=== PATIENT | female | born 1950 | race African-American/Black ===

== ENCOUNTER → 2016-06-01 | Outpatient (CLI) | payer MEDICARE, OTHER ==
--- NOTE | 2016-06-01 17:02 | US ---
EXAMINATION TYPE: US transvaginal DATE OF EXAM: 06/01/2016 4:43 PM COMPARISON: NONE CLINICAL HISTORY: Pelvic Pain R10.2. pt states intermittent midline and left lower pelvic pain TECHNIQUE: Transvaginal (TV) Date of LMP: postmenopausal pt EXAM MEASUREMENTS: Uterus: 6.9 x 3.2 x 4.0 cm Endometrial Stripe: 0.6 cm Right Ovary: not seen Left Ovary: not seen Findings: 1. Uterus: retroflexed attenuating, heterogeneous, scattered fibroids 2. Endometrium: small amount of fluid and possibly debris within the endom canal 3. Right Ovary: not seen 4. Left Ovary: not seen 5. Bilateral Adnexa: wnl 6. Posterior cul-de-sac: no free fluid seen IMPRESSION: 1. Leiomyomatous change of the uterus. 2. A small amount of fluid and debris within the endometrium.
== END | disposition home or self-care (01) ==
LOC: RADUSWWP 16:11
PROVIDERS: ATTEND Family Medicine
DX: D25.9 Leiomyoma of uterus, unspecified (principal)
CPT/HCPCS: 76830

== ENCOUNTER → 2016-08-09 | Outpatient (CLI) | payer MEDICARE, OTHER ==
[2016-08-09 16:23] LABS: Aty Lym Flag Slight; Basophils % (A) 0 %; CH 29.8; CHCM 31.9; Eosinophils # (A) 0.1 k/uL (0-0.7); Eosinophils % (A) 1 %; HDW 2.12; HGB 13.4 gm/dL (11.4-16.0); Luc # (Auto) 0.43; Luc % (Auto) 6; Lymphocytes # (A) 2.6 k/uL (1.0-4.8); Lymphocytes % (A) 35 %; MCH 29.8 pg (25.0-35.0); MCHC 31.8 g/dL (31.0-37.0); MCV 93.6 fL (80.0-100.0); Mean Platelet Volume 9.1; Monocytes # (A) 0.4 k/uL (0-1.0); Monocytes % (A) 5 %; Neutrophils % (A) 54 %; RBC 4.48 m/uL (3.80-5.40); RDW 12.9 % (11.5-15.5); WBC 7.5 k/uL (3.8-10.6)
[2016-08-09 16:28] LABS: Anion Gap 10 mmol/L; Blood Urea Nitrogen 20 mg/dL (7-17); Calcium 10.6 mg/dL (8.4-10.2); Carbon Dioxide 33 mmol/L (22-30); Chloride 98 mmol/L (98-107); Glucose 122 mg/dL (74-99); Iron 43 ug/dL (37-170); Magnesium 1.6 mg/dL (1.6-2.3); Non-African American GFR(MDRD) >60 (>60 ml/min/1.73 sqM); Phosphorous 2.9 mg/dL (2.5-4.5); Potassium 3.9 mmol/L (3.5-5.1); Sodium 141 mmol/L (137-145); Uric Acid 5.7 mg/dL (3.7-7.4)
[2016-08-09 16:30] LABS: Amorphous Sediment,Urine Rare /hpf; Appearance,Urine Clear (Clear); Bilirubin,Urine Negative (Negative); Glucose,Urine (UA) Negative (Negative); Ketones,Urine Negative (Negative); Leukocyte Esterase,Urine Small (Negative); Mucus,Urine Rare /hpf; Nitrite,Urine Negative (Negative); PH, Urine 5.5 (5.0-8.0); Particle Count 2085; Protein,Urine Negative (Negative); RBC,Urine <1 /hpf (0-5); Specific Gravity,Urine 1.007 (1.001-1.035); Squamous Epithelial Cell,Urine 3 /hpf (0-4); UA Billing (MACRO vs. MICRO) MICRO; Urobilinogen,Urine <2.0 mg/dL (<2.0); WBC,Urine 8 /hpf (0-5)
[2016-08-09 16:37] LABS: % Iron Saturation 13.4 % (20-50); Total Iron Binding Capacity 322 ug/dL (265-497)
[2016-08-09 17:03] LABS: Manual Review Performed
[2016-08-09 17:04] LABS: Target Cells Present
== END | disposition home or self-care (01) ==
LOC: LABWHC1 15:47
PROVIDERS: ATTEND Internal Medicine Nephrology
DX: D64.9 Anemia, unspecified (principal); I10 Essential (primary) hypertension; M10.9 Gout, unspecified; N39.0 Urinary tract infection, site not specified; E55.9 Vitamin D deficiency, unspecified; E83.39 Other disorders of phosphorus metabolism
CPT/HCPCS: 36415; 80048; 81001; 82306; 82728; 83540; 83550; 83735; 83970; 84100; 84550; 85025

== ENCOUNTER → 2016-08-24 | Outpatient (CLI) | payer MEDICARE, OTHER ==
[2016-08-24 14:21] LABS: Anion Gap 8 mmol/L; Blood Urea Nitrogen 24 mg/dL (7-17); Calcium 10.3 mg/dL (8.4-10.2); Carbon Dioxide 29 mmol/L (22-30); Chloride 106 mmol/L (98-107); Glucose 131 mg/dL (74-99); Non-African American GFR(MDRD) >60 (>60 ml/min/1.73 sqM); Potassium 4.1 mmol/L (3.5-5.1); Sodium 143 mmol/L (137-145)
== END | disposition home or self-care (01) ==
LOC: LABWHC1 13:53
PROVIDERS: ATTEND Nurse Practitioner Family
DX: I10 Essential (primary) hypertension (principal)
CPT/HCPCS: 36415; 80048

== ENCOUNTER → 2016-09-07 | Outpatient (CLI) | payer MEDICARE, OTHER ==
[2016-09-07 13:54] LABS: Anion Gap 9 mmol/L; Blood Urea Nitrogen 19 mg/dL (7-17); Calcium 10.4 mg/dL (8.4-10.2); Carbon Dioxide 30 mmol/L (22-30); Chloride 104 mmol/L (98-107); Glucose 121 mg/dL (74-99); Non-African American GFR(MDRD) >60 (>60 ml/min/1.73 sqM); Potassium 4.1 mmol/L (3.5-5.1); Sodium 143 mmol/L (137-145)
== END | disposition home or self-care (01) ==
LOC: LABWHC1 13:16
PROVIDERS: ATTEND Nurse Practitioner Family
DX: I10 Essential (primary) hypertension (principal)
CPT/HCPCS: 36415; 80048

== ENCOUNTER → 2016-10-19 | Outpatient (CLI) | payer MEDICARE, OTHER ==
[2016-10-19 10:21] LABS: Anion Gap 8 mmol/L; Blood Urea Nitrogen 17 mg/dL (7-17); Calcium 10.1 mg/dL (8.4-10.2); Carbon Dioxide 28 mmol/L (22-30); Chloride 106 mmol/L (98-107); Glucose 80 mg/dL (74-99); Non-African American GFR(MDRD) >60 (>60 ml/min/1.73 sqM); Sodium 142 mmol/L (137-145)
[2016-10-19 10:34] LABS: Potassium 4.7 mmol/L (3.5-5.1)
== END | disposition home or self-care (01) ==
LOC: LABWHC1 09:07
PROVIDERS: ATTEND Nurse Practitioner Family
DX: I10 Essential (primary) hypertension (principal)
CPT/HCPCS: 36415; 80048

== ENCOUNTER 2016-11-24 17:16 | Observation (INO) | payer MEDICARE, OTHER ==
[2016-11-24] MEDS ORDERED: IPRATROPIUM-ALBUTEROL 3 ML NEB INHALATION STA (18:17)
--- NOTE | 2016-11-24 18:19 | ED ---
General Adult HPI - General Chief complaint: Chest Pain Stated complaint: CHEST PAIN Time Seen by Provider: 11/24/16 17:52 Source: patient, RN notes reviewed, old records reviewed Mode of arrival: wheelchair Limitations: no limitations - History of Present Illness Initial comments: This is a 66-year-old female to the ER for evaluation. Patient's as needed for evaluation of chest pain. Patient by mouth chest pain after taking up from a nap while watching TV. This happened about 4 hours prior to arrival. Patient took Nitrostat time of the pain did resolve. The pain was leading up prior to nitro. Patient states his symptoms are more more increasingly frequent as of lately. Patient denies shortness of breath but denies doing any activity. No recent cough congestion or fever. But states she is always mildly short of breath secondary to her COPD - Related Data Home Medications Medication Instructions Recorded Confirmed Levothyroxine Sodium [Synthroid] 50 mcg PO DAILY 03/11/14 11/24/16 Albuterol Sulfate [Ventolin HFA] 2 puff INHALATION RT-QID PRN 03/12/14 11/24/16 Alendronate Sodium 1 tab PO FR 06/25/15 11/24/16 Nitroglycerin Sl Tabs [Nitrostat] 0.4 mg SL Q5M PRN 06/25/15 11/24/16 Fluticasone/Vilanterol [Breo 1 puff INHALATION RT-DAILY 11/24/16 11/24/16 Ellipta 200-25 Mcg INH] HYDROcodone/APAP 7.5-325MG [[place] 1 tab PO Q6H PRN 11/24/16 11/24/16 7.5-325] Lisinopril [Zestril] 10 mg PO DAILY 11/24/16 11/24/16 Nicotine 7Mg/24Hr Patch [Habitrol 1 patch TRANSDERM DAILY 11/24/16 11/24/16 7Mg/24Hr Patch] PARoxetine HCL [Paxil] 30 mg PO DAILY 11/24/16 11/24/16 amLODIPine [Norvasc] 10 mg PO DAILY 11/24/16 11/24/16 traMADol HCL [Ultram] 50 mg PO BID PRN 11/24/16 11/24/16 Allergies Allergy/AdvReac Type Severity Reaction Status Date / Time No Known Allergies Allergy Verified 11/24/16 18:12 Review of Systems ROS Statement: Those systems with pertinent positive or pertinent negative responses have been documented in the HPI. ROS Other: All systems not noted in ROS Statement are negative. Past Medical History Past Medical History: COPD, Hyperlipidemia, Hypertension, Respiratory Disorder, Thyroid Disorder Additional Past Medical History / Comment(s): sickle cell traits History of Any Multi-Drug Resistant Organisms: None Reported Past Surgical History: Tubal Ligation Additional Past Surgical History / Comment(s): bilateral cataracts Past Anesthesia/Blood Transfusion Reactions: No Reported Reaction Past Psychological History: No Psychological Hx Reported Smoking Status: Former smoker Past Alcohol Use History: Occasional Past Drug Use History: None Reported General Exam Limitations: no limitations General appearance: alert, in no apparent distress Head exam: Present: atraumatic, normocephalic, normal inspection Eye exam: Present: normal appearance, PERRL, EOMI. Absent: scleral icterus, conjunctival injection, periorbital swelling ENT exam: Present: normal exam, mucous membranes moist Neck exam: Present: normal inspection. Absent: tenderness, meningismus, lymphadenopathy Respiratory exam: Present: normal lung sounds bilaterally. Absent: respiratory distress, wheezes, rales, rhonchi, stridor Cardiovascular Exam: Present: regular rate, normal rhythm, normal heart sounds. Absent: systolic murmur, diastolic murmur, rubs, gallop, clicks GI/Abdominal exam: Present: soft, normal bowel sounds. Absent: distended, tenderness, guarding, rebound, rigid Extremities exam: Present: normal inspection, full ROM, normal capillary refill. Absent: tenderness, pedal edema, joint swelling, calf tenderness Back exam: Present: normal inspection Neurological exam: Present: alert, oriented X3, CN II-XII intact Psychiatric exam: Present: normal affect, normal mood Skin exam: Present: warm, dry, intact, normal color. Absent: rash Course Vital Signs 11/24/16 11/24/16 11/24/16 17:43 18:35 18:49 Temperature 98.5 F Pulse Rate 73 73 90 Respiratory 18 Rate Blood Pressure 118/71 O2 Sat by Pulse 91 L Oximetry - Reevaluation(s) Reevaluation #1: 11/24/16 19:16 Patient's pain is still coming and going EKG Findings - EKG Comments: EKG Findings:: EKG shows normal sinus rate of 91, KS 126, QRS 120, QTC 479 Medical Decision Making - Medical Decision Making 66 female to ER for evaluation. Patient is presenting today for evaluation regarding chest pain, history of chest pain chest pain is improved with nitro. Patient has history of heart disease high blood pressure smoking and drug abuse. A-shaped will be admitted for cardiac observation - Radiology Data Radiology results: report reviewed (Chest x-ray is negative for acute disease), image reviewed Critical Care Time Critical Care Time: Yes Total Critical Care Time: 31 Disposition Clinical Impression: Chest pain, Acute exacerbation of chronic obstructive airways disease Disposition: ADMITTED IP TO THIS HOSP Condition: Undetermined Instructions: Chest Pain (ED) Referrals: Abdiel Ochoa DO [Primary Care Provider] - 1-2 days
[2016-11-24] MEDS ORDERED: HEPARIN SODIUM,PORCINE 5,000 UNIT/ML 1 ML VIAL IV ONE (19:14)
[2016-11-24] MEDS ORDERED: NITROGLYCERIN SL TABS 0.4 MG TAB SUBLINGUAL PRN (19:14)
[2016-11-24] MEDS ORDERED: HEPARIN SODIUM,PORCINE 5,000 UNIT/ML 1 ML VIAL IV PRN (19:14)
[2016-11-24] MEDS ORDERED: ASPIRIN 81 MG PO STA (19:14)
[2016-11-24] MEDS ORDERED: HEPARIN SODIUM,PORCINE/D5W PMX 25,000 UNIT in DEXTROSE/WATER 1 500ML.BAG IV SCH (19:15)
[2016-11-24 20:22] LABS: Aty Lym Flag Slight; Basophils # (A) 0.1 k/uL (0-0.2); Basophils % (A) 1 %; CH 30.1; CHCM 32.7; Eosinophils # (A) 0.1 k/uL (0-0.7); Eosinophils % (A) 1 %; HCT 45.1 % (34.0-46.0); HDW 2.13; HGB 14.4 gm/dL (11.4-16.0); Luc # (Auto) 0.47; Luc % (Auto) 5; Lymphocytes # (A) 3.1 k/uL (1.0-4.8); Lymphocytes % (A) 31 %; MCH 29.4 pg (25.0-35.0); MCHC 31.8 g/dL (31.0-37.0); MCV 92.3 fL (80.0-100.0); Monocytes # (A) 0.4 k/uL (0-1.0); Monocytes % (A) 5 %; Neutrophils # (A) 5.8 k/uL (1.3-7.7); Neutrophils % (A) 58 %; RBC 4.89 m/uL (3.80-5.40); RDW 14.2 % (11.5-15.5); WBC 9.9 k/uL (3.8-10.6); WBC (Perox) 9.42
[2016-11-24 20:39] LABS: ALT 82 U/L (9-52); AST 59 U/L (14-36); Alkaline Phosphatase 66 U/L (38-126); Anion Gap 10 mmol/L; Blood Urea Nitrogen 24 mg/dL (7-17); Calcium 10.8 mg/dL (8.4-10.2); Carbon Dioxide 28 mmol/L (22-30); Chloride 104 mmol/L (98-107); Glucose 102 mg/dL (74-99); Magnesium 1.8 mg/dL (1.6-2.3); Non-African American GFR(MDRD) >60 (>60 ml/min/1.73 sqM); Potassium 4.2 mmol/L (3.5-5.1); Sodium 142 mmol/L (137-145); Total Bilirubin 0.8 mg/dL (0.2-1.3); Total Protein 7.9 g/dL (6.3-8.2)
[2016-11-24 20:45] LABS: Creatine Kinase 27 U/L (30-135)
[2016-11-24 20:58] LABS: Creatine Kinase MB <0.2 ng/mL (0.0-2.4); Troponin I <0.012 ng/mL (0.000-0.034)
--- NOTE | 2016-11-24 20:59 | XR ---
EXAMINATION TYPE: XR chest 2V DATE OF EXAM: 11/24/2016 COMPARISON: 06/25/2015 HISTORY: Shortness of breath TECHNIQUE: Frontal and lateral views of the chest are obtained. FINDINGS: Scattered senescent parenchymal changes noted. Hyperinflation compatible with COPD. No evidence for infiltrate. No evidence for atelectasis. 1.1 cm pulmonary nodule right mid lung zone. CT correlation is advised which can be performed on a no nemergent basis. Heart size is stable. Mediastinal structures are stable and grossly unremarkable. Rowe thoracic aorta. No evidence for hilar prominence. Degenerative changes dorsal spine. IMPRESSION: 1. No evidence for acute pulmonary disease. 2. 1.1 cm pulmonary nodule right mid lung zone. CT correlation is advised which can be performed on a nonemergent basis.
[2016-11-24 21:18] LABS: Prothrombin Time 10.5 sec (9.0-12.0)
[2016-11-24 21:23] LABS: Partial Thromboplastin Time 20.3 sec (22.0-30.0)
[2016-11-24 23:18] VITALS: BMI 27.8
[2016-11-24] MEDS: MORPHINE SULFATE 4 MG/ML SYRINGE IV PRN (23:34)
[2016-11-25 03:35] LABS: Creatine Kinase 26 U/L (30-135)
[2016-11-25 03:49] LABS: Creatine Kinase MB 0.2 ng/mL (0.0-2.4); Troponin I <0.012 ng/mL (0.000-0.034)
[2016-11-25 04:08] LABS: Cholesterol 116 mg/dL (<200); HDL Cholesterol 47 mg/dL (40-60)
[2016-11-25] MEDS: MORPHINE SULFATE 4 MG/ML SYRINGE IV PRN (05:47)
[2016-11-25 06:10] LABS: Mean Platelet Volume 9.2
[2016-11-25 07:27] VITALS: RESP 16
[2016-11-25] MEDS: IPRATROPIUM-ALBUTEROL 3 ML NEB INHALATION PRN ×2 (08:18→11:40)
[2016-11-25] MEDS ORDERED: traMADol 50 MG TAB PO PRN (08:26)
[2016-11-25] MEDS ORDERED: HYDROcodone/APAP 7.5-325MG 1 EACH TAB PO PRN (08:26)
[2016-11-25] MEDS ORDERED: NITROGLYCERIN SL TABS 0.4 MG TAB SUBLINGUAL PRN (08:26)
[2016-11-25] MEDS ORDERED: ALENDRONATE SODIUM PO SCH (08:30)
[2016-11-25] MEDS ORDERED: LEVOTHYROXINE 50 MCG TAB PO SCH (08:30)
[2016-11-25] MEDS ORDERED: LISINOPRIL 10 MG TAB PO SCH (09:00)
[2016-11-25] MEDS ORDERED: amLODIPine 10 MG TAB PO SCH (09:00)
[2016-11-25] MEDS ORDERED: PARoxetine 10 MG TAB PO SCH (09:00)
[2016-11-25] MEDS ORDERED: NICOTINE 7MG/24HR PATCH TRANSDERM SCH (09:00)
[2016-11-25] MEDS ORDERED: ASPIRIN 325 MG TAB PO SCH (09:00)
[2016-11-25 10:08] LABS: Creatine Kinase 32 U/L (30-135)
[2016-11-25 10:20] LABS: Creatine Kinase MB 0.5 ng/mL (0.0-2.4); Troponin I <0.012 ng/mL (0.000-0.034)
--- NOTE | 2016-11-25 10:50 | P.CRDCN ---
History of Present Illness Consult date: 11/25/16 Chief complaint: Chest pain History of present illness: This is a 66-year-old female with history of COPD, hypertension, hyperlipidemia and hypothyroidism who follows with Dr. Horan regularly. Patient had a dobutamine echocardiogram in June of this year which was negative for ischemia. Patient came to the hospital this time with complaints of recurrent chest pains which are happening at rest while watching TV. It's in upper and mid chest area and apparently was relieved some with sublingual nitroglycerin. Patient does have significant tenderness in that area. Her cardiac enzymes are negative. Her EKGs are normal. Given the fact that she had a negative dobutamine echo recently and has atypical features for the pain, no further testing is suggested at this time. Patient could be discharged home. She'll have follow-up with the Dr. Kyle in a week time as an outpatient Past Medical History Past Medical History: COPD, Hyperlipidemia, Hypertension, Respiratory Disorder, Thyroid Disorder Additional Past Medical History / Comment(s): sickle cell traits History of Any Multi-Drug Resistant Organisms: None Reported Past Surgical History: Tubal Ligation Additional Past Surgical History / Comment(s): bilateral cataracts Past Anesthesia/Blood Transfusion Reactions: No Reported Reaction Past Psychological History: No Psychological Hx Reported Smoking Status: Former smoker Past Alcohol Use History: Occasional Past Drug Use History: None Reported Medications and Allergies Home Medications Medication Instructions Recorded Confirmed Type Levothyroxine Sodium [Synthroid] 50 mcg PO DAILY 03/11/14 11/24/16 History Albuterol Sulfate [Ventolin HFA] 2 puff INHALATION RT-QID PRN 03/12/14 11/24/16 History Alendronate Sodium 1 tab PO FR 06/25/15 11/24/16 History Nitroglycerin Sl Tabs [Nitrostat] 0.4 mg SL Q5M PRN 06/25/15 11/24/16 History Fluticasone/Vilanterol [Breo 1 puff INHALATION RT-DAILY 11/24/16 11/24/16 History Ellipta 200-25 Mcg INH] HYDROcodone/APAP 7.5-325MG [[place] 1 tab PO Q6H PRN 11/24/16 11/24/16 History 7.5-325] Lisinopril [Zestril] 10 mg PO DAILY 11/24/16 11/24/16 History Nicotine 7Mg/24Hr Patch [Habitrol 1 patch TRANSDERM DAILY 11/24/16 11/24/16 History 7Mg/24Hr Patch] PARoxetine HCL [Paxil] 30 mg PO DAILY 11/24/16 11/24/16 History amLODIPine [Norvasc] 10 mg PO DAILY 11/24/16 11/24/16 History traMADol HCL [Ultram] 50 mg PO BID PRN 11/24/16 11/24/16 History Allergies Allergy/AdvReac Type Severity Reaction Status Date / Time No Known Allergies Allergy Verified 11/24/16 18:12 Physical Exam Vitals: Vital Signs Temp Pulse Pulse Resp BP BP Pulse Ox 11/25/16 08:29 76 11/25/16 08:19 77 11/25/16 07:26 99 F 74 16 110/72 95 11/25/16 04:26 98.1 F 73 18 111/73 95 11/25/16 04:00 72 18 11/25/16 00:04 98.1 F 89 18 119/77 95 11/25/16 00:00 73 18 11/24/16 21:38 96 20 129/84 97 11/24/16 20:23 103 H 20 125/65 93 L 11/24/16 18:49 90 11/24/16 18:35 73 11/24/16 17:43 98.5 F 73 18 118/71 91 L Intake and Output 11/24/16 11/25/16 11/25/16 22:59 06:59 14:59 Intake Total 126.168 Balance 126.168 Intake: Intake, IV Titration 126.168 Amount Heparin Sodium,Porcine/ 126.168 D5w Pmx 25,000 unit In Dextrose/Water 1 500ml. bag @ 12 UNITS/KG/HR 15. 02 mls/hr IV .Q24H [facility] Rx #:[id number] Other: Voiding Method Toilet Weight 62.596 kg 62.596 kg GENERAL EXAM: Patient is alert and oriented and doesn't appear to be in any acute distress HEENT: Normocephalic. Normal reaction of pupils, equal size, normal range of extraocular motion. No erythema or exudates in the throat. NECK: No masses, no nuchal rigidity. CHEST: No chest wall deformity. There is tenderness in the upper chest area LUNGS: Equal air entry with no crackles or wheeze. HEART: S1 and S2 normal with no audible mumurs or gallops. Regular rhythm, femorals equal on both sides.. ABDOMEN: No hepatosplenomegaly, normal bowel sounds, no guarding or rigidity. SKIN: No rashes CENTRAL NERVOUS SYSTEM: No focal deficits. EXTREMITIES: No cyanosis, clubbing or edema. Results 11/25/16 05:25 11/24/16 20:05 Cardiac Enzymes 11/24/16 11/24/16 11/25/16 Range/Units 20:05 20:05 02:35 AST 59 H (14-36) U/L CK-MB (CK-2) <0.2 0.2 (0.0-2.4) ng/mL Troponin I <0.012 <0.012 (0.000-0.034) ng/mL 11/25/16 Range/Units 08:41 AST (14-36) U/L CK-MB (CK-2) 0.5 (0.0-2.4) ng/mL Troponin I <0.012 (0.000-0.034) ng/mL Coagulation 11/24/16 11/25/16 Range/Units 20:05 05:25 PT 10.5 (9.0-12.0) sec APTT 20.3 L 37.6 H (22.0-30.0) sec Lipids 11/25/16 Range/Units 02:35 Triglycerides 93 (<150) mg/dL Cholesterol 116 (<200) mg/dL HDL Cholesterol 47 (40-60) mg/dL CBC 11/24/16 11/25/16 Range/Units 20:05 05:25 WBC 9.9 (3.8-10.6) k/uL RBC 4.89 (3.80-5.40) m/uL Hgb 14.4 (11.4-16.0) gm/dL Hct 45.1 (34.0-46.0) % Plt Count 196 149 L (150-450) k/uL Comprehensive Metabolic Panel 11/24/16 Range/Units 20:05 Sodium 142 (137-145) mmol/L Potassium 4.2 (3.5-5.1) mmol/L Chloride 104 (98-107) mmol/L Carbon Dioxide 28 (22-30) mmol/L BUN 24 H (7-17) mg/dL Creatinine 0.90 (0.52-1.04) mg/dL Glucose 102 H (74-99) mg/dL Calcium 10.8 H (8.4-10.2) mg/dL AST 59 H (14-36) U/L ALT 82 H (9-52) U/L Alkaline Phosphatase 66 (38-126) U/L Total Protein 7.9 (6.3-8.2) g/dL Albumin 4.2 (3.5-5.0) g/dL Current Medications Generic Name Dose Route Start Last Admin Trade Name Freq PRN Reason Stop Dose Admin Hydrocodone Bitart/Acetaminophen 1 each 11/25/16 08:26 [place] 7.5-325 PO Q6H PRN Moderate Pain Albuterol/Ipratropium 3 ml 11/24/16 19:15 11/25/16 08:18 Duoneb 0.5 Mg-3 Mg/3 Ml Soln INHALATION 3 ml RT-QID PRN Administration Shortness Of Breath Or Wheezing Amlodipine Besylate 10 mg 11/25/16 09:00 Norvasc PO DAILY [facility] Aspirin 325 mg 11/25/16 09:00 11/25/16 10:16 Aspirin PO 325 mg DAILY [facility] Administration Heparin Sodium (Porcine) 0 unit 11/24/16 19:14 Heparin IV Q6HR PRN Low PTT Protocol Heparin Sodium/Dextrose 25,000 500 mls @ 15.02 mls/hr 11/24/16 19:15 06:43 unit/ IV Solution IV 14.87 units/kg/hr .Q24H [facility] 18.62 mls/hr Protocol Titration 12 UNITS/KG/HR Levothyroxine Sodium 50 mcg 11/25/16 08:30 11/25/16 10:15 Synthroid PO 50 mcg 0630 [facility] Administration Lisinopril 10 mg 11/25/16 09:00 Zestril PO DAILY [facility] Morphine Sulfate 4 mg 11/24/16 19:14 11/25/16 05:47 Morphine Sulfate (Inj) IV 4 mg Q5M PRN Administration Chest Pain Nicotine 1 patch 11/25/16 09:00 11/25/16 10:16 Habitrol 7mg/24hr Patch TRANSDERM 1 patch DAILY [facility] Administration Nitroglycerin 0.4 mg 11/25/16 08:26 Nitrostat SUBLINGUAL Q5M PRN Chest Pain Paroxetine HCl 30 mg 11/25/16 09:00 11/25/16 10:15 Paxil PO 30 mg DAILY [facility] Administration Tramadol HCl 50 mg 11/25/16 08:26 Ultram PO BID PRN Mild to Moderate Pain Intake and Output 11/24/16 11/25/16 11/25/16 22:59 06:59 14:59 Intake Total 126.168 Balance 126.168 Intake: Intake, IV Titration 126.168 Amount Heparin Sodium,Porcine/ 126.168 D5w Pmx 25,000 unit In Dextrose/Water 1 500ml. bag @ 12 UNITS/KG/HR 15. 02 mls/hr IV .Q24H [facility] Rx #:[id number] Other: Voiding Method Toilet Weight 62.596 kg 62.596 kg 11/25/16 05:25 11/24/16 20:05 EKG Interpretations (text) Sinus rhythm Assessment and Plan (1) Hypertension Status: Acute (2) Acute exacerbation of chronic obstructive airways disease Status: Acute (3) Chest pain Status: Acute (4) Carpal tunnel syndrome Status: Acute (5) Hypercholesterolemia Status: Acute Plan: This patient chest pains appear atypical. Cardiac enzymes and EKGs are negative. Recent dobutamine echo in June was negative. Patient could be discharged home. Follow-up with Dr. Kyle
[2016-11-25 11:53] VITALS: BP 153/65; TEMP 96
[2016-11-25 12:00] VITALS: PULSE 76
--- NOTE | 2016-11-25 14:46 | P.HPIM ---
History of Present Illness H&P Date: 11/25/16 Chief Complaint: Chest pain History of present complaint: This is a 66-year-old patient of Dr. Ochoa presented with chest pain. Patient chronic stable medical conditions include COPD, thoracic aortic aneurysm 3.5 cm, hypertension, hyperlipidemia, hypothyroid, sickle cell trait, anxiety. Patient is sitting watching TV when she developed left anterior chest wall pain sharp in nature lasting for 15-20 minutes. Token nitroglycerin with some help. There is no sweating, no perspiration, no radiation, no dizziness,. Patient did had a stress test in June of this year that was negative. GEN.: None EYES: None HEENT: None NECK: None RESPIRATORY: None CARDIOVASCULAR: As above GASTROINTESTINAL: None GENITOURINARY: None MUSCULOSKELETAL: As above LYMPHATICS: None HEMATOLOGICAL: None PSYCHIATRY: Anxiety] NEUROLOGICAL: None Past medical history: COPD, thoracic aortic aneurysm 3.5 cm, hypertension, hyperlipidemia, hypothyroid , sickle cell trait, anxiety. Past surgical history: Tube ligation, bilateral Social history: Smoker pack and a half for many years. Stopped 3 weeks ago. Denies alcohol intake Family history: Reviewed noncontributory presentation VITAL SIGNS: 99, sitting 4, 16, 110/72, 95% room air GENERAL: Average built, sitting up, comfortable. EYES: Pupils equal. Conjunctiva normal. HEENT: External appearance of nose and ears normal, oral cavity grossly normal. NECK: JVD not raised; masses not palpable. HEART: First and second heart sounds are normal; no edema. LUNGS: Respiratory rate normal; decreased breath sounds. ABDOMEN: Soft, nontender, liver spleen not palpable, no masses palpable. LYMPHATICS: No lymph nodes palpable in the axilla and neck. PSYCH: Alert and oriented x3; mood and affect normal. NEUROLOGICAL: Cranial nerves grossly intact; no facial asymmetry, power and sensation grossly intact. Investigations: Troponin 3 negative EKG-right bundle-branch block Chest x-ray-right midlung 1.1 cm pulmonary nodule Assessment: -Non-cardiac sounding presentation probably more musculoskeletal given the sharp nature. Cardio was consulted. Cardiac enzymes ordered. -COPD in ex-smoker Chronic nicotine dependence patient is smoker -Thoracic aortic aneurysm 3.5 cm -Hypertension -Hyperlipidemia -Hypothyroid -Sickle cell trait -Anxiety not otherwise specified Plan: Cardiology was consulted. Patient on IV heparin aspirin home medications resumed. Care was discussed with the patient. Past Medical History Past Medical History: COPD, Hyperlipidemia, Hypertension, Respiratory Disorder, Thyroid Disorder Additional Past Medical History / Comment(s): sickle cell traits History of Any Multi-Drug Resistant Organisms: None Reported Past Surgical History: Tubal Ligation Additional Past Surgical History / Comment(s): bilateral cataracts Past Anesthesia/Blood Transfusion Reactions: No Reported Reaction Past Psychological History: No Psychological Hx Reported Smoking Status: Former smoker Past Alcohol Use History: Occasional Past Drug Use History: None Reported Medications and Allergies Home Medications Medication Instructions Recorded Confirmed Type Levothyroxine Sodium [Synthroid] 50 mcg PO DAILY 03/11/14 11/24/16 History Albuterol Sulfate [Ventolin HFA] 2 puff INHALATION RT-QID PRN 03/12/14 11/24/16 History Alendronate Sodium 1 tab PO FR 06/25/15 11/24/16 History Nitroglycerin Sl Tabs [Nitrostat] 0.4 mg SL Q5M PRN 06/25/15 11/24/16 History Fluticasone/Vilanterol [Breo 1 puff INHALATION RT-DAILY 11/24/16 11/24/16 History Ellipta 200-25 Mcg INH] HYDROcodone/APAP 7.5-325MG [[place] 1 tab PO Q6H PRN 11/24/16 11/24/16 History 7.5-325] Lisinopril [Zestril] 10 mg PO DAILY 11/24/16 11/24/16 History Nicotine 7Mg/24Hr Patch [Habitrol 1 patch TRANSDERM DAILY 11/24/16 11/24/16 History 7Mg/24Hr Patch] PARoxetine HCL [Paxil] 30 mg PO DAILY 11/24/16 11/24/16 History amLODIPine [Norvasc] 10 mg PO DAILY 11/24/16 11/24/16 History traMADol HCL [Ultram] 50 mg PO BID PRN 11/24/16 11/24/16 History Allergies Allergy/AdvReac Type Severity Reaction Status Date / Time No Known Allergies Allergy Verified 11/24/16 18:12 Results CBC & Chem 7: 11/25/16 05:25 11/24/16 20:05
--- NOTE | 2016-11-25 14:53 | P.DS ---
Providers Date of admission: 11/24/16 19:16 Expected date of discharge: 11/25/16 Attending physician: Jweel Jacob Consults: 11/24/16 19:14 Consult Physician Urgent Consulting Provider: Robbi Black Consult Reason/Comments: cp Do you want consulting provider notified?: Yes Primary care physician: Abdiel [place] Hospital Course: Final diagnoses: -Left anterior chest wall pain Non-cardiac sounding presentation probably more musculoskeletal given the sharp nature. -COPD in the smoker Chronic nicotine dependence patient is smoker -Thoracic aortic aneurysm 3.5 cm -Hypertension -Hyperlipidemia -Hypothyroid -Sickle cell trait -Anxiety not otherwise specified Hospital course: This patient presented with left anterior chest wall pain sharp in nature noncutting sounding. Troponins were negative. Patient's stress test in June of this year was negative. Seen by cardiology, cady to be discharged. On exam: Lungs-sided decreased breath sounds, cardio vascular first seconds are normal consultation: dr. caraballo from cardiology Plan - Discharge Summary New Discharge Prescriptions: New Aspirin 81 mg PO DAILY #1 chewable Continue Levothyroxine Sodium [Synthroid] 50 mcg PO DAILY Albuterol Sulfate [Ventolin HFA] 2 puff INHALATION RT-QID PRN PRN Reason: Wheezing Nitroglycerin Sl Tabs [Nitrostat] 0.4 mg SL Q5M PRN PRN Reason: Chest Pain Alendronate Sodium 1 tab PO FR amLODIPine [Norvasc] 10 mg PO DAILY HYDROcodone/APAP 7.5-325MG [[place] 7.5-325] 1 tab PO Q6H PRN PRN Reason: Pain Fluticasone/Vilanterol [Breo Ellipta 200-25 Mcg INH] 1 puff INHALATION RT- DAILY traMADol HCL [Ultram] 50 mg PO BID PRN PRN Reason: Pain Lisinopril [Zestril] 10 mg PO DAILY PARoxetine HCL [Paxil] 30 mg PO DAILY Nicotine 7Mg/24Hr Patch [Habitrol] 1 patch TRANSDERM DAILY Discharge Medication List Levothyroxine Sodium [Synthroid] 50 mcg PO DAILY 03/11/14 [History] Albuterol Sulfate [Ventolin HFA] 2 puff INHALATION RT-QID PRN 03/12/14 [History] Alendronate Sodium 1 tab PO FR 06/25/15 [History] Nitroglycerin Sl Tabs [Nitrostat] 0.4 mg SL Q5M PRN 06/25/15 [History] Fluticasone/Vilanterol [Breo Ellipta 200-25 Mcg INH] 1 puff INHALATION RT-DAILY 11/24/16 [History] HYDROcodone/APAP 7.5-325MG [[place] 7.5-325] 1 tab PO Q6H PRN 11/24/16 [History] Lisinopril [Zestril] 10 mg PO DAILY 11/24/16 [History] Nicotine 7Mg/24Hr Patch [Habitrol] 1 patch TRANSDERM DAILY 11/24/16 [History] PARoxetine HCL [Paxil] 30 mg PO DAILY 11/24/16 [History] amLODIPine [Norvasc] 10 mg PO DAILY 11/24/16 [History] traMADol HCL [Ultram] 50 mg PO BID PRN 11/24/16 [History] Aspirin 81 mg PO DAILY #1 chewable 11/25/16 [Rx] Follow up Appointment(s)/Referral(s): Abdiel Ochoa DO [Primary Care Provider] - 3 Days Bubba Caraballo MD [STAFF PHYSICIAN] - 1 Week Patient Instructions/Handouts: Chest Pain (ED)
== END 2016-11-25 15:50 | disposition home or self-care (01) ==
LOC: EC 17:16 → 3OBS 19:16
PROVIDERS: ADMIT Hospitalist; ATTEND Hospitalist
DX: R07.89 Other chest pain (principal); J44.1 Chronic obstructive pulmonary disease with (acute) exacerbation; F17.200 Nicotine dependence, unspecified, uncomplicated; I71.2 Thoracic aortic aneurysm, without rupture; I10 Essential (primary) hypertension; E03.9 Hypothyroidism, unspecified; F41.9 Anxiety disorder, unspecified; D57.3 Sickle-cell trait; E78.00 Pure hypercholesterolemia, unspecified; G56.00 Carpal tunnel syndrome, unspecified upper limb; Z79.891 Long term (current) use of opiate analgesic; Z79.51 Long term (current) use of inhaled steroids; Z79.899 Other long term (current) drug therapy
CPT/HCPCS: 99291; 96376 ×3; 96365 ×2; 96366 ×2; 96375; 94640 ×3; 93005; 83880; 80061; 80053; 82550 ×2; 82553 ×2; 83735; 84484 ×2; 85025; 85049; 85610; 85730 ×2; 71020; G0378 ×2; S4990; J2270 ×2; J1644 ×2

== ENCOUNTER → 2017-03-20 | Outpatient (CLI) | payer MEDICARE, OTHER ==
[2017-03-20 16:43] LABS: Blood Urea Nitrogen 23 mg/dL (7-17); Non-African American GFR(MDRD) >60 (>60 ml/min/1.73 sqM)
--- NOTE | 2017-03-21 09:26 | CT ---
EXAMINATION TYPE: CT pelvis wo con DATE OF EXAM: 03/20/2017 COMPARISON: NONE HISTORY: Lower pelvic pain. CT DLP: 213.3 mGycm Automated exposure control for dose reduction was used. TECHNIQUE: Axial images 5 mm thick sections. Reconstructed images: Sagittal plane. Study is without c ontrast. FINDINGS: The appendix is normal. Diverticular changes are within the distal descending colon and proximal sigm oid colon. Uterus contains a dense calcification likely a calcified fibroid. Adnexal regions are brigitte r. Urinary bladder is unremarkable. Inguinal regions appear normal. The osseous structures appear int act. Femoral heads articulate with the acetabulum. No acute fractures are evident. Sacroiliac joints and vacuum phenomenon. Some mild facet hypertrophy is present. No fluid is evident. IMPRESSION: UNREMARKABLE NONCONTRAST CT PELVIS
--- NOTE | 2017-03-21 10:04 | CT ---
CT CHEST FOR PULMONARY EMBOLISM. EXAMINATION TYPE: CT angio chest DATE OF EXAM: 03/20/2017 INDICATION: Thoracic aneurysm. CT DLP: 429.5 mGycm, Automated exposure control for dose reduction was used. CONTRAST: Patient injected with 100 mL of Omnipaque 350. COMPARISON: 06/25/2015, 03/11/2014 TECHNIQUE: CT of the chest is performed on a spiral scan at 2 mm thick sections. Study is performed with intravenous contrast timed for evaluation for pulmonary embolism. This will limit additional po rtions of the evaluation. 3-D MIP images reconstructed by the technologist are reviewed on the compu ter in the coronal and sagittal planes. Three-D reconstructed images performed on a separate computer by the technologist are reviewed. FINDINGS: No persistent filling defects are evident to suggest an acute pulmonary embolism. There is a 1.6 cm nodule within the right middle lobe. This has increased in size over the interval. Workup for neoplasm is recommended. PET/CT could be performed. No mediastinal or hilar adenopathy enlarged by CT criteria is evident. There is a 0.9 cm left axilla ry lymph node present. Additional smaller left axillary lymph nodes are present. The ascending aorta diameter at the level of the main pulmonary artery is 3.7 cm. The main pulmonary artery diameter at the bifurcation is 2.5 cm. There is a normal three-vessel arch. Lung windows are clear. Limited CT sections are obtained through the upper abdomen. There is some mild fullness of the left a drenal gland. IMPRESSIONS: 1. No acute pulmonary embolism. 2. Enlarging 1.6 cm nodule right middle lobe. Workup for neoplasm is recommended.
== END | disposition home or self-care (01) ==
LOC: RADCTMAIN 15:53
PROVIDERS: ATTEND Family Medicine
DX: R91.1 Solitary pulmonary nodule (principal); R10.2 Pelvic and perineal pain
CPT/HCPCS: 82565; 84520; 72192; 71275; 36415; Q9967

== ENCOUNTER → 2017-04-15 | Outpatient (CLI) | payer MEDICARE, OTHER ==
--- NOTE | 2017-04-18 10:01 | PE ---
Nuclear medicine PET/CT HISTORY: Solitary pulmonary nodule, R 91.1, initial Patient received 12.9 mCi F-18 FDG intravenously in delayed scanning was performed from skull base to the mid thighs. Localization and attenuation correction CT scan was performed. Correlation to prior chest CT 03/10/2017, 06/25/2015 Neck and chest: Enlarging right middle lobe pulmonary nodule is present and measures approximately 15 mm in greatest dimension. SUV only 1.7. There is no pleural or pericardial effusion. Ascending aorta is borderline dilated. Descending aorta measures approximately 3.8 cm proximally. No axillary, media stinal, or hilar adenopathy. The palatine tonsil on the left shows increased hypermetabolic uptake, SUV is 4. Abdomen pelvis: No evident adrenal or lung mass. No evident ascites. Uptake along the right colon ma y be physiologic. Diverticular changes associated with the descending colon. Uptake along the left la teral vaginal wall shows an SUV of approximately 5, there may be local inflammatory change, correlate with pelvic exam. Osseous structures are not significantly changed. Degenerative disc changes are present. IMPRESSION: Enlarging right middle lobe lung mass. Colonic activity may be physiologic, consider jules l screening if this has not been performed. Indeterminate asymmetric palatine tonsil hypermetabolic u ptake, difficult to exclude underlying soft tissue mass. Findings in the vaginal canal as described.
== END | disposition home or self-care (01) ==
LOC: RADPETMAIN 08:06
PROVIDERS: ATTEND Internal Medicine Critical Care Medicine
DX: R91.1 Solitary pulmonary nodule (principal)
CPT/HCPCS: 78815; A9552

== ENCOUNTER → 2017-07-03 | Outpatient (CLI) | payer MEDICARE, OTHER ==
[2017-07-03 15:27] LABS: Blood Urea Nitrogen 29 mg/dL (7-17)
--- NOTE | 2017-07-03 16:37 | CT ---
EXAMINATION TYPE: CT chest w con DATE OF EXAM: 07/03/2017 COMPARISON: PET/CT dated 04/15/2017 HISTORY: Solitary Pulmonary Nodule CT DLP: 559 mGycm. Automated Exposure Control for Dose Reduction was Utilized. TECHNIQUE: CT scan of the thorax is performed following with IV Contrast, patient injected with 100m l mL of Isovue M300. FINDINGS: LUNGS: There is a lobulated right middle lobe 1.6 x 1.5 cm pulmonary nodule, with enlargement in comp arison to the exam of 03/21/2014 where this measured approximately 4 mm and enlargement from the exam of 06/25/2015 where again this measured approximately 5 mm. Interval growth is concerning for slow-gr owing neoplasm despite the low FDG avidity on the prior PET/CT of 04/15/2017 (SUV of 1.7). New groundg lass nodule within the right lower lobe on series 4 image 32 measures 5 mm. No new focal consolidatio n is seen. There is no pleural effusion or pneumothorax seen. The tracheobronchial tree is patent. MEDIASTINUM: There are no greater than 1 cm hilar or mediastinal lymph nodes. There is a prominent s ubcarinal lymph node measuring 1 cm in short axis. No pericardial effusion is seen. OTHER: Small diaphragmatic rent is seen on the right on series 3 image 48. There is a hypoattenuated right hepatic lobe lesion measuring 2.3 cm that is more conspicuous than on the prior exam. Second po ssible 4 mm hepatic lesion is seen on series 3 image 51. Additionally there is a focal area of arteri al enhancement in a subcapsular location measuring 8 mm on series 3 image 44 within the liver. Again there is fullness of the left adrenal gland although this maintains a adreniform shape and therefore adrenal gland hyperplasia is suspected. IMPRESSION: 1. Enlargement of the right middle lobe pulmonary nodule that despite its low SUV (FDG avidity) on th e recent PET/CT is concerning for slow-growing neoplasm given the interval growth. Considerations are for primary pulmonary neoplasm, however given the hepatic lesion and colonic uptake on the prior PET /CT colon carcinoma as an additional consideration. Colonoscopy is recommended if not recently perfor med. Consideration could also be given to percutaneous biopsy of the liver or lung mass. 2. New 5 mm groundglass right lower lobe pulmonary nodule. 3. Prominent but nonenlarged solitary subcarinal lymph node.
== END | disposition home or self-care (01) ==
LOC: RADCTMAIN 14:25
PROVIDERS: ATTEND Internal Medicine Critical Care Medicine
DX: R91.8 Other nonspecific abnormal finding of lung field (principal)
CPT/HCPCS: 82565; 84520; 71260; 36415; Q9967

== ENCOUNTER 2017-08-02 09:21 | Day surgery (SDC) | payer MEDICARE, OTHER ==
[2017-07-27 15:47] VITALS: BMI 28.3
[~2017-08-02 09:21] MED LIST: ALBUTEROL NEB (CONC) 2.5 MG/0.5 ML INHALATION ONE; ATROPINE SULFATE 0.4 MG/ML 1 ML VIAL IM ONE; DEXAMETHASONE SOD PHOSPHATE 10 MG/ML 1 ML VIAL IV ONE; LACTATED RINGERS 1,000 ML IV ONE; LACTATED RINGERS 1,000 ML IV SCH; LIDOCAINE 1% 20 ML VIAL (10MG/ML) FOR IV START INTRADERMA PRN; LIDOCAINE 2% (PF) 20 MG/ML 2 ML AMP INHALATION ONE; MORPHINE SULFATE 2 MG/ML SYRINGE IV PRN; ONDANSETRON ODT 4 MG TAB PO ONE; Pre Op ABX Message 1 EACH MISC MISCELLANE ONE
[2017-08-02 10:11] VITALS: TEMP 97.5
--- NOTE | 2017-08-02 12:12 | CT ---
EXAMINATION TYPE: CT Chest jairo Leyva Protocol DATE OF EXAM: 08/02/2017 COMPARISON: 07/03/2017 HISTORY: Pre surgical scan CT DLP: [address] of the chest was performed with lung and mediastinal window settings submitted. The la ck of contrast limits evaluation of the vascular, mediastinal and parenchymal structures including th e upper abdomen. LUNGS: Lobulated pulmonary nodule right upper lobe measuring 1.7 cm. Nodule is unchanged. No addition al nodules seen. MEDIASTINUM/DANK: Thoracic aorta is of normal caliber with limited evaluation given lack of contrast . The heart is mildly enlarged. No evidence for mediastinal mass. No lymph nodes greater than 1cm . UPPER ABDOMEN: Small hiatal hernia noted. OTHER: No significant other abnormality. IMPRESSION: 1. Stable lobulated pulmonary nodule right upper lobe.
[2017-08-02 12:35] LABS: Glucose,Whole Blood 142 mg/dL (75-99)
[2017-08-02] MEDS ORDERED: fentaNYL (PF) 50 MCG/ML 2 ML AMP ONE (13:13)
[2017-08-02] MEDS ORDERED: KETAMINE 10 MG/ML 20 ML VIAL ONE (13:13)
[2017-08-02] MEDS ORDERED: GLYCOPYRROLATE 0.2 MG/ML 2 ML VIAL ONE (13:13)
[2017-08-02] MEDS ORDERED: ROCURONIUM BROMIDE 10 MG/ML 10 ML VIAL IV ONE (13:13)
[2017-08-02] MEDS ORDERED: LIDOCAINE 1% INJ 10MG/ML (20 ML MDV) ONE (13:13)
[2017-08-02] MEDS ORDERED: SUCCINYLCHOLINE CHLORIDE 100 MG/5 ML SYR IV ONE (13:13)
[2017-08-02] MEDS ORDERED: MIDAZOLAM 2 MG/2 ML VIAL ONE (13:13)
[2017-08-02] MEDS ORDERED: NEOSTIGMINE 1 MG/ML 10 ML VIAL ONE (13:13)
[2017-08-02] MEDS ORDERED: PROPOFOL 10 MG/ML 20 ML VIAL IV ONE (13:13)
--- NOTE | 2017-08-02 14:35 | PCN ---
PROCEDURE NOTE NAVIGATIONAL BRONCHOSCOPY: PREOPERATIVE DIAGNOSIS: Right middle lobe lesion, rule out cancer. POSTOPERATIVE DIAGNOSIS: Right middle lobe lesion, rule out cancer. OPERATORS: 1. Dr. Grossman. 2. Dr. Hernandez. The patient was done in the [facility] on the OR side, room #2. It was a navigational bronchoscopy. There was informed consent and universal timeout. Anesthesia provided unconscious sedation and general anesthesia. Despite our best attempts at mapping the lesion prior to the procedure, we had a very difficult time locating the lesion with navigational bronchoscopy. The bronchoscope was inserted through the bronchoscope adapter, connected to the endotracheal tube. We worked primarily in the right upper lobe and right middle lobe. Initially it appeared the lesion was in the right middle lobe. Although we seemed to get closer to the lesion working in the right upper lobe. We cannot get close enough to the lesion to do any biopsies. We kept on being directed in the in the direction that was not consistent where the lesion was. Rather than doing blind biopsies or making a mistake of going through the fissure, the case was aborted. No samples were taken. The patient will be recovered. I will talk to the family. I will have to attempt something different. The patient's lung function is marginal and the patient could be a candidate for a lobectomy. Will wait and see what the colonoscopy shows and will go from there. MMODL / IJN: [id number] /
[2017-08-02 15:00] VITALS: RESP 18
[2017-08-02 15:55] VITALS: BP 129/79; PULSE 65
== END 2017-08-02 16:39 | disposition home or self-care (01) ==
LOC: ORWHC2ENDO 09:21
PROVIDERS: ATTEND Internal Medicine Critical Care Medicine
DX: R91.8 Other nonspecific abnormal finding of lung field (principal); R91.1 Solitary pulmonary nodule; J44.9 Chronic obstructive pulmonary disease, unspecified; R25.1 Tremor, unspecified; M25.569 Pain in unspecified knee; I25.10 Atherosclerotic heart disease of native coronary artery without angina pectoris; D57.3 Sickle-cell trait; E55.9 Vitamin D deficiency, unspecified; B18.2 Chronic viral hepatitis C; E03.9 Hypothyroidism, unspecified; I10 Essential (primary) hypertension; M19.90 Unspecified osteoarthritis, unspecified site; G47.00 Insomnia, unspecified; E11.9 Type 2 diabetes mellitus without complications; Z87.891 Personal history of nicotine dependence; Z79.890 Hormone replacement therapy; Z79.891 Long term (current) use of opiate analgesic; Z79.899 Other long term (current) drug therapy; Z98.51 Tubal ligation status
CPT/HCPCS: 71250; 31627; 31622; J2250; J2710; J2001; J3010; J0330; J2704

== ENCOUNTER 2017-08-09 07:41 | Day surgery (SDC) | payer MEDICARE, OTHER ==
[2017-08-08 08:52] VITALS: BMI 29.2
[~2017-08-09 07:41] MED LIST changes: -ALBUTEROL NEB (CONC) 2.5 MG/0.5 ML INHALATION ONE; -ATROPINE SULFATE 0.4 MG/ML 1 ML VIAL IM ONE; -DEXAMETHASONE SOD PHOSPHATE 10 MG/ML 1 ML VIAL IV ONE; -LACTATED RINGERS 1,000 ML IV ONE; -LIDOCAINE 1% 20 ML VIAL (10MG/ML) FOR IV START INTRADERMA PRN; -LIDOCAINE 2% (PF) 20 MG/ML 2 ML AMP INHALATION ONE; +MIDAZOLAM 2 MG/2 ML VIAL IV PRN; -MORPHINE SULFATE 2 MG/ML SYRINGE IV PRN; -ONDANSETRON ODT 4 MG TAB PO ONE; -Pre Op ABX Message 1 EACH MISC MISCELLANE ONE
[2017-08-09 08:03] VITALS: TEMP 97
[2017-08-09] MEDS ORDERED: PROPOFOL 10 MG/ML 20 ML VIAL IV ONE (08:41)
[2017-08-09] MEDS ORDERED: GLYCOPYRROLATE 0.2 MG/ML 2 ML VIAL ONE (08:41)
[2017-08-09] MEDS ORDERED: LIDOCAINE 1% INJ 10MG/ML (20 ML MDV) ONE (08:41)
[2017-08-09 09:00] LABS: Glucose,Whole Blood 133 mg/dL (75-99)
--- NOTE | 2017-08-09 09:05 | P.PCN ---
Date of Procedure: 08/09/17 Procedure(s) Performed: BRIEF HISTORY: Patient is a 67-year-old pleasant-[place] female, scheduled for an elective colonoscopy as a part of the lesion of abnormal CAT scan of the abdomen that showed increased uptake in the ascending colon. She denies any change in bowel habits or rectal bleeding. PROCEDURE PERFORMED: Colonoscopy with snare polypectomy PREOPERATIVE DIAGNOSIS: Abnormal PET scan showing increased uptake in the ascending colon. IV sedation per Anesthesia. PROCEDURE: After informed consent was obtained, the patient, was brought into the endoscopy unit. IV sedation was administered by Anesthesia under continuous monitoring. Digital rectal examination was normal. Initially the Olympus CF- 160 flexible video colonoscope was then inserted in the rectum, gradually advanced into the cecum without any difficulty. Careful examination was performed as the scope was gradually being withdrawn. Ileocecal valve and the appendiceal orifice were visualized and appeared normal. Prep was excellent. Mucosa of the cecum, ascending colon, transverse colon, descending colon, appeared normal in the distal sigmoid colon there were 2 small sessile 5 mm polyps removed by snare polypectomy. The rest of the sigmoid colon, and rectum appeared normal. Retroflexion was performed in the rectum and no lesions were seen. The patient tolerated the procedure well. IMPRESSION: 5 mm 2 distal sigmoid colon polyps status post polypectomy Rest of the colon appeared normal RECOMMENDATIONS: Findings of this examination were discussed with the patient as well as a family. She was advised to follow with the biopsy results. If the biopsy shows a adenoma she can have a repeat colonoscopy in 5 years.
[2017-08-09 09:09] VITALS: RESP 16
[2017-08-09 09:26] VITALS: BP 122/79; PULSE 78
[2017-08-09 09:31] LABS: Glucose,Whole Blood 133 mg/dL (75-99)
== END 2017-08-09 10:00 | disposition home or self-care (01) ==
LOC: ORWHC2ENDO 07:41
PROVIDERS: ATTEND Internal Medicine Gastroenterology
DX: K63.5 Polyp of colon (principal); I10 Essential (primary) hypertension; Z87.891 Personal history of nicotine dependence; E07.9 Disorder of thyroid, unspecified; E11.9 Type 2 diabetes mellitus without complications; Z79.84 Long term (current) use of oral hypoglycemic drugs; Z79.899 Other long term (current) drug therapy
CPT/HCPCS: 88305; 45385; J2001; J2704

== ENCOUNTER → 2017-10-09 | Outpatient (CLI) | payer MEDICARE, OTHER ==
[2017-10-09 10:23] LABS: Appearance,Urine Clear (Clear); Bilirubin,Urine Negative (Negative); Blood,Urine Negative (Negative); Color,Urine Yellow; Glucose,Urine (UA) Negative (Negative); Hyaline Casts,Urine 3 /lpf (0-2); Ketones,Urine Negative (Negative); Leukocyte Esterase,Urine Moderate (Negative); Mucus,Urine Rare /hpf; Nitrite,Urine Negative (Negative); PH, Urine 5.5 (5.0-8.0); Protein,Urine Negative (Negative); RBC,Urine 1 /hpf (0-5); Specific Gravity,Urine 1.015 (1.001-1.035); Squamous Epithelial Cell,Urine 3 /hpf (0-4); Urobilinogen,Urine <2.0 mg/dL (<2.0); WBC,Urine 3 /hpf (0-5)
[2017-10-09 10:26] LABS: Basophils % (A) 0 %; Eosinophils % (A) 0 %; HCT 39.8 % (34.0-46.0); HGB 13.1 gm/dL (11.4-16.0); Lymphocytes # (A) 2.1 k/uL (1.0-4.8); Lymphocytes % (A) 24 %; MCH 29.9 pg (25.0-35.0); MCV 90.6 fL (80.0-100.0); Mean Platelet Volume 8.9; Monocytes # (A) 0.3 k/uL (0-1.0); Monocytes % (A) 4 %; Neutrophils # (A) 6.1 k/uL (1.3-7.7); Neutrophils % (A) 69 %; Platelet Count 199 k/uL (150-450); RDW 13.2 % (11.5-15.5); WBC 8.8 k/uL (3.8-10.6)
[2017-10-09 10:33] LABS: Potassium 4.5 mmol/L (3.5-5.1)
== END | disposition home or self-care (01) ==
LOC: LABPAT 08:58
PROVIDERS: ATTEND Thoracic Surgery (Cardiothoracic Vascular Surgery)
DX: Z01.812 Encounter for preprocedural laboratory examination (principal); R91.1 Solitary pulmonary nodule; Z01.818 Encounter for other preprocedural examination
CPT/HCPCS: 36415; 80051; 81001; 82565; 84520; 85025; 93005

== ENCOUNTER 2017-10-19 06:03 | Inpatient (IN) | payer MEDICARE, OTHER ==
[2017-10-10 10:47] VITALS: BMI 29.2
[~2017-10-19 06:03] MED LIST changes: +DEXAMETHASONE SOD PHOSPHATE 10 MG/ML 1 ML VIAL IV ONE; +ONDANSETRON 4 MG/2 ML VIAL IVP ONE; +Pre Op ABX Message 1 EACH MISC MISCELLANE ONE
[2017-10-19 07:21] LABS: Glucose,Whole Blood 182 mg/dL (75-99)
[2017-10-19] MEDS ORDERED: MIDAZOLAM 2 MG/2 ML VIAL ONE (07:42)
[2017-10-19] MEDS ORDERED: PROPOFOL 10 MG/ML 20 ML VIAL IV ONE (07:42)
[2017-10-19] MEDS ORDERED: SUCCINYLCHOLINE CHLORIDE 100 MG/5 ML SYR IV ONE (07:42)
[2017-10-19] MEDS ORDERED: PHENYLEPHRINE-0.9% NACL SYG 1 MG/10 ML SYRINGE ONE (07:42)
[2017-10-19] MEDS ORDERED: HYDROmorphone (PF) 1 MG/ML ONE (07:42)
[2017-10-19] MEDS ORDERED: ROCURONIUM BROMIDE 10 MG/ML 10 ML VIAL IV ONE (07:42)
[2017-10-19] MEDS ORDERED: fentaNYL (PF) 50 MCG/ML 2 ML AMP ONE (07:42)
[2017-10-19] MEDS ORDERED: GLYCOPYRROLATE 0.2 MG/ML 2 ML VIAL ONE (07:42)
[2017-10-19] MEDS ORDERED: NEOSTIGMINE 1 MG/ML 10 ML VIAL ONE (07:42)
[2017-10-19] MEDS ORDERED: LACTATED RINGERS 1,000 ML IV ONE ×2 (08:10)
[2017-10-19] MEDS ORDERED: BUPIVACAINE (PF) 0.5% 30 ML VIAL SQ ONE ×2 (08:32)
--- NOTE | 2017-10-19 09:34 | P.OP ---
Date of Procedure: 10/19/17 Preoperative Diagnosis: Right lung mass Postoperative Diagnosis: Same Procedure(s) Performed: Placement of right subclavian line, right thoracoscopy, wedge resection right middle lobe. Anesthesia: GETA Surgeon: Maurilio Burnette Estimated Blood Loss (ml): 10 IV fluids (ml): 500 Urine output (ml): 0 Pathology: other (Wedge resection right middle lobe) Condition: stable Disposition: PACU Indications for Procedure: 67-year-old female presents with a new 1.7 cm mass in the right middle lobe on computed tomography scan. It was a lobulated mass. Resection was indicated for diagnosis. Operative Findings: Patient was brought to the operating room and placed supine on the operating table. Anesthesia had been unable to obtain IV access in the preop holding area. Anesthesia attempted a right IJ line without success. IV was started in the right foot and IV sedation was given. Right subclavian region was sterilely prepped and draped. The right subclavian vein was punctured with an 18-gauge needle. Guidewire was threaded without difficulty and a triple-lumen catheter was placed. It was secured with 3-0 nylon sutures. Sterile dressing was applied. Patient was anesthetized with general anesthesia and a double-lumen endotracheal tube was positioned. Tube was positioned with fiberoptic bronchoscopy and secured. Patient was turned in the left lateral decubitus position and the right chest sterilely prepped and draped. 3 one-inch incisions were made in the right chest in the sixth and seventh interspace. Video thoracoscope was introduced and single lung ventilation ensued. Chest was explored. There was a mass palpable in the parenchyma of the right upper lobe superiorly near the lesser fissure. Generous wedge resection was performed. Mass was placed in the Endo Catch bag and brought out onto the field. On examining the mass was white soft tissue present. A portion was sent for frozen section and was still pending at the time of this dictation. Specimen was placed on the back table to await the frozen section and determined whether or not to send cultures. Staple line was examined and noted be intact. A 28-Latvian chest tube was placed through the anteriormost incision and positioned posterior apically. Was secured with an 0 Ethibond suture. The lung was expanded under thoracoscopic visualization. Were no air leaks noted. Rib blocks were performed at the level of the incisions with half percent Marcaine. The incisions were closed with layers of Vicryl. Skin glue and Band- Aid dressings were applied. Patient was turned supine extubated and transferred to recovery room in stable condition.
--- NOTE | 2017-10-19 09:35 | P.OP ---
Date of Procedure: 10/19/17 Description of Procedure: Addendum: Frozen section revealed non-small cell carcinoma. Specimen was sent for permanent section thank you
[2017-10-19] MEDS ORDERED: PARoxetine 20 MG TAB PO PRN (09:49)
[2017-10-19] MEDS ORDERED: traZODone HCL 100 MG TAB PO PRN (09:49)
[2017-10-19] MEDS: HYDROmorphone 0.5 MG/0.5 ML SYRINGE IVP PRN ×4 (09:50→10:12)
[2017-10-19] MEDS ORDERED: ONDANSETRON 4 MG/2 ML VIAL IVP PRN (09:50)
[2017-10-19] MEDS ORDERED: BISACODYL 10 MG SUPP RECTAL PRN (09:50)
[2017-10-19] MEDS ORDERED: IPRATROPIUM-ALBUTEROL 3 ML NEB IH PRN (09:50)
[2017-10-19] MEDS ORDERED: HYDROmorphone 1 MG/ML 1 ML SYRINGE IVP PRN ×2 (09:54)
[2017-10-19] MEDS ORDERED: ERGOCALCIFEROL 50,000 UNIT CAP PO SCH (10:00)
[2017-10-19] MEDS ORDERED: DEXTROSE 5%-0.45% NACL 1,000 ML IV SCH (10:00)
[2017-10-19 10:02] LABS: Glucose,Whole Blood 171 mg/dL (75-99)
[2017-10-19] MEDS ORDERED: ONDANSETRON 4 MG/2 ML VIAL IVP ONE (10:11)
--- NOTE | 2017-10-19 10:33 | XR ---
EXAMINATION TYPE: XR chest 1V portable DATE OF EXAM: 10/19/2017 COMPARISON: 11/24/2016 HISTORY: Post VATS examination. Right-sided thoracostomy tube placement. TECHNIQUE: Single frontal view of the chest is obtained. FINDINGS: Right-sided thoracostomy tube is in place in the anterior. No postprocedural residual pneu mothorax. Scattered right-sided subsegmental atelectasis is identified. Cardia mediastinal silhouette is within normal limits. Osseous structures are grossly intact. Small amount of subcutaneous edema i s seen on the right. IMPRESSION: Postsurgical changes with no residual pneumothorax. Scattered subsegmental atelectasis.
[2017-10-19] MEDS: ACETAMINOPHEN IV (For NPO) 1,000 MG in EMPTY BAG 1 BAG IVPB SCH ×2 (11:00→16:35)
[2017-10-19 11:54] LABS: Glucose,Whole Blood 203 mg/dL (75-99)
[2017-10-19] MEDS: KETOROLAC 30 MG/ML 1 ML VIAL IVP SCH ×2 (12:09→16:35)
--- NOTE | 2017-10-19 13:03 | P.CNPUL ---
History of Present Illness Consult date: 10/19/17 Requesting physician: Maurilio Burnette Reason for consult: lung mass Chief complaint: Right upper lobe lung nodule History of present illness: This is a very pleasant 67-year-old female patient who follows with Dr. Ochoa as her primary care physician. She has a history of chronic tremors, coronary artery disease, insomnia, sickle cell trait, vitamin D deficiency, hepatitis C, hypothyroidism, hypertension. She also has a history of Gold stage II/III chronic obstructive pulmonary disease with FEV1 value of 49% of predicted. She was found to have a right middle lobe lung nodule measuring approximately 1.6 cm. This had been enlarging since 2013 in 2016 previous reports. She follows with Dr. Grossman in our office for the same. She had undergone navigational bronchoscopy however the lesion was too far out to reach and no biopsies were taken. A follow-up PET scan revealed the nodule was increasing in size. She was subsequently referred to Dr. Burnette who performed a right middle lobe wedge resection today. She is seen in consultation on the selective care unit. She is currently awake and alert in no acute distress. Right-sided chest tube is in place with minimal drainage. Postoperative chest x-ray revealed no residual pneumothorax. There is some subsegmental atelectasis noted. She is currently maintaining good O2 saturations in the mid 90s on 5 L/m per nasal cannula. She' s afebrile. Hemodynamically stable. Her pain is well controlled. He's been initiated on DuoNeb inhalations 4 times a day and as needed. She's been initiated on the incentive spirometer for cough and deep breathing exercises to be performed hourly while awake. Review of Systems Constitutional: Denies chills, Denies fever Eyes: denies blurred vision, denies decreased vision Ears: deny: decreased hearing Ears, nose, mouth and throat: Denies headache, Denies sore throat Cardiovascular: Denies chest pain, Denies shortness of breath Respiratory: Reports cough, Reports dyspnea, Reports pain on inspiration Gastrointestinal: Denies abdominal pain, Denies diarrhea, Denies nausea, Denies vomiting Genitourinary: Denies dysuria, Denies hematuria Musculoskeletal: Denies myalgias Integumentary: Denies pruritus, Denies rash Neurological: Denies numbness, Denies weakness Psychiatric: Denies anxiety, Denies depression Endocrine: Denies fatigue, Denies weight change Hematologic/Lymphatic: Reports as per HPI Allergic/Immunologic: Reports as per HPI Past Medical History Past Medical History: COPD, Diabetes Mellitus, Hyperlipidemia, Hypertension, Osteoarthritis (OA), Respiratory Disorder, Thyroid Disorder Additional Past Medical History / Comment(s): Lesion right lung.,sickle cell traits,unable to walk any distance,SOB, States arthritis pain "all over". History of Any Multi-Drug Resistant Organisms: None Reported Past Surgical History: Tubal Ligation Additional Past Surgical History / Comment(s): bilateral cataracts, Navigational Bronchoscopy (08/03/17) Past Anesthesia/Blood Transfusion Reactions: No Reported Reaction Additional Past Anesthesia/Blood Transfusion Reaction / Comment(s): no problems with prior blood transfusion Smoking Status: Former smoker - Past Family History Mother Family Medical History: Cancer Father Family Medical History: Cancer Medications and Allergies Home Medications Medication Instructions Recorded Confirmed Type Levothyroxine Sodium [Synthroid] 50 mcg PO QAM 03/11/14 10/19/17 History Albuterol Sulfate [Ventolin HFA] 2 puff INHALATION RT-QID PRN 03/12/14 10/19/17 History Alendronate Sodium 70 mg PO FR 06/25/15 10/19/17 History Nitroglycerin Sl Tabs [Nitrostat] 0.4 mg SL Q5M PRN 06/25/15 10/19/17 History HYDROcodone/APAP 7.5-325MG [[place] 1 tab PO Q6H PRN 11/24/16 10/19/17 History 7.5-325] Lisinopril [Zestril] 10 mg PO QAM 11/24/16 10/19/17 History amLODIPine [Norvasc] 10 mg PO QAM 11/24/16 10/19/17 History Aspirin 81 mg PO DAILY #1 chewable 11/25/16 10/19/17 Rx Albuterol Nebulized [Ventolin 2.5 mg INHALATION RT-QID PRN 07/27/17 10/19/17 History Nebulized] Umeclidinium [place] [Incruse 62.5 mcg INHALATION RT-DAILY 07/27/17 10/19/17 History Ellipta] busPIRone HCL [Buspar] 7.5 mg PO HS 07/27/17 10/19/17 History metFORMIN HCL [Glucophage] 500 mg PO BID 07/27/17 10/19/17 History traZODone HCL [Desyrel] 100 mg PO HS PRN 07/27/17 10/19/17 History Ergocalciferol [Vitamin D2] 50,000 unit PO TH 08/08/17 10/19/17 History methylPREDNISolone Dose Pack See Taper PO DAILY 10/10/17 10/19/17 History [Medrol Dose Pack] PARoxetine HCL [Paxil] 40 mg PO DAILY 10/19/17 10/19/17 History Allergies Allergy/AdvReac Type Severity Reaction Status Date / Time No Known Allergies Allergy Verified 10/19/17 11:24 Physical Exam Vitals: Vital Signs Temp Pulse Resp BP Pulse Ox 10/19/17 12:12 98 10/19/17 12:03 77 16 110/55 94 L 10/19/17 11:27 61 16 106/75 95 10/19/17 11:17 77 16 110/55 94 L 10/19/17 11:00 86 16 105/63 94 L 10/19/17 10:45 59 L 16 115/59 95 10/19/17 10:31 71 18 126/78 93 L 10/19/17 10:15 73 18 129/67 93 L 10/19/17 10:00 77 18 119/68 96 10/19/17 09:45 81 18 100/66 95 10/19/17 09:39 96.9 F L 80 18 120/95 94 L 10/19/17 06:44 98.6 F 95 16 129/86 97 Intake and Output 10/18/17 10/19/17 10/19/17 22:59 06:59 14:59 Intake Total 850 Output Total 10 Balance 840 Intake: IV 850 Output: Estimated Blood Loss 10 - Constitutional General appearance: cooperative, no acute distress, obese - EENT Eyes: EOMI, PERRLA ENT: hearing grossly normal Ears: bilateral: normal - Neck Neck: normal ROM Carotids: bilateral: upstroke normal Thyroid: bilateral: normal size - Respiratory Respiratory: right: diminished, bilateral: CTA - Cardiovascular Rhythm: regular Heart sounds: normal: S1, S2 - Gastrointestinal General gastrointestinal: normal bowel sounds - Integumentary Integumentary: normal turgor - Neurologic Neurologic: CNII-XII intact - Musculoskeletal Musculoskeletal: gait normal - Psychiatric Psychiatric: A&O x's 3, appropriate affect, intact judgment & insight Results - Laboratory Findings Abnormal lab findings: Abnormal Labs 10/19/17 10/19/17 10/19/17 07:03 10:00 11:52 POC Glucose (mg/dL) 182 H 171 H 203 H - Diagnostic Findings Chest x-ray: image reviewed Assessment and Plan Assessment: Impression: #1 Enlarging right middle lobe lung mass, status post thorascopic wedge resection, postoperative day #0. Frozen section revealed non-small cell carcinoma. #2 40 year history of chronic tobacco dependence. #3 Chronic obstructive pulmonary disease, currently inactive and stable. #4 Chronic tremors. #5 Coronary artery disease. #6 Insomnia. #7 Sickle cell trait. #8 Vitamin D deficiency. #9 Chronic hepatitis C. #10 Hypothyroidism. #11 Hypertension. #12 Diabetes mellitus, type II. Plan: The patient was seen and evaluated by Dr. Wade. Chest x-ray reviewed. Right- sided chest tube remains in place. We'll continue with bronchodilators. Continue incentive spirometer. Continue cefazolin. She is on heparin for DVT prophylaxis. She is again encouraged regarding the importance of cough and deep breathing exercises. We will increase her activity as tolerated. We will continue to follow and make further recommendations based on her clinical status. I, the cosigning physician, performed a history & physical examination of the patient. Lungs sounds are diminished in the right lung few scattered rhonchi. Maintaining good O2 saturations in the 90s on 5 L/m per nasal cannula. I discussed the assessment and plan of care with my nurse practitioner, Ramona Hernandez. I attest to the above note as dictated by her. Time with Patient: Greater than 30
[2017-10-19] MEDS: IPRATROPIUM-ALBUTEROL 3 ML NEB IH SCH ×3 (16:28→19:50)
[2017-10-19] MEDS: ceFAZolin IN SWFI 2 GM/20 ML SYRINGE IVP SCH (16:34)
[2017-10-19] MEDS: HEPARIN SODIUM,PORCINE 5,000 UNIT/ML 1 ML VIAL SQ SCH (16:37)
[2017-10-19] MEDS: metFORMIN 500 MG TAB PO SCH (16:57)
[2017-10-19 17:03] LABS: Glucose,Whole Blood 141 mg/dL (75-99)
[2017-10-19] MEDS: HYDROcodone/APAP 7.5-325MG 1 EACH TAB PO PRN (20:31)
[2017-10-19] MEDS: busPIRone HCl 5 MG TAB PO SCH (20:32)
[2017-10-19 21:31] LABS: Glucose,Whole Blood 132 mg/dL (75-99)
[2017-10-20] MEDS ORDERED: KETOROLAC 30 MG/ML 1 ML VIAL ONE
[2017-10-20] MEDS ORDERED: HEPARIN SODIUM,PORCINE 5,000 UNIT/ML 1 ML VIAL ONE
[2017-10-20] MEDS: ACETAMINOPHEN IV (For NPO) 1,000 MG in EMPTY BAG 1 BAG IVPB SCH ×2 (05:48→06:41)
[2017-10-20] MEDS: KETOROLAC 30 MG/ML 1 ML VIAL IVP SCH ×5 (05:49→23:29)
[2017-10-20] MEDS: ceFAZolin IN SWFI 2 GM/20 ML SYRINGE IVP SCH (05:49)
[2017-10-20] MEDS: HEPARIN SODIUM,PORCINE 5,000 UNIT/ML 1 ML VIAL SQ SCH ×4 (05:49→23:27)
[2017-10-20 06:04] LABS: Glucose,Whole Blood 200 mg/dL (75-99)
[2017-10-20 06:26] LABS: Basophils % (A) 0 %; Eosinophils # (A) 0.2 k/uL (0-0.7); Eosinophils % (A) 2 %; HCT 34.4 % (34.0-46.0); HGB 11.2 gm/dL (11.4-16.0); Lymphocytes # (A) 2.5 k/uL (1.0-4.8); Lymphocytes % (A) 28 %; MCHC 32.6 g/dL (31.0-37.0); MCV 92.2 fL (80.0-100.0); Mean Platelet Volume 8.7; Monocytes # (A) 0.5 k/uL (0-1.0); Monocytes % (A) 6 %; Neutrophils # (A) 5.2 k/uL (1.3-7.7); Neutrophils % (A) 60 %; Platelet Count 142 k/uL (150-450); RBC 3.73 m/uL (3.80-5.40); WBC 8.8 k/uL (3.8-10.6)
[2017-10-20 06:39] LABS: Calcium 9.2 mg/dL (8.4-10.2); Potassium 4.2 mmol/L (3.5-5.1)
[2017-10-20] MEDS: LEVOTHYROXINE 50 MCG TAB PO SCH (06:47)
[2017-10-20] MEDS: metFORMIN 500 MG TAB PO SCH ×2 (06:47→17:02)
[2017-10-20] MEDS ORDERED: IPRATROPIUM 0.5 MG/2.5 ML NEBU INHALATION SCH (08:00)
--- NOTE | 2017-10-20 08:12 | XR ---
EXAMINATION TYPE: XR chest 1V DATE OF EXAM: 10/20/2017 COMPARISON: 10/19/2017 HISTORY: Post VATS examination. Follow-up exam. TECHNIQUE: Single frontal view of the chest is obtained. FINDINGS: There is redemonstration of a right apical thoracostomy tube and right-sided central venou s catheter. No residual pneumothorax is identified. Scattered strand-like atelectasis is seen bilater ally again similar to the prior. Trace right pleural effusion blunts the costophrenic angle. Subcutan eous emphysema is noted along the right lateral chest wall. Cardiomediastinal silhouette is stable. IMPRESSION: Similar placement of a right thoracostomy tube with no residual pneumothorax, unchanged right trace pleural effusion, unchanged bilateral scattered linear atelectasis and similar right subc utaneous emphysema.
[2017-10-20] MEDS: IPRATROPIUM-ALBUTEROL 3 ML NEB IH SCH ×4 (08:47→19:20)
[2017-10-20] MEDS: amLODIPine 10 MG TAB PO SCH (09:02)
[2017-10-20] MEDS: ASPIRIN 81 MG PO SCH (09:03)
[2017-10-20] MEDS: LISINOPRIL 10 MG TAB PO SCH (09:03)
[2017-10-20] MEDS: HYDROcodone/APAP 7.5-325MG 1 EACH TAB PO PRN (09:10)
[2017-10-20 11:35] LABS: Glucose,Whole Blood 145 mg/dL (75-99)
--- NOTE | 2017-10-20 13:02 | XR ---
EXAMINATION TYPE: XR chest 2V DATE OF EXAM: 10/20/2017 COMPARISON: 10/20/2017 at 6:24 AM HISTORY: Right-sided thoracostomy tube removal. Status post VATS. TECHNIQUE: Frontal and lateral views of the chest are obtained. FINDINGS: There is been interval removal of the right-sided thoracostomy tube. Right apical pleural thickening, likely reactive is seen without residual pneumothorax identified. Right lateral chest wal l postsurgical change is noted with subcutaneous emphysema. Surgical sutures are noted along the righ t infrahilar region. Blunting of the right costophrenic angle remains. Minimal right basilar subsegme ntal atelectasis and trace left pleural effusion are unchanged. Cardia mediastinal silhouette is agai n enlarged. Right-sided central venous catheter is similar to the prior. IMPRESSION: Interval removal of the right-sided thoracostomy tube with right apical pleural thickeni ng that is likely reactive but no residual pneumothorax. Other findings are similar to the prior donnell ier the same day.
--- NOTE | 2017-10-20 13:19 | P.PN ---
Subjective Progress Note Date: 10/20/17 Principal diagnosis: Right middle lobe lung mass suspect non-small cell carcinoma. This is a very pleasant 67-year-old female patient who follows with Dr. Ochoa as her primary care physician. She has a history of chronic tremors, coronary artery disease, insomnia, sickle cell trait, vitamin D deficiency, hepatitis C, hypothyroidism, hypertension. She also has a history of Gold stage II/III chronic obstructive pulmonary disease with FEV1 value of 49% of predicted. She was found to have a right middle lobe lung nodule measuring approximately 1.6 cm. This had been enlarging since 2013 in 2016 previous reports. She follows with Dr. Grossman in our office for the same. She had undergone navigational bronchoscopy however the lesion was too far out to reach and no biopsies were taken. A follow-up PET scan revealed the nodule was increasing in size. She was subsequently referred to Dr. Burnette who performed a right middle lobe wedge resection today. She is seen in consultation on the selective care unit. She is currently awake and alert in no acute distress. Right-sided chest tube is in place with minimal drainage. Postoperative chest x-ray revealed no residual pneumothorax. There is some subsegmental atelectasis noted. She is currently maintaining good O2 saturations in the mid 90s on 5 L/m per nasal cannula. She' s afebrile. Hemodynamically stable. Her pain is well controlled. He's been initiated on DuoNeb inhalations 4 times a day and as needed. She's been initiated on the incentive spirometer for cough and deep breathing exercises to be performed hourly while awake. The patient is seen again today 10/20/2017 on the selective care unit. She is awake and alert in no acute distress. She is sitting up in bed. Her chest tube was removed earlier this morning. Follow-up chest x-ray is pending. She denies any worsening shortness of breath, cough or congestion. Her pain is fairly well controlled. Maintaining O2 saturations in the 90s on room air. She 's been afebrile. Hemodynamically stable. Continuing to work well with the incentive spirometer. White count 8.8. Hemoglobin 11.2. Creatinine 0.80. Objective - Vital Signs Vital signs: Vital Signs Temp 97.2 F L 10/20/17 08:43 Pulse 68 10/20/17 11:51 Resp 18 10/20/17 08:43 BP 120/62 10/20/17 08:43 Pulse Ox 90 L 10/20/17 08:43 Intake & Output 10/19/17 10/20/17 10/20/17 18:59 06:59 18:59 Intake Total 850 200 Output Total 130 496 500 Balance 720 -496 -300 Weight 69.4 kg Intake: IV 850 Oral 0 200 Output: Chest Tube Drainage 48 Right 48 Drainage 20 48 Right Chest 20 48 Urine 100 500 Stool 400 Estimated Blood Loss 10 Other: Voiding Method Bedside Commode Toilet # Voids 1 2 1 # Bowel Movements 0 - Exam - Constitutional General appearance: cooperative, no acute distress, obese - EENT Eyes: EOMI, PERRLA ENT: hearing grossly normal Ears: bilateral: normal - Neck Neck: normal ROM Carotids: bilateral: upstroke normal Thyroid: bilateral: normal size - Respiratory Respiratory: right: diminished. Right-sided chest tube removed. - Cardiovascular Rhythm: regular Heart sounds: normal: S1, S2 - Gastrointestinal General gastrointestinal: normal bowel sounds - Integumentary Integumentary: normal turgor - Neurologic Neurologic: CNII-XII intact - Musculoskeletal Musculoskeletal: gait normal - Psychiatric Psychiatric: A&O x's 3, appropriate affect, intact judgment & insight - Labs CBC & Chem 7: 10/20/17 06:09 10/20/17 06:09 Labs: Abnormal Lab Results - Last 24 Hours (Table) 10/19/17 10/19/17 10/20/17 Range/Units 16:51 21:28 06:03 RBC (3.80-5.40) m/uL Hgb (11.4-16.0) gm/dL Plt Count (150-450) k/uL BUN (7-17) mg/dL Glucose (74-99) mg/dL POC Glucose (mg/dL) 141 H 132 H 200 H (75-99) mg/dL 10/20/17 10/20/17 10/20/17 Range/Units 06:09 06:09 11:29 RBC 3.73 L (3.80-5.40) m/uL Hgb 11.2 L (11.4-16.0) gm/dL Plt Count 142 L (150-450) k/uL BUN 19 H (7-17) mg/dL Glucose 184 H (74-99) mg/dL POC Glucose (mg/dL) 145 H (75-99) mg/dL Assessment and Plan Assessment: Impression: #1 Enlarging right middle lobe lung mass, status post thorascopic wedge resection, postoperative day #1. Frozen section revealed non-small cell carcinoma. #2 40 year history of chronic tobacco dependence. #3 Chronic obstructive pulmonary disease, currently inactive and stable. #4 Chronic tremors. #5 Coronary artery disease. #6 Insomnia. #7 Sickle cell trait. #8 Vitamin D deficiency. #9 Chronic hepatitis C. #10 Hypothyroidism. #11 Hypertension. #12 Diabetes mellitus, type II. Plan: The patient was seen and evaluated by Dr. Wade. Chest x-ray reviewed. Right- sided chest tube he moved. Follow-up chest x-ray pending. We'll continue with bronchodilators. Continue incentive spirometer. She is on heparin for DVT prophylaxis. She is again encouraged regarding the importance of cough and deep breathing exercises. We will increase her activity as tolerated. She may be discharged later today once cleared by cardiothoracic services. She will follow up with Dr. Grossman in our office. I, the cosigning physician, performed a history & physical examination of the patient. Lungs sounds are diminished in the right lung few scattered rhonchi. Maintaining good O2 saturations in the 90s on room air. I discussed the assessment and plan of care with my nurse practitioner, Ramona Hernandez. I attest to the above note as dictated by her.
--- NOTE | 2017-10-20 15:27 | P.PN ---
Subjective Progress Note Date: 10/20/17 Principal diagnosis: Right lung mass to her right middle lobe measuring 1.7 cm, history of chronic tremors, history of sickle cell trait, vitamin D deficiency, insomnia, history of coronary artery disease, chronic hepatitis C, hypothyroidism, hypertension and chronic obstructive pulmonary disease with a preoperative FEV1 value of 49% of predicted. POD #1 placement of right subclavian line, right thoracoscopic, wedge resection right middle lobe. The patient is sitting up to the bedside edge. She is in no acute distress. She denies any complaints of pain or shortness of breath at this time. She has a right pleural chest tube in place to water seal, no air leak is present. She is demonstrating 750 mL on her incentive spirometry. Objective - Vital Signs Vital signs: Vital Signs Temp 97.2 F L 10/20/17 08:43 Pulse 68 10/20/17 11:51 Resp 18 10/20/17 08:43 BP 120/62 10/20/17 08:43 Pulse Ox 90 L 10/20/17 08:43 Intake & Output 10/19/17 10/20/17 10/20/17 18:59 06:59 18:59 Intake Total 850 200 Output Total 130 496 500 Balance 720 -496 -300 Weight 69.4 kg Intake: IV 850 Oral 0 200 Output: Chest Tube Drainage 48 Right 48 Drainage 20 48 Right Chest 20 48 Urine 100 500 Stool 400 Estimated Blood Loss 10 Other: Voiding Method Bedside Commode Toilet # Voids 1 2 1 # Bowel Movements 0 - Constitutional General appearance: Present: cooperative, no acute distress, obese - Respiratory Details: Lung sounds are essentially clear throughout, timber deadener right lower lobe. Respirations are symmetrical and nonlabored. Oxygen saturation are 93% on room air. She is achieving 750 mL on her incentive spirometry. Right pleural chest tube in place to waterseal. No air leak is present. Draining thin serosanguineous drainage. 50 mL output in the last 8 hours. - Cardiovascular Details: Regular rhythm and rate. S1 and S2 present, negative for S3, gallop or murmur. Remote telemetry showing normal sinus rhythm heart rate 67. No edema present. Knee-high ANTONIA hose and sequential compression devices in place to her bilateral lower extremities. - Gastrointestinal Gastrointestinal Comment(s): Abdomen is soft, nontender and nondistended. Active bowel sounds all 4 abdominal quadrants. Tolerating oral intake. No guarding or rigidity. No organomegaly. - Genitourinary Genitourinary Comment(s): Voiding clear yellow urine. - Integumentary Integumentary Comment(s): Skin is warm and dry. No clubbing or cyanosis present. Right thoracoscopy incision sites clean dry and approximated. No drainage or redness present. - Neurologic Neurologic: Present: CNII-XII intact - Musculoskeletal Musculoskeletal: Present: gait normal, strength equal bilaterally - Psychiatric Psychiatric: Present: A&O x's 3, appropriate affect, intact judgment & insight - Allied health notes Allied health notes reviewed: nursing - Labs CBC & Chem 7: 10/20/17 06:09 10/20/17 06:09 Labs: Abnormal Lab Results - Last 24 Hours (Table) 10/19/17 10/19/17 10/20/17 Range/Units 16:51 21:28 06:03 RBC (3.80-5.40) m/uL Hgb (11.4-16.0) gm/dL Plt Count (150-450) k/uL BUN (7-17) mg/dL Glucose (74-99) mg/dL POC Glucose (mg/dL) 141 H 132 H 200 H (75-99) mg/dL 10/20/17 10/20/17 10/20/17 Range/Units 06:09 06:09 11:29 RBC 3.73 L (3.80-5.40) m/uL Hgb 11.2 L (11.4-16.0) gm/dL Plt Count 142 L (150-450) k/uL BUN 19 H (7-17) mg/dL Glucose 184 H (74-99) mg/dL POC Glucose (mg/dL) 145 H (75-99) mg/dL - Imaging and Cardiology Chest x-ray: report reviewed, image reviewed Assessment and Plan (1) Sickle cell trait Current Visit: Yes Status: Acute Code(s): D57.3 - SICKLE-CELL TRAIT SNOMED Code(s): 26026962 (2) Acute exacerbation of chronic obstructive airways disease Current Visit: No Status: Acute Code(s): J44.1 - CHRONIC OBSTRUCTIVE PULMONARY DISEASE W (ACUTE) EXACERBATION SNOMED Code(s): 016803448 (3) Hypercholesterolemia Current Visit: No Status: Acute Code(s): E78.00 - PURE HYPERCHOLESTEROLEMIA , UNSPECIFIED SNOMED Code(s): 93141120 (4) Hypertension Current Visit: No Status: Acute Code(s): I10 - ESSENTIAL (PRIMARY) HYPERTENSION SNOMED Code(s): 82523543 (5) Mass of right lung Current Visit: No Status: Acute Code(s): R91.8 - OTHER NONSPECIFIC ABNORMAL FINDING OF LUNG FIELD SNOMED Code(s): 130461690 Plan: 1. We will remove her right pleural chest tube. 2. Pulmonary management per Dr. Wade's recommendations. 3. Pain management per when necessary orders. We will discontinue the Dilaudid. 4. Encourage use of her incentive spirometry every hour while awake. 5. GI and DVT prophylaxis. 6. Pathology results pending. 7. More recommendations to follow based on the patient's clinical course. Anticipate discharge home in the next 24 hours. Time with Patient: Greater than 30
[2017-10-20 16:47] LABS: Glucose,Whole Blood 100 mg/dL (75-99)
[2017-10-20 21:09] LABS: Glucose,Whole Blood 123 mg/dL (75-99)
[2017-10-20] MEDS: busPIRone HCl 5 MG TAB PO SCH (22:01)
[2017-10-21 02:37] LABS: Glucose,Whole Blood 117 mg/dL (75-99)
[2017-10-21 04:27] VITALS: TEMP 97.9
[2017-10-21 06:38] LABS: Glucose,Whole Blood 143 mg/dL (75-99)
[2017-10-21] MEDS: KETOROLAC 30 MG/ML 1 ML VIAL IVP SCH (06:43)
[2017-10-21] MEDS: LEVOTHYROXINE 50 MCG TAB PO SCH (06:45)
[2017-10-21] MEDS: metFORMIN 500 MG TAB PO SCH (06:45)
[2017-10-21] MEDS: IPRATROPIUM-ALBUTEROL 3 ML NEB IH SCH (08:24)
--- NOTE | 2017-10-21 08:34 | XR ---
EXAMINATION TYPE: XR chest 2V DATE OF EXAM: 10/21/2017 HISTORY: post op right vats. REFERENCE: Previous study dated 10/20/2017. FINDINGS: There is a right subclavian catheter in place. Its tip is at the cavoatrial junction. There is a left-sided pleural reaction, unchanged from previous. There is also right apical pleural t hickening. Lungs otherwise clear. The heart is mildly enlarged. There is some unfolding of the thorac ic aorta.. IMPRESSION: 1. MILD CARDIOMEGALY. 2. BILATERAL PLEURAL REACTIONS. 3. MILD CARDIOMEGALY.
[2017-10-21] MEDS: ASPIRIN 81 MG PO SCH (09:25)
[2017-10-21] MEDS: HEPARIN SODIUM,PORCINE 5,000 UNIT/ML 1 ML VIAL SQ SCH (09:25)
[2017-10-21] MEDS: amLODIPine 10 MG TAB PO SCH (09:25)
[2017-10-21] MEDS: LISINOPRIL 10 MG TAB PO SCH (09:25)
[2017-10-21 09:26] VITALS: PULSE 92
--- NOTE | 2017-10-21 10:10 | P.DS ---
Providers Date of admission: 10/19/17 06:03 Expected date of discharge: 10/21/17 Attending physician: Maurilio Burnette Consults: 10/19/17 09:50 Consult Physician Routine Consulting Provider: Mary Wade Reason/Comments: pulm management Do you want consulting provider notified?: Already Contacted Primary care physician: Abdiel Ochoa - Discharge Diagnosis(es) (1) Sickle cell trait Current Visit: Yes Status: Acute (2) Acute exacerbation of chronic obstructive airways disease Current Visit: No Status: Acute (3) Hypercholesterolemia Current Visit: No Status: Acute (4) Hypertension Current Visit: No Status: Acute (5) Mass of right lung Current Visit: No Status: Acute Hospital Course: FINAL DIAGNOSIS: 1. Right lung mass to her right middle lobe measuring 1.7 cm 2. History of chronic tremors 3. History of sickle cell trait 4. Vitamin D deficiency 5. Insomnia 6. History of coronary artery disease 7. Chronic hepatitis C 8. Hypothyroidism 9. Chronic obstructive disease with preoperative FEV1 value of 49% of predicted 10. Hypertension 11. Diabetes mellitus type 2 on metformin 12. Obesity 13. Chronic nicotine dependence 14. History of anxiety PRINCIPAL PROCEDURE: 1. Placement of right subclavian line 2. Right thoracoscopic, wedge resection right middle lobe HISTORY OF PRESENT ILLNESS: This is a 67-year-old -[place] woman who is followed by Dr. Alysia Ochoa on an outpatient basis. She has a past smoking history of a right lung mass measuring 1.7 cm, and minimal uptake to the 1.7 cm mass on the PET scan, history of chronic tremors, history of sickle cell trait, vitamin D deficiency, history of insomnia, history of coronary artery disease, history of chronic hepatitis C, hypothyroidism, chronic obstructive pulmonary disease with preoperative FEV1 value of 49% of predicted, hypertension, and diabetes mellitus type 2. Recently, the patient has been complaining of progressive shortness of breath. She does have a history of 5 mm right middle lobe nodule on a computed tomography scan of her chest completed in 2015. Subsequently due to her progressive complaints of shortness of breath she underwent a repeat computed tomography scan of her chest in July 2017 which demonstrated an enlarging right middle lobe nodule measuring 1.7 cm. A PET scan was completed on 04/15/2017 which showed minimal uptake with an SUV of only 1.7. In August 2017 the patient underwent a navigational bronchoscopy performed by Dr. Grossman which was unsuccessful as it was not possible to reach the tumor with the navigational bronchoscopy. Subsequently the patient was referred to Dr. Maurilio Burnette from cardiothoracic surgery for evaluation and surgical recommendations for her 1.7 cm right middle lobe nodule. HOSPITAL COURSE: Patient was admitted to the hospital and after obtaining consent was taken to the operating room where Dr. Maurilio Burnette performed a placement of right subclavian line and right thoracoscopic wedge resection right middle lobe. Her initial frozen section revealed non-small cell carcinoma. The patient was then transferred to the recovery unit where she was monitored hemodynamically and subsequently transferred to [address] [place] [address] for further monitoring and rehabilitation. She was weaned off her oxygen, her right pleural chest tube was discontinued and she was ready to be discharged home on postop day #2. She has received verbal and written instructions regarding her discharge medications, discharge instructions and follow-up appointments. Her pathology results remain pending and will be discussed with her on her follow-up visit. COMPLICATIONS: There were no postoperative complications. CONSULTATIONS: 1. Dr. Wade for pulmonary management. DISCHARGE INSTRUCTIONS: 1. No driving for 2 weeks, or until physician gives their ok. 2. The patient should sleep in their own bed, no medical bed needed. 3. Continue use of her incentive spirometry every hour while awake. 4. Importance of smoking cessation were discussed with the patient. 5. Continue pain control per as needed orders. 6. A prescription has been given to the patient for follow-up two-view chest x- ray prior to seeing Dr. Burnette on 10/26/2017. 7. Shower daily using liquid antibacterial soap and a separate white washcloth for each individual incision. She has been instructed that she may return move her dressing to her chest tube site on 10/22/2017. 8. Please notify surgeon/nurse practitioner for temperature greater than 101F or purulent drainage from incisions Plan - Discharge Summary Discharge Rx Participant: Yes New Discharge Prescriptions: Continue Levothyroxine Sodium [Synthroid] 50 mcg PO QAM Albuterol Sulfate [Ventolin HFA] 2 puff INHALATION RT-QID PRN PRN Reason: Wheezing Nitroglycerin Sl Tabs [Nitrostat] 0.4 mg SL Q5M PRN PRN Reason: Chest Pain Alendronate Sodium 70 mg PO FR amLODIPine [Norvasc] 10 mg PO QAM HYDROcodone/APAP 7.5-325MG [Superior 7.5-325] 1 tab PO Q6H PRN PRN Reason: Pain Lisinopril [Zestril] 10 mg PO QAM Aspirin 81 mg PO DAILY #1 chewable traZODone HCL [Desyrel] 100 mg PO HS PRN PRN Reason: sleep busPIRone HCL [Buspar] 7.5 mg PO HS Umeclidinium York [Incruse Ellipta] 62.5 mcg INHALATION RT-DAILY Albuterol Nebulized [Ventolin Nebulized] 2.5 mg INHALATION RT-QID PRN PRN Reason: sob metFORMIN HCL [Glucophage] 500 mg PO BID Ergocalciferol [Vitamin D2 (DRISDOL)] 50,000 unit PO TH PARoxetine HCL [Paxil] 40 mg PO DAILY Discontinued methylPREDNISolone Dose Pack [Medrol Dose Pack] See Taper PO DAILY Discharge Medication List Levothyroxine Sodium [Synthroid] 50 mcg PO QAM 03/11/14 [History] Albuterol Sulfate [Ventolin HFA] 2 puff INHALATION RT-QID PRN 03/12/14 [History] Alendronate Sodium 70 mg PO FR 06/25/15 [History] Nitroglycerin Sl Tabs [Nitrostat] 0.4 mg SL Q5M PRN 06/25/15 [History] HYDROcodone/APAP 7.5-325MG [Superior 7.5-325] 1 tab PO Q6H PRN 11/24/16 [History] Lisinopril [Zestril] 10 mg PO QAM 11/24/16 [History] amLODIPine [Norvasc] 10 mg PO QAM 11/24/16 [History] Aspirin 81 mg PO DAILY #1 chewable 11/25/16 [Rx] Albuterol Nebulized [Ventolin Nebulized] 2.5 mg INHALATION RT-QID PRN 07/27/17 [ History] Umeclidinium York [Incruse Ellipta] 62.5 mcg INHALATION RT-DAILY 07/27/17 [ History] busPIRone HCL [Buspar] 7.5 mg PO HS 07/27/17 [History] metFORMIN HCL [Glucophage] 500 mg PO BID 07/27/17 [History] traZODone HCL [Desyrel] 100 mg PO HS PRN 07/27/17 [History] Ergocalciferol [Vitamin D2 (DRISDOL)] 50,000 unit PO TH 08/08/17 [History] PARoxetine HCL [Paxil] 40 mg PO DAILY 10/19/17 [History] Follow up Appointment(s)/Referral(s): Maurilio Burnette MD [STAFF PHYSICIAN] - 10/26/17 2:15 pm Barrie Grossman DO [Doctor of Osteopathic Medicine] - 10/31/17 1:00 pm Abdiel Ochoa DO [Primary Care Provider] - 10/27/17 1:00 pm Ambulatory/Diagnostic Orders: XR chest 2V [RAD.AMB] Time Frame: 10/26/17, Facility: [facility], Location: [facility] Discharge Disposition: HOME SELF-CARE
[2017-10-21 10:54] VITALS: BP 124/75
[2017-10-21 10:55] VITALS: RESP 18
== END 2017-10-21 11:17 | disposition home or self-care (01) | DRG 164 ==
LOC: 2ORMAIN 06:03 → 6SEL 09:42
PROVIDERS: ADMIT Thoracic Surgery (Cardiothoracic Vascular Surgery); ATTEND Thoracic Surgery (Cardiothoracic Vascular Surgery)
PROC: 0W9930Z Drainage of Right Pleural Cavity with Drainage Device, Percutaneous Approach (ICD-10-PCS; 2017-10-19)
PROC: 05H533Z Insertion of Infusion Device into Right Subclavian Vein, Percutaneous Approach (ICD-10-PCS; 2017-10-19)
PROC: 0BBD4ZZ Excision of Right Middle Lung Lobe, Percutaneous Endoscopic Approach (ICD-10-PCS; principal; 2017-10-19 07:30)
DX: C34.2 Malignant neoplasm of middle lobe, bronchus or lung (principal); J44.1 Chronic obstructive pulmonary disease with (acute) exacerbation; J98.11 Atelectasis; F17.210 Nicotine dependence, cigarettes, uncomplicated; B18.2 Chronic viral hepatitis C; D57.3 Sickle-cell trait; E03.9 Hypothyroidism, unspecified; E11.9 Type 2 diabetes mellitus without complications; E55.9 Vitamin D deficiency, unspecified; E66.9 Obesity, unspecified; Z68.31 Body mass index [BMI] 31.0-31.9, adult; E78.00 Pure hypercholesterolemia, unspecified; G47.00 Insomnia, unspecified; I10 Essential (primary) hypertension; I25.10 Atherosclerotic heart disease of native coronary artery without angina pectoris; Z79.82 Long term (current) use of aspirin; Z79.84 Long term (current) use of oral hypoglycemic drugs; Z79.899 Other long term (current) drug therapy; Z79.890 Hormone replacement therapy; Z98.42 Cataract extraction status, left eye; Z98.41 Cataract extraction status, right eye; M19.90 Unspecified osteoarthritis, unspecified site; R25.1 Tremor, unspecified
CPT/HCPCS: 71045; 71046; 80048; 85025; 86850; 86900; 86901; 88307; 88331; 88341; 88342; 94640; 94760

== ENCOUNTER → 2017-10-23 | Outpatient (CLI) | payer MEDICARE, OTHER ==
--- NOTE | 2017-10-23 12:15 | XR ---
EXAMINATION TYPE: XR chest 2V DATE OF EXAM: 10/23/2017 COMPARISON: 10/21/2017 INDICATION: Postop VATS TECHNIQUE: Frontal and lateral views of the chest are obtained. FINDINGS: The heart size is normal. The pulmonary vasculature is normal. The lungs are clear. No pneumothorax is evident. No significant effusion is evident. There is some b lunting of the right costophrenic angle. Small right posterior pleural effusion is not entirely exclu ded. IMPRESSION: 1. There may some minimal right posterior pleural effusion. 2. No pneumothorax.
== END | disposition home or self-care (01) ==
LOC: RADXRMAIN 11:44
PROVIDERS: ATTEND Nurse Practitioner Family
DX: Z09 Encounter for follow-up examination after completed treatment for conditions other than malignant neoplasm (principal); Z98.890 Other specified postprocedural states
CPT/HCPCS: 71046

== ENCOUNTER → 2018-03-23 | Outpatient (CLI) | payer MEDICARE, OTHER ==
[2018-03-23 16:58] LABS: Anion Gap 8.2 mmol/L (4.00-12.00); Calcium 10.9 mg/dL (8.7-10.3); Carbon Dioxide 31.8 mmol/L (21.6-31.8); LDL Cholesterol,Calculated 29.8 mg/dL (0.0-131.0); Potassium 3.8 mmol/L (3.5-5.5); VLDL Calculation 23.2 mg/dL (5.00-40.00)
== END ==
LOC: LABWHC1 10:43
PROVIDERS: ATTEND Nurse Practitioner Adult Health
DX: I10 Essential (primary) hypertension (principal); E78.5 Hyperlipidemia, unspecified
CPT/HCPCS: 36415; 80048; 80061

== ENCOUNTER → 2018-04-18 | Day surgery (SDC) | payer MEDICARE, OTHER ==
[2018-04-16 12:58] VITALS: BMI 27.0
[~2018-04-18] MED LIST changes: +ALBUTEROL INHALER 60 PUFF/8 GM INHALER INHALATION PRN; +ALBUTEROL NEBULIZED 2.5 MG/3 ML INHALATION PRN; +ALPRAZolam 0.25 MG TAB PO PRN; +ALPRAZolam 0.5 MG TAB PO PRN; +ASPIRIN 325 MG TAB PO STA; +ASPIRIN 81 MG PO SCH; +ATORVASTATIN 80 MG TAB PO STA; +BUSPIRONE HCL 7.5 MG PO SCH; -DEXAMETHASONE SOD PHOSPHATE 10 MG/ML 1 ML VIAL IV ONE; +ERGOCALCIFEROL 50,000 UNIT CAP PO SCH; +HEPARIN SODIUM 1,000 UN/ML (10ML VL) ONE; +HYDROcodone/APAP 7.5-325MG 1 EACH TAB PO PRN; +IOPAMIDOL-370 125ML BTL INJ ONE; +IPRATROPIUM 0.5 MG/2.5 ML NEBU INHALATION SCH; -LACTATED RINGERS 1,000 ML IV SCH; +LEVOTHYROXINE 50 MCG TAB PO SCH; +LIDOCAINE 2% INJ 20 MG/ML SQ ONE; +MIDAZOLAM 2 MG/2 ML VIAL IV ONE; -MIDAZOLAM 2 MG/2 ML VIAL IV PRN; +NITROGLYCERIN SL TABS 0.4 MG TAB SUBLINGUAL PRN; +NON-FORMULARY DRUG (Alendronate Sodium [Alendronate Sodium] 70 MG) PO SCH; -ONDANSETRON 4 MG/2 ML VIAL IVP ONE; +PARoxetine 20 MG TAB PO SCH; -Pre Op ABX Message 1 EACH MISC MISCELLANE ONE; +RX INFO: IV CONTRAST WAS GIVEN 1 EACH MISC MISCELLANE PRN; +SODIUM CHLORIDE 0.9% 1,000 ML IV SCH; +SODIUM CHLORIDE 0.9% 1,000 ML in EMPTY BAG 1 BAG IV ONE; +VERAPAMIL 2.5 MG/ML 2 ML AMP ONE; +VERAPAMIL SYRINGE (5 MG/10 ML) INTRAARTER ONE; +amLODIPine 10 MG TAB PO SCH; +fentaNYL (PF) 50 MCG/ML 2 ML AMP IV ONE; +fentaNYL (PF) 50 MCG/ML 2 ML AMP ONE
[2018-04-18 11:46] LABS: Glucose,Whole Blood 106 mg/dL (75-99)
[2018-04-18 11:46] LABS: Basophils % (A) 0 %; Eosinophils # (A) 0.1 k/uL (0-0.7); Eosinophils % (A) 2 %; HCT 38.5 % (34.0-46.0); HGB 12.6 gm/dL (11.4-16.0); Lymphocytes # (A) 2.8 k/uL (1.0-4.8); Lymphocytes % (A) 36 %; MCH 29.6 pg (25.0-35.0); MCHC 32.8 g/dL (31.0-37.0); MCV 90.3 fL (80.0-100.0); Mean Platelet Volume 8.5; Monocytes # (A) 0.4 k/uL (0-1.0); Monocytes % (A) 5 %; Neutrophils # (A) 4.3 k/uL (1.3-7.7); Neutrophils % (A) 54 %; Platelet Count 313 k/uL (150-450); RBC 4.26 m/uL (3.80-5.40); WBC 7.9 k/uL (3.8-10.6)
[2018-04-18 11:47] VITALS: RESP 18; TEMP 97.9
--- NOTE | 2018-04-18 14:13 | CC ---
CARDIAC CATHETERIZATION REPORT Mrs. Sellers is a 68-year-old female with known history of hypertension, hyperlipidemia, who has been complaining of progressive symptoms of dyspnea and exertional chest discomfort. She was evaluated by Dr. Klye and recommendation made regarding cardiac catheterization. The procedures, risks and complication were discussed with the patient, who is in full understanding and agreement. PROCEDURE: Patient was brought to the cathead worker in a fasting semi-sedated state after receiving fentanyl and Benadryl and achieving moderate conscious sedated state. Using Xylocaine anesthesia and Seldinger technique, a 6-Senegalese sheath was introduced in the right radial artery. Selective right and left coronary angiography were performed using 5- Senegalese 3.5 bend right and left Vanessa catheter. Multiple views of the coronary artery including hemiaxial views were obtained. Following that, a 5-Senegalese tight pigtail catheter was introduced in the left ventricle and a 30 degree HUI view of the left ventricle was obtained. Following that, catheter and sheaths were removed. Hemostasis was obtained with deployment of TR band. There was no immediate complication. Patient is returned to her room in stable condition. Of note, the patient received 3000 units of intravenous heparin as well as intra-arterial verapamil. FINDINGS: LEFT MAIN: This is a short size vessel, bifurcating into left circumflex, left anterior descending artery. Left main coronary artery has no evidence of high-grade stenosis. LEFT ANTERIOR DESCENDING ARTERY: This is a large-sized vessel, reaching toward the apex with a wraparound apex segment giving rise to a large diagonal branch. The left anterior descending artery as well as branches have no evidence of obstructive coronary artery disease. LEFT CIRCUMFLEX: This is a large, nondominant vessel giving rise to a large obtuse marginal branch that has no evidence of high-grade stenosis. RIGHT CORONARY ARTERY: This is a large dominant vessel, bifurcating distally into PDA and posterolateral segment branches. The right coronary artery as well as branches have no evidence of obstructive coronary artery disease. LEFT VENTRICULOGRAM: Left ventriculogram was performed in 30 degree HUI view and revealed normal size systolic function. Ejection fraction is 60%. There was no significant mitral regurgitation. HEMODYNAMICS: There was no gradient across the aortic valve. The left ventricle end-diastolic pressure was 12-16 mmHg. CONCLUSION: 1. Normal coronary arteries. 2. Normal left ventricular size and systolic function. RECOMMENDATION: In view of finding anatomy, recommend continue medical therapy with aggressive coronary risk modifications being initiated. Those findings and recommendation were discussed with the patient and her family points and they are in full understanding and agreement. Duration of procedure is 17 minutes. MMGRADYL / IJN: [id number] /
[2018-04-18 17:23] VITALS: BP 143/85; PULSE 84
== END | disposition home or self-care (01) ==
LOC: CATHCVL 11:08
PROVIDERS: ATTEND Internal Medicine Interventional Cardiology
DX: R07.89 Other chest pain (principal); R06.02 Shortness of breath; I10 Essential (primary) hypertension; E78.5 Hyperlipidemia, unspecified; E78.00 Pure hypercholesterolemia, unspecified; I45.2 Bifascicular block; Z79.84 Long term (current) use of oral hypoglycemic drugs; Z79.82 Long term (current) use of aspirin; Z79.890 Hormone replacement therapy; Z79.51 Long term (current) use of inhaled steroids; Z79.899 Other long term (current) drug therapy; Z86.74 Personal history of sudden cardiac arrest; Z90.2 Acquired absence of lung [part of]; Z72.0 Tobacco use
CPT/HCPCS: 93458; 85025; C1894; C1769; J2001; J2250; J3010; J1644; Q9967

== ENCOUNTER → 2018-05-07 | Outpatient (CLI) | payer MEDICARE, OTHER ==
--- NOTE | 2018-05-07 11:40 | XR ---
EXAMINATION TYPE: XR ribs RT DATE OF EXAM: 05/07/2018 CLINICAL HISTORY: Right lobectomy stated in October. Right rib pain at surgical site. TECHNIQUE: Single frontal view of the chest is obtained. COMPARISON: 10/23/2017 chest radiograph FINDINGS: Surgical sutures are seen near the right infrahilar region with partial pneumonectomy elizabeth e. Healed right lateral rib fracture is seen of ribs 7 and 8. No acute displaced fracture or suspicio us osseous lesion is seen. Right lung remains clear other than the postoperative change IMPRESSION: No acute right rib fracture or suspicious abnormality. Healed right rib fractures and po stsurgical change of the right lung.
== END | disposition home or self-care (01) ==
LOC: RADXRMAIN 10:23
PROVIDERS: ATTEND Internal Medicine Critical Care Medicine
DX: R07.81 Pleurodynia (principal); Z98.890 Other specified postprocedural states

== ENCOUNTER → 2018-10-10 | Outpatient (CLI) | payer MEDICARE, OTHER ==
--- NOTE | 2018-10-10 10:52 | XR ---
EXAMINATION TYPE: XR chest 2V DATE OF EXAM: 10/10/2018 COMPARISON: Chest x-ray May 07, 2018. HISTORY: History of COPD with wheezing and shortness of breath TECHNIQUE: Frontal and lateral views of the chest are obtained. FINDINGS: There is chronic parenchymal change without suspicious new focal air space opacity, pleura l effusion, or pneumothorax seen. The cardiac silhouette size remains enlarged with ectatic aorta. The osseous structures are intact. IMPRESSION: Chronic changes without acute pulmonary process.
== END | disposition home or self-care (01) ==
LOC: RADXRMAIN 10:16
PROVIDERS: ATTEND Family Medicine
DX: R06.02 Shortness of breath (principal)
CPT/HCPCS: 71046

== ENCOUNTER → 2019-01-09 | Outpatient (CLI) | payer MEDICARE, OTHER ==
[2019-01-09 17:12] LABS: T4, Free (Free Thyroxine) 1.3 ng/dL (0.80-1.80)
== END | disposition home or self-care (01) ==
LOC: LABWHC1 10:46
PROVIDERS: ATTEND Family Medicine
DX: F41.1 Generalized anxiety disorder (principal)
CPT/HCPCS: 36415; 84439; 84443

== ENCOUNTER → 2019-04-09 | Outpatient (CLI) | payer MEDICARE, OTHER ==
--- NOTE | 2019-04-09 17:08 | CT ---
EXAMINATION TYPE: CT chest w con DATE OF EXAM: 04/09/2019 COMPARISON: 07/03/2017 HISTORY: Lung cancer. CT DLP: 172.1 mGycm, Automated exposure control for dose reduction was used. CONTRAST: Performed injected with 80ml mL of Isovue 300. TECHNIQUE: Axial images were obtained at 5 mm thick sections. Reconstructed images are reviewed on [employer] computer in the coronal plane. FINDINGS: Portion of the thyroid visualized is normal. There is a pleural-based nodule measuring 1.6 x 0.8 cm along the right lateral chest wall. Series 3 i mage 30. This is a new finding. Previous right middle lobe mass has resolved. No enlarged mediastinal or hilar adenopathy is evident. The ascending aorta diameter at the level o f the main pulmonary artery is 3.8 cm. The main pulmonary artery diameter at the bifurcation is 3.[address] sections are obtained through the upper abdomen. Abdomen is essentially unremarkable. IMPRESSIONS: 1. Previous right middle lobe nodule has resolved. 2. New pleural-based nodule right chest wall
== END | disposition home or self-care (01) ==
LOC: RADCTMAIN 13:50
PROVIDERS: ATTEND Internal Medicine Critical Care Medicine
DX: C34.90 Malignant neoplasm of unspecified part of unspecified bronchus or lung (principal); R22.2 Localized swelling, mass and lump, trunk
CPT/HCPCS: 82565; 84520; 71260; 36415; Q9967

== ENCOUNTER → 2019-04-11 | Outpatient (CLI) | payer MEDICARE, OTHER ==
--- NOTE | 2019-04-11 15:13 | CT ---
EXAMINATION TYPE: CT soft tissue neck w con DATE OF EXAM: 04/11/2019 HISTORY: Left sided mouth swelling. History of lung cancer. COMPARISON: Chest CT [address] DLP: 291.9 mGycm. Automated Exposure Control for Dose Reduction was Utilized. TECHNIQUE: CT scan of the neck is performed with IV Contrast, patient injected with 80 mL of Isovue M300, axial images are obtained, coronal and sagittal reformatted images are reviewed. FINDINGS: Airway: Upper lungs redemonstrate underlying mild to moderate emphysematous change. Tortuous course t o internal carotid arteries noted. Some secretions. Filling the vallecula. Left pyriform sinus shows asymmetric fullness without obvious mass. Parotid/submandibular glands: No gross abnormality seen. Carotid/Vascular Structures: There is tortuous course to the proximal internal carotid arteries into the posterior nasopharyngeal and oropharyngeal airway . Osseous Structures: Reversal of normal cervical curvature with mild to moderate disc space narrowing C3-C4 through the C6-C7 levels. Slight scoliotic curvature on coronal images. Other: Prominent but subcentimeter lymph nodes throughout the neck bilaterally without definitive gre ater than 1 cm neck adenopathy. IMPRESSION: No suspicious mass or fluid collection to account for patient's symptoms of left mouth s welling. No definitive abnormal adenopathy. Some fullness left piriform sinus without definitive mass could be correlated with nonemergent ENT direct visualization if desired. Note is made of tortuous c entral course of both internal carotid arteries if sampling is performed.
== END | disposition home or self-care (01) ==
LOC: RADCTMAIN 12:23
PROVIDERS: ATTEND Family Medicine
DX: J39.0 Retropharyngeal and parapharyngeal abscess (principal); R93.0 Abnormal findings on diagnostic imaging of skull and head, not elsewhere classified
CPT/HCPCS: 36410; 76937; 82565; 84520; 70491; 36415; Q9967

== ENCOUNTER → 2019-04-19 | Outpatient (CLI) | payer MEDICARE, OTHER ==
--- NOTE | 2019-04-22 08:07 | PE ---
EXAMINATION TYPE: PET CT fusion skull to thigh DATE OF EXAM: 04/19/2019 COMPARISON: CT neck April 11, 2019. CT chest April 09, 2019. PET CT April 15, 2017. HISTORY: Abnormal CT, solitary pulmonary nodule. TECHNIQUE: Following the intravenous administration of 7.9 mCi of F-18 FDG, whole body images are pe rformed from the skull base to the midthigh. Images are reviewed on the computer in the coronal, axi al, and sagittal planes. Reconstructed rotating images are created on independent workstation and re viewed on the computer. A noncontrast CT is performed in conjunction with the PET scan. SCAN: Initial Scan FINDINGS: SKULL BASE AND NECK: No suspicious hypermetabolic uptake. CHEST, MEDIASTINUM, AND HILAR REGION: Redemonstration of new pleural or subpleural right mid lung nod ule measuring 1.2 x 0.7 cm axial image 90 with minimal hypermetabolic uptake, max SUV is under 2.0. A dditional 1.2 x 0.7 cm anterior right upper lung nodule axial image 65 with minimal hypermetabolic up take, max SUV is under 1.0. No additional areas of suspicious hypermetabolic uptake identified. Previ ously visualized right middle lobe nodule in 2018 CT not clearly identified on current study. No area s of abnormal hypermetabolic uptake with Max SUV greater than 2.5. ABDOMEN AND PELVIS: No areas of abnormal hypermetabolic uptake. OSSEOUS STRUCTURES: No areas of abnormal hypermetabolic uptake. OTHER CT: Cardiomegaly is redemonstrated. Stable Ascending aorta measures up to 3.8 cm diameter. Prom inent central pulmonary arteries consistent with underlying pulmonary artery hypertension. Simple appearing 3.0 cm anterior lower pole right renal thin-walled cyst. Anteverted uterus with calc ified fibroid. IMPRESSION: No suspicious hypermetabolic uptake to suggest pulmonary malignancy. Advise short-term fo llow-up CT in 6 months time to reassess as nodule is subcentimeter in size.
== END | disposition home or self-care (01) ==
LOC: RADPETMAIN 14:15
PROVIDERS: ATTEND Internal Medicine Critical Care Medicine
DX: C34.11 Malignant neoplasm of upper lobe, right bronchus or lung (principal)
CPT/HCPCS: 78815; A9552

== ENCOUNTER → 2019-10-01 | Outpatient (CLI) | payer MEDICARE, OTHER ==
[2019-10-01 18:59] LABS: African American GFR (CKD) 58.9 (60.0-200.0); Anion Gap 3.9 mmol/L (4.00-12.00); BUN/Creat Ratio 37.27 Ratio (12.00-20.00); Calcium 11.6 mg/dL (8.7-10.3); Carbon Dioxide 34.1 mmol/L (21.6-31.8); Chol/HDL Ratio 1.95; LDL Cholesterol,Calculated 39.6 mg/dL (0.0-131.0); Non-African American GFR(CKD) 50.8 (60.0-200.0); Potassium 4.2 mmol/L (3.5-5.5); VLDL Calculation 23.4 mg/dL (5.00-40.00)
== END | disposition home or self-care (01) ==
LOC: LABWHC1 10:09
PROVIDERS: ATTEND Physician Assistant
DX: I10 Essential (primary) hypertension (principal); I42.9 Cardiomyopathy, unspecified; E78.5 Hyperlipidemia, unspecified
CPT/HCPCS: 36415; 80048; 80061; 84439; 84443

== ENCOUNTER → 2019-10-25 | Outpatient (CLI) | payer MEDICARE, OTHER | END | disposition home or self-care (01) | LOC: LABWHC1 13:13 | PROVIDERS: ATTEND Family Medicine | DX: E03.8 Other specified hypothyroidism (principal) | CPT/HCPCS: 36415; 84439 ==

== ENCOUNTER → 2019-11-21 | Outpatient (CLI) | payer MEDICARE, OTHER ==
--- NOTE | 2019-11-23 11:41 | CT ---
EXAMINATION TYPE: CT chest w con DATE OF EXAM: 11/21/2019 COMPARISON: 04/09/2019, 07/03/2017 HISTORY: 69-year-old female C34.90, Follow up for non-small cell lung cancer. TECHNIQUE: Contiguous axial scanning of the chest after the administration of 80ml mL of Isovue 300. Coronal/sagittal reconstructions performed. CT DLP: 216.7mGycm. Automatic exposure control utilized for a dose reduction. FINDINGS: Heart is borderline enlarged without pericardial effusion. Aortic root is ectatic at 3.6 cm. Ascending aorta ectatic and 3.9 cm. Conventional arch was a branching anatomy. Scattered mild atherosclerotic arch calcifications. Ectatic upper descending thoracic aorta at 3.4 cm in tortuous descending thoracic aorta. A few lower paratracheal lymph nodes have increased in size but remain nonenlarged measuring up to 9 mm on the right versus 7 mm, previously an 8 mm on the left versus 4 mm, previously. No thoracic lymp hadenopathy by CT size criteria. Large caliber to the main right and left pulmonary arteries measuring up to 3.0 cm suggesting underly ing pulmonary arterial hypertension. Similar minimal right apical pleural parenchymal scarring. Mild centrilobular emphysema. Anterior right upper lobe subpleural nodule measures 1.6 x 1.0 cm versus 1.1 x 0.7 cm, previously. 8 mm peripheral right upper lobe pulmonary nodule, axial image 23 previously measured 5 mm. A tiny 5 mm subpleural right middle lobe pulmonary nodule, axial image 30 is new. 2.1 cm large subpleural nodule lateral right midlung now shows early erosive change of the overlying right lateral sixth rib. It has increased in size previously measuring 1.5 cm. Staple line redemonstrated along the right infrahilar region. There is increasing soft tissue density along the resection site measuring approximately 4.7 x 2.3 cm (sagittal image 38 and axial image 28) versus only minimal density measuring 1.0 cm, previously. Some tree-in-bud nodularity within the posterior right lower lobe, axial image 32 is increased. No pleural effusion. Small fat-containing Bochdalek hernias on both sides. A vague 2.1 cm hypodense lesion right liver lobe is unchanged. Unchanged mild diffuse thickening of the left adrenal gland without discrete nodularity. Bones: No osseous destructive process. IMPRESSION: 1. Findings compatible with disease recurrence. There is new right infrahilar soft tissue encasement measuring 4.7 x 2.3 cm at the site of previous resection. 2. Interval increase in size of the lateral right midlung subpleural nodule at 2.1 cm versus 1.5 cm, previously. There is new associated early erosive change of the medial cortex of the overlying right lateral sixth rib. 3. Three additional new or enlarging nodules also noted on the right measuring up to 1.6 cm now. 4. Some increasing tree-in-bud nodularity in the posterior right lower lobe. Correlate for an infecti ous/inflammatory etiology. 5. COPD with mild emphysema and pulmonary arterial hypertension.
== END | disposition home or self-care (01) ==
LOC: RADCTMAIN 14:42
PROVIDERS: ATTEND Internal Medicine Critical Care Medicine
DX: C34.90 Malignant neoplasm of unspecified part of unspecified bronchus or lung (principal); I27.21 Secondary pulmonary arterial hypertension; J43.9 Emphysema, unspecified; R91.8 Other nonspecific abnormal finding of lung field; M85.88 Other specified disorders of bone density and structure, other site; Z98.890 Other specified postprocedural states
CPT/HCPCS: 82565; 84520; 71260; 36415; Q9967

== ENCOUNTER → 2019-12-20 | Outpatient (CLI) | payer MEDICARE, OTHER ==
--- NOTE | 2019-12-24 10:19 | PE ---
Nuclear medicine PET/CT HISTORY: Lung carcinoma, subsequent Patient received 9.1 mCi F-18 FDG intravenously in delayed scanning was performed from skull base to the mid thighs. An attenuation correction CT, localization CT scan was also performed Correlation to prior nuclear medicine PET/CT 04/19/2019 Chest and neck: There is no supraclavicular or cervical adenopathy. At the level of the previously id entified pleural-based mass in the right lower lobe level has increased in size, there is hypermetabo lic uptake, persistent soft tissue, rib irregularity, SUV is 4. Right hilar adenopathy, associated hy permetabolic uptake has also progressed, SUV 2.4. Internal mammary node is thought to have increased in size and shows associated hypermetabolic uptake, SUV 1.8. Additional subpleural nodule present on axial image 85 subcentimeter in size. ABDOMEN: No evident adrenal mass. No liver mass identified. No ascites. Bowel uptake is likely physio logic. Osseous structures show the interval rib irregularity at the level of the patient's pleural-based mas s in the right chest. No other suspicious uptake. IMPRESSION: Interval progression in areas of abnormality in the right chest as described with associa maame metabolic uptake.
== END | disposition home or self-care (01) ==
LOC: RADPETMAIN 11:12
PROVIDERS: ATTEND Radiology Radiation Oncology
DX: C34.2 Malignant neoplasm of middle lobe, bronchus or lung (principal); R59.0 Localized enlarged lymph nodes; Z87.891 Personal history of nicotine dependence
CPT/HCPCS: 78815; A9552

== ENCOUNTER 2020-01-10 08:58 | Day surgery (SDC) | payer MEDICARE, OTHER ==
[2020-01-10 10:09] VITALS: TEMP 98.7
[2020-01-10 10:16] LABS: Mean Platelet Volume 8.9; Platelet Count 149 k/uL (150-450)
[2020-01-10 10:27] LABS: INR 1.1 (<1.2); Prothrombin Time 11.2 sec (9.0-12.0)
[2020-01-10 12:02] VITALS: RESP 16
[2020-01-10] MEDS ORDERED: HYDROmorphone 0.5 MG/0.5 ML SYRINGE IVP STA (12:04)
--- NOTE | 2020-01-10 12:51 | US ---
EXAMINATION TYPE: US guide vascular access DATE OF EXAM: 01/10/2020 HISTORY: Needs IV access for lung biopsy therapy, multiple failed intravenous access attempts. PROCEDURE: Maximal barrier technique utilized. The skin overlying the right basilic vein was localized with ult rasound and the vein was noted to be compressible and patent by ultrasound and ultrasound image was o btained and submitted on patient's chart. Under direct ultrasound guidance a 20-gauge Angiocath was advanced into the vein and fixed in place. Catheter was aspirated and flushed with sterile saline. Hemostasis achieved. Catheter fixed in place. No immediate complication. IMPRESSION: Ultrasound-guided venipuncture, this procedure performed by the undersigned.
--- NOTE | 2020-01-10 12:52 | CT ---
EXAMINATION TYPE: CT biopsy lung RT DATE OF EXAM: 01/10/2020 HISTORY: Lung carcinoma, lung masses COMPARISON: Prior PET/CT 12/20/2019 Maximal barrier technique was utilized, hand hygiene obtained with soap and water. The skin overlyin g a suitable path to the subpleural nodule in the right hemithorax was localized using CT and the ove rlying skin was prepped and draped. Lidocaine used for local anesthesia. A skin sanchez made with a sc alpel. Using CT guidance, access was gained to the lesion with a 19-gauge guide and subsequently 2 p asses with a 20-gauge core needle. Core specimen submitted to cytology. 2 pass(es) performed in all . Following the procedure no immediate complications. The patient is discharged in stable conditio n. Hemostasis achieved. IMPRESSION: SUCCESSFUL CT GUIDED CORE BIOPSY of right pleural-based mass. PATHOLOGY PENDING. THIS PROCEDURE WAS PERFORMED BY THE UNDERSIGNED.
--- NOTE | 2020-01-10 12:57 | XR ---
EXAMINATION TYPE: XR chest 1V portable DATE OF EXAM: 01/10/2020 CLINICAL HISTORY: Post right lung biopsy. TECHNIQUE: Portable frontal view of the chest COMPARISON: CT lung biopsy 01/10/2020. FINDINGS: Right mid lateral chest wall mass redemonstrated, with no evidence of pneumothorax status post biopsy. Cardiomegaly. Mediastinal silhouette normal. No pleural effusion. IMPRESSION: No evidence of pneumothorax status post right chest wall mass biopsy.
--- NOTE | 2020-01-10 14:34 | XR ---
EXAMINATION TYPE: XR chest 1V portable DATE OF EXAM: 01/10/2020 COMPARISON: Chest CT November 21, 2019. Most recent chest x-ray earlier today HISTORY: Post right lung biopsy. TECHNIQUE: Single frontal view of the chest is obtained. FINDINGS: Persistent peripheral right midlung nodule. Background chronic parenchymal change without n ew focal airspace opacity, pleural effusion, or pneumothorax. Persistent right hilar fullness or urmila opathy. The cardiac silhouette size is stable and mildly enlarged with ectatic thoracic aorta. The osseous structures remain demineralized. IMPRESSION: No pneumothorax after right lung biopsy. No significant change from recent chest x-ray.
[2020-01-10] MEDS ORDERED: HYDROcodone/APAP 7.5-325MG 1 EACH TAB PO PRN (14:37)
[2020-01-10 16:26] VITALS: BP 152/71; PULSE 72
== END 2020-01-10 15:02 | disposition home or self-care (01) ==
LOC: RADPROMAIN 08:58
PROVIDERS: ATTEND Radiology Radiation Oncology
DX: C38.4 Malignant neoplasm of pleura (principal); C34.2 Malignant neoplasm of middle lobe, bronchus or lung; Z87.891 Personal history of nicotine dependence
CPT/HCPCS: 88305; 82947; 85049; 85610; 88342; 88341; 96374; 36415; 71045; 76937; 77012; 32400; J1170

== ENCOUNTER → 2020-04-29 | Outpatient (CLI) | payer MEDICARE, OTHER | END | disposition home or self-care (01) | LOC: LABWHC1 16:47 | PROVIDERS: ATTEND Family Medicine | DX: Z20.822 Contact with and (suspected) exposure to COVID-19 (principal) | CPT/HCPCS: U0003; C9803; U0005 ==

== ENCOUNTER → 2020-08-04 | Outpatient (CLI) | payer MEDICARE, OTHER ==
[2020-08-05 00:08] LABS: Basophils # (A) 0.06 X 10*3/uL (0.00-0.10); Basophils % (A) 0.5 %; Eosinophils # (A) 0.04 X 10*3/uL (0.04-0.35); Eosinophils % (A) 0.3 %; HGB 11.7 g/dL (12.0-15.0); Lymphocytes # (A) 2.67 X 10*3/uL (0.90-5.00); Lymphocytes % (A) 22.9 %; MCH 28.8 pg (27.0-32.0); MCHC 32.5 g/dL (32.0-37.0); MCV 88.7 fL (80.0-97.0); Mean Platelet Volume 12.1 fL (9.5-12.2); Monocytes # (A) 0.95 X 10*3/uL (0.20-1.00); Monocytes % (A) 8.2 %; Neutrophils # (A) 7.87 X 10*3/uL (1.80-7.70); Neutrophils % (A) 67.7 %; Platelet Count 352 X 10*3/uL (140-440); RBC 4.06 X 10*6/uL (4.10-5.20); RDW 11.9 % (11.5-14.5); WBC 11.64 X 10*3/uL (4.50-10.00)
[2020-08-05 16:00] LABS: African American GFR (CKD) 74.6 (60.0-200.0); Albumin/Globulin Ratio 1.08 (1.60-3.17); Anion Gap 15.3 mmol/L (4.00-12.00); BUN/Creat Ratio 12.22 Ratio (12.00-20.00); Calcium 11.1 mg/dL (8.7-10.3); Carbon Dioxide 23.7 mmol/L (21.6-31.8); Chol/HDL Ratio 3.42; Globulin 3.7 g/dL (1.6-3.3); LDL Cholesterol,Calculated 57.8 mg/dL (0.0-131.0); Non-African American GFR(CKD) 64.3 (60.0-200.0); Potassium 3.3 mmol/L (3.5-5.5); Total Bilirubin 0.6 mg/dL (0.2-1.2); Total Protein 7.7 g/dL (6.2-8.2); VLDL Calculation 17.2 mg/dL (5.00-40.00)
== END | disposition home or self-care (01) ==
LOC: LABWHC1 15:24
PROVIDERS: ATTEND Family Medicine
DX: E11.9 Type 2 diabetes mellitus without complications (principal); I10 Essential (primary) hypertension
CPT/HCPCS: 36415; 80053; 80061; 85025

== ENCOUNTER 2020-09-15 20:55 | Inpatient (IN) | payer MEDICARE, OTHER ==
[2020-09-15] MEDS ORDERED: ALBUTEROL NEBULIZED 2.5 MG/3 ML INHALATION STA (21:24)
[2020-09-15] MEDS ORDERED: IPRATROPIUM 0.5 MG/2.5 ML NEBU INHALATION STA (21:24)
--- NOTE | 2020-09-15 21:25 | XR ---
EXAMINATION TYPE: XR chest 1V portable DATE OF EXAM: 09/15/2020 COMPARISON: Chest x-ray January 10, 2020 and older studies. HISTORY: Difficulty in breathing. TECHNIQUE: Single AP portable frontal upright view of the chest is obtained. FINDINGS: There is new moderate right-sided pleural effusion and associated compressive atelectasis. No new mediastinal shift. The cardiac silhouette size is upper limits of normal. Left lung remains clear. The osseous structures are intact. IMPRESSION: New moderate right-sided pleural effusion. Finding likely on basis of known right-sided pulmonary neoplasm.
--- NOTE | 2020-09-15 21:27 | ED ---
General Adult HPI <UriRamon B - Last Filed: 09/16/20 01:16> - General Source: patient, EMS Mode of arrival: EMS Limitations: no limitations <Christiano Hickeyssotilia Barba - Last Filed: 09/17/20 17:00> - General Chief complaint: Shortness of Breath Stated complaint: DELICIA Time Seen by Provider: 09/15/20 20:55 - History of Present Illness Initial comments: Dictation was produced using [employer] dictation software. please excuse any grammatical, word or spelling errors. Chief Complaint: 70-year-old female multiple comorbidities presents with dyspnea 3 days History of Present Illness: Chin is a 70-year-old female she has multiple comorbidities. Patient sees Dr. Abbott she has past medical history of COPD hypertension, thyroid disease and she also has history of pneumonectomy. She states that for the last 3 days she develop worsening shortness of breath. She is a former smoker. She states she does have a cough productive of green and white sputum. Denies any fevers. No runny nose or throat. Denies any constitutional symptoms. No lower extremity symptoms. Shortness of breath does not change with position. The ROS documented in this emergency department record has been reviewed and confirmed by me. Those systems with pertinent positive or negative responses have been documented in the HPI. All other systems are other negative and/or noncontributory. PHYSICAL EXAM: General Impression: Alert and oriented x3, mild dyspnea, breathing with pursed lips HEENT: Normocephalic atraumatic, extra-ocular movements intact, pupils equal and reactive to light bilaterally, mucous membranes moist. Cardiovascular: Heart regular rate and rhythm Chest: Able to complete full sentences, no retractions, no tachypnea, diminished lung sounds Abdomen: abdomen soft, non-tender, non-distended, no organomegaly Musculoskeletal: Pulses present and equal in all extremities, no peripheral edema Motor: no focal deficits noted Neurological: CN II-XII grossly intact, no focal motor or sensory deficits noted Skin: Intact with no visualized rashes Psych: Normal affect and mood ED course: 70-year-old female presents with chief complaint of dyspnea 3 days. Signs upon arrival shows respiratory of 22, blood pressure 178/102. Chart review was performed. Patient is on COPD medications. She does not take any anticoagulation medications. There is a lung biopsy from January of last year that shows adenocarcinoma. Patient reevaluated after breathing treatment with improved symptoms. Patient given IV Decadron. X-ray shows no pleural effusion in the right lower lung base. Patient's dyspnea is likely secondary to this. Patient has CO2 of 70 however with a bicarb of 35. This is likely respiratory acidosis with metabolic compensation. Patient will be sent out to Dr. Esquivel for follow-up of pending labs. (Ede Hickey) - Related Data Home Medications Medication Instructions Recorded Confirmed Levothyroxine Sodium [Synthroid] 50 mcg PO DAILY 03/11/14 09/15/20 Albuterol Sulfate [Ventolin HFA] 2 puff INHALATION RT-QID PRN 03/12/14 09/15/20 Nitroglycerin Sl Tabs [Nitrostat] 0.4 mg SL Q5M PRN 06/25/15 09/15/20 Allibiotic Cf 1 cap PO DAILY 09/15/20 09/15/20 Atorvastatin Calcium [Lipitor] 40 mg PO HS 09/15/20 09/15/20 Diltiazem HCl [Cartia Xt] 300 mg PO DAILY 09/15/20 09/15/20 Ergocalciferol (Vitamin D2) 1,250 mcg PO SA 09/15/20 09/15/20 [Drisdol (50,000 Iu)] HYDROcodone/APAP 10-325MG [[place] 1 tab PO TID PRN 09/15/20 09/15/20 10-325] Metoprolol Succinate (ER) [Toprol 50 mg PO DAILY 09/15/20 09/15/20 XL] Montelukast Sodium [Singulair] 10 mg PO HS 09/15/20 09/15/20 Pioglitazone [Actos] 15 mg PO DAILY 09/15/20 09/15/20 hydrOXYzine HCL [Atarax] 25 mg PO BID 09/15/20 09/15/20 metFORMIN HCL [Glucophage] 1,000 mg PO BID 09/15/20 09/15/20 prednisoLONE ACETATE 1% OPHTH 1 drop LEFT EYE QID 09/15/20 09/15/20 [Pred Forte 1%] Allergies Allergy/AdvReac Type Severity Reaction Status Date / Time No Known Allergies Allergy Verified 09/15/20 21:49 Review of Systems ROS Other: All systems not noted in ROS Statement are negative. <ParisalorrainerutRamon Harriet - Last Filed: 09/16/20 01:16> ROS Other: All systems not noted in ROS Statement are negative. <Ede Hickey - Last Filed: 09/17/20 17:00> ROS Statement: Those systems with pertinent positive or pertinent negative responses have been documented in the HPI. Past Medical History Past Medical History: Cancer, COPD, Diabetes Mellitus, Hyperlipidemia, Hypertension, Osteoarthritis (OA), Respiratory Disorder, Thyroid Disorder Additional Past Medical History / Comment(s): Lesion right lung.,sickle cell traits,unable to walk any distance,SOB, States arthritis pain "all over". History of Any Multi-Drug Resistant Organisms: None Reported Past Surgical History: Tubal Ligation Additional Past Surgical History / Comment(s): bilateral cataracts, Navigational Bronchoscopy (08/03/17), LUNG RESECTION Past Anesthesia/Blood Transfusion Reactions: No Reported Reaction Additional Past Anesthesia/Blood Transfusion Reaction / Comment(s): no problems with prior blood transfusion Past Psychological History: Anxiety Smoking Status: Former smoker Past Alcohol Use History: None Reported Past Drug Use History: None Reported - Past Family History Mother Family Medical History: Cancer Father Family Medical History: Cancer <Ede Hickey - Last Filed: 09/17/20 17:00> General Exam General appearance: alert, in no apparent distress, anxious Head exam: Present: atraumatic, normocephalic, normal inspection Eye exam: Present: normal appearance, PERRL, EOMI. Absent: scleral icterus, conjunctival injection, periorbital swelling ENT exam: Present: normal exam, mucous membranes dry Neck exam: Present: normal inspection. Absent: tenderness, meningismus, lymphadenopathy Respiratory exam: Present: wheezes, accessory muscle use, decreased breath sounds, prolonged expiratory. Absent: respiratory distress, rales, rhonchi, stridor Cardiovascular Exam: Present: regular rate, normal rhythm, normal heart sounds. Absent: systolic murmur, diastolic murmur, rubs, gallop, clicks GI/Abdominal exam: Present: soft, normal bowel sounds. Absent: distended, tenderness, guarding, rebound, rigid Extremities exam: Present: normal inspection, full ROM, normal capillary refill. Absent: tenderness, pedal edema, joint swelling, calf tenderness Back exam: Present: normal inspection Neurological exam: Present: alert, oriented X3, CN II-XII intact Psychiatric exam: Present: normal affect, normal mood Skin exam: Present: warm, dry, intact, normal color. Absent: rash <Ramon Grewal - Last Filed: 09/16/20 01:16> Limitations: no limitations <Ede Hickey - Last Filed: 09/17/20 17:00> Course <Ramon Grewal - Last Filed: 09/16/20 01:16> Vital Signs 09/15/20 09/15/20 09/15/20 20:57 21:07 21:21 Temperature 97.6 F Pulse Rate 93 96 Pulse Rate [ Pulse Oximetery ] Respiratory 22 22 22 Rate Blood Pressure 178/102 167/101 Blood Pressure [Left Arm] O2 Sat by Pulse 97 95 Oximetry 09/15/20 09/15/20 09/15/20 21:44 22:16 22:46 Temperature Pulse Rate 84 86 96 Pulse Rate [ Pulse Oximetery ] Respiratory 20 Rate Blood Pressure 154/88 Blood Pressure [Left Arm] O2 Sat by Pulse 91 L Oximetry 09/15/20 09/16/20 09/16/20 23:54 00:00 01:00 Temperature Pulse Rate 93 92 89 Pulse Rate [ Pulse Oximetery ] Respiratory 20 16 20 Rate Blood Pressure 151/73 144/77 136/89 Blood Pressure [Left Arm] O2 Sat by Pulse 93 L 94 L 93 L Oximetry 09/16/20 09/16/20 09/16/20 02:00 03:00 05:00 Temperature Pulse Rate 90 92 93 Pulse Rate [ Pulse Oximetery ] Respiratory 18 18 18 Rate Blood Pressure 147/85 136/73 133/76 Blood Pressure [Left Arm] O2 Sat by Pulse 93 L 94 L 94 L Oximetry 09/16/20 09/16/20 09/16/20 06:00 07:57 08:00 Temperature 97 F L Pulse Rate 88 74 Pulse Rate [ 75 Pulse Oximetery ] Respiratory 18 17 Rate Blood Pressure 132/91 Blood Pressure 131/67 [Left Arm] O2 Sat by Pulse 94 L 99 Oximetry 09/16/20 09/16/20 09/16/20 08:09 11:21 11:31 Temperature Pulse Rate 75 89 89 Pulse Rate [ Pulse Oximetery ] Respiratory Rate Blood Pressure Blood Pressure [Left Arm] O2 Sat by Pulse Oximetry 09/16/20 09/16/20 09/16/20 13:56 15:56 16:05 Temperature 97.9 F Pulse Rate 90 92 Pulse Rate [ 100 Pulse Oximetery ] Respiratory 18 Rate Blood Pressure Blood Pressure 128/77 [Left Arm] O2 Sat by Pulse 95 Oximetry 09/16/20 17:10 Temperature 98.0 F Pulse Rate Pulse Rate [ 80 Pulse Oximetery ] Respiratory 19 Rate Blood Pressure Blood Pressure 156/79 [Left Arm] O2 Sat by Pulse 95 Oximetry - Reevaluation(s) Reevaluation #1: 09/16/20 01:17 Medical records reviewed (Ramon Grewal) Reevaluation #2: 09/16/20 01:17 Patient family resting comfortably with pain control breathing treatments (Ramon Ellis) Reevaluation #3: 09/16/20 01:17 Patient family informed results questions have been answered (Ramon Grewal) - Consultations Consultation #1: Spoke with [facility] were agreeable to admit this patient (Ramon Grewal) Medical Decision Making - Lab Data Result diagrams: 09/15/20 22:32 09/15/20 22:32 - Radiology Data Radiology results: report reviewed (CT chest negative for PE), image reviewed <Ramon Grewal - Last Filed: 09/16/20 01:16> - Lab Data Result diagrams: 09/17/20 12:42 09/17/20 06:18 <Ede Hickey - Last Filed: 09/17/20 17:00> - Medical Decision Making 70 female to be admitted for COPD worsening of CVA worsening cancer. Patient having hypoxia, shortness of breath. CT negative for PE. Patient will be admitted for continued breathing treatments and supportive care, pain control (Ramon Grewal) - Lab Data Lab Results 09/15/20 09/15/20 09/15/20 Range/Units 21:21 22:32 22:32 WBC 11.5 H (3.8-10.6) k/uL RBC 4.14 (3.80-5.40) m/uL Hgb 11.8 (11.4-16.0) gm/dL Hct 36.4 (34.0-46.0) % MCV 87.9 (80.0-100.0) fL MCH 28.4 (25.0-35.0) pg MCHC 32.3 (31.0-37.0) g/dL RDW 13.3 (11.5-15.5) % Plt Count 371 (150-450) k/uL MPV 8.8 Neutrophils % 65 % Lymphocytes % 25 % Monocytes % 7 % Eosinophils % 0 % Basophils % 1 % Neutrophils # 7.4 (1.3-7.7) k/uL Lymphocytes # 2.9 (1.0-4.8) k/uL Monocytes # 0.8 (0-1.0) k/uL Eosinophils # 0.0 (0-0.7) k/uL Basophils # 0.1 (0-0.2) k/uL PT (9.0-12.0) sec INR (<1.2) APTT (22.0-30.0) sec D-Dimer (<0.60) mg/L FEU VBG pH (7.31-7.41) VBG pCO2 (37-51) mmHg VBG HCO3 (24-28) mmol/L Sodium 138 (137-145) mmol/L Potassium 5.4 H (3.5-5.1) mmol/L Chloride 98 (98-107) mmol/L Carbon Dioxide 35 H (22-30) mmol/L Anion Gap 5 mmol/L BUN 27 H (7-17) mg/dL Creatinine 0.64 (0.52-1.04) mg/dL Est GFR (CKD-EPI)AfAm >90 (>60 ml/min/1.73 sqM) Est GFR (CKD-EPI)NonAf >90 (>60 ml/min/1.73 sqM) Glucose 111 H (74-99) mg/dL Plasma Lactic Acid Rakesh (0.7-2.0) mmol/L Calcium 11.5 H (8.4-10.2) mg/dL Troponin I (0.000-0.034) ng/mL NT-Pro-B Natriuret Pep pg/mL Coronavirus (PCR) Not Detected (Not Detectd) 09/15/20 09/15/20 09/15/20 Range/Units 22:32 22:32 22:32 WBC (3.8-10.6) k/uL RBC (3.80-5.40) m/uL Hgb (11.4-16.0) gm/dL Hct (34.0-46.0) % MCV (80.0-100.0) fL MCH (25.0-35.0) pg MCHC (31.0-37.0) g/dL RDW (11.5-15.5) % Plt Count (150-450) k/uL MPV Neutrophils % % Lymphocytes % % Monocytes % % Eosinophils % % Basophils % % Neutrophils # (1.3-7.7) k/uL Lymphocytes # (1.0-4.8) k/uL Monocytes # (0-1.0) k/uL Eosinophils # (0-0.7) k/uL Basophils # (0-0.2) k/uL PT 11.3 (9.0-12.0) sec INR 1.1 (<1.2) APTT 19.2 L (22.0-30.0) sec D-Dimer 2.88 H (<0.60) mg/L FEU VBG pH (7.31-7.41) VBG pCO2 (37-51) mmHg VBG HCO3 (24-28) mmol/L Sodium (137-145) mmol/L Potassium (3.5-5.1) mmol/L Chloride (98-107) mmol/L Carbon Dioxide (22-30) mmol/L Anion Gap mmol/L BUN (7-17) mg/dL Creatinine (0.52-1.04) mg/dL Est GFR (CKD-EPI)AfAm (>60 ml/min/1.73 sqM) Est GFR (CKD-EPI)NonAf (>60 ml/min/1.73 sqM) Glucose (74-99) mg/dL Plasma Lactic Acid Rakesh 0.9 (0.7-2.0) mmol/L Calcium (8.4-10.2) mg/dL Troponin I <0.012 (0.000-0.034) ng/mL NT-Pro-B Natriuret Pep pg/mL Coronavirus (PCR) (Not Detectd) 09/15/20 09/15/20 Range/Units 22:32 22:32 WBC (3.8-10.6) k/uL RBC (3.80-5.40) m/uL Hgb (11.4-16.0) gm/dL Hct (34.0-46.0) % MCV (80.0-100.0) fL MCH (25.0-35.0) pg MCHC (31.0-37.0) g/dL RDW (11.5-15.5) % Plt Count (150-450) k/uL MPV Neutrophils % % Lymphocytes % % Monocytes % % Eosinophils % % Basophils % % Neutrophils # (1.3-7.7) k/uL Lymphocytes # (1.0-4.8) k/uL Monocytes # (0-1.0) k/uL Eosinophils # (0-0.7) k/uL Basophils # (0-0.2) k/uL PT (9.0-12.0) sec INR (<1.2) APTT (22.0-30.0) sec D-Dimer (<0.60) mg/L FEU VBG pH 7.32 (7.31-7.41) VBG pCO2 70 H* (37-51) mmHg VBG HCO3 35 H (24-28) mmol/L Sodium (137-145) mmol/L Potassium (3.5-5.1) mmol/L Chloride (98-107) mmol/L Carbon Dioxide (22-30) mmol/L Anion Gap mmol/L BUN (7-17) mg/dL Creatinine (0.52-1.04) mg/dL Est GFR (CKD-EPI)AfAm (>60 ml/min/1.73 sqM) Est GFR (CKD-EPI)NonAf (>60 ml/min/1.73 sqM) Glucose (74-99) mg/dL Plasma Lactic Acid Rakesh (0.7-2.0) mmol/L Calcium (8.4-10.2) mg/dL Troponin I (0.000-0.034) ng/mL NT-Pro-B Natriuret Pep 416 pg/mL Coronavirus (PCR) (Not Detectd) Disposition Is patient prescribed a controlled substance at d/c from ED?: No <Ramon Grewal - Last Filed: 09/16/20 01:16> <Ede Hickey - Last Filed: 09/17/20 17:00> Clinical Impression: Acute exacerbation of chronic obstructive airways disease, Sickle cell trait Disposition: ADMITTED IP TO THIS HOSP Condition: Fair
[2020-09-15] MEDS ORDERED: DEXAMETHASONE SOD PHOSPHATE 10 MG/ML 1 ML VIAL IV STA (21:58)
[2020-09-15 22:46] LABS: VBG PH 7.32 (7.31-7.41)
[2020-09-15 23:12] LABS: African American GFR (CKD) >90 (>60 ml/min/1.73 sqM); Anion Gap 5 mmol/L; Blood Urea Nitrogen 27 mg/dL (7-17); Calcium 11.5 mg/dL (8.4-10.2); Carbon Dioxide 35 mmol/L (22-30); Chloride 98 mmol/L (98-107); Glucose 111 mg/dL (74-99); Non-African American GFR(CKD) >90 (>60 ml/min/1.73 sqM); Sodium 138 mmol/L (137-145)
[2020-09-15 23:15] LABS: Potassium 5.4 mmol/L (3.5-5.1)
[2020-09-15 23:26] LABS: INR 1.1 (<1.2); Prothrombin Time 11.3 sec (9.0-12.0)
[2020-09-15 23:27] LABS: Basophils # (A) 0.1 k/uL (0-0.2); Basophils % (A) 1 %; Eosinophils % (A) 0 %; HCT 36.4 % (34.0-46.0); HGB 11.8 gm/dL (11.4-16.0); Lymphocytes # (A) 2.9 k/uL (1.0-4.8); Lymphocytes % (A) 25 %; MCH 28.4 pg (25.0-35.0); MCHC 32.3 g/dL (31.0-37.0); MCV 87.9 fL (80.0-100.0); Mean Platelet Volume 8.8; Monocytes # (A) 0.8 k/uL (0-1.0); Monocytes % (A) 7 %; Neutrophils # (A) 7.4 k/uL (1.3-7.7); Neutrophils % (A) 65 %; Platelet Count 371 k/uL (150-450); RBC 4.14 m/uL (3.80-5.40); RDW 13.3 % (11.5-15.5); WBC 11.5 k/uL (3.8-10.6)
[2020-09-15 23:31] LABS: Partial Thromboplastin Time 19.2 sec (22.0-30.0)
[2020-09-15 23:34] LABS: D-Dimer 2.88 mg/L FEU (<0.60)
--- NOTE | 2020-09-16 00:56 | CT ---
EXAMINATION TYPE: CT angio chest DATE OF EXAM: 09/16/2020 COMPARISON: 11/21/2019 HISTORY: elevated d-dimer CT DLP: 294.3 mGycm Automated exposure control for dose reduction was used. CONTRAST: Performed with IV Contrast, patient injected with 70ml used, 30 wasted mL of Isovue 370. There are 3-D post processed images. There is extensive consolidation in the right lower lobe. There is occlusion of the right lower lobe bronchus. I see no filling defects in the pulmonary arteries. Thoracic aorta is atheromatous. 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 There is no dissection. There is probably subcarinal adenopathy with lymph node measuring 3 x 2 cm. There is a 2 cm nodular density adjacent to the pleura in the anterior right upper lobe. There is 1.5 cm pleural-based nodular density lateral aspect right upper lobe. There is large mass with rib destr uction involving the lateral aspect of the right midlung. Mass measures 5 x 3 cm. Thoracic spine is intact. There is no compression fracture. IMPRESSION: No evidence of pulmonary embolism. Extensive consolidation in the right lower lobe with obstruction of the right lower lobe bronchus pro bably due to tumor mass at the right pulmonary hilum. The consolidation is essentially new compared t o old exam. There is a new nodular density anterior right upper lobe adjacent to the chest wall that could relate to tumor. There is a large area of destruction involving lateral right rib measuring 5 x 3 cm and consistent wi th metastatic disease. This has progressed significantly compared to old exam.
[2020-09-16] MEDS ORDERED: methylPREDNISolone SOD SUCCI 125 MG/2 ML VIAL IV STA (01:15)
[2020-09-16] MEDS ORDERED: methylPREDNISolone SOD SUCCI 125 MG/2 ML VIAL IV SCH (06:00)
[2020-09-16 07:55] LABS: Glucose,Whole Blood 235 mg/dL (75-99)
[2020-09-16] MEDS: ALBUTEROL NEBULIZED 2.5 MG/3 ML INHALATION SCH ×4 (07:57→21:56)
[2020-09-16] MEDS: INSULIN ASPART (NovoLOG) 100 UNIT/ML VIAL SQ SCH ×4 (08:28→21:23)
[2020-09-16] MEDS ORDERED: ALBUTEROL NEBULIZED 2.5 MG/3 ML INHALATION PRN (10:18)
[2020-09-16] MEDS ORDERED: NITROGLYCERIN SL TABS 0.4 MG TAB SUBLINGUAL PRN (10:18)
--- NOTE | 2020-09-16 10:46 | P.CNPUL ---
History of Present Illness Consult date: 09/16/20 Reason for consult: dyspnea, COPD, lung mass History of present illness: 70-year-old female patient, presented to the emergency department with worsening shortness of breath and feeling funny. Of significance is her progressive decline in her health in general, more short of breath, more weak, loss of appetite and increased fatigue. No reported fever or chills. No significant hemoptysis. She has a cough with some occasional sputum production. She is known history of non-small cell lung cancer. Details of her treatment is not available. Based on what I know, the patient has been diagnosed in 2016 after having an enlarging right upper lobe mass which was ultimately resected and the patient underwent a wedge resection of the right middle lobe consistent with adenocarcinoma. I am not sure she was offered treatment at that point in time other than surgery. Subsequently, follow-up CAT scans showed interval progression the patient developed a right-sided chest wall mass that was seen on CAT scans and CAT scans. Most recent PET scan done on 12/24/2019 showed interval progression and areas of abnormality in the right chest. The patient had a soft tissue revealed irregularity with a pleural-based mass in the right lower lobe chest area that was increasing in size with an SUV of 4. The patient at that point had also some right hilar hypermetabolic uptake with an SUV of 2.4. The patient was given a fine-needle aspirate by interventional radiology and diagnosis was consistent with adenocarcinoma. The patient was offered radiation therapy. This was done by Dr. Siddhartha Cochran. I do not believe the patient was given any chemotherapy or immunotherapy. Her most recent CAT scan of the chest was done yesterday as some of her admission and the CAT scan shows further interval progression. There is a enlarging mass along the right lateral chest wall measuring 5 x 3 cm in size. She also has 1.5 cm pleural based on t hat the in the right upper chest area. There was extensive consolidation of the right lower lobe and occlusion of the bronchus intermedius/right lower lobe causing complete atelectasis of the right lower lobe. There is also evidence of subcarinal lymphadenopathy consistent with progression of her disease with a lymph node in the subcarinal area measuring 3 x 2 cm in size. Review of Systems Constitutional: Reports fatigue, Reports lethargy, Reports weakness, Reports weight loss Eyes: denies as per HPI, denies blurred vision, denies bulging eye, denies decreased vision, denies diplopia, denies discharge, denies dry eye, denies irritation, denies itching, denies pain, denies photophobia, denies loss of peripheral vision, denies loss of vision, denies tunnel vision/blind spots Ears: deny: decreased hearing, ear discharge, earache, tinnitus Ears, nose, mouth and throat: Reports as per HPI Breasts: absent: as per HPI, change in shape, gynecomastia, masses, nipple discharge, pain, skin changes, swelling Cardiovascular: Reports as per HPI, Reports decreased exercise tolerance, Reports dyspnea on exertion Respiratory: Reports dyspnea Genitourinary: Reports as per HPI Menstruation: Reports as per HPI Musculoskeletal: Reports as per HPI Musculoskeletal: absent: ankle pain, ankle stiffness, ankle swelling Integumentary: Reports as per HPI Neurological: Reports as per HPI Psychiatric: Reports as per HPI Endocrine: Reports as per HPI Hematologic/Lymphatic: Reports as per HPI Allergic/Immunologic: Reports as per HPI Past Medical History Past Medical History: Cancer, COPD, Diabetes Mellitus, Hyperlipidemia, Hypertension, Osteoarthritis (OA), Respiratory Disorder, Thyroid Disorder Additional Past Medical History / Comment(s): Adenocarcinoma of the lung, non- small cell lung cancer, details as above, COPD, diabetes mellitus, hyperlipidemia, sickle cell disease, hypothyroidism, osteoarthritis History of Any Multi-Drug Resistant Organisms: None Reported Past Surgical History: Tubal Ligation Additional Past Surgical History / Comment(s): bilateral cataracts, Navigational Bronchoscopy (08/03/17), LUNG RESECTION Past Anesthesia/Blood Transfusion Reactions: No Reported Reaction Additional Past Anesthesia/Blood Transfusion Reaction / Comment(s): no problems with prior blood transfusion Past Psychological History: Anxiety Smoking Status: Former smoker Past Alcohol Use History: None Reported Past Drug Use History: None Reported - Past Family History Mother Family Medical History: Cancer Father Family Medical History: Cancer Medications and Allergies Home Medications Medication Instructions Recorded Confirmed Type Levothyroxine Sodium [Synthroid] 50 mcg PO DAILY 03/11/14 09/15/20 History Albuterol Sulfate [Ventolin HFA] 2 puff INHALATION RT-QID PRN 03/12/14 09/15/20 History Nitroglycerin Sl Tabs [Nitrostat] 0.4 mg SL Q5M PRN 06/25/15 09/15/20 History Allibiotic Cf 1 cap PO DAILY 09/15/20 09/15/20 History Atorvastatin Calcium [Lipitor] 40 mg PO HS 09/15/20 09/15/20 History Diltiazem HCl [Cartia Xt] 300 mg PO DAILY 09/15/20 09/15/20 History Ergocalciferol (Vitamin D2) 1,250 mcg PO SA 09/15/20 09/15/20 History [Drisdol (50,000 Iu)] HYDROcodone/APAP 10-325MG [[place] 1 tab PO TID PRN 09/15/20 09/15/20 History 10-325] Losartan Potassium 50 mg PO DAILY 09/15/20 09/15/20 History Metoprolol Succinate (ER) [Toprol 50 mg PO DAILY 09/15/20 09/15/20 History Xl] Montelukast Sodium [Singulair] 10 mg PO HS 09/15/20 09/15/20 History Pioglitazone [Actos] 15 mg PO DAILY 09/15/20 09/15/20 History hydrOXYzine HCL [Atarax] 25 mg PO BID 09/15/20 09/15/20 History metFORMIN HCL [Glucophage] 1,000 mg PO BID 09/15/20 09/15/20 History prednisoLONE ACETATE 1% OPHTH 1 drop LEFT EYE QID 09/15/20 09/15/20 History [Pred Forte 1%] Allergies Allergy/AdvReac Type Severity Reaction Status Date / Time No Known Allergies Allergy Verified 09/15/20 21:49 Physical Exam Vitals: Vital Signs Temp Pulse Pulse Resp BP BP Pulse Ox 09/16/20 08:09 75 09/16/20 08:00 97 F L 75 17 131/67 99 09/16/20 07:57 74 09/16/20 06:00 88 18 132/91 94 L 09/16/20 05:00 93 18 133/76 94 L 09/16/20 03:00 92 18 136/73 94 L 09/16/20 02:00 90 18 147/85 93 L 09/16/20 01:00 89 20 136/89 93 L 09/16/20 00:00 92 16 144/77 94 L 09/15/20 23:54 93 20 151/73 93 L 09/15/20 22:46 96 20 154/88 91 L 09/15/20 22:16 86 09/15/20 21:44 84 09/15/20 21:21 96 22 167/101 95 09/15/20 21:07 22 09/15/20 20:57 97.6 F 93 22 178/102 97 Intake and Output 09/15/20 09/16/20 09/16/20 22:59 06:59 14:59 Other: Weight 62.233 kg The patient appeared well nourished and normally developed. Vital signs as documented. Head exam is unremarkable. No scleral icterus or corneal arcus noted. Neck is without jugular venous distension, thyromegaly, or carotid bruits. Carotid upstrokes are brisk bilaterally. Lungs diminished breath sounds bilaterally more so on the right lung base where there is dullness to percussion and near complete absence of breath on the right lung base area. No lymphadenopathy and axillary on this particular area. Cardiac exam reveals the PMI to be normally sized and situated. Rhythm is regular. First and second heart sounds normal. No murmurs, rubs or gallops. Abdominal exam reveals normal bowel sounds, no masses, no organomegaly and no aortic enlargement. Extremities are nonedematous and both femoral and pedal pulses are normal.Examination of the skin revealed no evidence of significant rashes, suspicious appearing nevi or other concerning lesions.Neurologically, the patient is awake and alert and the patient does not have any focal neurological deficit. Cranial nerves are essentially intact. Results - Laboratory Findings CBC and BMP: 09/15/20 22:32 09/15/20 22:32 PT/INR, D-dimer PT 11.3 sec (9.0-12.0) 09/15/20 22:32 INR 1.1 (<1.2) 09/15/20 22:32 D-Dimer 2.88 mg/L FEU (<0.60) H 09/15/20 22:32 Abnormal lab findings: Abnormal Labs 09/15/20 09/15/20 09/15/20 22:32 22:32 22:32 WBC 11.5 H APTT 19.2 L D-Dimer 2.88 H VBG pCO2 VBG HCO3 Potassium 5.4 H Carbon Dioxide 35 H BUN 27 H Glucose 111 H POC Glucose (mg/dL) Calcium 11.5 H 09/15/20 09/16/20 22:32 07:50 WBC APTT D-Dimer VBG pCO2 70 H* VBG HCO3 35 H Potassium Carbon Dioxide BUN Glucose POC Glucose (mg/dL) 235 H Calcium - Diagnostic Findings Chest x-ray: image reviewed CT scan - chest: image reviewed Assessment and Plan Plan: 1 non-small cell lung cancer, adenocarcinoma of the right lung, post wedge resection of the right middle lobe mass back in 2015, followed by interval progression and development of a large right lateral chest wall mass in addition to subcarinal lymphadenopathy, complete occlusion of the distal bronchus intermedius/right lower lobe and atelectasis of the right lower lobe. Presentation is very typical of disease progression. The patient has received palliative radiation therapy to the right chest wall back in January 2020. She declined chemotherapy. She declined immunotherapy. He has metastatic disease/she does have skeletal metastases her disease stage IV. 2 Progressive dyspnea most likely secondary to progression of her non-small cell lung cancer 3 COPD 4 coronary artery disease 5 hypertension 6 hypothyroidism 7 sickle cell disease/trait 8 chronic hepatitis C 9 osteoarthritis. Plan Shannan CAT scan of the chest. Unfortunately there is obvious signs of disease progression. There is complete occlusion of the distal bronchus intermedius/right lower lobe causing right lower lobe atelectasis. As for the p leural effusion is present, this could be reactive secondary to right lung collapse versus malignant. There is also a right lateral chest wall mass which is enlarging. May need a bronchoscopy and this will be of benefit to evaluate the patency of the right lower lobe bronchus and bronchus intermedius. Obviously presence of any tumor causing complete obstruction may carry a very poor prognosis for this patient. I do not recommend a thoracentesis and this will be considered only if the right bronchus intermedius and the right lower lobe bronchus are patent and the patient may achieve some clinical benefit by draining the pleural fluid. Otherwise, thoracentesis will be of no value. No clinical signs of a postobstructive pneumonia. Care is a very poor prognosis. Consult oncology. May consider again immunotherapy for metastatic stage IV non- small cell lung cancer. Otherwise, prognosis extremely poor. I'm going to keep her nothing by mouth after midnight and evaluate her airway tomorrow morning which will obviously give us more insight and further prognosticate the patient based on the findings.
[2020-09-16] MEDS: HYDROcodone/APAP 10-325MG 1 EACH TAB PO PRN ×2 (11:25→17:59)
[2020-09-16] MEDS: LEVOTHYROXINE 50 MCG TAB PO SCH (11:25)
[2020-09-16] MEDS: METOPROLOL SUCCINATE (ER) 50 MG TAB.ER.24H PO SCH (11:25)
[2020-09-16 11:39] LABS: Glucose,Whole Blood 224 mg/dL (75-99)
[2020-09-16] MEDS: DILTIAZEM CD 300 MG CAP.ER.24H PO SCH (12:41)
[2020-09-16] MEDS: prednisoLONE ACETATE 1% OPHTH DROPS 5 ML BTL LEFT EYE SCH ×3 (12:41→20:27)
[2020-09-16] MEDS: PIOGLITAZONE 15 MG TAB PO SCH (12:41)
--- NOTE | 2020-09-16 15:20 | P.HPIM ---
History of Present Illness Patient was a 78-year-old female came in with compensative shortness of breath patient does have history of COPD does have history of lung cancer adenocarcinoma patient underwent wedge resection of the right middle lobe. Patient underwent radiation therapy as well as the time patient declined the chemotherapy and immunotherapy. Patient had radiation therapy in 2019. Patient during this hospital admission is found to have complete occlusion of the bronchus intermedius or right lower lobe with complete atelectasis of the right lower lobe. There is no evidence of pneumonia on the computed tomography scan. Patient had subcarinal lymphadenopathy. Patient was evaluated by pulmonary. Patient is on 3 L of oxygen patient does use oxygen at home she is unsure, Dilan and she uses she says around 2-3 L. Patient was also co mplaining of chronic cough since her wedge resection of the lung for adenocarcinoma. Patient quit smoking. Review of Systems REVIEW OF SYSTEMS: CONSTITUTIONAL: No fever, no malaise, no fatigue. HEENT: No recent visual problems or hearing problems. Denied any sore throat. CARDIOVASCULAR: No chest pain, orthopnea, PND, no palpitations, no syncope. PULMONARY:no hemoptysis. GASTROINTESTINAL: No diarrhea, no nausea, no vomiting, no abdominal pain. NEUROLOGICAL: No headaches, no weakness, no numbness. HEMATOLOGICAL: Denies any bleeding or petechiae. GENITOURINARY: Denies any burning micturition, frequency, or urgency. MUSCULOSKELETAL/RHEUMATOLOGICAL: Denies any joint pain, swelling, or any muscle pain. ENDOCRINE: Denies any polyuria or polydipsia. The rest of the 14-point review of systems is negative. Past Medical History Past Medical History: Cancer, COPD, Diabetes Mellitus, Hyperlipidemia, Hypertension, Liver Disease, Osteoarthritis (OA), Respiratory Disorder, Thyroid Disorder Additional Past Medical History / Comment(s): 2018 R lung nonsmall cell adenocarcinoma/mid lung wedge resection then mets to R chest wall/mass-recieved palliative radiation, home oxygen at 2-3L/NC, bronchitis, NIDDM type II, sickle cell trait, hepatitis C, SOB with exertion, arthritis in multiple joints, insomnia, diverticular disease/benign colon polyps, hypothyroid, recentl headaches. History of Any Multi-Drug Resistant Organisms: None Reported Past Surgical History: Heart Catheterization, Tubal Ligation Additional Past Surgical History / Comment(s): 2018 bronchoscopy/bx, 2018 R mid lung wedge resection, colonoscopy/benign polypectomy. Past Anesthesia/Blood Transfusion Reactions: No Reported Reaction Additional Past Anesthesia/Blood Transfusion Reaction / Comment(s): no problems with prior blood transfusion Smoking Status: Former smoker - Past Family History Mother Family Medical History: Cancer Additional Family Medical History / Comment(s): Unknown type of cancer. Father Family Medical History: Cancer Additional Family Medical History / Comment(s): Unknown type of cancer. Medications and Allergies Home Medications Medication Instructions Recorded Confirmed Type Levothyroxine Sodium [Synthroid] 50 mcg PO DAILY 03/11/14 09/15/20 History Albuterol Sulfate [Ventolin HFA] 2 puff INHALATION RT-QID PRN 03/12/14 09/15/20 History Nitroglycerin Sl Tabs [Nitrostat] 0.4 mg SL Q5M PRN 06/25/15 09/15/20 History Allibiotic Cf 1 cap PO DAILY 09/15/20 09/15/20 History Atorvastatin Calcium [Lipitor] 40 mg PO HS 09/15/20 09/15/20 History Diltiazem HCl [Cartia Xt] 300 mg PO DAILY 09/15/20 09/15/20 History Ergocalciferol (Vitamin D2) 1,250 mcg PO SA 09/15/20 09/15/20 History [Drisdol (50,000 Iu)] HYDROcodone/APAP 10-325MG [[place] 1 tab PO TID PRN 09/15/20 09/15/20 History 10-325] Losartan Potassium 50 mg PO DAILY 09/15/20 09/15/20 History Metoprolol Succinate (ER) [Toprol 50 mg PO DAILY 09/15/20 09/15/20 History Xl] Montelukast Sodium [Singulair] 10 mg PO HS 09/15/20 09/15/20 History Pioglitazone [Actos] 15 mg PO DAILY 09/15/20 09/15/20 History hydrOXYzine HCL [Atarax] 25 mg PO BID 09/15/20 09/15/20 History metFORMIN HCL [Glucophage] 1,000 mg PO BID 09/15/20 09/15/20 History prednisoLONE ACETATE 1% OPHTH 1 drop LEFT EYE QID 09/15/20 09/15/20 History [Pred Forte 1%] Allergies Allergy/AdvReac Type Severity Reaction Status Date / Time No Known Allergies Allergy Verified 09/15/20 21:49 Physical Exam Vitals: Vital Signs Temp Pulse Pulse Resp BP BP Pulse Ox 09/16/20 13:56 97.9 F 100 18 128/77 95 09/16/20 11:31 89 09/16/20 11:21 89 09/16/20 08:09 75 09/16/20 08:00 97 F L 75 17 131/67 99 09/16/20 07:57 74 09/16/20 06:00 88 18 132/91 94 L 09/16/20 05:00 93 18 133/76 94 L 09/16/20 03:00 92 18 136/73 94 L 09/16/20 02:00 90 18 147/85 93 L 09/16/20 01:00 89 20 136/89 93 L 09/16/20 00:00 92 16 144/77 94 L 09/15/20 23:54 93 20 151/73 93 L 09/15/20 22:46 96 20 154/88 91 L 09/15/20 22:16 86 09/15/20 21:44 84 09/15/20 21:21 96 22 167/101 95 09/15/20 21:07 22 09/15/20 20:57 97.6 F 93 22 178/102 97 Intake and Output 09/16/20 09/16/20 09/16/20 06:59 14:59 22:59 Other: Voiding Method Bedside Commode # Voids 3 Weight 62.233 kg PHYSICAL EXAMINATION: GENERAL: The patient is alert and oriented x3, not in any acute distress. Well developed, well nourished. Patient appears to be tired and weak HEENT: Pupils are round and equally reacting to light. EOMI. No scleral icterus. No conjunctival pallor. Normocephalic, atraumatic. No pharyngeal erythema. No thyromegaly. CARDIOVASCULAR: S1 and S2 present. No murmurs, rubs, or gallops. PULMONARY: Chest is clear to auscultation, no wheezing or crackles. ABDOMEN: Soft, nontender, nondistended, normoactive bowel sounds. No palpable organomegaly. MUSCULOSKELETAL: No joint swelling or deformity. EXTREMITIES: No cyanosis, clubbing, or pedal edema. NEUROLOGICAL: Gross neurological examination did not reveal any focal deficits. SKIN: No rashes. Results CBC & Chem 7: 09/15/20 22:32 09/15/20 22:32 Labs: Abnormal Lab Results - Last 24 Hours (Table) 09/15/20 09/15/20 09/15/20 Range/Units 22:32 22:32 22:32 WBC 11.5 H (3.8-10.6) k/uL APTT 19.2 L (22.0-30.0) sec D-Dimer 2.88 H (<0.60) mg/L FEU VBG pCO2 (37-51) mmHg VBG HCO3 (24-28) mmol/L Potassium 5.4 H (3.5-5.1) mmol/L Carbon Dioxide 35 H (22-30) mmol/L BUN 27 H (7-17) mg/dL Glucose 111 H (74-99) mg/dL POC Glucose (mg/dL) (75-99) mg/dL Calcium 11.5 H (8.4-10.2) mg/dL 09/15/20 09/16/20 09/16/20 Range/Units 22:32 07:50 11:36 WBC (3.8-10.6) k/uL APTT (22.0-30.0) sec D-Dimer (<0.60) mg/L FEU VBG pCO2 70 H* (37-51) mmHg VBG HCO3 35 H (24-28) mmol/L Potassium (3.5-5.1) mmol/L Carbon Dioxide (22-30) mmol/L BUN (7-17) mg/dL Glucose (74-99) mg/dL POC Glucose (mg/dL) 235 H 224 H (75-99) mg/dL Calcium (8.4-10.2) mg/dL Thrombosis Risk Factor Assmnt - Choose All That Apply Any of the Below Risk Factors Present?: Yes Each Factor Represents 1 point: Obesity (BMI >25) Other Risk Factors: Yes Each Risk Factor Represents 2 Points: Age 61-74 years, Malignancy Other congenital or acquired thrombophilia - If yes, enter type in comment: No Thrombosis Risk Factor Assessment Total Risk Factor Score: 5 Thrombosis Risk Factor Assessment Level: High Risk Assessment and Plan Plan: -Hypoxia, acute and chronic hypoxic respiratory failure secondary to atelectasis and complete occlusion of the right lower lobe from recurrence of adenocarcinoma of the right middle lobe. Patient does have history of COPD. Patient appears to have some pleural effusion as well -COPD doesn't appear to be in acute exacerbation patient doesn't appear to have any pneumonia patient has atelectasis from the lung mass -Generalized fatigue: From cancer -Coronary artery disease Hypertension -hypothyroidism -Adenocarcinoma of the right lung pulmonary oncology was consulted pulmonary evaluated the patient. -Type 2 diabetes mellitus -Hyperkalemia hold off on JHONATAN inhibitor repeat labs tomorrow -DVT prophylaxis Lovenox
[2020-09-16 17:17] LABS: Glucose,Whole Blood 115 mg/dL (75-99)
[2020-09-16] MEDS: FAMOTIDINE 20 MG TAB PO SCH (20:26)
[2020-09-16] MEDS: methylPREDNISolone SOD SUCCI 40 MG/ML 1 ML VIAL IV SCH (20:26)
[2020-09-16] MEDS: hydrOXYzine HCL 25 MG TAB PO SCH (20:27)
[2020-09-16 20:37] LABS: Glucose,Whole Blood 230 mg/dL (75-99)
[2020-09-16] MEDS ORDERED: MONTELUKAST 10 MG TAB PO SCH (21:00)
[2020-09-16] MEDS ORDERED: ATORVASTATIN 40 MG TAB PO SCH (21:00)
[2020-09-17] MEDS: LEVOTHYROXINE 50 MCG TAB PO SCH (05:58)
[2020-09-17] MEDS: HYDROcodone/APAP 10-325MG 1 EACH TAB PO PRN (05:59)
[2020-09-17] MEDS ORDERED: LEVOTHYROXINE 50 MCG TAB PO SCH (06:30)
[2020-09-17 07:08] LABS: Glucose,Whole Blood 191 mg/dL (75-99)
[2020-09-17] MEDS: hydrOXYzine HCL 25 MG TAB PO SCH (07:53)
[2020-09-17] MEDS: METOPROLOL SUCCINATE (ER) 50 MG TAB.ER.24H PO SCH (07:53)
[2020-09-17] MEDS: FAMOTIDINE 20 MG TAB PO SCH (07:53)
[2020-09-17] MEDS: PIOGLITAZONE 15 MG TAB PO SCH (07:53)
[2020-09-17] MEDS: methylPREDNISolone SOD SUCCI 40 MG/ML 1 ML VIAL IV SCH (07:54)
[2020-09-17] MEDS: prednisoLONE ACETATE 1% OPHTH DROPS 5 ML BTL LEFT EYE SCH ×2 (07:54→12:26)
[2020-09-17] MEDS: DILTIAZEM CD 300 MG CAP.ER.24H PO SCH (07:54)
[2020-09-17] MEDS: INSULIN ASPART (NovoLOG) 100 UNIT/ML VIAL SQ SCH ×2 (07:54→12:25)
[2020-09-17 07:59] VITALS: BP 126/63; RESP 18; TEMP 97.4
[2020-09-17 08:35] LABS: African American GFR (CKD) 81 (>60 ml/min/1.73 sqM); Anion Gap 12 mmol/L; Blood Urea Nitrogen 34 mg/dL (7-17); Calcium 12.1 mg/dL (8.4-10.2); Carbon Dioxide 27 mmol/L (22-30); Chloride 100 mmol/L (98-107); Glucose 175 mg/dL (74-99); Non-African American GFR(CKD) 70 (>60 ml/min/1.73 sqM); Potassium 5.2 mmol/L (3.5-5.1); Sodium 139 mmol/L (137-145)
[2020-09-17] MEDS ORDERED: ENOXAPARIN 40 MG/0.4 ML SYRINGE SQ SCH (09:00)
[2020-09-17] MEDS ORDERED: PIOGLITAZONE 15 MG TAB PO SCH (09:00)
[2020-09-17] MEDS ORDERED: METOPROLOL SUCCINATE (ER) 50 MG TAB.ER.24H PO SCH (09:00)
[2020-09-17] MEDS ORDERED: DILTIAZEM CD 300 MG CAP.ER.24H PO SCH (09:00)
[2020-09-17] MEDS: ALBUTEROL NEBULIZED 2.5 MG/3 ML INHALATION SCH ×2 (09:04→12:02)
[2020-09-17 09:07] VITALS: PULSE 72
--- NOTE | 2020-09-17 09:19 | P.CONS ---
History of Present Illness - Reason for Consult Consult date: 09/17/20 Progressive Lung Cancer Requesting physician: Raegan Clark - Chief Complaint Shortness of Breath - History of Present Illness This is a very nice lady who was initially diagnosed with RML lung cancer in 2018,she had a wedge resection at that time pathology revealed pT3 (2 separate nodules),largest 1.8 cm,invasive adenocarcinoma,no regional lymph node evaluation. She received no additional adjuvant therapy at this time and she was monitored by serial scan. her PET scan in 04/2019 was fine,however,repeat CT scan of chest in November/2019 revealed a new right infra hilar soft tissue measured 4.7 cm,interval increase in RML nodule (2.1 vs 1.5 cm on prior scan),3 addiitonal enlarging nodules in right lung measuring up to 1.6 cm. On 01/07/2020,CT guided biopsy of subpleural lesion was positive for adenocarcinoma,PDl-1 and NextGen could not be done do to QNS, She completed palliative XRT to right sided painful rib lesion. Chemotherapy was recommended at that time although she had refused. She feels very tired,has significant exertional dyspnea,with slight e xertion,cough,productive of yellowish sputum,no hemoptysis,no weight loss,no headaches,has chronic arthritic pain. She continues with these symptms, however worsened to date. She is aware that with progressive and recurrent cancer the goal of therapy would be palliative, option for curative is not anticipated. She does not want to have any IV treatment,chemotherapy or immunotherapy,however,she may consider oral therapy if she was found to have targetable mutation. Since molecular studies could not be done on recent biopsy,will obtain a liquid biopsy,also,will try to ask for molecular studies on her previous biopsy in 2018. If no targetable mutation found,Dr. Guerra did discussed comfort care/hospice but she declined it at that time. Her liquid biopsy did return PDL1 Positive, therefore a candidate for immune therapy, however no actionable mutations. EGFR, ROS, RET, NTRK, BRAF, MET, ERBB Neg. She now presents to emergency with worsening symptoms, her voice is scratchy, she complains of worsening cough, chest pain, decreased tolerance to activity. A CTA was completed and revealed: - Extensive consolidation in the RLL and obstruction of right bronchus. New Nodular density anterior right upper lobe adjacent to chest wall that could also relate to malignant tumor. RML large destructive mass, Right rib - Measuring 5x3cm approximately. At this time a bronchoscopy and further work up was recommended, however she has refused. She one one hand wants everything to be done to feel better, but refusing further diagnostics and has refused treatment options in February, also refusing hospice/palliative care. Greater than 35 minutes spent with patient this morning discussing the needed information to even provide her with a treatment plan option and goals of care, re-emphasizing treatment plan is for comfort measures of the cancer, not cure. Review of Systems All systems: negative Constitutional: Reports as per HPI Past Medical History Past Medical History: Cancer, COPD, Diabetes Mellitus, Hyperlipidemia, Hypertension, Liver Disease, Osteoarthritis (OA), Respiratory Disorder, Thyroid Disorder Additional Past Medical History / Comment(s): 2018 R lung nonsmall cell adenocarcinoma/mid lung wedge resection then mets to R chest wall/mass-recieved palliative radiation, home oxygen at 2-3L/NC, bronchitis, NIDDM type II, sickle cell trait, hepatitis C, SOB with exertion, arthritis in multiple joints, insomnia, diverticular disease/benign colon polyps, hypothyroid, recentl headaches. History of Any Multi-Drug Resistant Organisms: None Reported Past Surgical History: Heart Catheterization, Tubal Ligation Additional Past Surgical History / Comment(s): 2018 bronchoscopy/bx, 2018 R mid lung wedge resection, colonoscopy/benign polypectomy. Past Anesthesia/Blood Transfusion Reactions: No Reported Reaction Additional Past Anesthesia/Blood Transfusion Reaction / Comm: no problems with prior blood transfusion Smoking Status: Former smoker - Past Family History Mother Family Medical History: Cancer Additional Family Medical History / Comment(s): Unknown type of cancer. Father Family Medical History: Cancer Additional Family Medical History / Comment(s): Unknown type of cancer. Medications and Allergies Home Medications Medication Instructions Recorded Confirmed Type Levothyroxine Sodium [Synthroid] 50 mcg PO DAILY 03/11/14 09/15/20 History Albuterol Sulfate [Ventolin HFA] 2 puff INHALATION RT-QID PRN 03/12/14 09/15/20 History Nitroglycerin Sl Tabs [Nitrostat] 0.4 mg SL Q5M PRN 06/25/15 09/15/20 History Allibiotic Cf 1 cap PO DAILY 09/15/20 09/15/20 History Atorvastatin Calcium [Lipitor] 40 mg PO HS 09/15/20 09/15/20 History Diltiazem HCl [Cartia Xt] 300 mg PO DAILY 09/15/20 09/15/20 History Ergocalciferol (Vitamin D2) 1,250 mcg PO SA 09/15/20 09/15/20 History [Drisdol (50,000 Iu)] HYDROcodone/APAP 10-325MG [[place] 1 tab PO TID PRN 09/15/20 09/15/20 History 10-325] Metoprolol Succinate (ER) [Toprol 50 mg PO DAILY 09/15/20 09/15/20 History XL] Montelukast Sodium [Singulair] 10 mg PO HS 09/15/20 09/15/20 History Pioglitazone [Actos] 15 mg PO DAILY 09/15/20 09/15/20 History hydrOXYzine HCL [Atarax] 25 mg PO BID 09/15/20 09/15/20 History metFORMIN HCL [Glucophage] 1,000 mg PO BID 09/15/20 09/15/20 History prednisoLONE ACETATE 1% OPHTH 1 drop LEFT EYE QID 09/15/20 09/15/20 History [Pred Forte 1%] Allergies Allergy/AdvReac Type Severity Reaction Status Date / Time No Known Allergies Allergy Verified 09/15/20 21:49 Physical Exam Vitals: Vital Signs Temp Pulse Pulse Resp BP Pulse Ox 09/17/20 09:11 72 09/17/20 09:04 72 09/17/20 07:58 97.4 F L 63 18 126/63 90 L 09/17/20 01:56 97.8 F 63 122/69 94 L 09/16/20 22:21 66 09/16/20 21:57 66 09/16/20 20:10 70 19 09/16/20 18:34 97.6 F 70 137/73 93 L 09/16/20 17:10 98.0 F 80 19 156/79 95 09/16/20 16:05 92 09/16/20 15:56 90 09/16/20 13:56 97.9 F 100 18 128/77 95 09/16/20 11:31 89 09/16/20 11:21 89 Intake and Output 09/16/20 09/17/20 09/17/20 22:59 06:59 14:59 Intake Total 480 500 Balance 480 500 Intake: Oral 480 500 Other: Voiding Method Bedside Commode # Voids 0 2 Scratch laryngitis voice - Constitutional General appearance: cooperative - EENT Oral thrush noted Eyes: EOMI, PERRLA - Neck Neck: normal ROM - Respiratory Respiratory: right: rales, rhonchi, bilateral: diminished - Cardiovascular Rhythm: regular Heart sounds: normal: S1, S2 - Gastrointestinal General gastrointestinal: normal bowel sounds, soft - Integumentary Integumentary: pale - Neurologic Neurologic: CNII-XII intact - Musculoskeletal Musculoskeletal: generalized weakness, strength equal bilaterally - Psychiatric poor historian Psychiatric: A&O x's 3, appropriate affect, intact judgment & insight Results CBC & Chem 7: 09/15/20 22:32 09/17/20 06:18 Labs: Abnormal Lab Results - Last 24 Hours (Table) 09/16/20 09/16/20 09/16/20 Range/Units 11:36 17:15 20:35 Potassium (3.5-5.1) mmol/L BUN (7-17) mg/dL Glucose (74-99) mg/dL POC Glucose (mg/dL) 224 H 115 H 230 H (75-99) mg/dL Calcium (8.4-10.2) mg/dL 09/17/20 09/17/20 Range/Units 06:18 07:06 Potassium 5.2 H (3.5-5.1) mmol/L BUN 34 H (7-17) mg/dL Glucose 175 H (74-99) mg/dL POC Glucose (mg/dL) 191 H (75-99) mg/dL Calcium 12.1 H (8.4-10.2) mg/dL CT scan - chest: report reviewed Assessment and Plan (1) Adenocarcinoma of right lung Current Visit: Yes Status: Acute Code(s): C34.91 - MALIGNANT NEOPLASM OF UNSP PART OF RIGHT BRONCHUS OR LUNG SNOMED Code(s): 13308325429059719 (2) Mass of right lung Current Visit: No Status: Acute Code(s): R91.8 - OTHER NONSPECIFIC ABNORMAL FINDING OF LUNG FIELD SNOMED Code(s): 197859353 Plan: Discussed likely Recurrence progression of Right Lung Cancer: - Details and History in HPI RML lung mass with destruction of right ribs and right bronchus obstruction Hypercalcemia: - ZOmeta prior to discharge Discussed in detail with patient, son, primary team. They are still undecided if they would like to pursue treatment but are wanting to pursue MRI brain (to assist in decision of systemic treatment and Zometa to assist with hyp ercalcemia.
[2020-09-17 11:28] LABS: Glucose,Whole Blood 204 mg/dL (75-99)
[2020-09-17] MEDS: ZOLEDRONIC ACID 4 MG in SODIUM CHLORIDE 0.9% 100 ML IV ONE ×2 (12:31→13:56)
[2020-09-17 12:41] LABS: Hemoglobin A1C 5.9 % (4.0-6.0)
--- NOTE | 2020-09-17 12:50 | P.DS ---
Providers Date of admission: 09/16/20 01:15 Attending physician: Joan Esteves Consults: 09/15/20 22:39 Consult Physician Routine Consulting Provider: Barrie Grossman Consult Reason/Comments: dyspnea Do you want consulting provider notified?: Yes 09/16/20 11:06 Consult Physician Routine Consulting Provider: Magen Guerra Consult Reason/Comments: lung ca history, current mass? Do you want consulting provider notified?: Yes Primary care physician: Abdiel Layton Hospital Course: Patient was a 78-year-old female came in with compensative shortness of breath patient does have history of COPD does have history of lung cancer adenocarcinoma patient underwent wedge resection of the right middle lobe. Patient underwent radiation therapy as well as the time patient declined the chemotherapy and immunotherapy. Patient had radiation therapy in 2019. Patient during this hospital admission is found to have complete occlusion of the bronchus intermedius or right lower lobe with complete atelectasis of the right lower lobe. There is no evidence of pneumonia on the computed tomography scan. Patient had subcarinal lymphadenopathy. Patient was evaluated by pulmonary. Patient is on 3 L of oxygen patient does use oxygen at home she is unsure, Dil[place] and she uses she says around 2-3 L. Patient was also complaining of chronic cough since her wedge resection. 09/17/2020 Patient doesn't have any pneumonia. Patient has significant direct atelectasis because of the obstruction of the bronchus by the tumor. Patient also some pleural effusion although thoracic assess can lead to pneumothorax because of her collapsed lung. Patient does have significant metastatic disease and one of the lesions is actually invading the chest wall eroding the rib cage. Patient was evaluated by oncology and patient haven't made any decision regarding treatment versus comfort care me along with bilingual trainer had lengthy discussion with the patient and her son at bedside. I recommended that resuscitation is not appropriate in her situation. The patient will need oxygen at home. Patient doesn't have any wheezing either steroids may not be beneficial. Further treatment and management can be done as an outpatient with close follow with oncology discussed with oncology nurse practitioner as well. Patient will be started on oxygen. Patient is complaining of pain in the chest but does have no coarse at home which she will try. Patient doesn't have any issues with constipation. The target for her lung cancer treatment would be palliative the other option would be hospice or comfort care. Same thing was discussed at length with the patient. PHYSICAL EXAMINATION: GENERAL: The patient is alert and oriented x3, not in any acute distress. Well developed, well nourished. Patient appears to be tired and weak HEENT: Pupils are round and equally reacting to light. EOMI. No scleral icterus. No conjunctival pallor. Normocephalic, atraumatic. No pharyngeal erythema. No thyromegaly. CARDIOVASCULAR: S1 and S2 present. No murmurs, rubs, or gallops. PULMONARY: Chest is clear to auscultation, no wheezing or crackles. ABDOMEN: Soft, nontender, nondistended, normoactive bowel sounds. No palpable organomegaly. MUSCULOSKELETAL: No joint swelling or deformity. EXTREMITIES: No cyanosis, clubbing, or pedal edema. NEUROLOGICAL: Gross neurological examination did not reveal any focal deficits. SKIN: No rashes. Assessment and Plan Plan: -Hypoxia, acute and chronic hypoxic respiratory failure secondary to atelectasis and complete occlusion of the right lower lobe from adenocarcinoma of Lung. Patient does have history of COPD. Patient appears to have some pleural effusion as well. Further management as mentioned above -COPD doesn't appear to be in acute exacerbation patient doesn't appear to have any pneumonia patient has atelectasis from the lung mass -Generalized fatigue: From cancer -Coronary artery disease Hypertension -hypothyroidism -Adenocarcinoma of the right lung, patient will follow up with the oncology as an outpatient -Type 2 diabetes mellitus -Hyperkalemia hold off on angiotensin receptor dexter while patient blood pressure is within normal limits in spite of holding losartan Patient Condition at Discharge: Fair Plan - Discharge Summary Discharge Rx Participant: No New Discharge Prescriptions: Continue Levothyroxine Sodium [Synthroid] 50 mcg PO DAILY Albuterol Sulfate [Ventolin HFA] 2 puff INHALATION RT-QID PRN PRN Reason: Wheezing Nitroglycerin Sl Tabs [Nitrostat] 0.4 mg SL Q5M PRN PRN Reason: Chest Pain metFORMIN HCL [Glucophage] 1,000 mg PO BID hydrOXYzine HCL [Atarax] 25 mg PO BID Diltiazem HCl [Cartia Xt] 300 mg PO DAILY Allibiotic Cf 1 cap PO DAILY prednisoLONE ACETATE 1% OPHTH [Pred Forte 1%] 1 drop LEFT EYE QID Pioglitazone [Actos] 15 mg PO DAILY Ergocalciferol (Vitamin D2) [Drisdol (50,000 Iu)] 1,250 mcg PO SA Montelukast Sodium [Singulair] 10 mg PO HS Metoprolol Succinate (ER) [Toprol XL] 50 mg PO DAILY HYDROcodone/APAP 10-325MG [[place] 10-325] 1 tab PO TID PRN PRN Reason: Pain Atorvastatin Calcium [Lipitor] 40 mg PO HS Discontinued Losartan Potassium 50 mg PO DAILY Discharge Medication List Levothyroxine Sodium [Synthroid] 50 mcg PO DAILY 03/11/14 [History] Albuterol Sulfate [Ventolin HFA] 2 puff INHALATION RT-QID PRN 03/12/14 [History] Nitroglycerin Sl Tabs [Nitrostat] 0.4 mg SL Q5M PRN 06/25/15 [History] Allibiotic Cf 1 cap PO DAILY 09/15/20 [History] Atorvastatin Calcium [Lipitor] 40 mg PO HS 09/15/20 [History] Diltiazem HCl [Cartia Xt] 300 mg PO DAILY 09/15/20 [History] Ergocalciferol (Vitamin D2) [Drisdol (50,000 Iu)] 1,250 mcg PO SA 09/15/20 [History] HYDROcodone/APAP 10-325MG [[place] 10-325] 1 tab PO TID PRN 09/15/20 [History] Metoprolol Succinate (ER) [Toprol XL] 50 mg PO DAILY 09/15/20 [History] Montelukast Sodium [Singulair] 10 mg PO HS 09/15/20 [History] Pioglitazone [Actos] 15 mg PO DAILY 09/15/20 [History] hydrOXYzine HCL [Atarax] 25 mg PO BID 09/15/20 [History] metFORMIN HCL [Glucophage] 1,000 mg PO BID 09/15/20 [History] prednisoLONE ACETATE 1% OPHTH [Pred Forte 1%] 1 drop LEFT EYE QID 09/15/20 [History] Follow up Appointment(s)/Referral(s): Evelyn Tan ANPBC [Nurse Practitioner] - 3 Days (Office closed. Please call for appointment.) Abdiel Ochoa DO [Primary Care Provider] - 09/23/20 10:30 am Discharge Disposition: HOME SELF-CARE
[2020-09-17 13:07] LABS: HCT 36.5 % (34.0-46.0); HGB 11.3 gm/dL (11.4-16.0); Hypochromasia Slight; MCH 27.7 pg (25.0-35.0); MCHC 30.9 g/dL (31.0-37.0); MCV 89.8 fL (80.0-100.0); Mean Platelet Volume 7.7; Platelet Count 408 k/uL (150-450); RBC 4.07 m/uL (3.80-5.40); RDW 13.8 % (11.5-15.5); WBC 16.7 k/uL (3.8-10.6)
--- NOTE | 2020-09-17 13:52 | P.PN ---
Subjective Progress Note Date: 09/17/20 70-year-old here patient is being seen in follow-up today. The patient has stage IV metastatic non-small cell lung cancer/adenocarcinoma. The patient has developed occlusion of the bronchus intermedius/right lower lobe. The patient has atelectasis of the right lower lobe along with a reactive right-sided pleural effusion in addition to an expansile mass involving the right lateral chest area. Patient is having some chest discomfort along the right chest area. This is related to the underlying malignancy. No fever. No chills. She presented to the hospital because of weakness and shortness of breath. She is currently on 3 L about 2 by nasal cannula with a pulse ox of 96%. On room air oxygen, the pulse ox droppes from 85-87%. Her breathing is nonlabored. No hemoptysis. Initially, had This patient nothing by mouth 1. Plans to bronchoscope the patient. She declined the bronchoscope. Atelectatic discussion with her in the presence of her son. We decided to discharge her home today on oxygen at 2 L per minute. The patient without recent need more thinking to do as far as goals of treatment. She does not seem to be in treatment anymore. She needs to talk to her oncologist a later stage and decide if she wants any form of immunotherapy. As far as her pulmonary status, the patient does not have any signs of S3 decompensation this point in time. She has exertional dyspnea which is related to her underlying non-small cell lung cancer. Objective - Vital Signs Vital signs: Vital Signs Temp 97.4 F L 09/17/20 07:58 Pulse 72 09/17/20 09:11 Resp 18 09/17/20 07:58 BP 126/63 09/17/20 07:58 Pulse Ox 87 L 09/17/20 12:47 Intake & Output 09/16/20 09/17/20 09/17/20 18:59 06:59 18:59 Intake Total 240 740 Balance 240 740 Weight 62.233 kg Intake: Oral 240 740 Other: Voiding Method Bedside Commode Bedside Commode # Voids 0 2 - Exam The patient appeared well nourished and normally developed. Vital signs as documented. Head exam is unremarkable. No scleral icterus or corneal arcus noted. Neck is without jugular venous distension, thyromegaly, or carotid bruits. Carotid upstrokes are brisk bilaterally. Lungs diminished breath sounds bilaterally more so on the right lung base where there is dullness to percussion and near complete absence of breath on the right lung base area. No lymphadenopathy and axillary on this particular area. Cardiac exam reveals the PMI to be normally sized and situated. Rhythm is regular. First and second heart sounds normal. No murmurs, rubs or gallops. Abdominal exam reveals normal bowel sounds, no masses, no organomegaly and no aortic enlargement. Extremities are nonedematous and both femoral and pedal pulses are normal.Examination of the skin revealed no evidence of significant rashes, suspicious appearing nevi or other concerning lesions.Neurologically, the patient is awake and alert and the patient does not have any focal neurological deficit. Cranial nerves are essentially intact. - Labs CBC & Chem 7: 09/17/20 12:42 09/17/20 06:18 Labs: Abnormal Lab Results - Last 24 Hours (Table) 09/16/20 09/16/20 09/17/20 Range/Units 17:15 20:35 06:18 WBC (3.8-10.6) k/uL Hgb (11.4-16.0) gm/dL MCHC (31.0-37.0) g/dL Potassium 5.2 H (3.5-5.1) mmol/L BUN 34 H (7-17) mg/dL Glucose 175 H (74-99) mg/dL POC Glucose (mg/dL) 115 H 230 H (75-99) mg/dL Calcium 12.1 H (8.4-10.2) mg/dL 09/17/20 09/17/20 09/17/20 Range/Units 07:06 11:26 12:42 WBC 16.7 H (3.8-10.6) k/uL Hgb 11.3 L (11.4-16.0) gm/dL MCHC 30.9 L (31.0-37.0) g/dL Potassium (3.5-5.1) mmol/L BUN (7-17) mg/dL Glucose (74-99) mg/dL POC Glucose (mg/dL) 191 H 204 H (75-99) mg/dL Calcium (8.4-10.2) mg/dL Assessment and Plan Plan: 1 non-small cell lung cancer, adenocarcinoma of the right lung, post wedge resection of the right middle lobe mass back in 2016, followed by interval progression and development of a large right lateral chest wall mass in addition to subcarinal lymphadenopathy, complete occlusion of the distal bronchus intermedius/right lower lobe and atelectasis of the right lower lobe. Presentation is very typical of disease progression. The patient has received palliative radiation therapy to the right chest wall back in January 2020. She declined chemotherapy. She declined immunotherapy. He has metastatic disease/she does have skeletal metastases her disease stage IV. 2 Progressive dyspnea most likely secondary to progression of her non-small cell lung cancer 3 COPD 4 coronary artery disease 5 hypertension 6 hypothyroidism 7 sickle cell disease/trait 8 chronic hepatitis C 9 osteoarthritis. Plan Prognosis remains extremely poor. We have canceled bronchoscopy upon the patient's wishes. She can be discharged home on oxygen. She will make further decisions on treatment after talking to her oncologist. Personally, I don't think the patient is interested in further treatment even if it's palliative treatment. She was discharged home on oxygen. Home O2 will be arranged in the form of a concentrator. We'll be glad to see her in outpatient basis if there is any worsening in her shortness of breath. Not much can be offered in terms of her lung cancer. She has stage IV disease. Shortness of breath attributed to the complications related to her non-small cell including right lower lobe collapse/effusion.
[2020-09-17 14:40] VITALS: BMI 27.7
--- NOTE | 2020-09-17 15:27 | MR ---
EXAMINATION TYPE: MR brain wo/w con DATE OF EXAM: 09/17/2020 COMPARISON: None HISTORY: Assess for brain mets, Hx of lung cancer TECHNIQUE: Fast brain protocol was utilized. There is motion on the exam. Multiplanar, multisequence images of the brain and brainstem is performed without and with IV contras t, utilizing 6 mL intravenous Gadavist . FINDINGS: Diffusion weighted images demonstrate no evidence of a recent infarct or other diffusion ab normality. There is no extra-axial fluid collection. Confluent and scattered hyperintensity present in the periventricular, pericallosal, subcortical white matter The ventricular system and cisternal spaces are normal in size and appearance. The brain volume is age appropriate, there is cortical atr ophy. Midline structures demonstrate normal morphology. The craniocervical junction appears within normal limits. Post contrast images demonstrate no abnormal enhancement. The dural venous sinuses appear pa tent. The visualized sinuses are remarkable for possible mucus retention cyst right maxillary sinus, and the globes are intact. IMPRESSION: Age-related changes of atrophy and probable chronic small vessel ischemia. No evident met astasis. There is motion on the exam.
[2020-09-18] MEDS ORDERED: FAMOTIDINE 20 MG TAB PO SCH (09:00)
[2020-09-19] MEDS ORDERED: ERGOCALCIFEROL 1,250 MCG (50,000 IU) CAPSULE PO SCH (09:00)
== END 2020-09-17 15:45 | disposition home or self-care (01) | DRG 180 ==
LOC: EC 20:55 → 4SSUR 09-16 01:15
PROVIDERS: ADMIT Hospitalist; ATTEND Hospitalist
DX: C34.31 Malignant neoplasm of lower lobe, right bronchus or lung (principal); J96.21 Acute and chronic respiratory failure with hypoxia; J44.1 Chronic obstructive pulmonary disease with (acute) exacerbation; C34.2 Malignant neoplasm of middle lobe, bronchus or lung; J90 Pleural effusion, not elsewhere classified; J98.11 Atelectasis; Z20.822 Contact with and (suspected) exposure to COVID-19; R59.0 Localized enlarged lymph nodes; I25.10 Atherosclerotic heart disease of native coronary artery without angina pectoris; I10 Essential (primary) hypertension; F41.9 Anxiety disorder, unspecified; E03.9 Hypothyroidism, unspecified; E11.9 Type 2 diabetes mellitus without complications; E78.5 Hyperlipidemia, unspecified; E87.5 Hyperkalemia; E07.9 Disorder of thyroid, unspecified; D57.3 Sickle-cell trait; Z79.890 Hormone replacement therapy; Z79.899 Other long term (current) drug therapy; Z87.19 Personal history of other diseases of the digestive system; Z87.891 Personal history of nicotine dependence; Z92.3 Personal history of irradiation; Z90.2 Acquired absence of lung [part of]; Z79.84 Long term (current) use of oral hypoglycemic drugs; B19.20 Unspecified viral hepatitis C without hepatic coma; M15.9 Polyosteoarthritis, unspecified; J40 Bronchitis, not specified as acute or chronic
CPT/HCPCS: 36415; 70553; 71045; 71275; 80048; 82803; 83036; 83605; 83880; 84484; 85025; 85027; 85379; 85610; 85730; 87635; 94640; 96365; 96366; 99285

== ENCOUNTER → 2020-10-02 | Outpatient (CLI) | payer MEDICARE, OTHER ==
--- NOTE | 2020-10-06 16:52 | PE ---
Nuclear medicine PET/CT HISTORY: C 34.2, lung carcinoma, subsequent Patient received 10 mCi F-18 FDG intravenously in delayed scanning was performed from the skull base to the mid thighs. Localization and attenuation correction CT scan was performed. Correlation to prior nuclear medicine PET/CT 12/20/2019 chest and neck: There is no cervical or supraclavicular adenopathy. Right-sided pleural effusion has developed in the interval. There is abnormal uptake in the right perihilar location. The abnormal sof t tissue along the internal mammary chain on the right has increased in size and now measures approxi mately 2.3 cm in transverse dimension whereas on prior exam measured approximately 1.5 cm, there is a ssociated hypermetabolic uptake, SUV 3.3. Additional subpleural nodules in the right chest on axial i mage #86, 97 again noted, show a similar size. Air bronchograms, atelectatic lung at the right lung b ase is an interval finding, SUV in the right hilar region 4.2. ABDOMEN: There is no suspicious uptake. No retroperitoneal adenopathy. No evident adrenal mass. No fabrizio ng mass. Uptake along the bowel is likely physiologic. No pelvic adenopathy. Osseous structures are remarkable for the destructive lesion of the right sixth rib, the soft tissue component has increased, the lytic bone lesion shows local destruction, there is associated hypermeta bolic uptake, SUV 5.2. IMPRESSION: Progression of patient's tumor burden as described.
== END | disposition home or self-care (01) ==
LOC: RADPETMAIN 10:30
PROVIDERS: ATTEND Internal Medicine Hematology & Oncology
DX: C34.2 Malignant neoplasm of middle lobe, bronchus or lung (principal)
CPT/HCPCS: 78815; A9552

== ENCOUNTER 2020-11-04 10:06 | Inpatient (IN) | payer MEDICARE, OTHER ==
[2020-11-04] MEDS ORDERED: ACETAMINOPHEN TAB 325 MG TAB PO STA (10:30)
--- NOTE | 2020-11-04 10:33 | ED ---
General Adult HPI - General Chief complaint: Shortness of Breath Stated complaint: DELICIA Time Seen by Provider: 11/04/20 10:12 Source: patient, family, RN notes reviewed Mode of arrival: wheelchair Limitations: no limitations - History of Present Illness Initial comments: Patient is a pleasant 70-year-old female presenting to the emergency department shortness of breath. Onset of symptoms was yesterday. Patient does have stage IV lung cancer. Patient has status post radiation therapy and currently undergoing chemotherapy. Fever was unknown at home. Patient does have mild cough with clear sputum. Patient was incontinent of urine this morning. Son feels that patient may have some mild edema of her legs and face. No abdominal pain. - Related Data Home Medications Medication Instructions Recorded Confirmed Levothyroxine Sodium [Synthroid] 50 mcg PO DAILY 03/11/14 11/04/20 Albuterol Sulfate [Ventolin HFA] 2 puff INHALATION RT-QID PRN 03/12/14 11/04/20 Nitroglycerin Sl Tabs [Nitrostat] 0.4 mg SL Q5M PRN 06/25/15 11/04/20 Allibiotic Cf 1 cap PO DAILY 09/15/20 11/04/20 Atorvastatin Calcium [Lipitor] 40 mg PO HS 09/15/20 11/04/20 Diltiazem HCl [Cartia Xt] 300 mg PO DAILY 09/15/20 11/04/20 Ergocalciferol (Vitamin D2) 1,250 mcg PO SA 09/15/20 11/04/20 [Drisdol (50,000 Iu)] HYDROcodone/APAP 10-325MG [[place] 1 tab PO TID PRN 09/15/20 11/04/20 10-325] Metoprolol Succinate (ER) [Toprol 50 mg PO DAILY 09/15/20 11/04/20 XL] Montelukast Sodium [Singulair] 10 mg PO HS 09/15/20 11/04/20 Pioglitazone [Actos] 15 mg PO DAILY 09/15/20 11/04/20 hydrOXYzine HCL [Atarax] 25 mg PO BID 09/15/20 11/04/20 metFORMIN HCL [Glucophage] 1,000 mg PO BID 09/15/20 11/04/20 prednisoLONE ACETATE 1% OPHTH 1 drop LEFT EYE QID 09/15/20 11/04/20 [Pred Forte 1%] Folic Acid 1 mg PO DAILY 11/04/20 11/04/20 Lidocaine-Prilocaine Cream [Emla 1 applic TOPICAL DIRECTED PRN 11/04/2007/22 Cream 2.5%/2.5%] Losartan [Cozaar] 50 mg PO DAILY 11/04/20 11/04/20 Nystatin 100,000 Unit/ml Susp 4 ml PO QID 11/04/20 11/04/20 [Mycostatin Oral Susp] ondansetron HCL [Zofran] 8 mg PO Q6H PRN 11/04/20 11/04/20 Allergies Allergy/AdvReac Type Severity Reaction Status Date / Time No Known Allergies Allergy Verified 11/04/20 14:31 Review of Systems ROS Statement: Those systems with pertinent positive or pertinent negative responses have been documented in the HPI. ROS Other: All systems not noted in ROS Statement are negative. Constitutional: Reports: as per HPI, fever Eyes: Denies: eye pain ENT: Denies: ear pain Respiratory: Reports: as per HPI, cough, dyspnea Cardiovascular: Denies: chest pain Endocrine: Reports: fatigue Gastrointestinal: Denies: abdominal pain Genitourinary: Denies: dysuria Musculoskeletal: Denies: back pain Skin: Denies: rash Neurological: Denies: headache Past Medical History Past Medical History: Cancer, COPD, Diabetes Mellitus, Hyperlipidemia, Hypertension, Osteoarthritis (OA), Respiratory Disorder, Thyroid Disorder Additional Past Medical History / Comment(s): Lesion right lung.,sickle cell traits,unable to walk any distance,SOB, States arthritis pain "all over". History of Any Multi-Drug Resistant Organisms: None Reported Past Surgical History: Tubal Ligation Additional Past Surgical History / Comment(s): bilateral cataracts, Navigational Bronchoscopy (08/03/17), LUNG RESECTION Past Anesthesia/Blood Transfusion Reactions: No Reported Reaction Additional Past Anesthesia/Blood Transfusion Reaction / Comment(s): no problems with prior blood transfusion Past Psychological History: Anxiety Smoking Status: Former smoker Past Alcohol Use History: None Reported Past Drug Use History: None Reported - Past Family History Mother Family Medical History: Cancer Additional Family Medical History / Comment(s): Unknown type of cancer. Father Family Medical History: Cancer Additional Family Medical History / Comment(s): Unknown type of cancer. General Exam Limitations: no limitations General appearance: alert Head exam: Present: normocephalic Eye exam: Present: normal appearance Neck exam: Present: normal inspection. Absent: tenderness Respiratory exam: Present: decreased breath sounds Cardiovascular Exam: Present: tachycardia GI/Abdominal exam: Present: soft. Absent: tenderness Extremities exam: Present: pedal edema (trace bl). Absent: calf tenderness Neurological exam: Present: alert Psychiatric exam: Present: normal affect, normal mood Skin exam: Present: normal color Course Vital Signs 11/04/20 11/04/20 11/04/20 10:07 10:17 12:22 Temperature 98 F 102.4 F H 98.9 F Pulse Rate 125 H 82 Respiratory 18 18 Rate Blood Pressure 162/60 123/67 O2 Sat by Pulse 94 L 100 Oximetry - Reevaluation(s) Reevaluation #1: 11/04/20 12:51 Case was discussed with Dr. Olsen who does request computed tomography scan of the chest. If negative does request admission with Dulce Maria. 11/04/20 14:58 Patient and family were updated on results and plan. CAT scan is pending at this time secondary to patient's port questionable if it can be used for CAT scan. Patient refuses further IV attempts. Case was earlier discussed with Dr. Clark who did evaluate patient and will admit. EKG Findings - EKG Comments: EKG Findings:: Sinus tachycardia at 117. IA 124. QRS 124. QT 46. QTc 42. Left axis. Right bundle branch block. No acute ST change. Medical Decision Making - Lab Data Result diagrams: 11/04/20 10:44 11/04/20 10:44 Lab Results 11/04/20 11/04/20 11/04/20 Range/Units 10:44 10:44 10:44 WBC 9.1 (3.8-10.6) k/uL RBC 3.18 L (3.80-5.40) m/uL Hgb 9.0 L D (11.4-16.0) gm/dL Hct 27.1 L (34.0-46.0) % MCV 85.2 (80.0-100.0) fL MCH 28.3 (25.0-35.0) pg MCHC 33.2 (31.0-37.0) g/dL RDW 15.4 (11.5-15.5) % Plt Count 683 H (150-450) k/uL MPV 8.3 Neutrophils % (Manual) 71 % Band Neuts % (Manual) 1 % Lymphocytes % (Manual) 16 % Monocytes % (Manual) 11 % Eosinophils % (Manual) 1 % Metamyelocytes % 1 % Neutrophils # (Manual) 6.50 (1.3-7.7) k/uL Lymphocytes # (Manual) 1.46 (1.0-4.8) k/uL Monocytes # (Manual) 1.00 (0-1.0) k/uL Eosinophils # (Manual) 0.09 (0-0.7) k/uL Metamyelocytes # (Man) 0.09 H (0) k/uL Nucleated RBCs 0 (0-0) /100 WBC Manual Slide Review Performed Polychromasia Present Hypochromasia Slight PT 11.1 (9.0-12.0) sec INR 1.0 (<1.2) APTT 24.0 (22.0-30.0) sec Sodium 128 L (137-145) mmol/L Potassium 4.2 (3.5-5.1) mmol/L Chloride 89 L (98-107) mmol/L Carbon Dioxide 32 H (22-30) mmol/L Anion Gap 7 mmol/L BUN 18 H (7-17) mg/dL Creatinine 1.26 H (0.52-1.04) mg/dL Est GFR (CKD-EPI)AfAm 50 (>60 ml/min/1.73 sqM) Est GFR (CKD-EPI)NonAf 43 (>60 ml/min/1.73 sqM) Glucose 135 H (74-99) mg/dL Plasma Lactic Acid Rakesh (0.7-2.0) mmol/L Calcium 10.1 (8.4-10.2) mg/dL Total Bilirubin 0.2 (0.2-1.3) mg/dL AST 47 H (14-36) U/L ALT 19 (4-34) U/L Alkaline Phosphatase 48 (38-126) U/L Total Protein 7.2 (6.3-8.2) g/dL Albumin 3.4 L (3.5-5.0) g/dL Urine Color Urine Appearance (Clear) Urine pH (5.0-8.0) Ur Specific [place] (1.001-1.035) Urine Protein (Negative) Urine Glucose (UA) (Negative) Urine Ketones (Negative) Urine Blood (Negative) Urine Nitrite (Negative) Urine Bilirubin (Negative) Urine Urobilinogen (<2.0) mg/dL Ur Leukocyte Esterase (Negative) Urine WBC (0-5) /hpf Ur Squamous Epith Cells (0-4) /hpf Urine Mucus (None) /hpf Coronavirus (PCR) (Not Detectd) 11/04/20 11/04/20 11/04/20 Range/Units 10:44 11:19 11:57 WBC (3.8-10.6) k/uL RBC (3.80-5.40) m/uL Hgb (11.4-16.0) gm/dL Hct (34.0-46.0) % MCV (80.0-100.0) fL MCH (25.0-35.0) pg MCHC (31.0-37.0) g/dL RDW (11.5-15.5) % Plt Count (150-450) k/uL MPV Neutrophils % (Manual) % Band Neuts % (Manual) % Lymphocytes % (Manual) % Monocytes % (Manual) % Eosinophils % (Manual) % Metamyelocytes % % Neutrophils # (Manual) (1.3-7.7) k/uL Lymphocytes # (Manual) (1.0-4.8) k/uL Monocytes # (Manual) (0-1.0) k/uL Eosinophils # (Manual) (0-0.7) k/uL Metamyelocytes # (Man) (0) k/uL Nucleated RBCs (0-0) /100 WBC Manual Slide Review Polychromasia Hypochromasia PT (9.0-12.0) sec INR (<1.2) APTT (22.0-30.0) sec Sodium (137-145) mmol/L Potassium (3.5-5.1) mmol/L Chloride (98-107) mmol/L Carbon Dioxide (22-30) mmol/L Anion Gap mmol/L BUN (7-17) mg/dL Creatinine (0.52-1.04) mg/dL Est GFR (CKD-EPI)AfAm (>60 ml/min/1.73 sqM) Est GFR (CKD-EPI)NonAf (>60 ml/min/1.73 sqM) Glucose (74-99) mg/dL Plasma Lactic Acid Rakesh 0.8 (0.7-2.0) mmol/L Calcium (8.4-10.2) mg/dL Total Bilirubin (0.2-1.3) mg/dL AST (14-36) U/L ALT (4-34) U/L Alkaline Phosphatase (38-126) U/L Total Protein (6.3-8.2) g/dL Albumin (3.5-5.0) g/dL Urine Color Yellow Urine Appearance Cloudy H (Clear) Urine pH 5.5 (5.0-8.0) Ur Specific [place] 1.010 (1.001-1.035) Urine Protein 1+ H (Negative) Urine Glucose (UA) Negative (Negative) Urine Ketones Negative (Negative) Urine Blood Negative (Negative) Urine Nitrite Negative (Negative) Urine Bilirubin Negative (Negative) Urine Urobilinogen <2.0 (<2.0) mg/dL Ur Leukocyte Esterase Negative (Negative) Urine WBC 2 (0-5) /hpf Ur Squamous Epith Cells 2 (0-4) /hpf Urine Mucus Rare H (None) /hpf Coronavirus (PCR) Not Detected (Not Detectd) - Radiology Data Radiology results: image reviewed (Chest x-ray shows moderate right effusion with adjacent atelectasis or consolidation. Instruction chest wall. Similar to previous chest x-ray.) Disposition Clinical Impression: Dyspnea, Fever Disposition: ADMITTED IP TO THIS HOSP Is patient prescribed a controlled substance at d/c from ED?: No Referrals: Abdiel Ochoa DO [Primary Care Provider] - 1-2 days Decision Time: 15:00
[2020-11-04 11:22] LABS: Albumin 3.4 g/dL (3.5-5.0); Calcium 10.1 mg/dL (8.4-10.2); Potassium 4.2 mmol/L (3.5-5.1); Total Bilirubin 0.2 mg/dL (0.2-1.3); Total Protein 7.2 g/dL (6.3-8.2)
--- NOTE | 2020-11-04 11:26 | XR ---
EXAMINATION TYPE: XR chest 2V DATE OF EXAM: 11/04/2020 COMPARISON: 09/15/2020 and PET/CT 10/02/2020 HISTORY: 70-year-old female with fever TECHNIQUE: AP and lateral views FINDINGS: Left anterior chest wall injection port with subclavian access and catheter tip at the mid SVC level. Right heart margin partially obscured by adjacent pleural parenchymal opacity. Continued moderate ri ght effusion with right basilar opacity. Trace blunting of the posterior left costophrenic angle comp atible with a small Bochdalek hernia as seen on the patient's PET/CT. Destruction of the right latera l sixth rib and subacute to chronic fracture deformity right lateral seventh rib redemonstrated. IMPRESSION: 1. Continued moderate right effusion with adjacent atelectasis and/or consolidation. 2. Known destructive mass involving the chest wall here and lateral right sixth rib. 3. Overall similar radiographic appearance compared to 09/15/2020.
[2020-11-04 11:31] LABS: Prothrombin Time 11.1 sec (9.0-12.0)
[2020-11-04 11:40] LABS: HCT 27.1 % (34.0-46.0); Hypochromasia Slight; MCH 28.3 pg (25.0-35.0); MCHC 33.2 g/dL (31.0-37.0); MCV 85.2 fL (80.0-100.0); Mean Platelet Volume 8.3; Platelet Count 683 k/uL (150-450); RBC 3.18 m/uL (3.80-5.40); RDW 15.4 % (11.5-15.5); WBC 9.1 k/uL (3.8-10.6)
[2020-11-04 12:16] LABS: Band Neutrophils % 1 %; Eosinophils # (M) 0.09 k/uL (0-0.7); Lymphocytes # (M) 1.46 k/uL (1.0-4.8); Metamyelocytes # (M) 0.09 k/uL (0); Metamyelocytes % 1 %; Neutrophils % (M) 71 %; Nucleated Red Blood Cells 0 /100 WBC (0-0); Total Cells Counted 200
[2020-11-04 12:17] LABS: Polychromasia Present
[2020-11-04 12:29] LABS: Appearance,Urine Cloudy (Clear); Bilirubin,Urine Negative (Negative); Blood,Urine Negative (Negative); Color,Urine Yellow; Glucose,Urine (UA) Negative (Negative); Ketones,Urine Negative (Negative); Leukocyte Esterase,Urine Negative (Negative); Mucus,Urine Rare /hpf; Nitrite,Urine Negative (Negative); PH, Urine 5.5 (5.0-8.0); Protein,Urine 1+ (Negative); Squamous Epithelial Cell,Urine 2 /hpf (0-4); Urobilinogen,Urine <2.0 mg/dL (<2.0); WBC,Urine 2 /hpf (0-5)
[2020-11-04] MEDS ORDERED: MORPHINE SULFATE 4 MG/ML SYRINGE IVP STA (12:37)
[2020-11-04] MEDS ORDERED: LIDOCAINE-PRILOCAINE 2.5-2.5% CREAM 5 GM TUBE TOPICAL PRN (14:42)
[2020-11-04] MEDS ORDERED: ONDANSETRON 4 MG TAB PO PRN (14:42)
[2020-11-04] MEDS ORDERED: NITROGLYCERIN SL TABS 0.4 MG TAB SUBLINGUAL PRN (14:42)
[2020-11-04] MEDS ORDERED: CEFEPIME 2 GM in SODIUM CHLORIDE 0.9% 100 ML IVPB STA (14:50)
--- NOTE | 2020-11-04 14:52 | P.HPIM ---
History of Present Illness Patient is a pleasant 70-year-old female came in with complains of shortness of breath. Fever chills at home. Patient has been having generalized weakness. Patient was recently started on chemotherapy for lung cancer. Patient is presently not hyponatremic. Patient has related To 126 sodium of 128 urine analysis is not significant for UTI patient had a chest x-ray which is showing moderate to right pleural effusion with some atelectasis possible CT angios the chest is being obtained at this time. This effusion appears to be older. There is a destructive mass involving the chest wall and lateral sixth rib on the right side. Patient was a complaining of cough without any significant sputum production. Patient will be admitted with cefepime and consultation to infectious disease and oncology. REVIEW OF SYSTEMS: CONSTITUTIONAL: As mentioned in HPI HEENT: No recent visual problems or hearing problems. Denied any sore throat. CARDIOVASCULAR: No chest pain, orthopnea, PND, no palpitations, no syncope. PULMONARY: No shortness of breath, no cough, no hemoptysis. GASTROINTESTINAL: No diarrhea, no nausea, no vomiting, no abdominal pain. NEUROLOGICAL: No headaches, no weakness, no numbness. HEMATOLOGICAL: Denies any bleeding or petechiae. GENITOURINARY: Denies any burning micturition, frequency, or urgency. MUSCULOSKELETAL/RHEUMATOLOGICAL: Denies any joint pain, swelling, or any muscle pain. ENDOCRINE: Denies any polyuria or polydipsia. The rest of the 14-point review of systems is negative. PHYSICAL EXAMINATION: GENERAL: The patient is alert and oriented x3, not in any acute distress. Well developed, well nourished. Patient appears to be tired and fatigued HEENT: Pupils are round and equally reacting to light. EOMI. No scleral icterus. No conjunctival pallor. Normocephalic, atraumatic. No pharyngeal erythema. No thyromegaly. CARDIOVASCULAR: S1 and S2 present. No murmurs, rubs, or gallops. PULMONARY: Chest is clear to auscultation, no wheezing or crackles. ABDOMEN: Soft, nontender, nondistended, normoactive bowel sounds. No palpable organomegaly. MUSCULOSKELETAL: No joint swelling or deformity. EXTREMITIES: No cyanosis, clubbing, or pedal edema. NEUROLOGICAL: Gross neurological examination did not reveal any focal deficits. SKIN: No rashes. Assessment and plan -Fever source unclear possibly of pneumonia. That pneumonia cannot be ruled out patient was started on cefepime infectious disease will be consulted. -Hypovolemic hyponatremia patient was started on IV fluids - acute renal failure prerenal azotemia acute tubular necrosis secondary to possible infection patient was started on IV fluids as mentioned above -Right-sided lung lesion limb/lung cancer for which patient was recently started on chemotherapy. -Type 2 diabetes mellitus hold off on oral hyperglycemic agents patient was started on sliding scale insulin and stent-hyperlipidemia -Hypertension -COPD without any acute exacerbation. DVT prophylaxis: Subcutaneous heparin Past Medical History Past Medical History: Cancer, COPD, Diabetes Mellitus, Hyperlipidemia, Hypertension, Osteoarthritis (OA), Respiratory Disorder, Thyroid Disorder Additional Past Medical History / Comment(s): Lesion right lung.,sickle cell traits,unable to walk any distance,SOB, States arthritis pain "all over". History of Any Multi-Drug Resistant Organisms: None Reported Past Surgical History: Tubal Ligation Additional Past Surgical History / Comment(s): bilateral cataracts, Navigational Bronchoscopy (08/03/17), LUNG RESECTION Past Anesthesia/Blood Transfusion Reactions: No Reported Reaction Additional Past Anesthesia/Blood Transfusion Reaction / Comment(s): no problems with prior blood transfusion Past Psychological History: Anxiety Smoking Status: Former smoker Past Alcohol Use History: None Reported Past Drug Use History: None Reported - Past Family History Mother Family Medical History: Cancer Additional Family Medical History / Comment(s): Unknown type of cancer. Father Family Medical History: Cancer Additional Family Medical History / Comment(s): Unknown type of cancer. Medications and Allergies Home Medications Medication Instructions Recorded Confirmed Type Levothyroxine Sodium [Synthroid] 50 mcg PO DAILY 03/11/14 11/04/20 History Albuterol Sulfate [Ventolin HFA] 2 puff INHALATION RT-QID PRN 03/12/14 11/04/20 History Nitroglycerin Sl Tabs [Nitrostat] 0.4 mg SL Q5M PRN 06/25/15 11/04/20 History Allibiotic Cf 1 cap PO DAILY 09/15/20 11/04/20 History Atorvastatin Calcium [Lipitor] 40 mg PO HS 09/15/20 11/04/20 History Diltiazem HCl [Cartia Xt] 300 mg PO DAILY 09/15/20 11/04/20 History Ergocalciferol (Vitamin D2) 1,250 mcg PO SA 09/15/20 11/04/20 History [Drisdol (50,000 Iu)] HYDROcodone/APAP 10-325MG [[place] 1 tab PO TID PRN 09/15/20 11/04/20 History 10-325] Metoprolol Succinate (ER) [Toprol 50 mg PO DAILY 09/15/20 11/04/20 History XL] Montelukast Sodium [Singulair] 10 mg PO HS 09/15/20 11/04/20 History Pioglitazone [Actos] 15 mg PO DAILY 09/15/20 11/04/20 History hydrOXYzine HCL [Atarax] 25 mg PO BID 09/15/20 11/04/20 History metFORMIN HCL [Glucophage] 1,000 mg PO BID 09/15/20 11/04/20 History prednisoLONE ACETATE 1% OPHTH 1 drop LEFT EYE QID 09/15/20 11/04/20 History [Pred Forte 1%] Folic Acid 1 mg PO DAILY 11/04/20 11/04/20 History Lidocaine-Prilocaine Cream [Emla 1 applic TOPICAL DIRECTED PRN 11/04/20 11/04/20 History Cream 2.5%/2.5%] Losartan [Cozaar] 50 mg PO DAILY 11/04/20 11/04/20 History Nystatin 100,000 Unit/ml Susp 4 ml PO QID 11/04/20 11/04/20 History [Mycostatin Oral Susp] ondansetron HCL [Zofran] 8 mg PO Q6H PRN 11/04/20 11/04/20 History Allergies Allergy/AdvReac Type Severity Reaction Status Date / Time No Known Allergies Allergy Verified 11/04/20 14:31 Physical Exam Vitals: Vital Signs Temp Pulse Resp BP Pulse Ox 11/04/20 12:22 98.9 F 82 18 123/67 100 11/04/20 10:17 102.4 F H 11/04/20 10:07 98 F 125 H 18 162/60 94 L Intake and Output 11/03/20 11/04/20 11/04/20 22:59 06:59 14:59 Other: Weight 58.967 kg Results CBC & Chem 7: 11/04/20 10:44 11/04/20 10:44 Labs: Abnormal Lab Results - Last 24 Hours (Table) 11/04/20 11/04/20 11/04/20 Range/Units 10:44 10:44 11:57 RBC 3.18 L (3.80-5.40) m/uL Hgb 9.0 L D (11.4-16.0) gm/dL Hct 27.1 L (34.0-46.0) % Plt Count 683 H (150-450) k/uL Metamyelocytes # (Man) 0.09 H (0) k/uL Sodium 128 L (137-145) mmol/L Chloride 89 L (98-107) mmol/L Carbon Dioxide 32 H (22-30) mmol/L BUN 18 H (7-17) mg/dL Creatinine 1.26 H (0.52-1.04) mg/dL Glucose 135 H (74-99) mg/dL AST 47 H (14-36) U/L Albumin 3.4 L (3.5-5.0) g/dL Urine Appearance Cloudy H (Clear) Urine Protein 1+ H (Negative) Urine Mucus Rare H (None) /hpf
[2020-11-04] MEDS: HEPARIN SODIUM,PORCINE/PF 5,000 UNIT/0.5 ML SYRINGE SQ SCH (16:04)
[2020-11-04] MEDS: DILTIAZEM CD 300 MG CAP.ER.24H PO SCH (16:05)
[2020-11-04] MEDS: FAMOTIDINE 20 MG TAB PO SCH (16:05)
[2020-11-04] MEDS: METOPROLOL SUCCINATE (ER) 50 MG TAB.ER.24H PO SCH (16:05)
--- NOTE | 2020-11-04 16:48 | CT ---
EXAMINATION TYPE: CT angio chest DATE OF EXAM: 11/04/2020 COMPARISON: 09/16/2020, 10/02/2020 HISTORY: 70-year-old female shortness breath, Difficulty breathing. History of lung cancer. TECHNIQUE: Contiguous axial scanning of the chest performed with IV Contrast, patient injected with 5 3ml mL of Isovue 370. Coronal/sagittal MIP reconstructions performed. CT DLP: 250.9 mGycm Automated exposure control for dose reduction was used. FINDINGS: Heart is upper limits of normal in size without pericardial effusion. No flattening of the interventr icular septum or reflux of contrast into the hepatic veins. Ectasia aortic root at 3.7 cm and ascending aorta 3.9 cm. Ectasia of ascending thoracic aorta 3.5 cm. Satisfactory opacification of the pulmonary arterial system with mildly enlarged caliber measuring up to 2.8 cm suggesting underlying pulmonary arterial hypertension. No pulmonary embolism is identified . Metastatic anteromedial right mid lung deposit measures 2.1 cm, unchanged Subpleural pulmonary nodule anterolateral right upper lobe measures 1 cm versus 9 mm, previously. Chest wall soft tissue mass destroying the right lateral sixth rib measures 5.3 x 2.2 cm versus 4.8 x 3.4 cm, previously. There has been interval increase in the moderate right effusion. Redemonstrated cut off of the bronch us to the thalamus with extensive consolidation throughout the right lower lobe 5 mm posterior left basilar pulmonary nodule is unchanged. Otherwise, left lung and pleural spaces ar e clear. Background mild emphysema. Similar subacute to chronic fracture deformity right lateral seventh rib with callus. Visualized upper abdomen shows unchanged thickening of the left adrenal gland. No discrete FDG uptake was appreciated here on prior PET/CT. Bones: Destruction of the right lateral sixth rib, subacute to chronic fracture deformity right later al seventh rib. Suspect healed fracture deformity of the upper third sternal body. IMPRESSION: 1. KNOWN DESTRUCTIVE CHEST WALL MASS CENTERED AT THE LATERAL RIGHT SIXTH RIB. NOT SIGNIFICANTLY GENTILE ED IN SIZE. ADDITIONAL METASTATIC DISEASE CHARACTERIZED BY A 1 CM SUBPLEURAL RIGHT UPPER LOBE PULMONA RY NODULE AND 2.1 CM NODULE IN THE ANTERIOR RIGHT MIDLUNG ARE ALSO UNCHANGED. 2. PERSISTENT CUT OFF OF THE BRONCHUS BASALIS WITH CONTINUED EXTENSIVE CONSOLIDATION/PNEUMONIA THROUG HOUT THE RIGHT LOWER LOBE. 3. WORSENING NOW MODERATE RIGHT PLEURAL EFFUSION, LIKELY MALIGNANT EFFUSION. 4. COPD WITH MILD EMPHYSEMA AND PULMONARY ARTERIAL HYPERTENSION. NO PULMONARY EMBOLUS IS SEEN.
[2020-11-04 17:00] LABS: Glucose,Whole Blood 129 mg/dL (75-99)
[2020-11-04] MEDS: INSULIN ASPART (NovoLOG) 100 UNIT/ML VIAL SQ SCH ×2 (17:13→21:48)
[2020-11-04] MEDS: SODIUM CHLORIDE 0.9% 1,000 ML IV SCH (17:46)
[2020-11-04] MEDS: prednisoLONE ACETATE 1% OPHTH DROPS 5 ML BTL LEFT EYE SCH ×2 (17:46→21:49)
[2020-11-04] MEDS: NYSTATIN 100,000 UNIT/ML SUSP 500,000 UNIT/5 ML CUP PO SCH ×2 (18:06→23:05)
[2020-11-04 20:50] LABS: Glucose,Whole Blood 107 mg/dL (75-99)
[2020-11-04] MEDS: MONTELUKAST 10 MG TAB PO SCH (21:48)
[2020-11-04] MEDS: ATORVASTATIN 40 MG TAB PO SCH (21:48)
[2020-11-05] MEDS: PIPERACILLIN-TAZOBACTAM 3.375 GM in SODIUM CHLORIDE 0.9% 100 ML IVPB SCH ×3 (00:14→16:31)
[2020-11-05] MEDS: HEPARIN SODIUM,PORCINE/PF 5,000 UNIT/0.5 ML SYRINGE SQ SCH ×3 (00:16→16:31)
[2020-11-05] MEDS: HYDROcodone/APAP 10-325MG 1 EACH TAB PO PRN ×3 (05:24→21:31)
[2020-11-05] MEDS ORDERED: CEFEPIME 2 GM in SODIUM CHLORIDE 0.9% 100 ML IVPB SCH (06:00)
[2020-11-05 06:54] LABS: Glucose,Whole Blood 113 mg/dL (75-99)
[2020-11-05] MEDS: INSULIN ASPART (NovoLOG) 100 UNIT/ML VIAL SQ SCH ×4 (07:22→21:25)
--- NOTE | 2020-11-05 07:34 | CONS ---
CONSULTATION DATE OF SERVICE: 11/04/2020 REASON FOR CONSULTATION: Fever of unknown origin. HISTORY OF PRESENT ILLNESS: The patient is a 70-year-old female with a past medical history significant for stage IV lung cancer with metastases to the bones, status post radiation therapy, currently on chemotherapy. The patient presented to the hospital this morning for evaluation of increasing shortness of breath. The patient's breathing has been getting worse for the last few days. The patient has been complaining of cough which is moderate in intensity, occasionally productive of some yellow sputum. No hemoptysis. The patient has been complaining of right lower chest pain, which seemed to be chronic for her and site on her metastasis. The patient denies having any nausea, no vomiting, no abdominal pain, no diarrhea. On presentation to the hospital, the patient did have a fever of 102.4 degrees Fahrenheit. The patient did have mild hypoxemia and was tachycardic. The patient did have a normal white count. Creatinine was mildly 1.26. Urine was negative. [place] PCR was negative. The patient did have a chest x-ray with evidence of moderate right effusion and interstitial atelectasis and mass involving the left chest wall. The patient was started on cefepime and has been admitted to the hospital. Infectious Disease was consulted for further management of antibiotic therapy. The patient subsequently did have a CT angiogram of the chest, which was negative for PE, however, did show extensive consolidation and pneumonia throughout the right lower lobe. REVIEW OF SYSTEMS: Positive points have been mentioned in HPI. Rest of the systems are negative. PAST MEDICAL HISTORY: Metastatic lung cancer, diabetes mellitus, hypertension, hyperlipidemia, osteoarthritis, hypothyroidism. PAST SURGICAL HISTORY: Bilateral cataract surgery, navigational biopsy, lung resection, tubal ligation. SOCIAL HISTORY: Remote history of smoking. No drinking or drug use. FAMILY HISTORY: Mother with history of cancer. Father also with history of unknown type of cancer. ALLERGIES: No known drug allergies. MEDICATIONS: The patient is currently on cefepime, [place], Lipitor, Cardizem, Pepcid, NovoLog, heparin, Toprol-XL, Singulair, Nitrostat, Zofran, IV fluid. PHYSICAL EXAMINATION: VITAL SIGNS: Blood pressure is 134/92 with a pulse of 87, temperature 97.8, T-max is 102.4. She is 94% on 3 L nasal cannula. GENERAL DESCRIPTION: An elderly female up in the chair in no distress. No tachypnea or accessory muscles of respiration use. HEENT: Examination shows pallor, no scleral icterus. Oral mucous membrane is dry. NECK: Trachea central, no thyromegaly. LUNGS: Unlabored breathing. Coarse breath sounds on the right side. No wheeze. HEART: S1, S2. Regular rate and rhythm. ABDOMEN: Soft, no tenderness. No guarding or rigidity. EXTREMITIES: No edema of the feet. SKIN: No rash or mass palpable. NEUROLOGICAL: Patient is awake, alert, oriented x3. Mood and affect normal. LABS: Hemoglobin is 11, white count 9.1. BUN of 18, creatinine 1.26. AST 47. Urine is negative. [place] PCR was negative. DIAGNOSTIC IMPRESSION: Patient admitted to the hospital with sepsis in this patient who did have a fever and tachycardia with predominantly respiratory symptoms, concerning for the right lower lobe postoperative pneumonia in this patient who does have a history of stage IV lung cancer and will need to cover for the polymicrobial for disease infection. PLAN: 1. We will try to obtain a sputum for Gram stain and culture. 2. Check a CRP and procalcitonin level. 3. Discontinue cefepime. Start the patient on Zosyn 3.75 g q.8 hours. 4. We will follow on clinical condition and culture to further adjust medication if needed. Thank you for this consultation. Will follow this patient along with you. [id number] / IJN: [id number] /
[2020-11-05 08:04] LABS: HCT 29.7 % (34.0-46.0); HGB 9.8 gm/dL (11.4-16.0); Hypochromasia Slight; MCH 28.7 pg (25.0-35.0); MCHC 32.9 g/dL (31.0-37.0); Mean Platelet Volume 8.1; Platelet Count 616 k/uL (150-450); RBC 3.41 m/uL (3.80-5.40); RDW 15.6 % (11.5-15.5); WBC 11.2 k/uL (3.8-10.6)
[2020-11-05] MEDS: NYSTATIN 100,000 UNIT/ML SUSP 500,000 UNIT/5 ML CUP PO SCH ×4 (08:08→21:33)
[2020-11-05] MEDS: METOPROLOL SUCCINATE (ER) 50 MG TAB.ER.24H PO SCH (08:09)
[2020-11-05] MEDS: FAMOTIDINE 20 MG TAB PO SCH (08:09)
[2020-11-05] MEDS: LEVOTHYROXINE 50 MCG TAB PO SCH (08:09)
[2020-11-05] MEDS: FOLIC ACID 1 MG TAB PO SCH (08:09)
[2020-11-05] MEDS: prednisoLONE ACETATE 1% OPHTH DROPS 5 ML BTL LEFT EYE SCH ×4 (08:15→21:42)
[2020-11-05 08:47] LABS: African American GFR (CKD) 55 (>60 ml/min/1.73 sqM); Anion Gap 8 mmol/L; Blood Urea Nitrogen 16 mg/dL (7-17); Carbon Dioxide 31 mmol/L (22-30); Chloride 94 mmol/L (98-107); Glucose 120 mg/dL (74-99); Non-African American GFR(CKD) 48 (>60 ml/min/1.73 sqM); Potassium 4.3 mmol/L (3.5-5.1); Sodium 133 mmol/L (137-145)
[2020-11-05] MEDS: DILTIAZEM CD 300 MG CAP.ER.24H PO SCH (09:10)
[2020-11-05 11:48] LABS: Glucose,Whole Blood 202 mg/dL (75-99)
[2020-11-05 16:20] LABS: Glucose,Whole Blood 127 mg/dL (75-99)
--- NOTE | 2020-11-05 17:52 | PN ---
PROGRESS NOTE DATE OF SERVICE: 11/05/2020. REASON FOR FOLLOWUP: Fever, possible pneumonia. INTERVAL HISTORY: Patient overall fever pattern has improved the last 24 hours. The patient still complaining of shortness of breath. She did have a cough with occasional sputum production. Unfortunately sputum has not collected. No nausea, no vomiting. No abdominal pain. No diarrhea. PHYSICAL EXAMINATION: Blood pressure 111/72 with a pulse of 79, temperature 98.4. She is 93% on 3 L nasal cannula. General description is an elderly female lying in bed in no distress. Respiratory system: Unlabored breathing, coarse breath sounds bilaterally. Heart S1, S2. Regular rate and rhythm. Abdomen soft, no tenderness. LABORATORY DATA: Hemoglobin is 9.1, white count 11.2, north PCR is negative. Blood culture so far negative. DIAGNOSTIC IMPRESSION AND PLAN: Patient with fever, source is likely postobstructive pneumonia. Clinically doubt Covid 19 with negative Covid test. The patient's fever responded to Zosyn that will be continued for now and we will monitor clinical course closely. No need for droplet isolation. MMODL / IJN: [id number] /
[2020-11-05] MEDS: SODIUM CHLORIDE 0.9% 1,000 ML IV SCH ×3 (19:08→21:34)
[2020-11-05 20:54] LABS: Glucose,Whole Blood 128 mg/dL (75-99)
[2020-11-05] MEDS: MONTELUKAST 10 MG TAB PO SCH (21:34)
[2020-11-05] MEDS: ATORVASTATIN 40 MG TAB PO SCH (21:34)
--- NOTE | 2020-11-05 22:19 | P.CONS ---
History of Present Illness - Reason for Consult Consult date: 11/05/20 lung adenocarcinoma Requesting physician: Raegan Clark - Chief Complaint SOB - History of Present Illness Ms. Sellers is a very pleasant pt of Dr. Guerra diagnosed wit RML lung cancer in 2017 for which she had wedge resection, pT3, invasive adenocarcinoma, no LN sampled. She received no adjuvant therapy, monitored with serial scans. CT chest 11/2019 revealed a new right infra hilar soft tissue mass measuring 4.7 cm, interval increase in RML nodule (2.1 vs 1.5 cm on prior scan), 3 additional enlarging nodules in right lung measuring up to 1.6 cm. 01/07/2020, CT guided biopsy of subpleural lesion was positive for adenocarcinoma, PDl-1 and NextGen could not be done. She completed palliative XRT to right sided painful rib lesion. Liquid biopsy molecular studies revealed PDL-1 :5%, Guardant 360 revealed no actionable mutation. She initially declined systemic therapy. However,s he was admitted to the hospital in September 2020 with worsening dyspnea, repeat CT scan of chest revealed evidence of disease progression. Brain MRI on 09/17/2020 revealed no evidence of metastatic disease. 10/16/2020 she started alimta/carbo/keytruda, due for cycle 2 tomorrow. She continues to have right rib and chest pain, she is O2 dependent, cough Review of Systems 10 point ROS is neg except as stated in HPI Past Medical History Past Medical History: Cancer, COPD, Diabetes Mellitus, Hyperlipidemia, Hy pertension, Osteoarthritis (OA), Respiratory Disorder, Thyroid Disorder Additional Past Medical History / Comment(s): sickle cell traits, unable to walk any distance, SOB, Stage 4 lung cancer- completed radiation, last chemo treatment October 16 per patient report, wears 3L oxygen at home History of Any Multi-Drug Resistant Organisms: None Reported Past Surgical History: Tubal Ligation Additional Past Surgical History / Comment(s): bilateral cataracts, Navigational Bronchoscopy (08/03/17), LUNG RESECTION Past Anesthesia/Blood Transfusion Reactions: No Reported Reaction Additional Past Anesthesia/Blood Transfusion Reaction / Comm: no problems with prior blood transfusion Past Psychological History: Anxiety Additional Psychological History / Comment(s): Pt resides with her son who is very helpful. She has home oxygen, nebulizer and glucometer. Smoking Status: Former smoker Past Alcohol Use History: None Reported Additional Past Alcohol Use History / Comment(s): quit smoking Apr 2017,smoked since age 20,<1ppd Past Drug Use History: None Reported - Past Family History Mother Family Medical History: Cancer Additional Family Medical History / Comment(s): Unknown type of cancer. Father Family Medical History: Cancer Additional Family Medical History / Comment(s): Unknown type of cancer. Medications and Allergies Home Medications Medication Instructions Recorded Confirmed Type Levothyroxine Sodium [Synthroid] 50 mcg PO DAILY 03/11/14 11/04/20 History Albuterol Sulfate [Ventolin HFA] 2 puff INHALATION RT-QID PRN 03/12/14 11/04/20 History Nitroglycerin Sl Tabs [Nitrostat] 0.4 mg SL Q5M PRN 06/25/15 11/04/20 History Allibiotic Cf 1 cap PO DAILY 09/15/20 11/04/20 History Atorvastatin Calcium [Lipitor] 40 mg PO HS 09/15/20 11/04/20 History Diltiazem HCl [Cartia Xt] 300 mg PO DAILY 09/15/20 11/04/20 History Ergocalciferol (Vitamin D2) 1,250 mcg PO SA 09/15/20 11/04/20 History [Drisdol (50,000 Iu)] HYDROcodone/APAP 10-325MG [[place] 1 tab PO TID PRN 09/15/20 11/04/20 History 10-325] Metoprolol Succinate (ER) [Toprol 50 mg PO DAILY 09/15/20 11/04/20 History XL] Montelukast Sodium [Singulair] 10 mg PO HS 09/15/20 11/04/20 History Pioglitazone [Actos] 15 mg PO DAILY 09/15/20 11/04/20 History hydrOXYzine HCL [Atarax] 25 mg PO BID 09/15/20 11/04/20 History metFORMIN HCL [Glucophage] 1,000 mg PO BID 09/15/20 11/04/20 History prednisoLONE ACETATE 1% OPHTH 1 drop LEFT EYE QID 09/15/20 11/04/20 History [Pred Forte 1%] Folic Acid 1 mg PO DAILY 11/04/20 11/04/20 History Lidocaine-Prilocaine Cream [Emla 1 applic TOPICAL DIRECTED PRN 11/04/20 History Cream 2.5%/2.5%] Losartan [Cozaar] 50 mg PO DAILY 11/04/20 11/04/20 History Nystatin 100,000 Unit/ml Susp 4 ml PO QID 11/04/20 11/04/20 History [Mycostatin Oral Susp] ondansetron HCL [Zofran] 8 mg PO Q6H PRN 11/04/20 11/04/20 History Allergies Allergy/AdvReac Type Severity Reaction Status Date / Time No Known Allergies Allergy Verified 11/04/20 14:31 Physical Exam Vitals: Vital Signs Temp Pulse Pulse Resp BP BP Pulse Ox 11/05/20 14:00 98.4 F 79 18 111/72 93 L 11/05/20 08:30 97 11/05/20 08:08 97.4 F L 84 19 133/67 97 11/05/20 07:27 89 18 11/05/20 02:10 98.6 F 89 18 116/70 99 11/04/20 19:40 98.6 F 92 17 144/80 100 11/04/20 16:48 98.1 F 86 22 138/76 98 11/04/20 16:08 97.8 F 87 18 134/92 94 L Intake and Output 11/04/20 11/05/20 11/05/20 22:59 06:59 14:59 Intake Total 1840 Balance 1840 Intake: Intake, IV Titration 1300 Amount Piperacillin-Tazobactam 3 100 .375 gm In Sodium Chloride 0.9% 100 ml @ 25 mls/hr IVPB Q8HR [facility] Rx# :[id number] Sodium Chloride 0.9% 1, 1200 000 ml @ 100 mls/hr IV . Q10H [facility] Rx#:[id number] Oral 540 Other: # Voids 1 3 1 Weight 58.967 kg - Constitutional General appearance: average body habitus, cooperative, mild distress - EENT Eyes: anicteric sclerae, EOMI ENT: hearing grossly normal, normal oropharynx - Neck Neck: no lymphadenopathy - Respiratory Respiratory: bilateral: diminished - Cardiovascular Heart sounds: normal: S1, S2 Abnormal Heart Sounds: no systolic murmur, no diastolic murmur, no rub, no S3 Gallop, no S4 Gallop, no click, no other leg Peripheral Edema: bilateral: Trace - Gastrointestinal General gastrointestinal: normal bowel sounds, soft - Neurologic Neurologic: CNII-XII intact - Musculoskeletal Musculoskeletal: generalized weakness - Psychiatric Psychiatric: A&O x's 3, appropriate affect, intact judgment & insight Results CBC & Chem 7: 11/05/20 07:29 11/05/20 07:29 Labs: Abnormal Lab Results - Last 24 Hours (Table) 11/04/20 11/04/20 11/05/20 Range/Units 16:58 20:48 06:46 WBC (3.8-10.6) k/uL RBC (3.80-5.40) m/uL Hgb (11.4-16.0) gm/dL Hct (34.0-46.0) % RDW (11.5-15.5) % Plt Count (150-450) k/uL Sodium (137-145) mmol/L Chloride (98-107) mmol/L Carbon Dioxide (22-30) mmol/L Creatinine (0.52-1.04) mg/dL Glucose (74-99) mg/dL POC Glucose (mg/dL) 129 H 107 H 113 H (75-99) mg/dL C-Reactive Protein (<1.0) mg/dL 11/05/20 11/05/20 11/05/20 Range/Units 07:29 07:29 11:46 WBC 11.2 H (3.8-10.6) k/uL RBC 3.41 L (3.80-5.40) m/uL Hgb 9.8 L (11.4-16.0) gm/dL Hct 29.7 L (34.0-46.0) % RDW 15.6 H (11.5-15.5) % Plt Count 616 H (150-450) k/uL Sodium 133 L (137-145) mmol/L Chloride 94 L (98-107) mmol/L Carbon Dioxide 31 H (22-30) mmol/L Creatinine 1.15 H (0.52-1.04) mg/dL Glucose 120 H (74-99) mg/dL POC Glucose (mg/dL) 202 H (75-99) mg/dL C-Reactive Protein 2.0 H (<1.0) mg/dL Microbiology - Last 24 Hours (Table) 11/04/20 11:42 Blood Culture - Preliminary Blood No Growth after 24 hours 11/04/20 11:48 Blood Culture - Preliminary Blood No Growth after 24 hours Chest x-ray: report reviewed CT scan - chest: report reviewed Assessment and Plan (1) Fever Narrative/Plan: CT chest, most suggestive of infection, ID following, antibiotics ordered. Current Visit: Yes Status: Acute Priority: High Code(s): R50.9 - FEVER, UNSPECIFIED SNOMED Code(s): 994273251 (2) Adenocarcinoma of right lung Narrative/Plan: Pt is s/p 1st cycle of chemo/IO. SHe came in with fever and suspect respiratory infection. She was doing a little better today. Cont to follow her hospital progress. She was due for cycle #2 tomorrow, of course this will be held until pt is recovered from her current condition Current Visit: Yes Status: Chronic Priority: Medium Code(s): C34.91 - MALIGNANT NEOPLASM OF UNSP PART OF RIGHT BRONCHUS OR LUNG SNOMED Code(s): 13716763938717538
[2020-11-06] MEDS: PIPERACILLIN-TAZOBACTAM 3.375 GM in SODIUM CHLORIDE 0.9% 100 ML IVPB SCH ×4 (00:08→23:46)
[2020-11-06] MEDS: HEPARIN SODIUM,PORCINE/PF 5,000 UNIT/0.5 ML SYRINGE SQ SCH ×4 (00:22→23:46)
[2020-11-06] MEDS: LEVOTHYROXINE 50 MCG TAB PO SCH (06:28)
[2020-11-06] MEDS: SODIUM CHLORIDE 0.9% 1,000 ML IV SCH ×2 (06:33→21:28)
[2020-11-06 07:08] LABS: Glucose,Whole Blood 95 mg/dL (75-99)
[2020-11-06] MEDS ORDERED: FUROSEMIDE 10 MG/ML 4 ML VIAL IV STA (07:32)
[2020-11-06] MEDS ORDERED: IPRATROPIUM-ALBUTEROL 3 ML NEB INHALATION STA (07:33)
[2020-11-06] MEDS: INSULIN ASPART (NovoLOG) 100 UNIT/ML VIAL SQ SCH ×4 (07:42→21:35)
[2020-11-06 07:55] LABS: ABG HCO3 37 mmol/L (21-25); ABG Oxygen Saturation 99.8 % (94-97); ABG PH 7.21 (7.35-7.45); ABG PO2 316 mmHg (83-108); ABG TCO2 40 mmol/L (19-24); Allen Test Performed? Yes
[2020-11-06 08:04] LABS: ABG PCO2 92 mmHg (35-45)
--- NOTE | 2020-11-06 08:35 | US ---
EXAMINATION TYPE: US chest DATE OF EXAM: 11/06/2020 COMPARISON: CT 11/04/2020 CLINICAL HISTORY: 70-year-old female right pleural effusion. TECHNIQUE: Targeted ultrasound of the posterior lower right hemithorax Findings: EXAM MEASUREMENTS: Right Pleural Effusion pocket size: 7.5 cm Right skin surface to fluid distance: 2.2 cm Inside Sales Supervisor notes: Right side marked for possible thoracentesis outside the dept. Lung is visualized within the pocket 0.9 cm from the lining Pulmonologists are able to review the images in the patient?s EMR. IMPRESSIONS: While there is a moderate effusion, the base of the right chest contains prominent consolidated lung. There are small round echogenic foci within this portion of the lung that could represent metastases . Refer to the images prior to attempt at thoracentesis.
--- NOTE | 2020-11-06 08:38 | XR ---
EXAMINATION TYPE: XR chest 1V DATE OF EXAM: 11/06/2020 COMPARISON: 11/04/2020 HISTORY: 70 year-old female shortness of breath TECHNIQUE: Single frontal view of the chest is obtained. FINDINGS: Left anterior chest wall injection port with subclavian access and catheter tip at the mid SVC level. No destructive lesion of the right lateral sixth rib and redemonstrated subacute or chroni c right lateral seventh rib fracture deformity. Right heart margin obscured by adjacent pleural paren chymal opacity. Moderate right pleural effusion persists and appears slightly increased. Left lung an d pleural space are relatively clear. IMPRESSION: Moderate right effusion with adjacent atelectasis and/or consolidation appears slightly increased. Kn own destructive mass right lateral sixth rib.
[2020-11-06] MEDS: prednisoLONE ACETATE 1% OPHTH DROPS 5 ML BTL LEFT EYE SCH ×4 (10:03→21:35)
[2020-11-06] MEDS: methylPREDNISolone SOD SUCCI 40 MG/ML 1 ML VIAL IV SCH ×3 (10:15→23:45)
[2020-11-06] MEDS: NYSTATIN 100,000 UNIT/ML SUSP 500,000 UNIT/5 ML CUP PO SCH ×4 (10:16→23:25)
[2020-11-06] MEDS: FOLIC ACID 1 MG TAB PO SCH (10:16)
[2020-11-06] MEDS: METOPROLOL SUCCINATE (ER) 50 MG TAB.ER.24H PO SCH (10:16)
[2020-11-06] MEDS: HYDROcodone/APAP 10-325MG 1 EACH TAB PO PRN ×2 (10:16→21:34)
[2020-11-06] MEDS: DILTIAZEM CD 300 MG CAP.ER.24H PO SCH (10:16)
[2020-11-06] MEDS: FAMOTIDINE 20 MG TAB PO SCH (10:17)
--- NOTE | 2020-11-06 11:14 | P.CNPUL ---
History of Present Illness Consult date: 11/06/20 Requesting physician: Raegan Clark Reason for consult: dyspnea, abnormal CXR/CT Chief complaint: Shortness of breath, generalized weakness History of present illness: This is a very pleasant 70-year-old female patient with a history of sickle cell trait, chronic hepatitis C, hypertension, hypothyroidism, vitamin D deficiency, chronic obstructive pulmonary disease with an FEV1 value of 42% of predicted. She also has a history of non-small cell lung cancer with previous wedge resection in 2018 in the right lung. Recently she had been noted to have progression of her disease. CAT scan from September 2020 revealed extensive consolidation in the right lower lobe with obstruction of the right lower lobe bronchus probably due to tumor mass at the right pulmonary hilum. This is new consolidation. There is a new nodular density in the anterior right upper lobe adjacent to the chest wall that could relate tumor. There is a large area of distraction involving the lateral right rib measuring 5 x 3 cm and consistent with metastatic disease. Significant peripheral progression compared to previous exam of November 2019. Earlier this week she was having issues with increasing shortness of breath. She also was found to be quite weak and incontinent of urine. He was admitted on 11/04/2020. Early this morning she was having trouble with decreasing oxygenation and worsening shortness of breath. Arterial blood gases revealed a PaO2 of 316, pCO2 of 92 and a pH of 7.21 that was on 100% nonrebreather mask. Blood cultures reveal no growth to date. She was placed on BiPAP 14/5 and 30% FiO2 to maintain O2 saturations in the 90s. Chest x-ray reveals moderate effusion with adjacent atelectasis and/or consolidation increase from previous. Ultrasound of the chest reveals a 7.5 cm pocket however there was lung tissue visualized within the fluid. No plans for thoracentesis. The patient was seen in consultation. She is currently resting in bed. Awake, alert. Her son is at the bedside. His been initiated and DuoNeb inhalations, IV Solu-Medrol, Zosyn. Review of Systems REVIEW OF SYSTEMS: CONSTITUTIONAL: Generalized weakness. Positive weight loss. EYES: Denies change in vision. EARS, NOSE, MOUTH, THROAT: Denies headaches, denies sore throat. CARDIOVASCULAR: Denies chest pain, palpitations or syncopal episodes. RESPIRATORY: Positive for shortness of breath, cough, congestion no hemoptysis. GASTROINTESTINAL: Denies change in appetite, denies abdominal pain GENITOURINARY: Urinary incontinence, denies infections. MUSKULOSKELETAL: Denies pain, denies swelling. INTEGUMENTARY: Denies rash, denies eczema. NEUROLOGICAL: Denies recent memory loss, no recent seizure activity. PSYCHIATRIC: Denies anxiety, denies depression. HEMATOLOGIC/LYMPHATIC: Denies anemia, denies enlarged lymph nodes. Past Medical History Past Medical History: Cancer, COPD, Diabetes Mellitus, Hyperlipidemia, Hypertension, Osteoarthritis (OA), Respiratory Disorder, Thyroid Disorder Additional Past Medical History / Comment(s): sickle cell traits, unable to walk any distance, SOB, Stage 4 lung cancer- completed radiation, last chemo treatment October 16 per patient report, wears 3L oxygen at home History of Any Multi-Drug Resistant Organisms: None Reported Past Surgical History: Tubal Ligation Additional Past Surgical History / Comment(s): bilateral cataracts, Navigational Bronchoscopy (08/03/17), LUNG RESECTION Past Anesthesia/Blood Transfusion Reactions: No Reported Reaction Additional Past Anesthesia/Blood Transfusion Reaction / Comment(s): no problems with prior blood transfusion Past Psychological History: Anxiety Additional Psychological History / Comment(s): Pt resides with her son who is very helpful. She has home oxygen, nebulizer and glucometer. Smoking Status: Former smoker Past Alcohol Use History: None Reported Additional Past Alcohol Use History / Comment(s): quit smoking Apr 2017,smoked since age 20,<1ppd Past Drug Use History: None Reported - Past Family History Mother Family Medical History: Cancer Additional Family Medical History / Comment(s): Unknown type of cancer. Father Family Medical History: Cancer Additional Family Medical History / Comment(s): Unknown type of cancer. Medications and Allergies Home Medications Medication Instructions Recorded Confirmed Type Levothyroxine Sodium [Synthroid] 50 mcg PO DAILY 03/11/14 11/04/20 History Albuterol Sulfate [Ventolin HFA] 2 puff INHALATION RT-QID PRN 03/12/14 11/04/20 History Nitroglycerin Sl Tabs [Nitrostat] 0.4 mg SL Q5M PRN 06/25/15 11/04/20 History Allibiotic Cf 1 cap PO DAILY 09/15/20 11/04/20 History Atorvastatin Calcium [Lipitor] 40 mg PO HS 09/15/20 11/04/20 History Diltiazem HCl [Cartia Xt] 300 mg PO DAILY 09/15/20 11/04/20 History Ergocalciferol (Vitamin D2) 1,250 mcg PO SA 09/15/20 11/04/20 History [Drisdol (50,000 Iu)] HYDROcodone/APAP 10-325MG [[place] 1 tab PO TID PRN 09/15/20 11/04/20 History 10-325] Metoprolol Succinate (ER) [Toprol 50 mg PO DAILY 09/15/20 11/04/20 History XL] Montelukast Sodium [Singulair] 10 mg PO HS 09/15/20 11/04/20 History Pioglitazone [Actos] 15 mg PO DAILY 09/15/20 11/04/20 History hydrOXYzine HCL [Atarax] 25 mg PO BID 09/15/20 11/04/20 History metFORMIN HCL [Glucophage] 1,000 mg PO BID 09/15/20 11/04/20 History prednisoLONE ACETATE 1% OPHTH 1 drop LEFT EYE QID 09/15/20 11/04/20 History [Pred Forte 1%] Folic Acid 1 mg PO DAILY 11/04/20 11/04/20 History Lidocaine-Prilocaine Cream [Emla 1 applic TOPICAL DIRECTED PRN 11/04/20 11/04/20 History Cream 2.5%/2.5%] Losartan [Cozaar] 50 mg PO DAILY 11/04/20 11/04/20 History Nystatin 100,000 Unit/ml Susp 4 ml PO QID 11/04/20 11/04/20 History [Mycostatin Oral Susp] ondansetron HCL [Zofran] 8 mg PO Q6H PRN 11/04/20 11/04/20 History Allergies Allergy/AdvReac Type Severity Reaction Status Date / Time No Known Allergies Allergy Verified 11/04/20 14:31 Physical Exam Vitals: Vital Signs Temp Pulse Pulse Resp BP Pulse Ox 11/06/20 08:38 96 11/06/20 08:30 95 11/06/20 07:00 104 H 24 11/06/20 06:40 98.3 F 104 H 24 157/84 99 11/06/20 02:26 98.9 F 91 17 126/72 100 11/05/20 19:48 98.4 F 76 17 123/84 100 11/05/20 14:00 98.4 F 79 18 111/72 93 L Intake and Output 11/05/20 11/06/20 11/06/20 22:59 06:59 14:59 Intake Total 1580 Balance 1580 Intake: Intake, IV Titration 100 Amount Piperacillin-Tazobactam 3 100 .375 gm In Sodium Chloride 0.9% 100 ml @ 25 mls/hr IVPB Q8HR [facility] Rx# :[id number] Oral 1480 Other: Voiding Method Toilet Toilet # Voids 3 2 GENERAL EXAM: Alert, weak, 70-year-old female, BiPAP, fairly comfortable in no apparent distress. HEAD: Normocephalic. EYES: Normal reaction of pupils, equal size. NOSE: Clear with pink turbinates. THROAT: No erythema or exudates. NECK: No masses, no JVD. CHEST: No chest wall deformity. LUNGS: Equal air entry with crackles in the right lung base, diminished. CVS: S1 and S2 normal with no audible murmur, regular rhythm. ABDOMEN: No hepatosplenomegaly, normal bowel sounds, no guarding or rigidity. SPINE: No scoliosis or deformity SKIN: No rashes CENTRAL NERVOUS SYSTEM: No focal deficits, tone is normal in all 4 extremities. EXTREMITIES: There is no peripheral edema. No clubbing, no cyanosis. Peripheral pulses are intact. Results - Laboratory Findings CBC and BMP: 11/05/20 07:29 11/05/20 07:29 ABG ABG pH 7.21 (7.35-7.45) L 11/06/20 07:44 ABG pCO2 92 mmHg (35-45) H* 11/06/20 07:44 ABG pO2 316 mmHg (83-108) H 11/06/20 07:44 ABG O2 Saturation 99.8 % (94-97) H 11/06/20 07:44 PT/INR, D-dimer PT 11.1 sec (9.0-12.0) 11/04/20 10:44 INR 1.0 (<1.2) 11/04/20 10:44 Abnormal lab findings: Abnormal Labs 11/04/20 11/04/20 11/04/20 10:44 10:44 10:44 WBC RBC 3.18 L Hgb 9.0 L D Hct 27.1 L RDW Plt Count 683 H Metamyelocytes # (Man) 0.09 H ABG pH ABG pCO2 ABG pO2 ABG HCO3 ABG Total CO2 ABG O2 Saturation Sodium 128 L Chloride 89 L Carbon Dioxide 32 H BUN 18 H Creatinine 1.26 H Glucose 135 H POC Glucose (mg/dL) AST 47 H C-Reactive Protein Albumin 3.4 L Procalcitonin 0.28 H Urine Appearance Urine Protein Urine Mucus 11/04/20 11/04/20 11/04/20 11:57 16:58 20:48 WBC RBC Hgb Hct RDW Plt Count Metamyelocytes # (Man) ABG pH ABG pCO2 ABG pO2 ABG HCO3 ABG Total CO2 ABG O2 Saturation Sodium Chloride Carbon Dioxide BUN Creatinine Glucose POC Glucose (mg/dL) 129 H 107 H AST C-Reactive Protein Albumin Procalcitonin Urine Appearance Cloudy H Urine Protein 1+ H Urine Mucus Rare H 11/05/20 11/05/20 11/05/20 06:46 07:29 07:29 WBC 11.2 H RBC 3.41 L Hgb 9.8 L Hct 29.7 L RDW 15.6 H Plt Count 616 H Metamyelocytes # (Man) ABG pH ABG pCO2 ABG pO2 ABG HCO3 ABG Total CO2 ABG O2 Saturation Sodium 133 L Chloride 94 L Carbon Dioxide 31 H BUN Creatinine 1.15 H Glucose 120 H POC Glucose (mg/dL) 113 H AST C-Reactive Protein 2.0 H Albumin Procalcitonin Urine Appearance Urine Protein Urine Mucus 11/05/20 11/05/20 11/05/20 11:46 16:19 20:53 WBC RBC Hgb Hct RDW Plt Count Metamyelocytes # (Man) ABG pH ABG pCO2 ABG pO2 ABG HCO3 ABG Total CO2 ABG O2 Saturation Sodium Chloride Carbon Dioxide BUN Creatinine Glucose POC Glucose (mg/dL) 202 H 127 H 128 H AST C-Reactive Protein Albumin Procalcitonin Urine Appearance Urine Protein Urine Mucus 11/06/20 07:44 WBC RBC Hgb Hct RDW Plt Count Metamyelocytes # (Man) ABG pH 7.21 L ABG pCO2 92 H* ABG pO2 316 H ABG HCO3 37 H ABG Total CO2 40 H ABG O2 Saturation 99.8 H Sodium Chloride Carbon Dioxide BUN Creatinine Glucose POC Glucose (mg/dL) AST C-Reactive Protein Albumin Procalcitonin Urine Appearance Urine Protein Urine Mucus - Diagnostic Findings Chest x-ray: image reviewed Assessment and Plan Assessment: 1 Acute hypoxemic respiratory failure secondary to progressing right lung non- small cell lung cancer and acute exacerbation of chronic obstructive pulmonary disease 2 Acute hypercapnic respiratory failure secondary to above requiring BiPAP support 3 History of metastatic non-small cell lung cancer with previous wedge resection of the right lung in October 2017, did receive radiation however declined chemotherapy or immunotherapy 4 Chronic obstructive pulmonary disease with an FEV1 value 42% of predicted 5 Chronic tobacco dependence of greater than 40 years 6 Hypothyroidism 7 Hypertension 8 History of hepatitis C 9 History of sickle cell trait 10 Vitamin D deficiency Plan: The patient was seen and evaluated by Dr. Wade Chest x-ray, ultrasound and labs reviewed Initiate IV Solu-Medrol, bronchodilators, Zosyn The patient and her son request DO NOT RESUSCITATE/DO NOT INTUBATE CODE STATUS We'll continue BiPAP and alternate with nasal cannula as tolerated We will continue to follow and make further recommendations based on her clinical status I, the cosigning physician, performed a history & physical examination of the patient. Lungs sounds with crackles in the right base, diminished. Maintaining good O2 saturations in the 90s on 30% FiO2 via BiPAP. I discussed the assessment and plan of care with my nurse practitioner, Ramona Hernandez. I attest to the above consultation as dictated by her. Time with Patient: Greater than 30
[2020-11-06 11:38] LABS: Glucose,Whole Blood 92 mg/dL (75-99)
--- NOTE | 2020-11-06 13:15 | CDI ---
Documentation Clarification Form Date: 11/06/2020 12:31:09 PM From: Alysia Corral RN CCDS Admit Date: 11/04/2020 03:01:00 PM Patient Name: Lety Sellers Visit Number: [id number] Discharge Date: ATTENTION: The Clinical Documentation Specialists (CDI) and [facility] Coding Staff appreciate your assistance in clarifying documentation. Please respond to the clarification below the line at the bottom and electronically sign. The CDI & [facility] Coding staff will review the response and follow-up if needed. Please note: Queries are made part of the Legal Health Record. If you have any questions, please contact the author of this message via ITS. Dr. Raegan Clark The patient presented with the following clinical indicators. Additional clarification regarding the etiology/cause of the clinical indicators is requested. History/Risk Factors: 70-year-old female presents to the ED with shortness of breath, fever, chills and generalized weakness. Medical history: Lung cancer recently started chemotherapy, COPD, DM and Sickle cell traits. Clinical Indicators: WBC: 11/04 9.1 Blood cultures: 11/04 Vitals signs: 11/04 10:07 B/P 162/60; HR 125; Temp 98 F; RR 18; SpO2 94% nc 3L 11/04 10:17 102.4 F Oral Treatment: ID Consult: 11/04 Patient admitted to the hospital with sepsis in this patient who did have a fever and tachycardia with predominantly respiratory symptoms, concerning for the right lower lobe postoperative pneumonia in this patient who does have a history of stage iv lung cancer and will need to cover for the polymicrobial for disease infection. Antibiotics: 11/04 Cefepime HCL 2gm IVPB x 1; 11/05 Piperacillin Sod/Tazobactam Sod 3.375gm IVPB Q8HR [facility] to current. In your professional opinion, please clarify if these findings signify one of the following conditions: [ x ] Sepsis POA [ ] Sepsis, Not POA [ ] SIRS, without underlying infectious process [ ] Other, please specify [ ] Unable to determine SIRS Criteria: 2 or more of the following may indicate SIRS -Temperature < 96.8F (36C) or > 101.0F (38.3C) -Heart Rate > 90 bpm -Respiratory Rate > 20 breaths/min or PaCO2 < 32 mmHg -White Blood Cell Count > 12,000 or < 4,000 cells/mm3 or > 10% bands (Template Last Reviewed: May 2020) MTDD
--- NOTE | 2020-11-06 16:25 | P.PN ---
Subjective Progress Note Date: 11/06/20 Principal diagnosis: Acute respiratory failure, infectious/inflammatory process Oxygenation worsening, patient is now on bipap. Large right effusion seen on xray along with known destructive rib lesion Objective - Vital Signs Vital signs: Vital Signs Temp 98.3 F 11/06/20 06:40 Pulse 96 11/06/20 08:38 Resp 24 11/06/20 07:00 BP 157/84 11/06/20 06:40 Pulse Ox 99 11/06/20 06:40 Intake & Output 11/05/20 11/06/20 11/06/20 18:59 06:59 18:59 Intake Total 1580 Balance 1580 Intake: Intake, IV Titration 100 Amount Piperacillin-Tazobactam 3 100 .375 gm In Sodium Chloride 0.9% 100 ml @ 25 mls/hr IVPB Q8HR [facility] Rx# :[id number] Oral 1480 Other: Voiding Method Toilet Toilet # Voids 3 2 - Exam - Constitutional General appearance: average body habitus, cooperative, mild distress - EENT Eyes: anicteric sclerae, EOMI ENT: hearing grossly normal, normal oropharynx - Neck Neck: no lymphadenopathy - Respiratory Respiratory: bilateral: diminished - Cardiovascular Heart sounds: normal: S1, S2 Abnormal Heart Sounds: no systolic murmur, no diastolic murmur, no rub, no S3 Gallop, no S4 Gallop, no click, no other leg Peripheral Edema: bilateral: Trace - Gastrointestinal General gastrointestinal: normal bowel sounds, soft - Neurologic Neurologic: CNII-XII intact - Musculoskeletal Musculoskeletal: generalized weakness - Psychiatric Psychiatric: A&O x's 3, appropriate affect, intact judgment & insight - Labs CBC & Chem 7: 11/06/20 17:06 11/05/20 07:29 Labs: Abnormal Lab Results - Last 24 Hours (Table) 11/04/20 11/05/20 11/05/20 Range/Units 10:44 16:19 20:53 ABG pH (7.35-7.45) ABG pCO2 (35-45) mmHg ABG pO2 (83-108) mmHg ABG HCO3 (21-25) mmol/L ABG Total CO2 (19-24) mmol/L ABG O2 Saturation (94-97) % POC Glucose (mg/dL) 127 H 128 H (75-99) mg/dL Procalcitonin 0.28 H (0.02-0.09) ng/mL 11/06/20 Range/Units 07:44 ABG pH 7.21 L (7.35-7.45) ABG pCO2 92 H* (35-45) mmHg ABG pO2 316 H (83-108) mmHg ABG HCO3 37 H (21-25) mmol/L ABG Total CO2 40 H (19-24) mmol/L ABG O2 Saturation 99.8 H (94-97) % POC Glucose (mg/dL) (75-99) mg/dL Procalcitonin (0.02-0.09) ng/mL Microbiology - Last 24 Hours (Table) 11/04/20 11:42 Blood Culture - Preliminary Blood No Growth after 24 hours 11/04/20 11:48 Blood Culture - Preliminary Blood No Growth after 24 hours Assessment and Plan Plan: Chest x-ray: report reviewed CT scan - chest: report reviewed Assessment and Plan Acute on Chronic Respiratory Failure: = Worsening requiring Bipap - Pulmonary following Fever - Reviewed CT, likely inflammatory infectious etiology - ID following, antibiotics continued Current Visit: Yes Status: Acute Priority: High Code(s): R50.9 - FEVER, UNSPECIFIED SNOMED Code(s): 847364138 Adenocarcinoma of right lung - She is currently being treated for metastatic cancer, was due for cycle 2 on 11/06/20. - Continue to hold chemotherapy until recovery of acute hospitalization problem s Current Visit: Yes Status: Chronic Priority: Medium Code(s): C34.91 - MALIGNANT NEOPLASM OF UNSP PART OF RIGHT BRONCHUS OR LUNG SNOMED Code(s): 29854967891381421 Physician Attest: I have completed the full history and physical and agree with above dictation, dictated as a ascribe.
[2020-11-06 16:28] LABS: Glucose,Whole Blood 238 mg/dL (75-99)
[2020-11-06 17:25] LABS: Basophils # (A) 0.1 k/uL (0-0.2); Basophils % (A) 1 %; Eosinophils % (A) 0 %; HCT 30.2 % (34.0-46.0); HGB 9.2 gm/dL (11.4-16.0); Hypochromasia Marked; Lymphocytes # (A) 0.8 k/uL (1.0-4.8); Lymphocytes % (A) 8 %; MCHC 30.5 g/dL (31.0-37.0); MCV 91.8 fL (80.0-100.0); Mean Platelet Volume 7.6; Monocytes # (A) 0.3 k/uL (0-1.0); Monocytes % (A) 3 %; Neutrophils # (A) 8.6 k/uL (1.3-7.7); Neutrophils % (A) 87 %; Platelet Count 588 k/uL (150-450); WBC 9.9 k/uL (3.8-10.6)
[2020-11-06 20:39] LABS: Glucose,Whole Blood 251 mg/dL (75-99)
[2020-11-06] MEDS: ATORVASTATIN 40 MG TAB PO SCH (21:35)
[2020-11-06] MEDS: MONTELUKAST 10 MG TAB PO SCH (21:35)
--- NOTE | 2020-11-06 23:32 | PN ---
PROGRESS NOTE DATE OF SERVICE: 11/06/2020. REASON FOR FOLLOWUP: Possible pneumonia. The patient is afebrile. The patient is breathing slightly worse. Patient denies having any chest pain. No cough or any worsening cough. No nausea, vomiting. No abdominal pain. No diarrhea. Currently on a BiPAP. PHYSICAL EXAMINATION: Blood pressure 148/76, pulse 65, temperature 97.6. She is 94% on BiPAP. General description is an elderly female lying in bed in no distress. Respiratory system: Unlabored breathing, decreased breath sounds. No wheeze. HEART: S1, S2. Regular rate and rhythm. Soft no tenderness. LABS: Hemoglobin is 9.1, white count 9.9. Blood culture negative sputum has not been. No tenderness impression patient hospital with fever concerning for possible pneumonia. Patient is covered with Zosyn. Will try to obtain a sputum to narrow down antibiotics and monitor clinical course closely. MMODL / IJN: [id number] /
[2020-11-07] MEDS: SODIUM CHLORIDE 0.9% 1,000 ML IV SCH ×2 (04:51→12:25)
[2020-11-07] MEDS: HYDROcodone/APAP 10-325MG 1 EACH TAB PO PRN ×2 (05:15→19:48)
[2020-11-07] MEDS: LEVOTHYROXINE 50 MCG TAB PO SCH (05:16)
[2020-11-07 06:20] LABS: African American GFR (CKD) 47.8 (60.0-200.0); Albumin 3.7 g/dL (3.80-4.90); Albumin/Globulin Ratio 0.9 (1.60-3.17); Anion Gap 16.4 mmol/L (4.00-12.00); BUN/Creat Ratio 11.54 Ratio (12.00-20.00); Calcium 8.9 mg/dL (8.7-10.3); Carbon Dioxide 27.6 mmol/L (21.6-31.8); Globulin 4.1 g/dL (1.6-3.3); Non-African American GFR(CKD) 41.2 (60.0-200.0); Potassium 4.6 mmol/L (3.5-5.5); Total Bilirubin 0.2 mg/dL (0.2-1.2); Total Protein 7.8 g/dL (6.2-8.2)
[2020-11-07 07:01] LABS: Glucose,Whole Blood 170 mg/dL (75-99)
[2020-11-07] MEDS: PIPERACILLIN-TAZOBACTAM 3.375 GM in SODIUM CHLORIDE 0.9% 100 ML IVPB SCH ×2 (07:47→17:27)
[2020-11-07] MEDS: INSULIN ASPART (NovoLOG) 100 UNIT/ML VIAL SQ SCH ×4 (07:48→21:45)
[2020-11-07] MEDS: HEPARIN SODIUM,PORCINE/PF 5,000 UNIT/0.5 ML SYRINGE SQ SCH ×2 (07:48→17:27)
[2020-11-07] MEDS: FAMOTIDINE 20 MG TAB PO SCH (07:49)
[2020-11-07] MEDS: FOLIC ACID 1 MG TAB PO SCH (07:49)
[2020-11-07] MEDS: methylPREDNISolone SOD SUCCI 40 MG/ML 1 ML VIAL IV SCH ×2 (07:49→17:27)
[2020-11-07] MEDS: NYSTATIN 100,000 UNIT/ML SUSP 500,000 UNIT/5 ML CUP PO SCH ×4 (07:49→21:45)
[2020-11-07] MEDS: METOPROLOL SUCCINATE (ER) 50 MG TAB.ER.24H PO SCH (07:49)
[2020-11-07] MEDS: prednisoLONE ACETATE 1% OPHTH DROPS 5 ML BTL LEFT EYE SCH ×4 (07:50→21:46)
[2020-11-07] MEDS: DILTIAZEM CD 300 MG CAP.ER.24H PO SCH (07:50)
[2020-11-07 08:40] LABS: INR 1.1 (<1.2); Partial Thromboplastin Time 23.3 sec (22.0-30.0); Prothrombin Time 11.5 sec (9.0-12.0)
[2020-11-07 08:49] LABS: ALT 16 U/L (4-34); AST 35 U/L (14-36); African American GFR (CKD) 40 (>60 ml/min/1.73 sqM); Albumin 3.4 g/dL (3.5-5.0); Albumin/Globulin Ratio 0.9; Alkaline Phosphatase 39 U/L (38-126); Anion Gap 9 mmol/L; Blood Urea Nitrogen 22 mg/dL (7-17); Calcium 8.8 mg/dL (8.4-10.2); Carbon Dioxide 34 mmol/L (22-30); Chloride 92 mmol/L (98-107); Globulin 3.8 g/dL; Glucose 172 mg/dL (74-99); Non-African American GFR(CKD) 35 (>60 ml/min/1.73 sqM); Potassium 4.1 mmol/L (3.5-5.1); Sodium 135 mmol/L (137-145); Total Bilirubin 0.3 mg/dL (0.2-1.3); Total Protein 7.2 g/dL (6.3-8.2)
[2020-11-07] MEDS ORDERED: ERGOCALCIFEROL 1,250 MCG (50,000 IU) CAPSULE PO SCH (09:00)
[2020-11-07 11:30] LABS: Glucose,Whole Blood 197 mg/dL (75-99)
[2020-11-07 11:46] LABS: Basophils # (A) 0.03 X 10*3/uL (0.00-0.10); Basophils % (A) 0.3 %; Eosinophils # (A) 0 X 10*3/uL (0.04-0.35); Eosinophils % (A) 0 %; HCT 28.2 % (37.2-46.3); HGB 8.4 g/dL (12.0-15.0); Lymphocytes # (A) 1.43 X 10*3/uL (0.90-5.00); Lymphocytes % (A) 13.2 %; MCH 26.8 pg (27.0-32.0); MCHC 29.8 g/dL (32.0-37.0); MCV 90.1 fL (80.0-97.0); Mean Platelet Volume 10.1 fL (9.5-12.2); Monocytes # (A) 0.49 X 10*3/uL (0.20-1.00); Monocytes % (A) 4.5 %; Neutrophils # (A) 8.63 X 10*3/uL (1.80-7.70); Neutrophils % (A) 79.9 %; Platelet Count 598 X 10*3/uL (140-440); RBC 3.13 X 10*6/uL (4.10-5.20); RDW 14.9 % (11.5-14.5); WBC 10.81 X 10*3/uL (4.50-10.00)
--- NOTE | 2020-11-07 12:22 | P.PN ---
Subjective Progress Note Date: 11/06/20 Principal diagnosis: Acute hypoxemic respiratory failure secondary to Possible progressing right lung non-small cell lung cancer Acute exacerbation of chronic obstructive pulmonary disease 70-year-old female came in with complains of shortness of breath. Fever chills at home. Patient has been having generalized weakness. Patient was recently started on chemotherapy for lung cancer. Patient is presently not hyponatremic. Patient has related To 126 sodium of 128 urine analysis is not significant for UTI patient had a chest x-ray which is showing moderate to right pleural effusion with some atelectasis possible CT angios the chest is being obtained at this time. This effusion appears to be older. There is a destructive mass involving the chest wall and lateral sixth rib on the right side. Patient was a complaining of cough without any significant sputum production. Patient will be admitted with cefepime and consultation to infectious disease and oncology. Objective - Vital Signs Vital signs: Vital Signs Temp 98.3 F 11/06/20 06:40 Pulse 96 11/06/20 08:38 Resp 24 11/06/20 07:00 BP 157/84 11/06/20 06:40 Pulse Ox 99 11/06/20 06:40 Intake & Output 11/05/20 11/06/20 11/06/20 18:59 06:59 18:59 Intake Total 1580 Balance 1580 Intake: Intake, IV Titration 100 Amount Piperacillin-Tazobactam 3 100 .375 gm In Sodium Chloride 0.9% 100 ml @ 25 mls/hr IVPB Q8HR [facility] Rx# :[id number] Oral 1480 Other: Voiding Method Toilet Toilet # Voids 3 2 - Exam GENERAL: The patient is alert and oriented x3, not in any acute distress. Well developed, well nourished. Patient appears to be tired and fatigued HEENT: Pupils are round and equally reacting to light. EOMI. No scleral icterus. No conjunctival pallor. Normocephalic, atraumatic. No pharyngeal erythema. No thyromegaly. CARDIOVASCULAR: S1 and S2 present. No murmurs, rubs, or gallops. PULMONARY: Chest is clear to auscultation, no wheezing or crackles. ABDOMEN: Soft, nontender, nondistended, normoactive bowel sounds. No palpable organomegaly. MUSCULOSKELETAL: No joint swelling or deformity. EXTREMITIES: No cyanosis, clubbing, or pedal edema. NEUROLOGICAL: Gross neurological examination did not reveal any focal deficits. SKIN: No rashes. - Labs CBC & Chem 7: 11/07/20 08:03 11/07/20 08:03 Labs: Abnormal Lab Results - Last 24 Hours (Table) 11/04/20 11/05/20 11/05/20 Range/Units 10:44 16:19 20:53 ABG pH (7.35-7.45) ABG pCO2 (35-45) mmHg ABG pO2 (83-108) mmHg ABG HCO3 (21-25) mmol/L ABG Total CO2 (19-24) mmol/L ABG O2 Saturation (94-97) % POC Glucose (mg/dL) 127 H 128 H (75-99) mg/dL Procalcitonin 0.28 H (0.02-0.09) ng/mL 11/06/20 Range/Units 07:44 ABG pH 7.21 L (7.35-7.45) ABG pCO2 92 H* (35-45) mmHg ABG pO2 316 H (83-108) mmHg ABG HCO3 37 H (21-25) mmol/L ABG Total CO2 40 H (19-24) mmol/L ABG O2 Saturation 99.8 H (94-97) % POC Glucose (mg/dL) (75-99) mg/dL Procalcitonin (0.02-0.09) ng/mL Microbiology - Last 24 Hours (Table) 11/04/20 11:42 Blood Culture - Preliminary Blood No Growth after 24 hours 11/04/20 11:48 Blood Culture - Preliminary Blood No Growth after 24 hours Assessment and Plan Assessment: -Fever source unclear possibly of pneumonia. That pneumonia cannot be ruled out patient was started on cefepime infectious disease will be consulted. -Hypovolemic hyponatremia patient was started on IV fluids - acute renal failure prerenal azotemia acute tubular necrosis secondary to possible infection patient was started on IV fluids as mentioned above -Right-sided lung lesion limb/lung cancer for which patient was recently started on chemotherapy. -Type 2 diabetes mellitus hold off on oral hyperglycemic agents patient was started on sliding scale insulin and stent-hyperlipidemia -Hypertension -COPD without any acute exacerbation. DVT prophylaxis: Subcutaneous heparin
--- NOTE | 2020-11-07 13:30 | P.PN ---
Subjective Progress Note Date: 11/07/20 This is a very pleasant 70-year-old female patient with a history of sickle cell trait, chronic hepatitis C, hypertension, hypothyroidism, vitamin D deficiency, chronic obstructive pulmonary disease with an FEV1 value of 42% of predicted. She also has a history of non-small cell lung cancer with previous wedge resection in 2018 in the right lung. Recently she had been noted to have progression of her disease. CAT scan from September 2020 revealed extensive consolidation in the right lower lobe with obstruction of the right lower lobe bronchus probably due to tumor mass at the right pulmonary hilum. This is new consolidation. There is a new nodular density in the anterior right upper lobe adjacent to the chest wall that could relate tumor. There is a large area of distraction involving the lateral right rib measuring 5 x 3 cm and consistent with metastatic disease. Significant peripheral progression compared to previous exam of November 2019. Earlier this week she was having issues with incr easing shortness of breath. She also was found to be quite weak and incontinent of urine. He was admitted on 11/04/2020. Early this morning she was having trouble with decreasing oxygenation and worsening shortness of breath. Arterial blood gases revealed a PaO2 of 316, pCO2 of 92 and a pH of 7.21 that was on 100% nonrebreather mask. Blood cultures reveal no growth to date. She was placed on BiPAP 14/5 and 30% FiO2 to maintain O2 saturations in the 90s. Chest x-ray reveals moderate effusion with adjacent atelectasis and/or consolidation increase from previous. Ultrasound of the chest reveals a 7.5 cm pocket however there was lung tissue visualized within the fluid. No plans for thoracentesis. The patient was seen in consultation. She is currently resting in bed. Awake, alert. Her son is at the bedside. His been initiated and DuoNeb inhalations, IV Solu-Medrol, Zosyn. The patient is seen today 11/07/2020 in follow-up on the regular medical floor. She is currently sitting up in bed. Awake and alert in no acute distress. She is still on BiPAP 14/6 and 30% FiO2. Easier today compared to yesterday. We'll trial her on nasal cannula. Blood cultures reveal no growth to date. White count 10.8. Hemoglobin 8.4. Sodium 135. Potassium 4.1. Bicarb 34. Creatinine 1.50 Glucose 172. She remains on bronchodilators, IV Solu-Medrol, Zosyn. Objective - Vital Signs Vital signs: Vital Signs Temp 99.0 F 11/07/20 01:05 Pulse 63 11/07/20 07:35 Resp 20 11/07/20 10:14 BP 122/69 11/07/20 07:35 Pulse Ox 92 L 11/07/20 10:14 Intake & Output 11/06/20 11/07/20 11/07/20 18:59 06:59 18:59 Output Total 500 750 Balance -500 -750 Output: Urine 500 750 Other: Voiding Method Toilet Diaper Toilet # Bowel Movements 1 - Exam GENERAL EXAM: Alert, weak, 70-year-old female, BiPAP, fairly comfortable in no apparent distress. HEAD: Normocephalic. EYES: Normal reaction of pupils, equal size. NOSE: Clear with pink turbinates. THROAT: No erythema or exudates. NECK: No masses, no JVD. CHEST: No chest wall deformity. LUNGS: Equal air entry with crackles in the right lung base, diminished. CVS: S1 and S2 normal with no audible murmur, regular rhythm. ABDOMEN: No hepatosplenomegaly, normal bowel sounds, no guarding or rigidity. SPINE: No scoliosis or deformity SKIN: No rashes CENTRAL NERVOUS SYSTEM: No focal deficits, tone is normal in all 4 extremities. EXTREMITIES: There is no peripheral edema. No clubbing, no cyanosis. Peripheral pulses are intact. - Labs CBC & Chem 7: 11/07/20 08:03 11/07/20 08:03 Labs: Abnormal Lab Results - Last 24 Hours (Table) 11/06/20 11/06/20 11/06/20 Range/Units 16:18 17:06 17:06 WBC (4.50-10.00) X 10*3/uL RBC 3.30 L (3.80-5.40) m/uL Hgb 9.2 L (11.4-16.0) gm/dL Hct 30.2 L (34.0-46.0) % MCH (27.0-32.0) pg MCHC 30.5 L (31.0-37.0) g/dL RDW (11.5-14.5) % Plt Count 588 H (150-450) k/uL Immature Gran # (0.00-0.04) X 10*3/uL Neutrophils # 8.6 H (1.3-7.7) k/uL Lymphocytes # 0.8 L (1.0-4.8) k/uL Eosinophils # (0.04-0.35) X 10*3/uL Sodium 134 L (135-145) mmol/L Chloride 90 L (96-109) mmol/L Carbon Dioxide (22-30) mmol/L Anion Gap 16.40 H (4.00-12.00) mmol/L BUN (7-17) mg/dL Creatinine (0.52-1.04) mg/dL Est GFR (CKD-EPI)AfAm 47.8 L (60.0-200.0) Est GFR (CKD-EPI)NonAf 41.2 L (60.0-200.0) BUN/Creatinine Ratio 11.54 L (12.00-20.00) Ratio Glucose 183 H (70-110) mg/dL POC Glucose (mg/dL) 238 H (75-99) mg/dL AST 46 H (13-35) U/L Alkaline Phosphatase 36 L (41-126) U/L Lactate Dehydrogenase 388 H (120-246) U/L Albumin 3.70 L (3.80-4.90) g/dL Globulin 4.1 H (1.6-3.3) g/dL Albumin/Globulin Ratio 0.90 L (1.60-3.17) g/dL 11/06/20 11/07/20 11/07/20 Range/Units 20:37 06:54 08:03 WBC 10.81 H (4.50-10.00) X 10*3/uL RBC 3.13 L (3.80-5.40) m/uL Hgb 8.4 L (11.4-16.0) gm/dL Hct 28.2 L (34.0-46.0) % MCH 26.8 L (27.0-32.0) pg MCHC 29.8 L (31.0-37.0) g/dL RDW 14.9 H (11.5-14.5) % Plt Count 598 H (150-450) k/uL Immature Gran # 0.23 H (0.00-0.04) X 10*3/uL Neutrophils # 8.63 H (1.3-7.7) k/uL Lymphocytes # (1.0-4.8) k/uL Eosinophils # 0 L (0.04-0.35) X 10*3/uL Sodium (135-145) mmol/L Chloride (96-109) mmol/L Carbon Dioxide (22-30) mmol/L Anion Gap (4.00-12.00) mmol/L BUN (7-17) mg/dL Creatinine (0.52-1.04) mg/dL Est GFR (CKD-EPI)AfAm (60.0-200.0) Est GFR (CKD-EPI)NonAf (60.0-200.0) BUN/Creatinine Ratio (12.00-20.00) Ratio Glucose (70-110) mg/dL POC Glucose (mg/dL) 251 H 170 H (75-99) mg/dL AST (13-35) U/L Alkaline Phosphatase (41-126) U/L Lactate Dehydrogenase (120-246) U/L Albumin (3.80-4.90) g/dL Globulin (1.6-3.3) g/dL Albumin/Globulin Ratio (1.60-3.17) g/dL 11/07/20 11/07/20 Range/Units 08:03 11:29 WBC (4.50-10.00) X 10*3/uL RBC (3.80-5.40) m/uL Hgb (11.4-16.0) gm/dL Hct (34.0-46.0) % MCH (27.0-32.0) pg MCHC (31.0-37.0) g/dL RDW (11.5-14.5) % Plt Count (150-450) k/uL Immature Gran # (0.00-0.04) X 10*3/uL Neutrophils # (1.3-7.7) k/uL Lymphocytes # (1.0-4.8) k/uL Eosinophils # (0.04-0.35) X 10*3/uL Sodium 135 L (135-145) mmol/L Chloride 92 L (96-109) mmol/L Carbon Dioxide 34 H (22-30) mmol/L Anion Gap (4.00-12.00) mmol/L BUN 22 H (7-17) mg/dL Creatinine 1.50 H (0.52-1.04) mg/dL Est GFR (CKD-EPI)AfAm (60.0-200.0) Est GFR (CKD-EPI)NonAf (60.0-200.0) BUN/Creatinine Ratio (12.00-20.00) Ratio Glucose 172 H (70-110) mg/dL POC Glucose (mg/dL) 197 H (75-99) mg/dL AST (13-35) U/L Alkaline Phosphatase (41-126) U/L Lactate Dehydrogenase (120-246) U/L Albumin 3.4 L (3.80-4.90) g/dL Globulin (1.6-3.3) g/dL Albumin/Globulin Ratio (1.60-3.17) g/dL Microbiology - Last 24 Hours (Table) 11/04/20 11:42 Blood Culture - Preliminary Blood No Growth after 48 hours 11/04/20 11:48 Blood Culture - Preliminary Blood No Growth after 48 hours Assessment and Plan Assessment: 1 Acute hypoxemic respiratory failure secondary to progressing right lung non- small cell lung cancer and acute exacerbation of chronic obstructive pulmonary disease 2 Acute hypercapnic respiratory failure secondary to above requiring BiPAP support 3 History of metastatic non-small cell lung cancer with previous wedge resection of the right lung in October 2017, did receive radiation however declined chemotherapy or immunotherapy 4 Chronic obstructive pulmonary disease with an FEV1 value 42% of predicted 5 Chronic tobacco dependence of greater than 40 years 6 Hypothyroidism 7 Hypertension 8 History of hepatitis C 9 History of sickle cell trait 10 Vitamin D deficiency Plan: The patient was seen and evaluated by Dr. Wade Continue the current treatment plan DO NOT RESUSCITATE/DO NOT INTUBATE CODE STATUS We'll continue BiPAP and alternate with nasal cannula as tolerated We will continue to follow and make further recommendations based on her clinical status I, the cosigning physician, performed a history & physical examination of the patient. Lungs sounds with crackles in the right base, diminished. Maintaining good O2 saturations in the 90s on 30% FiO2 via BiPAP. I discussed the assessment and plan of care with my nurse practitioner, Ramona Hernandez. I attest to the above note as dictated by her.
[2020-11-07] MEDS ORDERED: LORazepam 2 MG/ML INJ IV STA (13:56)
--- NOTE | 2020-11-07 16:28 | PN ---
PROGRESS NOTE DATE OF SERVICE: 11/07/2020 REASON FOR FOLLOWUP: Postobstructive pneumonia. INTERVAL HISTORY: The patient is afebrile. The patient is breathing slightly comfortably. The patient has collected a sputum sample, however, has not been sent down to the lab. The patient denies having any chest pain. No worsening cough. No abdominal pain or diarrhea. PHYSICAL EXAMINATION: Blood pressure is 122/69, pulse of 63, temperature is 99. She is 92% on 8 L nasal cannula. General description is an elderly female up in the bed in no distress. Respiratory system: Unlabored breathing, decreased breath sounds at the base, no wheeze. Heart: S1, S2. Regular rate and rhythm. Abdomen soft, no tenderness. LABS: Hemoglobin is 8.4, white count 10.1, BUN of 22, creatinine 1.50. DIAGNOSTIC IMPRESSION AND PLAN: Patient with fever, source is likely postobstructive pneumonia. Patient is responding to Zosyn, to continue. Sputum should be sent to adjust antibiotic further. Questions and concerns were answered. MMODL / IJN: [id number] /
[2020-11-07] MEDS: IPRATROPIUM-ALBUTEROL 3 ML NEB INHALATION SCH ×2 (16:29→20:38)
[2020-11-07 17:04] LABS: Glucose,Whole Blood 158 mg/dL (75-99)
[2020-11-07 21:00] LABS: Glucose,Whole Blood 158 mg/dL (75-99)
[2020-11-07] MEDS: ATORVASTATIN 40 MG TAB PO SCH (21:45)
[2020-11-07] MEDS: MONTELUKAST 10 MG TAB PO SCH (21:45)
[2020-11-08] MEDS: methylPREDNISolone SOD SUCCI 40 MG/ML 1 ML VIAL IV SCH ×3 (00:16→15:31)
[2020-11-08] MEDS: PIPERACILLIN-TAZOBACTAM 3.375 GM in SODIUM CHLORIDE 0.9% 100 ML IVPB SCH ×3 (00:17→15:31)
[2020-11-08] MEDS: HEPARIN SODIUM,PORCINE/PF 5,000 UNIT/0.5 ML SYRINGE SQ SCH ×3 (00:17→15:31)
[2020-11-08] MEDS: SODIUM CHLORIDE 0.9% 1,000 ML IV SCH ×3 (00:24→19:45)
[2020-11-08] MEDS: LEVOTHYROXINE 50 MCG TAB PO SCH (04:59)
[2020-11-08] MEDS: IPRATROPIUM-ALBUTEROL 3 ML NEB INHALATION SCH ×4 (07:37→20:54)
[2020-11-08 07:40] LABS: Glucose,Whole Blood 152 mg/dL (75-99)
[2020-11-08] MEDS: INSULIN ASPART (NovoLOG) 100 UNIT/ML VIAL SQ SCH ×4 (08:49→21:31)
[2020-11-08] MEDS: NYSTATIN 100,000 UNIT/ML SUSP 500,000 UNIT/5 ML CUP PO SCH ×4 (08:50→21:30)
[2020-11-08] MEDS: DILTIAZEM CD 300 MG CAP.ER.24H PO SCH (08:51)
[2020-11-08] MEDS: METOPROLOL SUCCINATE (ER) 50 MG TAB.ER.24H PO SCH (08:51)
[2020-11-08] MEDS: prednisoLONE ACETATE 1% OPHTH DROPS 5 ML BTL LEFT EYE SCH ×4 (08:51→21:31)
[2020-11-08] MEDS: FAMOTIDINE 20 MG TAB PO SCH (08:51)
[2020-11-08] MEDS: FOLIC ACID 1 MG TAB PO SCH (08:51)
--- NOTE | 2020-11-08 11:37 | P.PN ---
Subjective Progress Note Date: 11/07/20 Principal diagnosis: Acute hypoxemic respiratory failure secondary to Possible progressing right lung non-small cell lung cancer Acute exacerbation of chronic obstructive pulmonary disease 70-year-old female came in with complains of shortness of breath. Fever chills at home. Patient has been having generalized weakness. Patient was recently started on chemotherapy for lung cancer. Patient is presently not hyponatremic. Patient has related To 126 sodium of 128 urine analysis is not significant for UTI patient had a chest x-ray which is showing moderate to right pleural effusion with some atelectasis possible CT angios the chest is being obtained at this time. This effusion appears to be older. There is a destructive mass involving the chest wall and lateral sixth rib on the right side. Patient was a complaining of cough without any significant sputum production. Patient will be admitted with cefepime and consultation to infectious disease and oncology. 11/07/2020 Patient is seen and evaluated in follow-up on the regular medical floor; son at bedside and reports increased anxiety due to steroid use. She is currently sitting up in bed. Awake and alert in no acute distress. She is still on BiPAP 14/6 and 30% FiO2. Easier today compared to yesterday. We'll trial her on nasal cannula. Blood cultures reveal no growth to date. White count 10.8. Hemoglobin 8.4. Sodium 135. Potassium 4.1. Bicarb 34. Creatinine 1.50 Glucose 172. She remains on bronchodilators, IV Solu-Medrol, Zosyn. Pulmonary service on board and recommending to continue with BiPAP alternating with nasal cannula as tolerated; continue with current treatment plan We will start patient on Ativan 0.5 mg 3 times a day by mouth/IV for anxiety Objective - Vital Signs Vital signs: Vital Signs Temp 99.0 F 11/07/20 01:05 Pulse 63 11/07/20 07:35 Resp 20 11/07/20 10:14 BP 122/69 11/07/20 07:35 Pulse Ox 92 L 11/07/20 10:14 Intake & Output 11/06/20 11/07/20 11/07/20 18:59 06:59 18:59 Output Total 500 750 Balance -500 -750 Output: Urine 500 750 Other: Voiding Method Toilet Diaper Toilet # Bowel Movements 1 - Exam GENERAL: The patient is alert and oriented x3, not in any acute distress. Well developed, well nourished. Patient appears to be tired and fatigued HEENT: Pupils are round and equally reacting to light. EOMI. No scleral icterus. No conjunctival pallor. Normocephalic, atraumatic. No pharyngeal erythema. No thyromegaly. CARDIOVASCULAR: S1 and S2 present. No murmurs, rubs, or gallops. PULMONARY: Chest is clear to auscultation, no wheezing or crackles. ABDOMEN: Soft, nontender, nondistended, normoactive bowel sounds. No palpable organomegaly. MUSCULOSKELETAL: No joint swelling or deformity. EXTREMITIES: No cyanosis, clubbing, or pedal edema. NEUROLOGICAL: Gross neurological examination did not reveal any focal deficits. SKIN: No rashes. - Labs CBC & Chem 7: 11/07/20 08:03 11/07/20 08:03 Labs: Abnormal Lab Results - Last 24 Hours (Table) 11/06/20 11/06/20 11/06/20 Range/Units 16:18 17:06 17:06 WBC (4.50-10.00) X 10*3/uL RBC 3.30 L (3.80-5.40) m/uL Hgb 9.2 L (11.4-16.0) gm/dL Hct 30.2 L (34.0-46.0) % MCH (27.0-32.0) pg MCHC 30.5 L (31.0-37.0) g/dL RDW (11.5-14.5) % Plt Count 588 H (150-450) k/uL Immature Gran # (0.00-0.04) X 10*3/uL Neutrophils # 8.6 H (1.3-7.7) k/uL Lymphocytes # 0.8 L (1.0-4.8) k/uL Eosinophils # (0.04-0.35) X 10*3/uL Sodium 134 L (135-145) mmol/L Chloride 90 L (96-109) mmol/L Carbon Dioxide (22-30) mmol/L Anion Gap 16.40 H (4.00-12.00) mmol/L BUN (7-17) mg/dL Creatinine (0.52-1.04) mg/dL Est GFR (CKD-EPI)AfAm 47.8 L (60.0-200.0) Est GFR (CKD-EPI)NonAf 41.2 L (60.0-200.0) BUN/Creatinine Ratio 11.54 L (12.00-20.00) Ratio Glucose 183 H (70-110) mg/dL POC Glucose (mg/dL) 238 H (75-99) mg/dL AST 46 H (13-35) U/L Alkaline Phosphatase 36 L (41-126) U/L Lactate Dehydrogenase 388 H (120-246) U/L Albumin 3.70 L (3.80-4.90) g/dL Globulin 4.1 H (1.6-3.3) g/dL Albumin/Globulin Ratio 0.90 L (1.60-3.17) g/dL 11/06/20 11/07/20 11/07/20 Range/Units 20:37 06:54 08:03 WBC 10.81 H (4.50-10.00) X 10*3/uL RBC 3.13 L (3.80-5.40) m/uL Hgb 8.4 L (11.4-16.0) gm/dL Hct 28.2 L (34.0-46.0) % MCH 26.8 L (27.0-32.0) pg MCHC 29.8 L (31.0-37.0) g/dL RDW 14.9 H (11.5-14.5) % Plt Count 598 H (150-450) k/uL Immature Gran # 0.23 H (0.00-0.04) X 10*3/uL Neutrophils # 8.63 H (1.3-7.7) k/uL Lymphocytes # (1.0-4.8) k/uL Eosinophils # 0 L (0.04-0.35) X 10*3/uL Sodium (135-145) mmol/L Chloride (96-109) mmol/L Carbon Dioxide (22-30) mmol/L Anion Gap (4.00-12.00) mmol/L BUN (7-17) mg/dL Creatinine (0.52-1.04) mg/dL Est GFR (CKD-EPI)AfAm (60.0-200.0) Est GFR (CKD-EPI)NonAf (60.0-200.0) BUN/Creatinine Ratio (12.00-20.00) Ratio Glucose (70-110) mg/dL POC Glucose (mg/dL) 251 H 170 H (75-99) mg/dL AST (13-35) U/L Alkaline Phosphatase (41-126) U/L Lactate Dehydrogenase (120-246) U/L Albumin (3.80-4.90) g/dL Globulin (1.6-3.3) g/dL Albumin/Globulin Ratio (1.60-3.17) g/dL 11/07/20 11/07/20 Range/Units 08:03 11:29 WBC (4.50-10.00) X 10*3/uL RBC (3.80-5.40) m/uL Hgb (11.4-16.0) gm/dL Hct (34.0-46.0) % MCH (27.0-32.0) pg MCHC (31.0-37.0) g/dL RDW (11.5-14.5) % Plt Count (150-450) k/uL Immature Gran # (0.00-0.04) X 10*3/uL Neutrophils # (1.3-7.7) k/uL Lymphocytes # (1.0-4.8) k/uL Eosinophils # (0.04-0.35) X 10*3/uL Sodium 135 L (135-145) mmol/L Chloride 92 L (96-109) mmol/L Carbon Dioxide 34 H (22-30) mmol/L Anion Gap (4.00-12.00) mmol/L BUN 22 H (7-17) mg/dL Creatinine 1.50 H (0.52-1.04) mg/dL Est GFR (CKD-EPI)AfAm (60.0-200.0) Est GFR (CKD-EPI)NonAf (60.0-200.0) BUN/Creatinine Ratio (12.00-20.00) Ratio Glucose 172 H (70-110) mg/dL POC Glucose (mg/dL) 197 H (75-99) mg/dL AST (13-35) U/L Alkaline Phosphatase (41-126) U/L Lactate Dehydrogenase (120-246) U/L Albumin 3.4 L (3.80-4.90) g/dL Globulin (1.6-3.3) g/dL Albumin/Globulin Ratio (1.60-3.17) g/dL Microbiology - Last 24 Hours (Table) 11/04/20 11:42 Blood Culture - Preliminary Blood No Growth after 48 hours 11/04/20 11:48 Blood Culture - Preliminary Blood No Growth after 48 hours Assessment and Plan Assessment: -Fever source unclear possibly of pneumonia. That pneumonia cannot be ruled out patient was started on cefepime infectious disease will be consulted. -Hypovolemic hyponatremia patient was started on IV fluids - acute renal failure prerenal azotemia acute tubular necrosis secondary to possible infection patient was started on IV fluids as mentioned above -Right-sided lung lesion limb/lung cancer for which patient was recently started on chemotherapy. -Type 2 diabetes mellitus hold off on oral hyperglycemic agents patient was started on sliding scale insulin and stent-hyperlipidemia -Hypertension -COPD without any acute exacerbation. DVT prophylaxis: Subcutaneous heparin
[2020-11-08 11:49] LABS: Glucose,Whole Blood 177 mg/dL (75-99)
--- NOTE | 2020-11-08 13:10 | P.PN ---
Subjective Progress Note Date: 11/08/20 Principal diagnosis: Acute hypoxic respiratory failure secondary to progressing right lung non-small cell lung cancer and acute COPD exacerbation This is a very pleasant 70-year-old female patient with a history of sickle cell trait, chronic hepatitis C, hypertension, hypothyroidism, vitamin D deficiency, chronic obstructive pulmonary disease with an FEV1 value of 42% of predicted. She also has a history of non-small cell lung cancer with previous wedge resection in 2018 in the right lung. Recently she had been noted to have progression of her disease. CAT scan from September 2020 revealed extensive consolidation in the right lower lobe with obstruction of the right lower lobe bronchus probably due to tumor mass at the right pulmonary hilum. This is new consolidation. There is a new nodular density in the anterior right upper lobe adjacent to the chest wall that could relate tumor. There is a large area of distraction involving the lateral right rib measuring 5 x 3 cm and consistent with metastatic disease. Significant peripheral progression compared to previou s exam of November 2019. Earlier this week she was having issues with increasing shortness of breath. She also was found to be quite weak and incontinent of urine. He was admitted on 11/04/2020. Early this morning she was having trouble with decreasing oxygenation and worsening shortness of breath. Arterial blood gases revealed a PaO2 of 316, pCO2 of 92 and a pH of 7.21 that was on 100% nonrebreather mask. Blood cultures reveal no growth to date. She was placed on BiPAP 14/5 and 30% FiO2 to maintain O2 saturations in the 90s. Chest x-ray reveals moderate effusion with adjacent atelectasis and/or consolidation increase from previous. Ultrasound of the chest reveals a 7.5 cm pocket however there was lung tissue visualized within the fluid. No plans for thoracentesis. The patient was seen in consultation. She is currently resting in bed. Awake, alert. Her son is at the bedside. His been initiated and DuoNeb inhalations, IV Solu-Medrol, Zosyn. The patient is seen today 11/07/2020 in follow-up on the regular medical floor. She is currently sitting up in bed. Awake and alert in no acute distress. She is still on BiPAP 14/6 and 30% FiO2. Easier today compared to yesterday. We'll trial her on nasal cannula. Blood cultures reveal no growth to date. White count 10.8. Hemoglobin 8.4. Sodium 135. Potassium 4.1. Bicarb 34. Creatinine 1.50 Glucose 172. She remains on bronchodilators, IV Solu-Medrol, Zosyn. On 11/08/2020 patient seen in follow-up on medical surgical floor. She is awake and alert, in no acute distress, she was taken off BiPAP support this morning, she was placed on high flow nasal cannula, currently at 7 L and her pulse ox is 99%, she states she is breathing better, still short of breath with any exertion, no complaints of chest discomfort, sounds are diminished, with no significant wheezing or congestion, no complaints of hemoptysis. Patient is afebrile, blood pressure stable. Her blood and sputum cultures have been negative thus far. She remains on nebulized bronchodilators, she is on IV steroids, and Zosyn. No new chest x-ray today, no new labs today. Patient is sitting up on the edge of the bed, she is getting ready to get washed up. Appears to be in no acute distress. Objective - Vital Signs Vital signs: Vital Signs Temp 98.4 F 11/08/20 08:00 Pulse 82 11/08/20 08:00 Resp 16 11/08/20 08:00 BP 138/78 11/08/20 08:00 Pulse Ox 99 11/08/20 08:00 Intake & Output 11/07/20 11/08/20 11/08/20 18:59 06:59 18:59 Other: Voiding Method Toilet Toilet Toilet # Voids 4 1 # Bowel Movements 2 1 - Exam GENERAL EXAM: Alert, pleasant, 70-year-old -[place] female on 7 L of oxygen, the pulse ox of 99% comfortable in no apparent distress. HEAD: Normocephalic/atraumatic. EYES: Normal reaction of pupils, equal size. Conjunctiva pink, sclera white. NOSE: Clear with pink turbinates. THROAT: No erythema or exudates. NECK: No masses, no JVD, no thyroid enlargement, no adenopathy. CHEST: No chest wall deformity. Symmetrical expansion. LUNGS: Diminished air entry bilaterally, patient is currently on 7 L per high flow nasal cannula with a pulse ox of 99% CVS: Regular rate and rhythm, normal S1 and S2, no gallops, no murmurs, no rubs ABDOMEN: Soft, nontender. No hepatosplenomegaly, normal bowel sounds, no guarding or rigidity. EXTREMITIES: No clubbing, no edema, no cyanosis, 2+ pulses and upper and lower extremities. MUSCULOSKELETAL: Muscle strength and tone normal. SPINE: No scoliosis or deformity SKIN: No rashes CENTRAL NERVOUS SYSTEM: Alert and oriented -3. No focal deficits, tone is normal in all 4 extremities. PSYCHIATRIC: Alert and oriented -3. Appropriate affect. Intact judgment and insight. - Labs CBC & Chem 7: 11/07/20 08:03 11/07/20 08:03 Labs: Abnormal Lab Results - Last 24 Hours (Table) 11/07/20 11/07/20 11/08/20 Range/Units 17:03 20:40 07:38 POC Glucose (mg/dL) 158 H 158 H 152 H (75-99) mg/dL 11/08/20 Range/Units 11:47 POC Glucose (mg/dL) 177 H (75-99) mg/dL Microbiology - Last 24 Hours (Table) 11/08/20 01:15 Sputum Culture - Preliminary Sputum 11/04/20 11:42 Blood Culture - Preliminary Blood No Growth after 72 hours 11/04/20 11:48 Blood Culture - Preliminary Blood No Growth after 72 hours Assessment and Plan Plan: Assessment: #1. Acute hypoxic respiratory failure sick due to progressive right lung non- small cell lung cancer and acute exacerbation of COPD #2. Acute hypercapnic respiratory failure secondary to the above, requiring BiPAP support, improved, and patient is back on nasal cannula today #3. History of metastatic non-small cell lung cancer with previous wedge resection of the right lung in October 2017, status post radiation therapy, and the patient declined chemotherapy or immunotherapy #4. Chronic obstructive pulmonary disease with FEV1 value of 42% of predicted #5. Chronic tobacco dependence of greater than 40 years #6. Hypothyroidism #7. Hypertension #8. History of hepatitis C #9. History of sickle cell trait #10. Vitamin C deficiency Plan: Continue current medical treatments Continue Zosyn, cultures are negative thus far Vital signs are stable Continue steroids and bronchodilators BiPAP support as needed Clinically improving Increase activity as tolerated Weaning FiO2 to keep O2 sat at or above 88-90% Possibly home in the next 24-48 hours if she continues to improve I performed a history & physical examination of the patient and discussed their management with my nurse practitioner, Josie Posada. I reviewed the nurse practitioner's note and agree with the documented findings and plan of care. Lung sounds are positive for diffuse wheezes throughout the lung cervantes. The findings and the impression was discussed with the patient. I attest to the documentation by the nurse practitioner. Time with Patient: Less than 30
[2020-11-08 17:00] LABS: Glucose,Whole Blood 310 mg/dL (75-99)
--- NOTE | 2020-11-08 18:07 | PN ---
PROGRESS NOTE DATE OF SERVICE: 11/08/2020 REASON FOR FOLLOW UP: Postobstructive pneumonia. INTERVAL COURSE: The patient is afebrile. The patient is breathing comfortably, slightly better than yesterday. Denies any chest pain. She did have a cough with minimal sputum production. No abdominal pain or diarrhea. PHYSICAL EXAMINATION: Blood pressure 120/77, pulse of 70. Temperature is 97.9. She is 100% on 6 L nasal cannula. General description is an elderly female lying in bed in no distress. Respiratory system: Unlabored breathing with decreased breath sounds in the right side. No wheeze. Heart S1, S2. Regular rate and rhythm. Abdomen: Soft, no tenderness. LABS: No new labs have been obtained today. Blood culture has been so far negative. Sputum is pending. DIAGNOSTIC IMPRESSION AND PLAN: Patient admitted to the hospital with shortness of breath and fever concerning for a postobstructive pneumonia. Patient currently covered with Zosyn to continue while waiting for the sputum culture to finalize and monitor clinical course closely. MMODL / IJN: [id number] /
--- NOTE | 2020-11-08 18:39 | P.PN ---
Subjective Progress Note Date: 11/08/20 Principal diagnosis: Acute hypoxemic respiratory failure secondary to Possible progressing right lung non-small cell lung cancer Acute exacerbation of chronic obstructive pulmonary disease 70-year-old female came in with complains of shortness of breath. Fever chills at home. Patient has been having generalized weakness. Patient was recently started on chemotherapy for lung cancer. Patient is presently not hyponatremic. Patient has related To 126 sodium of 128 urine analysis is not significant for UTI patient had a chest x-ray which is showing moderate to right pleural effusion with some atelectasis possible CT angios the chest is being obtained at this time. This effusion appears to be older. There is a destructive mass involving the chest wall and lateral sixth rib on the right side. Patient was a complaining of cough without any significant sputum production. Patient will be admitted with cefepime and consultation to infectious disease and oncology. 11/07/2020 Patient is seen and evaluated in follow-up on the regular medical floor; son at bedside and reports increased anxiety due to steroid use. She is currently sitting up in bed. Awake and alert in no acute distress. She is still on BiPAP 14/6 and 30% FiO2. Easier today compared to yesterday. We'll trial her on nasal cannula. Blood cultures reveal no growth to date. White count 10.8. Hemoglobin 8.4. Sodium 135. Potassium 4.1. Bicarb 34. Creatinine 1.50 Glucose 172. She remains on bronchodilators, IV Solu-Medrol, Zosyn. Pulmonary service on board and recommending to continue with BiPAP alternating with nasal cannula as tolerated; continue with current treatment plan We will start patient on Ativan 0.5 mg 3 times a day by mouth/IV for anxiety 11/08/2020 Patient seen and evaluated sitting up in bed. She is awake and alert, in no acute distress, she was taken off BiPAP support this morning, she was placed on high flow nasal cannula, currently at 7 L and her pulse ox is 99%, she states she is breathing better, still short of breath with any exertion, no complaints of chest discomfort, sounds are diminished, with no significant wheezing or congestion, no complaints of hemoptysis. Patient is afebrile, blood pressure stable. Her blood and sputum cultures have been negative thus far. She remains on nebulized bronchodilators, she is on IV steroids, and Zosyn. No new chest x- ray today, no new labs today. Patient is sitting up on the edge of the bed, she is getting ready to get washed up. Appears to be in no acute distress. Pulmonary service recommending to continue with IV Zosyn, IV steroids and bronchodilators; BiPAP to be used as needed; plan is to continue to wean FiO2 keeping SpO2 greater than 88-90% Possible discharge in next 24-48 hours if remains stable Objective - Vital Signs Vital signs: Vital Signs Temp 98.4 F 11/08/20 08:00 Pulse 82 11/08/20 08:00 Resp 16 11/08/20 08:00 BP 138/78 11/08/20 08:00 Pulse Ox 99 11/08/20 08:00 Intake & Output 11/07/20 11/08/20 11/08/20 18:59 06:59 18:59 Other: Voiding Method Toilet Toilet Toilet # Voids 4 1 # Bowel Movements 2 1 - Exam GENERAL: The patient is alert and oriented x3, not in any acute distress. Well developed, well nourished. Patient appears to be tired and fatigued HEENT: Pupils are round and equally reacting to light. EOMI. No scleral icterus. No conjunctival pallor. Normocephalic, atraumatic. No pharyngeal erythema. No thyromegaly. CARDIOVASCULAR: S1 and S2 present. No murmurs, rubs, or gallops. PULMONARY: Chest is clear to auscultation, no wheezing or crackles. ABDOMEN: Soft, nontender, nondistended, normoactive bowel sounds. No palpable organomegaly. MUSCULOSKELETAL: No joint swelling or deformity. EXTREMITIES: No cyanosis, clubbing, or pedal edema. NEUROLOGICAL: Gross neurological examination did not reveal any focal deficits. SKIN: No rashes. - Labs CBC & Chem 7: 11/07/20 08:03 11/07/20 08:03 Labs: Abnormal Lab Results - Last 24 Hours (Table) 11/07/20 11/07/20 11/08/20 Range/Units 17:03 20:40 07:38 POC Glucose (mg/dL) 158 H 158 H 152 H (75-99) mg/dL 11/08/20 Range/Units 11:47 POC Glucose (mg/dL) 177 H (75-99) mg/dL Microbiology - Last 24 Hours (Table) 11/08/20 01:15 Sputum Culture - Preliminary Sputum 11/04/20 11:42 Blood Culture - Preliminary Blood No Growth after 72 hours 11/04/20 11:48 Blood Culture - Preliminary Blood No Growth after 72 hours Assessment and Plan Assessment: -Fever source unclear possibly of pneumonia. That pneumonia cannot be ruled out patient was started on cefepime infectious disease will be consulted. -Hypovolemic hyponatremia patient was started on IV fluids - acute renal failure prerenal azotemia acute tubular necrosis secondary to possible infection patient was started on IV fluids as mentioned above -Right-sided lung lesion limb/lung cancer for which patient was recently started on chemotherapy. -Type 2 diabetes mellitus hold off on oral hyperglycemic agents patient was started on sliding scale insulin and stent-hyperlipidemia -Hypertension -COPD without any acute exacerbation. DVT prophylaxis: Subcutaneous heparin
[2020-11-08] MEDS: HYDROcodone/APAP 10-325MG 1 EACH TAB PO PRN (20:04)
[2020-11-08 20:22] LABS: Glucose,Whole Blood 373 mg/dL (75-99)
[2020-11-08] MEDS: ATORVASTATIN 40 MG TAB PO SCH (21:31)
[2020-11-08] MEDS: MELATONIN 3 MG TABLET PO SCH (21:31)
[2020-11-08] MEDS: MONTELUKAST 10 MG TAB PO SCH (21:31)
[2020-11-09] MEDS: HEPARIN SODIUM,PORCINE/PF 5,000 UNIT/0.5 ML SYRINGE SQ SCH ×4 (00:08→23:25)
[2020-11-09] MEDS: SODIUM CHLORIDE 0.9% 1,000 ML IV SCH ×3 (00:08→23:26)
[2020-11-09] MEDS: PIPERACILLIN-TAZOBACTAM 3.375 GM in SODIUM CHLORIDE 0.9% 100 ML IVPB SCH ×4 (00:08→23:25)
[2020-11-09] MEDS: methylPREDNISolone SOD SUCCI 40 MG/ML 1 ML VIAL IV SCH ×4 (00:08→23:25)
[2020-11-09] MEDS: LEVOTHYROXINE 50 MCG TAB PO SCH (05:01)
[2020-11-09] MEDS: HYDROcodone/APAP 10-325MG 1 EACH TAB PO PRN ×3 (05:01→21:15)
[2020-11-09 06:49] LABS: Glucose,Whole Blood 155 mg/dL (75-99)
[2020-11-09] MEDS: IPRATROPIUM-ALBUTEROL 3 ML NEB INHALATION SCH ×4 (08:12→20:59)
[2020-11-09] MEDS: NYSTATIN 100,000 UNIT/ML SUSP 500,000 UNIT/5 ML CUP PO SCH ×4 (08:42→21:15)
[2020-11-09] MEDS: INSULIN ASPART (NovoLOG) 100 UNIT/ML VIAL SQ SCH ×4 (08:43→21:11)
[2020-11-09] MEDS: DILTIAZEM CD 300 MG CAP.ER.24H PO SCH (08:43)
[2020-11-09] MEDS: METOPROLOL SUCCINATE (ER) 50 MG TAB.ER.24H PO SCH (08:44)
[2020-11-09] MEDS: prednisoLONE ACETATE 1% OPHTH DROPS 5 ML BTL LEFT EYE SCH ×4 (08:44→21:21)
[2020-11-09] MEDS: FOLIC ACID 1 MG TAB PO SCH (08:44)
[2020-11-09] MEDS: FAMOTIDINE 20 MG TAB PO SCH (08:44)
[2020-11-09 11:05] LABS: Basophils # (A) 0.02 X 10*3/uL (0.00-0.10); Basophils % (A) 0.2 %; Eosinophils # (A) 0 X 10*3/uL (0.04-0.35); Eosinophils % (A) 0 %; Lymphocytes # (A) 0.96 X 10*3/uL (0.90-5.00); MCH 27.3 pg (27.0-32.0); MCHC 30.8 g/dL (32.0-37.0); MCV 88.7 fL (80.0-97.0); Mean Platelet Volume 10.1 fL (9.5-12.2); Monocytes # (A) 0.41 X 10*3/uL (0.20-1.00); Monocytes % (A) 3.9 %; Neutrophils # (A) 9.02 X 10*3/uL (1.80-7.70); Neutrophils % (A) 84.7 %; Platelet Count 492 X 10*3/uL (140-440); RBC 2.93 X 10*6/uL (4.10-5.20); RDW 15.1 % (11.5-14.5); WBC 10.64 X 10*3/uL (4.50-10.00)
[2020-11-09 11:17] LABS: Glucose,Whole Blood 243 mg/dL (75-99)
--- NOTE | 2020-11-09 12:09 | P.PN ---
Subjective Progress Note Date: 11/09/20 Principal diagnosis: Acute hypoxic respiratory failure secondary to progressing right lung non-small cell lung cancer and acute COPD exacerbation This is a very pleasant 70-year-old female patient with a history of sickle cell trait, chronic hepatitis C, hypertension, hypothyroidism, vitamin D deficiency, chronic obstructive pulmonary disease with an FEV1 value of 42% of predicted. She also has a history of non-small cell lung cancer with previous wedge resection in 2018 in the right lung. Recently she had been noted to have progression of her disease. CAT scan from September 2020 revealed extensive consolidation in the right lower lobe with obstruction of the right lower lobe bronchus probably due to tumor mass at the right pulmonary hilum. This is new consolidation. There is a new nodular density in the anterior right upper lobe adjacent to the chest wall that could relate tumor. There is a large area of distraction involving the lateral right rib measuring 5 x 3 cm and consistent with metastatic disease. Significant peripheral progression compared to previou s exam of November 2019. Earlier this week she was having issues with increasing shortness of breath. She also was found to be quite weak and incontinent of urine. He was admitted on 11/04/2020. Early this morning she was having trouble with decreasing oxygenation and worsening shortness of breath. Arterial blood gases revealed a PaO2 of 316, pCO2 of 92 and a pH of 7.21 that was on 100% nonrebreather mask. Blood cultures reveal no growth to date. She was placed on BiPAP 14/5 and 30% FiO2 to maintain O2 saturations in the 90s. Chest x-ray reveals moderate effusion with adjacent atelectasis and/or consolidation increase from previous. Ultrasound of the chest reveals a 7.5 cm pocket however there was lung tissue visualized within the fluid. No plans for thoracentesis. The patient was seen in consultation. She is currently resting in bed. Awake, alert. Her son is at the bedside. His been initiated and DuoNeb inhalations, IV Solu-Medrol, Zosyn. The patient is seen today 11/07/2020 in follow-up on the regular medical floor. She is currently sitting up in bed. Awake and alert in no acute distress. She is still on BiPAP 14/6 and 30% FiO2. Easier today compared to yesterday. We'll trial her on nasal cannula. Blood cultures reveal no growth to date. White count 10.8. Hemoglobin 8.4. Sodium 135. Potassium 4.1. Bicarb 34. Creatinine 1.50 Glucose 172. She remains on bronchodilators, IV Solu-Medrol, Zosyn. On 11/08/2020 patient seen in follow-up on medical surgical floor. She is awake and alert, in no acute distress, she was taken off BiPAP support this morning, she was placed on high flow nasal cannula, currently at 7 L and her pulse ox is 99%, she states she is breathing better, still short of breath with any exertion, no complaints of chest discomfort, sounds are diminished, with no significant wheezing or congestion, no complaints of hemoptysis. Patient is afebrile, blood pressure stable. Her blood and sputum cultures have been negative thus far. She remains on nebulized bronchodilators, she is on IV steroids, and Zosyn. No new chest x-ray today, no new labs today. Patient is sitting up on the edge of the bed, she is getting ready to get washed up. Appears to be in no acute distress. On 11/09/2020 patient seen in follow-up on medical surgical floor. Her breathing continues to improve, her FiO2 is currently down to 4 L, and patient's sats are 95-99%, hemodynamically she stable, she's been afebrile. She is still short of breath with conversation, and with any exertion but overall she is improving, vital signs have been stable, she has not required BiPAP support in the last 48 hours, lung sounds are diminished, no wheezing or coughing. No hemoptysis. She continues on IV steroids with Solu-Medrol 40 mg every 8 hours, and she is on Zosyn for empiric antibiotic coverage in addition to nebulized bronchodilators. She has not had a chest x-ray since 11/06/2020, which showed moderate right pleural effusion with adjacent atelectasis and known destructive mass in the right lateral sixth rib dated to underlying history of metastatic non-small cell lung cancer. Labs have been reviewed, her white blood cell count is 10.6, hemoglobin is 8. No altered mentation, no fever or chills. She states that she can walk, and she is hoping to be able to return home. She wants to to be independent if able. Objective - Vital Signs Vital signs: Vital Signs Temp 97.5 F L 11/09/20 08:00 Pulse 78 11/09/20 12:03 Resp 18 11/09/20 08:00 BP 148/73 11/09/20 08:00 Pulse Ox 95 11/09/20 08:12 Intake & Output 11/08/20 11/09/20 11/09/20 18:59 06:59 18:59 Other: Voiding Method Toilet Bedside Commode # Voids 5 4 # Bowel Movements 3 - Exam GENERAL EXAM: Alert, pleasant, 70-year-old -English female on 4 L of oxygen, the pulse ox of 99% comfortable in no apparent distress. HEAD: Normocephalic/atraumatic. EYES: Normal reaction of pupils, equal size. Conjunctiva pink, sclera white. NOSE: Clear with pink turbinates. THROAT: No erythema or exudates. NECK: No masses, no JVD, no thyroid enlargement, no adenopathy. CHEST: No chest wall deformity. Symmetrical expansion. LUNGS: Diminished air entry bilaterally, patient is currently on 7 L per high flow nasal cannula with a pulse ox of 99% CVS: Regular rate and rhythm, normal S1 and S2, no gallops, no murmurs, no rubs ABDOMEN: Soft, nontender. No hepatosplenomegaly, normal bowel sounds, no guarding or rigidity. EXTREMITIES: No clubbing, no edema, no cyanosis, 2+ pulses and upper and lower extremities. MUSCULOSKELETAL: Muscle strength and tone normal. SPINE: No scoliosis or deformity SKIN: No rashes CENTRAL NERVOUS SYSTEM: Alert and oriented -3. No focal deficits, tone is normal in all 4 extremities. PSYCHIATRIC: Alert and oriented -3. Appropriate affect. Intact judgment and insight. - Labs CBC & Chem 7: 11/09/20 07:29 11/07/20 08:03 Labs: Abnormal Lab Results - Last 24 Hours (Table) 11/08/20 11/08/20 11/09/20 Range/Units 16:59 20:18 06:48 WBC (4.50-10.00) X 10*3/uL RBC (4.10-5.20) X 10*6/uL Hgb (12.0-15.0) g/dL Hct (37.2-46.3) % MCHC (32.0-37.0) g/dL RDW (11.5-14.5) % Plt Count (140-440) X 10*3/uL Absolute Nucleated RBC (0.00-0.00) X 10*3/uL Immature Gran # (0.00-0.04) X 10*3/uL Neutrophils # (1.80-7.70) X 10*3/uL Eosinophils # (0.04-0.35) X 10*3/uL NRBC/100 WBC Diff (0.0-0.0) /100 WBCS POC Glucose (mg/dL) 310 H 373 H 155 H (75-99) mg/dL 11/09/20 11/09/20 Range/Units 07:29 11:15 WBC 10.64 H (4.50-10.00) X 10*3/uL RBC 2.93 L (4.10-5.20) X 10*6/uL Hgb 8.0 L (12.0-15.0) g/dL Hct 26.0 L (37.2-46.3) % MCHC 30.8 L (32.0-37.0) g/dL RDW 15.1 H (11.5-14.5) % Plt Count 492 H (140-440) X 10*3/uL Absolute Nucleated RBC 0.03 H (0.00-0.00) X 10*3/uL Immature Gran # 0.23 H (0.00-0.04) X 10*3/uL Neutrophils # 9.02 H (1.80-7.70) X 10*3/uL Eosinophils # 0 L (0.04-0.35) X 10*3/uL NRBC/100 WBC Diff 0.3 H (0.0-0.0) /100 WBCS POC Glucose (mg/dL) 243 H (75-99) mg/dL Microbiology - Last 24 Hours (Table) 11/08/20 01:15 Gram Stain - Preliminary Sputum Sputum Culture - Preliminary 11/04/20 11:42 Blood Culture - Preliminary Blood No Growth after 96 hours 11/04/20 11:48 Blood Culture - Preliminary Blood No Growth after 96 hours Assessment and Plan Plan: Assessment: #1. Acute hypoxic respiratory failure sick due to progressive right lung non- small cell lung cancer and acute exacerbation of COPD #2. Acute hypercapnic respiratory failure secondary to the above, requiring BiPAP support, improved, and patient is back on nasal cannula today #3. History of metastatic non-small cell lung cancer with previous wedge resection of the right lung in October 2017, status post radiation therapy, and the patient declined chemotherapy or immunotherapy #4. Chronic obstructive pulmonary disease with FEV1 value of 42% of predicted #5. Chronic tobacco dependence of greater than 40 years #6. Hypothyroidism #7. Hypertension #8. History of hepatitis C #9. History of sickle cell trait #10. Vitamin C deficiency Plan: Patient is improving Continue weaning FiO2, patient normally wears 3 L of oxygen at home Still has significant exertional dyspnea However no acute events overnight, vital signs have been stable Obtain physical therapy consultation She may need possibly placement in ECF for rehab CODE STATUS is DO NOT RESUSCITATE, continue supportive treatment I performed a history & physical examination of the patient and discussed their management with my nurse practitioner, Josie Posada. I reviewed the nurse practitioner's note and agree with the documented findings and plan of care. Lung sounds are positive for diffuse wheezes throughout the lung cervantes. The findings and the impression was discussed with the patient. I attest to the documentation by the nurse practitioner. Time with Patient: Less than 30
[2020-11-09 12:22] LABS: African American GFR (CKD) 40.2 (60.0-200.0); Anion Gap 10.8 mmol/L (4.00-12.00); BUN/Creat Ratio 19.33 Ratio (12.00-20.00); Calcium 7.7 mg/dL (8.7-10.3); Carbon Dioxide 30.2 mmol/L (21.6-31.8); Non-African American GFR(CKD) 34.7 (60.0-200.0); Potassium 3.6 mmol/L (3.5-5.5)
[2020-11-09] MEDS ORDERED: LOPERAMIDE 2 MG CAP PO PRN (12:46)
[2020-11-09 16:15] LABS: Glucose,Whole Blood 275 mg/dL (75-99)
--- NOTE | 2020-11-09 20:53 | P.PN ---
Subjective Progress Note Date: 11/07/20 Principal diagnosis: Acute respiratory failure, infectious/inflammatory process Remains on bipap, breathing a bit better than yesterday Objective - Vital Signs Vital signs: Vital Signs Temp 97.5 F L 11/07/20 14:03 Pulse 95 11/07/20 16:43 Resp 20 11/07/20 14:03 BP 111/65 11/07/20 14:03 Pulse Ox 98 11/07/20 16:32 Intake & Output 11/06/20 11/07/20 11/07/20 18:59 06:59 18:59 Output Total 500 750 Balance -500 -750 Output: Urine 500 750 Other: Voiding Method Toilet Diaper Toilet # Bowel Movements 1 - Exam - Constitutional General appearance: average body habitus, cooperative, mild distress - EENT Eyes: anicteric sclerae, EOMI ENT: hearing grossly normal, normal oropharynx - Neck Neck: no lymphadenopathy - Respiratory Respiratory: bilateral: diminished - Cardiovascular Heart sounds: normal: S1, S2 Abnormal Heart Sounds: no systolic murmur, no diastolic murmur, no rub, no S3 Gallop, no S4 Gallop, no click, no other leg Peripheral Edema: bilateral: Trace - Gastrointestinal General gastrointestinal: normal bowel sounds, soft - Neurologic Neurologic: CNII-XII intact - Musculoskeletal Musculoskeletal: generalized weakness - Psychiatric Psychiatric: A&O x's 3, appropriate affect, intact judgment & insight - Labs CBC & Chem 7: 11/07/20 08:03 11/07/20 08:03 Labs: Abnormal Lab Results - Last 24 Hours (Table) 11/06/20 11/06/20 11/07/20 Range/Units 17:06 20:37 06:54 WBC (4.50-10.00) X 10*3/uL RBC (4.10-5.20) X 10*6/uL Hgb (12.0-15.0) g/dL Hct (37.2-46.3) % MCH (27.0-32.0) pg MCHC (32.0-37.0) g/dL RDW (11.5-14.5) % Plt Count (140-440) X 10*3/uL Immature Gran # (0.00-0.04) X 10*3/uL Neutrophils # (1.80-7.70) X 10*3/uL Eosinophils # (0.04-0.35) X 10*3/uL Sodium 134 L (135-145) mmol/L Chloride 90 L (96-109) mmol/L Carbon Dioxide (22-30) mmol/L Anion Gap 16.40 H (4.00-12.00) mmol/L BUN (7-17) mg/dL Creatinine (0.52-1.04) mg/dL Est GFR (CKD-EPI)AfAm 47.8 L (60.0-200.0) Est GFR (CKD-EPI)NonAf 41.2 L (60.0-200.0) BUN/Creatinine Ratio 11.54 L (12.00-20.00) Ratio Glucose 183 H (70-110) mg/dL POC Glucose (mg/dL) 251 H 170 H (75-99) mg/dL AST 46 H (13-35) U/L Alkaline Phosphatase 36 L (41-126) U/L Lactate Dehydrogenase 388 H (120-246) U/L Albumin 3.70 L (3.80-4.90) g/dL Globulin 4.1 H (1.6-3.3) g/dL Albumin/Globulin Ratio 0.90 L (1.60-3.17) g/dL 11/07/20 11/07/20 11/07/20 Range/Units 08:03 08:03 11:29 WBC 10.81 H (4.50-10.00) X 10*3/uL RBC 3.13 L (4.10-5.20) X 10*6/uL Hgb 8.4 L (12.0-15.0) g/dL Hct 28.2 L (37.2-46.3) % MCH 26.8 L (27.0-32.0) pg MCHC 29.8 L (32.0-37.0) g/dL RDW 14.9 H (11.5-14.5) % Plt Count 598 H (140-440) X 10*3/uL Immature Gran # 0.23 H (0.00-0.04) X 10*3/uL Neutrophils # 8.63 H (1.80-7.70) X 10*3/uL Eosinophils # 0 L (0.04-0.35) X 10*3/uL Sodium 135 L (135-145) mmol/L Chloride 92 L (96-109) mmol/L Carbon Dioxide 34 H (22-30) mmol/L Anion Gap (4.00-12.00) mmol/L BUN 22 H (7-17) mg/dL Creatinine 1.50 H (0.52-1.04) mg/dL Est GFR (CKD-EPI)AfAm (60.0-200.0) Est GFR (CKD-EPI)NonAf (60.0-200.0) BUN/Creatinine Ratio (12.00-20.00) Ratio Glucose 172 H (70-110) mg/dL POC Glucose (mg/dL) 197 H (75-99) mg/dL AST (13-35) U/L Alkaline Phosphatase (41-126) U/L Lactate Dehydrogenase (120-246) U/L Albumin 3.4 L (3.80-4.90) g/dL Globulin (1.6-3.3) g/dL Albumin/Globulin Ratio (1.60-3.17) g/dL 11/07/20 Range/Units 17:03 WBC (4.50-10.00) X 10*3/uL RBC (4.10-5.20) X 10*6/uL Hgb (12.0-15.0) g/dL Hct (37.2-46.3) % MCH (27.0-32.0) pg MCHC (32.0-37.0) g/dL RDW (11.5-14.5) % Plt Count (140-440) X 10*3/uL Immature Gran # (0.00-0.04) X 10*3/uL Neutrophils # (1.80-7.70) X 10*3/uL Eosinophils # (0.04-0.35) X 10*3/uL Sodium (135-145) mmol/L Chloride (96-109) mmol/L Carbon Dioxide (22-30) mmol/L Anion Gap (4.00-12.00) mmol/L BUN (7-17) mg/dL Creatinine (0.52-1.04) mg/dL Est GFR (CKD-EPI)AfAm (60.0-200.0) Est GFR (CKD-EPI)NonAf (60.0-200.0) BUN/Creatinine Ratio (12.00-20.00) Ratio Glucose (70-110) mg/dL POC Glucose (mg/dL) 158 H (75-99) mg/dL AST (13-35) U/L Alkaline Phosphatase (41-126) U/L Lactate Dehydrogenase (120-246) U/L Albumin (3.80-4.90) g/dL Globulin (1.6-3.3) g/dL Albumin/Globulin Ratio (1.60-3.17) g/dL Microbiology - Last 24 Hours (Table) 11/04/20 11:42 Blood Culture - Preliminary Blood No Growth after 72 hours 11/04/20 11:48 Blood Culture - Preliminary Blood No Growth after 72 hours Assessment and Plan Plan: Chest x-ray: report reviewed CT scan - chest: report reviewed Assessment and Plan Acute on Chronic Respiratory Failure: = Worsening requiring Bipap - Pulmonary following Anemia: - Secondary to chemotherapy - Hemoglobin is 8.4 today - Transfuse less than 7 Fever - Reviewed CT, likely inflammatory infectious etiology - ID following, antibiotics continued Current Visit: Yes Status: Acute Priority: High Code(s): R50.9 - FEVER, UNSPECIFIED SNOMED Code(s): 847553162 Adenocarcinoma of right lung - She is currently being treated for metastatic cancer, was due for cycle 2 on 11/06/20. - Continue to hold chemotherapy until recovery of acute hospitalization problems Current Visit: Yes Status: Chronic Priority: Medium Code(s): C34.91 - MALIGNANT NEOPLASM OF UNSP PART OF RIGHT BRONCHUS OR LUNG SNOMED Code(s): 15905351835375947
[2020-11-09 20:54] LABS: Glucose,Whole Blood 266 mg/dL (75-99)
--- NOTE | 2020-11-09 20:55 | P.PN ---
Subjective Progress Note Date: 11/09/20 Principal diagnosis: Acute respiratory failure, infectious/inflammatory process Patient seen and evaluated earlier today and sitting up overall feeling better. 3Liters oxygen and toelrating well Objective - Vital Signs Vital signs: Vital Signs Temp 98.1 F 11/09/20 13:58 Pulse 62 11/09/20 16:32 Resp 18 11/09/20 13:58 BP 151/69 11/09/20 13:58 Pulse Ox 95 11/09/20 13:58 Intake & Output 11/09/20 11/09/20 11/10/20 06:59 18:59 06:59 Intake Total 1200 Balance 1200 Intake: Intake, IV Titration 1200 Amount Sodium Chloride 0.9% 1, 1200 000 ml @ 100 mls/hr IV . Q10H [facility] Rx#:[id number] Other: Voiding Method Bedside Commode # Voids 4 2 # Bowel Movements 1 - Exam - Constitutional General appearance: average body habitus, cooperative, mild distress - EENT Eyes: anicteric sclerae, EOMI ENT: hearing grossly normal, normal oropharynx - Neck Neck: no lymphadenopathy - Respiratory Respiratory: bilateral: diminished - Cardiovascular Heart sounds: normal: S1, S2 Abnormal Heart Sounds: no systolic murmur, no diastolic murmur, no rub, no S3 Gallop, no S4 Gallop, no click, no other leg Peripheral Edema: bilateral: Trace - Gastrointestinal General gastrointestinal: normal bowel sounds, soft - Neurologic Neurologic: CNII-XII intact - Musculoskeletal Musculoskeletal: generalized weakness - Psychiatric Psychiatric: A&O x's 3, appropriate affect, intact judgment & insight - Labs CBC & Chem 7: 11/09/20 07:29 11/09/20 07:29 Labs: Abnormal Lab Results - Last 24 Hours (Table) 11/09/20 11/09/20 11/09/20 Range/Units 06:48 07:29 07:29 WBC 10.64 H (4.50-10.00) X 10*3/uL RBC 2.93 L (4.10-5.20) X 10*6/uL Hgb 8.0 L (12.0-15.0) g/dL Hct 26.0 L (37.2-46.3) % MCHC 30.8 L (32.0-37.0) g/dL RDW 15.1 H (11.5-14.5) % Plt Count 492 H (140-440) X 10*3/uL Absolute Nucleated RBC 0.03 H (0.00-0.00) X 10*3/uL Immature Gran # 0.23 H (0.00-0.04) X 10*3/uL Neutrophils # 9.02 H (1.80-7.70) X 10*3/uL Eosinophils # 0 L (0.04-0.35) X 10*3/uL NRBC/100 WBC Diff 0.3 H (0.0-0.0) /100 WBCS BUN 29.0 H (9.0-27.0) mg/dL Est GFR (CKD-EPI)AfAm 40.2 L (60.0-200.0) Est GFR (CKD-EPI)NonAf 34.7 L (60.0-200.0) Glucose 164 H (70-110) mg/dL POC Glucose (mg/dL) 155 H (75-99) mg/dL Calcium 7.7 L (8.7-10.3) mg/dL 11/09/20 11/09/20 Range/Units 11:15 16:13 WBC (4.50-10.00) X 10*3/uL RBC (4.10-5.20) X 10*6/uL Hgb (12.0-15.0) g/dL Hct (37.2-46.3) % MCHC (32.0-37.0) g/dL RDW (11.5-14.5) % Plt Count (140-440) X 10*3/uL Absolute Nucleated RBC (0.00-0.00) X 10*3/uL Immature Gran # (0.00-0.04) X 10*3/uL Neutrophils # (1.80-7.70) X 10*3/uL Eosinophils # (0.04-0.35) X 10*3/uL NRBC/100 WBC Diff (0.0-0.0) /100 WBCS BUN (9.0-27.0) mg/dL Est GFR (CKD-EPI)AfAm (60.0-200.0) Est GFR (CKD-EPI)NonAf (60.0-200.0) Glucose (70-110) mg/dL POC Glucose (mg/dL) 243 H 275 H (75-99) mg/dL Calcium (8.7-10.3) mg/dL Microbiology - Last 24 Hours (Table) 11/08/20 01:15 Gram Stain - Preliminary Sputum Sputum Culture - Preliminary 11/04/20 11:42 Blood Culture - Preliminary Blood No Growth after 120 hours 11/04/20 11:48 Blood Culture - Preliminary Blood No Growth after 120 hours Assessment and Plan Plan: Chest x-ray: report reviewed CT scan - chest: report reviewed Assessment and Plan Acute on Chronic Respiratory Failure: improved - Pulmonary following Anemia: - Secondary to chemotherapy Transfuse less then 7 Fever - Reviewed CT, likely inflammatory infectious etiology - ID following, antibiotics continued Current Visit: Yes Status: Acute Priority: High Code(s): R50.9 - FEVER, UNSPECIFIED SNOMED Code(s): 073969991 Adenocarcinoma of right lung - She is currently being treated for metastatic cancer, was due for cycle 2 on 11/06/20. - Continue to hold chemotherapy until recovery of acute hospitalization problems Current Visit: Yes Status: Chronic Priority: Medium Code(s): C34.91 - MALIGNANT NEOPLASM OF UNSP PART OF RIGHT BRONCHUS OR LUNG SNOMED Code(s): 34907607908435851 Overall she is doing better Down to 3L oxygen
[2020-11-09] MEDS: ATORVASTATIN 40 MG TAB PO SCH (21:11)
[2020-11-09] MEDS: MONTELUKAST 10 MG TAB PO SCH (21:11)
[2020-11-09] MEDS: MELATONIN 3 MG TABLET PO SCH (21:11)
--- NOTE | 2020-11-10 01:09 | P.PN ---
Subjective Progress Note Date: 11/09/20 70-year-old female came in with complains of shortness of breath. Fever chills at home. Patient has been having generalized weakness. Patient was recently started on chemotherapy for lung cancer. Patient is presently not hyponatremic. Patient has related To 126 sodium of 128 urine analysis is not significant for UTI patient had a chest x-ray which is showing moderate to right pleural effusion with some atelectasis possible CT angios the chest is being obtained at this time. This effusion appears to be older. There is a destructive mass involving the chest wall and lateral sixth rib on the right side. Patient was a complaining of cough without any significant sputum production. Patient will be admitted with cefepime and consultation to infectious disease and oncology. 11/07/2020 Patient is seen and evaluated in follow-up on the regular medical floor; son at bedside and reports increased anxiety due to steroid use. She is currently sitting up in bed. Awake and alert in no acute distress. She is still on BiPAP 14/6 and 30% FiO2. Easier today compared to yesterday. We'll trial her on nasal cannula. Blood cultures reveal no growth to date. White c ount 10.8. Hemoglobin 8.4. Sodium 135. Potassium 4.1. Bicarb 34. Creatinine 1.50 Glucose 172. She remains on bronchodilators, IV Solu-Medrol, Zosyn. Pulmonary service on board and recommending to continue with BiPAP alternating with nasal cannula as tolerated; continue with current treatment plan We will start patient on Ativan 0.5 mg 3 times a day by mouth/IV for anxiety 11/08/2020 Patient seen and evaluated sitting up in bed. She is awake and alert, in no acute distress, she was taken off BiPAP support this morning, she was placed on high flow nasal cannula, currently at 7 L and her pulse ox is 99%, she states she is breathing better, still short of breath with any exertion, no complaints of chest discomfort, sounds are diminished, with no significant wheezing or congestion, no complaints of hemoptysis. Patient is afebrile, blood pressure stable. Her blood and sputum cultures have been negative thus far. She remains on nebulized bronchodilators, she is on IV steroids, and Zosyn. No new chest x- ray today, no new labs today. Patient is sitting up on the edge of the bed, she is getting ready to get washed up. Appears to be in no acute distress. Pulmonary service recommending to continue with IV Zosyn, IV steroids and bronchodilators; BiPAP to be used as needed; plan is to continue to wean FiO2 keeping SpO2 greater than 88-90% Possible discharge in next 24-48 hours if remains stable 11/09/2020 Patient is seen in follow up this morning with no acute overnight issues noted. Patient maintained on 3L 02 via NC and not requiring bipap. Patient continues with IV steroids along with breathing inhalational treatments and IV zosyn with infectious disease, pulmonary, and oncology following. Patient sputum cultures a nd blood cultures negative. Patient is weak, but refusing rehab stating she is going back home with her son. Anticipate discharge in 24 hours. Review of systems: Constitutional: No reports of fatigue, fever, or chills Cardiovascular: No reports of chest pain or palpitations Respiratory: reports of shortness of breath and cough, although feels improved GI: No reports of nausea, vomiting, or diarrhea : No reports of dysuria or retention Neurovascular: reports generalized weakness All medications have been reviewed Physical exam: GENERAL: The patient is alert and oriented x3, not in any acute distress. Well developed, well nourished. Patient awake and sitting at the side of the bed HEENT: Pupils are round and equally reacting to light. EOMI. No scleral icterus. No conjunctival pallor. Normocephalic, atraumatic. No pharyngeal erythema. No thyromegaly. CARDIOVASCULAR: S1 and S2 present. No murmurs, rubs, or gallops. PULMONARY: diminished breath sounds bilaterally with some scattered rhonchi noted ABDOMEN: Soft, nontender, nondistended, normoactive bowel sounds. No palpable organomegaly. MUSCULOSKELETAL: No joint swelling or deformity. EXTREMITIES: No cyanosis, clubbing, or pedal edema. NEUROLOGICAL: Gross neurological examination did not reveal any focal deficits. SKIN: No rashes. Assessment and plan: -Fever source unclear possibly of pneumonia. That pneumonia cannot be ruled out patient is continued on Zosyn with infectious disease following. Sputum culture negative -Acute hypoxemic respiratory failure secondary to possible progressing right lung non-small cell lung cancer -Hypovolemic hyponatremia, improved will discontinue IV fluids. repeat BMP in the am -acute diarrhea, will start imodium as needed -acute renal failure prerenal azotemia acute tubular necrosis secondary to possible infection, improving -Right-sided lung lesion lung cancer for which patient was recently started on chemotherapy. -Type 2 diabetes mellitus hold off on oral hyperglycemic agents patient was started on sliding scale insulin -hyperlipidemia -Hypertension -COPD, acute exacerbation. -DVT prophylaxis: Subcutaneous heparin -GI prophylaxis: pepcid -NO code Plan: continue current medications. Pulmonary, oncology, and infectious disease following. Patient continued on Zosyn and will continue for now. Wean FI02 as tolerated. continue IV steroids. Sputum cultures negative and will discuss with infectious disease about possible discharge antibiotics. Patient is weak and aw aiting PT eval although patient is refusing rehab states that she lives with her son and plans on returning there. Will repeat am labs and monitor closely. Patient is afebrile. Possible discharge in 24 hours. Objective - Vital Signs Vital signs: Vital Signs Temp 97.5 F L 11/09/20 08:00 Pulse 46 L 11/09/20 08:00 Resp 18 11/09/20 08:00 BP 148/73 11/09/20 08:00 Pulse Ox 95 11/09/20 08:12 Intake & Output 11/08/20 11/09/20 11/09/20 18:59 06:59 18:59 Other: Voiding Method Toilet Bedside Commode # Voids 5 4 # Bowel Movements 3 - Labs CBC & Chem 7: 11/09/20 07:29 11/09/20 07:29 Labs: Abnormal Lab Results - Last 24 Hours (Table) 11/08/20 11/08/20 11/08/20 Range/Units 11:47 16:59 20:18 POC Glucose (mg/dL) 177 H 310 H 373 H (75-99) mg/dL 11/09/20 Range/Units 06:48 POC Glucose (mg/dL) 155 H (75-99) mg/dL Microbiology - Last 24 Hours (Table) 11/08/20 01:15 Gram Stain - Preliminary Sputum Sputum Culture - Preliminary 11/04/20 11:42 Blood Culture - Preliminary Blood No Growth after 96 hours 11/04/20 11:48 Blood Culture - Preliminary Blood No Growth after 96 hours
[2020-11-10] MEDS: LEVOTHYROXINE 50 MCG TAB PO SCH (05:46)
[2020-11-10 07:01] LABS: Glucose,Whole Blood 177 mg/dL (75-99)
[2020-11-10 07:16] LABS: African American GFR (CKD) 57 (>60 ml/min/1.73 sqM); Anion Gap 8 mmol/L; Blood Urea Nitrogen 28 mg/dL (7-17); Calcium 8.1 mg/dL (8.4-10.2); Carbon Dioxide 37 mmol/L (22-30); Chloride 96 mmol/L (98-107); Glucose 178 mg/dL (74-99); Non-African American GFR(CKD) 50 (>60 ml/min/1.73 sqM); Potassium 3.1 mmol/L (3.5-5.1); Sodium 141 mmol/L (137-145)
[2020-11-10] MEDS: methylPREDNISolone SOD SUCCI 40 MG/ML 1 ML VIAL IV SCH (07:33)
[2020-11-10] MEDS: INSULIN ASPART (NovoLOG) 100 UNIT/ML VIAL SQ SCH ×2 (07:33→12:23)
[2020-11-10] MEDS: HEPARIN SODIUM,PORCINE/PF 5,000 UNIT/0.5 ML SYRINGE SQ SCH (07:33)
[2020-11-10] MEDS: FAMOTIDINE 20 MG TAB PO SCH (07:34)
[2020-11-10] MEDS: PIPERACILLIN-TAZOBACTAM 3.375 GM in SODIUM CHLORIDE 0.9% 100 ML IVPB SCH (07:34)
[2020-11-10] MEDS: FOLIC ACID 1 MG TAB PO SCH (07:34)
[2020-11-10] MEDS: METOPROLOL SUCCINATE (ER) 50 MG TAB.ER.24H PO SCH (07:34)
[2020-11-10] MEDS: DILTIAZEM CD 300 MG CAP.ER.24H PO SCH (07:35)
[2020-11-10] MEDS: NYSTATIN 100,000 UNIT/ML SUSP 500,000 UNIT/5 ML CUP PO SCH ×2 (07:35→12:22)
[2020-11-10] MEDS: IPRATROPIUM-ALBUTEROL 3 ML NEB INHALATION SCH ×2 (07:44→11:40)
--- NOTE | 2020-11-10 07:51 | PN ---
PROGRESS NOTE DATE OF SERVICE: 11/09/2020 REASON FOR FOLLOWUP: Postobstructive pneumonia. INTERVAL HISTORY: Patient is afebrile. The patient is breathing comfortably. Patient denies having any chest pain. He did have a cough, not bringing up any sputum. No nausea, vomiting. No abdominal pain or diarrhea. PHYSICAL EXAMINATION: Blood pressure 151/69 with a pulse of 75. Temperature is 98.1. She is 95% on 2 L nasal cannula. General description is an elderly female lying in bed in no distress. Respiratory system: Unlabored breathing, decreased intensity of breath sounds in the base, with no wheeze. Heart S1, S2. Regular rate and rhythm. Abdomen: Soft, no tenderness. LABS: Hemoglobin 8, white count 10.6 with a BUN of 29, creatinine is 1.5. Sputum pending. Blood culture has been negative. DIAGNOSTIC IMPRESSION AND PLAN: Patient with postobstructive pneumonia, covered with Zosyn that will be continued for now while monitoring clinical course closely. Continue supportive care. MMODL / IJN: [id number] /
[2020-11-10 08:27] VITALS: BP 177/83; RESP 16; TEMP 97.7
[2020-11-10] MEDS ORDERED: Potassium Replacement Protocol 1 EACH MISC MISCELLANE PRN (09:47)
--- NOTE | 2020-11-10 10:40 | P.PN ---
Subjective Progress Note Date: 11/10/20 This is a very pleasant 70-year-old female patient with a history of sickle cell trait, chronic hepatitis C, hypertension, hypothyroidism, vitamin D deficiency, chronic obstructive pulmonary disease with an FEV1 value of 42% of predicted. She also has a history of non-small cell lung cancer with previous wedge resection in 2018 in the right lung. Recently she had been noted to have progression of her disease. CAT scan from September 2020 revealed extensive consolidation in the right lower lobe with obstruction of the right lower lobe bronchus probably due to tumor mass at the right pulmonary hilum. This is new consolidation. There is a new nodular density in the anterior right upper lobe adjacent to the chest wall that could relate tumor. There is a large area of distraction involving the lateral right rib measuring 5 x 3 cm and consistent with metastatic disease. Significant peripheral progression compared to previous exam of November 2019. Earlier this week she was having issues with incr easing shortness of breath. She also was found to be quite weak and incontinent of urine. He was admitted on 11/04/2020. Early this morning she was having trouble with decreasing oxygenation and worsening shortness of breath. Arterial blood gases revealed a PaO2 of 316, pCO2 of 92 and a pH of 7.21 that was on 100% nonrebreather mask. Blood cultures reveal no growth to date. She was placed on BiPAP 14/5 and 30% FiO2 to maintain O2 saturations in the 90s. Chest x-ray reveals moderate effusion with adjacent atelectasis and/or consolidation increase from previous. Ultrasound of the chest reveals a 7.5 cm pocket however there was lung tissue visualized within the fluid. No plans for thoracentesis. The patient was seen in consultation. She is currently resting in bed. Awake, alert. Her son is at the bedside. His been initiated and DuoNeb inhalations, IV Solu-Medrol, Zosyn. The patient is seen today 11/07/2020 in follow-up on the regular medical floor. She is currently sitting up in bed. Awake and alert in no acute distress. She is still on BiPAP 14/6 and 30% FiO2. Easier today compared to yesterday. We'll trial her on nasal cannula. Blood cultures reveal no growth to date. White count 10.8. Hemoglobin 8.4. Sodium 135. Potassium 4.1. Bicarb 34. Creatinine 1.50 Glucose 172. She remains on bronchodilators, IV Solu-Medrol, Zosyn. On 11/08/2020 patient seen in follow-up on medical surgical floor. She is awake and alert, in no acute distress, she was taken off BiPAP support this morning, she was placed on high flow nasal cannula, currently at 7 L and her pulse ox is 99%, she states she is breathing better, still short of breath with any exertion, no complaints of chest discomfort, sounds are diminished, with no significant wheezing or congestion, no complaints of hemoptysis. Patient is afebrile, blood pressure stable. Her blood and sputum cultures have been negative thus far. She remains on nebulized bronchodilators, she is on IV steroids, and Zosyn. No new chest x-ray today, no new labs today. Patient is sitting up on the edge of the bed, she is getting ready to get washed up. Appears to be in no acute distress. On 11/09/2020 patient seen in follow-up on medical surgical floor. Her breathing continues to improve, her FiO2 is currently down to 4 L, and patient's sats are 95-99%, hemodynamically she stable, she's been afebrile. She is still short of breath with conversation, and with any exertion but overall she is improving, vital signs have been stable, she has not required BiPAP support in the last 48 hours, lung sounds are diminished, no wheezing or coughing. No hemoptysis. She continues on IV steroids with Solu-Medrol 40 mg every 8 hours, and she is on Zosyn for empiric antibiotic coverage in addition to nebulized bronchodilators. She has not had a chest x-ray since 11/06/2020, which showed moderate right pleural effusion with adjacent atelectasis and known destructive mass in the right lateral sixth rib dated to underlying history of metastatic non-small cell lung cancer. Labs have been reviewed, her white blood cell count is 10.6, hemoglobin is 8. No altered mentation, no fever or chills. She states that she can walk, and she is hoping to be able to return home. She wants to to be independent if able. The patient is seen today 11/10/2020 in follow-up on the regular medical floor. She is currently sitting up at the bedside. Awake and alert in no acute distress. Doing quite a bit better. She is maintaining good O2 saturations in the 90s on 3 L/m per nasal cannula. Blood culture reveals no growth. Sputum culture revealed no growth. Sodium 141. Potassium 3.1. Bicarb 37. Creatinine 1.12. Glucose 178. She remains on DuoNeb inhalations, IV Solu-Medrol. Antibiotics in the form of Zosyn. Objective - Vital Signs Vital signs: Vital Signs Temp 97.7 F 11/10/20 08:00 Pulse 69 11/10/20 08:00 Resp 16 11/10/20 08:00 BP 177/83 11/10/20 08:00 Pulse Ox 93 L 11/10/20 08:00 Intake & Output 11/09/20 11/10/20 11/10/20 18:59 06:59 18:59 Intake Total 1200 Balance 1200 Intake: Intake, IV Titration 1200 Amount Sodium Chloride 0.9% 1, 1200 000 ml @ 100 mls/hr IV . Q10H ANTONIO Rx#:[id number] Other: # Voids 2 5 # Bowel Movements 1 - Exam GENERAL EXAM: Alert, weak, 70-year-old female, on 3 L nasal cannula, comfortable in no apparent distress. HEAD: Normocephalic. EYES: Normal reaction of pupils, equal size. NOSE: Clear with pink turbinates. THROAT: No erythema or exudates. NECK: No masses, no JVD. CHEST: No chest wall deformity. LUNGS: Equal air entry with crackles in the right lung base, diminished. CVS: S1 and S2 normal with no audible murmur, regular rhythm. ABDOMEN: No hepatosplenomegaly, normal bowel sounds, no guarding or rigidity. SPINE: No scoliosis or deformity SKIN: No rashes CENTRAL NERVOUS SYSTEM: No focal deficits, tone is normal in all 4 extremities. EXTREMITIES: There is no peripheral edema. No clubbing, no cyanosis. Peripheral pulses are intact. - Labs CBC & Chem 7: 11/09/20 07:29 11/10/20 06:26 Labs: Abnormal Lab Results - Last 24 Hours (Table) 11/09/20 11/09/20 11/09/20 Range/Units 07: 07:29 11:15 WBC 10.64 H (4.50-10.00) X 10*3/uL RBC 2.93 L (4.10-5.20) X 10*6/uL Hgb 8.0 L (12.0-15.0) g/dL Hct 26.0 L (37.2-46.3) % MCHC 30.8 L (32.0-37.0) g/dL RDW 15.1 H (11.5-14.5) % Plt Count 492 H (140-440) X 10*3/uL Absolute Nucleated RBC 0.03 H (0.00-0.00) X 10*3/uL Immature Gran # 0.23 H (0.00-0.04) X 10*3/uL Neutrophils # 9.02 H (1.80-7.70) X 10*3/uL Eosinophils # 0 L (0.04-0.35) X 10*3/uL NRBC/100 WBC Diff 0.3 H (0.0-0.0) /100 WBCS Potassium (3.5-5.1) mmol/L Chloride (98-107) mmol/L Carbon Dioxide (22-30) mmol/L BUN 29.0 H (9.0-27.0) mg/dL Creatinine (0.52-1.04) mg/dL Est GFR (CKD-EPI)AfAm 40.2 L (60.0-200.0) Est GFR (CKD-EPI)NonAf 34.7 L (60.0-200.0) Glucose 164 H (70-110) mg/dL POC Glucose (mg/dL) 243 H (75-99) mg/dL Calcium 7.7 L (8.7-10.3) mg/dL 11/09/20 11/09/20 11/10/20 Range/Units 16:13 20:50 06:26 WBC (4.50-10.00) X 10*3/uL RBC (4.10-5.20) X 10*6/uL Hgb (12.0-15.0) g/dL Hct (37.2-46.3) % MCHC (32.0-37.0) g/dL RDW (11.5-14.5) % Plt Count (140-440) X 10*3/uL Absolute Nucleated RBC (0.00-0.00) X 10*3/uL Immature Gran # (0.00-0.04) X 10*3/uL Neutrophils # (1.80-7.70) X 10*3/uL Eosinophils # (0.04-0.35) X 10*3/uL NRBC/100 WBC Diff (0.0-0.0) /100 WBCS Potassium 3.1 L (3.5-5.1) mmol/L Chloride 96 L (98-107) mmol/L Carbon Dioxide 37 H (22-30) mmol/L BUN 28 H (9.0-27.0) mg/dL Creatinine 1.12 H (0.52-1.04) mg/dL Est GFR (CKD-EPI)AfAm (60.0-200.0) Est GFR (CKD-EPI)NonAf (60.0-200.0) Glucose 178 H (70-110) mg/dL POC Glucose (mg/dL) 275 H 266 H (75-99) mg/dL Calcium 8.1 L (8.7-10.3) mg/dL 11/10/20 Range/Units 07:00 WBC (4.50-10.00) X 10*3/uL RBC (4.10-5.20) X 10*6/uL Hgb (12.0-15.0) g/dL Hct (37.2-46.3) % MCHC (32.0-37.0) g/dL RDW (11.5-14.5) % Plt Count (140-440) X 10*3/uL Absolute Nucleated RBC (0.00-0.00) X 10*3/uL Immature Gran # (0.00-0.04) X 10*3/uL Neutrophils # (1.80-7.70) X 10*3/uL Eosinophils # (0.04-0.35) X 10*3/uL NRBC/100 WBC Diff (0.0-0.0) /100 WBCS Potassium (3.5-5.1) mmol/L Chloride (98-107) mmol/L Carbon Dioxide (22-30) mmol/L BUN (9.0-27.0) mg/dL Creatinine (0.52-1.04) mg/dL Est GFR (CKD-EPI)AfAm (60.0-200.0) Est GFR (CKD-EPI)NonAf (60.0-200.0) Glucose (70-110) mg/dL POC Glucose (mg/dL) 177 H (75-99) mg/dL Calcium (8.7-10.3) mg/dL Microbiology - Last 24 Hours (Table) 11/08/20 01:15 Gram Stain - Preliminary Sputum Sputum Culture - Preliminary 11/04/20 11:42 Blood Culture - Preliminary Blood No Growth after 120 hours 11/04/20 11:48 Blood Culture - Preliminary Blood No Growth after 120 hours Assessment and Plan Assessment: 1 Acute hypoxemic respiratory failure secondary to progressing right lung non- small cell lung cancer and acute exacerbation of chronic obstructive pulmonary disease 2 Acute hypercapnic respiratory failure secondary to above requiring BiPAP support, recovered 3 History of metastatic non-small cell lung cancer with previous wedge resection of the right lung in October 2017, did receive radiation however declined chemotherapy or immunotherapy 4 Chronic obstructive pulmonary disease with an FEV1 value 42% of predicted 5 Chronic tobacco dependence of greater than 40 years 6 Hypothyroidism 7 Hypertension 8 History of hepatitis C 9 History of sickle cell trait 10 Vitamin D deficiency Plan: The patient was seen and evaluated by Dr. Grossman She is cleared for discharge from the pulmonary standpoint Complete a prednisone taper starting at 40 mg daily for 4 days Continue her home pulmonary medications Complete a course of antibiotics Follow-up in the office in 1-2 weeks' time. I, the cosigning physician, performed a history & physical examination of the patient. Lungs sounds with crackles in the right base, diminished. Maintaining good O2 saturations in the 90s on 3 L/m per nasal cannula. I discussed the assessment and plan of care with my nurse practitioner, Ramona Hernandez. I attest to the above note as dictated by her.
[2020-11-10] MEDS: prednisoLONE ACETATE 1% OPHTH DROPS 5 ML BTL LEFT EYE SCH ×2 (11:35→14:02)
[2020-11-10] MEDS: POTASSIUM CHLORIDE ER 20 MEQ TAB.ER PO SCH ×2 (11:36→12:23)
[2020-11-10 11:40] LABS: Glucose,Whole Blood 251 mg/dL (75-99)
[2020-11-10 11:56] VITALS: PULSE 85
[2020-11-10 14:20] VITALS: BMI 26.2
--- NOTE | 2020-11-10 21:30 | P.PN ---
Progress Note - Text Progress Note Date: 11/10/20 REASON FOR FOLLOWUP: Postobstructive pneumonia. INTERVAL HISTORY: Patient remains to be afebrile. The patient is breathing comfortably. Patient denies any chest pain. The pt cough has decreased in intensity, not sputum. No nausea, vomiting. No abdominal pain or diarrhea. PHYSICAL EXAMINATION: Blood pressure 150/60 with a pulse of 70. Temperature is 98.1. She is 95% on 2 L nasal cannula. General description is an elderly female lying in bed in no distress. Respiratory system: Unlabored breathing, decreased intensity of breath sounds in the base, with no wheeze. Heart S1, S2. Regular rate and rhythm. Abdomen: Soft, no tenderness. LABS: Sputum usual respiratory jen Blood culture has been negative. DIAGNOSTIC IMPRESSION AND PLAN: Patient with postobstructive pneumonia, improved with Zosyn , to finish therapy with oral augmentin 875mg bid x 10 days , discuss with [employer] [employer], Continue supportive care.
--- NOTE | 2020-11-12 06:11 | P.DS ---
Providers Date of admission: 11/04/20 15:01 Expected date of discharge: 11/10/20 Attending physician: Raegan Clark Consults: 11/04/20 14:47 Consult Physician Routine Consulting Provider: Ryan Hernandez Consult Reason/Comments: Fever without clear source Do you want consulting provider notified?: Yes 11/04/20 14:48 Consult Physician Routine Consulting Provider: Modesto Avilez Consult Reason/Comments: Lung cancer Do you want consulting provider notified?: Yes 11/06/20 07:14 Consult Physician Urgent Consulting Provider: Mary Wade Consult Reason/Comments: sob Do you want consulting provider notified?: Yes Primary care physician: Abdiel Ochoa Hospital Course: Final Diagnosis -Fever source unclear possibly of pneumonia. That pneumonia cannot be ruled out. Sputum culture negative -Acute hypoxemic respiratory failure secondary to possible progressing right lung non-small cell lung cancer -Hypovolemic hyponatremia, improved -acute diarrhea -acute renal failure prerenal azotemia acute tubular necrosis secondary to possible infection, improving -Right-sided lung lesion lung cancer for which patient was recently started on chemotherapy. -Type 2 diabetes mellitus -hyperlipidemia -Hypertension -COPD, acute exacerbation. -DVT prophylaxis -GI prophylaxis -NO code Discharge disposition Patient is being discharged in a stable condition with guarded prognosis to home. Patient will follow-up with Dr. Alysia Ochoa in the outpatient setting upon discharge. Patient will also follow up with pulmonary Dr. Grossman and oncology outpatient. Patient to continue on Augmentin bid for one week along with a short prednisone taper. Total time taken is greater than 35 minutes. Hospital course 70-year-old female came in with complains of shortness of breath. Fever chills at home. Patient has been having generalized weakness. Patient was recently started on chemotherapy for lung cancer. Patient is presently not hyponatremic. Patient has related To 126 sodium of 128 urine analysis is not significant for UTI patient had a chest x-ray which is showing moderate to right pleural effusion with some atelectasis possible CT angios the chest is being obtained at this time. This effusion appears to be older. There is a destructive mass involving the chest wall and lateral sixth rib on the right side. Patient was a complaining of cough without any significant sputum production. Patient will be admitted with cefepime and consultation to infectious disease and oncology. 11/07/2020 Patient is seen and evaluated in follow-up on the regular medical floor; son at bedside and reports increased anxiety due to steroid use. She is currently sitting up in bed. Awake and alert in no acute distress. She is still on BiPAP 14/6 and 30% FiO2. Easier today compared to yesterday. We'll trial her on nasal cannula. Blood cultures reveal no growth to date. White count 10.8. Hemoglobin 8.4. Sodium 135. Potassium 4.1. Bicarb 34. Creatinine 1.50 Glucose 172. She remains on bronchodilators, IV Solu-Medrol, Zosyn. Pulmonary service on board and recommending to continue with BiPAP alternating with nasal cannula as tolerated; continue with current treatment plan We will start patient on Ativan 0.5 mg 3 times a day by mouth/IV for anxiety 11/08/2020 Patient seen and evaluated sitting up in bed. She is awake and alert, in no acute distress, she was taken off BiPAP support this morning, she was placed on high flow nasal cannula, currently at 7 L and her pulse ox is 99%, she states she is breathing better, still short of breath with any exertion, no complaints of chest discomfort, sounds are diminished, with no significant wheezing or congestion, no complaints of hemoptysis. Patient is afebrile, blood pressure stable. Her blood and sputum cultures have been negative thus far. She remains on nebulized bronchodilators, she is on IV steroids, and Zosyn. No new chest x- ray today, no new labs today. Patient is sitting up on the edge of the bed, she is getting ready to get washed up. Appears to be in no acute distress. Pulmonary service recommending to continue with IV Zosyn, IV steroids and bronchodilators; BiPAP to be used as needed; plan is to continue to wean FiO2 keeping SpO2 greater than 88-90% Possible discharge in next 24-48 hours if remains stable 11/09/2020 Patient is seen in follow up this morning with no acute overnight issues noted. Patient maintained on 3L 02 via NC and not requiring bipap. Patient continues with IV steroids along with breathing inhalational treatments and IV zosyn with infectious disease, pulmonary, and oncology following. Patient sputum cultures and blood cultures negative. Patient is weak, but refusing rehab stating she is going back home with her son. Anticipate discharge in 24 hours. 11/10/2020 Patient is seen in follow-up with no acute overnight issues noted. Patient is back to baseline on 3L via NC and tolerating well. Patient was seen and evaluated by pulmonary and will follow up outpatient with Dr. Grossman. Patient will continue on Augmentin for one week and a short prednisone taper. Spoke to her son, who is her caregiver and lives with her and requested a nebulizer and humidification for the 02. Patient fills medical supplies at [facility] and prescription provided. Patient denies any further shortness of breath and would like to go home. Currently no reports of chest pain, shortness of breath, or palpitations. Patient is afebrile. No reports of nausea or vomiting and patient is tolerating diet. Patient will be discharged home. GENERAL: The patient is alert and oriented x3, not in any acute distress. Well developed, well nourished. CARDIOVASCULAR: S1 and S2 present. No murmurs, rubs, or gallops. PULMONARY: diminished breath sounds with some mild scattered rhonchi noted. ABDOMEN: Soft, nontender, nondistended, normoactive bowel sounds. No palpable organomegaly. MUSCULOSKELETAL: No joint swelling or deformity. EXTREMITIES: No cyanosis, clubbing, or pedal edema. NEUROLOGICAL: Gross neurological examination did not reveal any focal deficits. SKIN: No rashes. On exam vital signs are stable. Cardio S1, S2 are muffled. Respiratory system shows diminished breath sounds at the bases with no wheezing or rhonchi noted. Abdomen is soft and nontender. Nervous system shows no focal deficits. Please refer to medication reconciliation sheet for a list of medications. Patient Condition at Discharge: Fair Plan - Discharge Summary New Discharge Prescriptions: New Amoxic-Pot Clav 875-125Mg [Augmentin 875-125] 1 tab PO Q12HR 7 Days #14 tab Ipratropium-Albuterol Nebulize [Duoneb 0.5 mg-3 mg/3 ml Soln] 3 ml INHALATION RT-QID ml predniSONE 10 mg PO DIRECTED #20 tab Loperamide [Imodium] 2 mg PO QID PRN #60 cap PRN Reason: Diarrhea Famotidine [Pepcid] 20 mg PO DAILY #30 tab Continue Levothyroxine Sodium [Synthroid] 50 mcg PO DAILY Albuterol Sulfate [Ventolin HFA] 2 puff INHALATION RT-QID PRN PRN Reason: Wheezing Nitroglycerin Sl Tabs [Nitrostat] 0.4 mg SL Q5M PRN PRN Reason: Chest Pain metFORMIN HCL [Glucophage] 1,000 mg PO BID hydrOXYzine HCL [Atarax] 25 mg PO BID Diltiazem HCl [Cartia Xt] 300 mg PO DAILY Allibiotic Cf 1 cap PO DAILY ondansetron HCL [Zofran] 8 mg PO Q6H PRN PRN Reason: Nausea Nystatin 100,000 Unit/ml Susp [Mycostatin Oral Susp] 4 ml PO QID Folic Acid 1 mg PO DAILY prednisoLONE ACETATE 1% OPHTH [Pred Forte 1%] 1 drop LEFT EYE QID Pioglitazone [Actos] 15 mg PO DAILY Ergocalciferol (Vitamin D2) [Drisdol (50,000 Iu)] 1,250 mcg PO SA Montelukast Sodium [Singulair] 10 mg PO HS Metoprolol Succinate (ER) [Toprol XL] 50 mg PO DAILY HYDROcodone/APAP 10-325MG [[place] 10-325] 1 tab PO TID PRN PRN Reason: Pain Atorvastatin Calcium [Lipitor] 40 mg PO HS Lidocaine-Prilocaine Cream [Emla Cream 2.5%/2.5%] 1 applic TOPICAL DIRECTED PRN PRN Reason: PORT ACCESS Discontinued Losartan [Cozaar] 50 mg PO DAILY Discharge Medication List Levothyroxine Sodium [Synthroid] 50 mcg PO DAILY 03/11/14 [History] Albuterol Sulfate [Ventolin HFA] 2 puff INHALATION RT-QID PRN 03/12/14 [History] Nitroglycerin Sl Tabs [Nitrostat] 0.4 mg SL Q5M PRN 06/25/15 [History] Allibiotic Cf 1 cap PO DAILY 09/15/20 [History] Atorvastatin Calcium [Lipitor] 40 mg PO HS 09/15/20 [History] Diltiazem HCl [Cartia Xt] 300 mg PO DAILY 09/15/20 [History] Ergocalciferol (Vitamin D2) [Drisdol (50,000 Iu)] 1,250 mcg PO SA 09/15/20 [History] HYDROcodone/APAP 10-325MG [[place] 10-325] 1 tab PO TID PRN 09/15/20 [History] Metoprolol Succinate (ER) [Toprol XL] 50 mg PO DAILY 09/15/20 [History] Montelukast Sodium [Singulair] 10 mg PO HS 09/15/20 [History] Pioglitazone [Actos] 15 mg PO DAILY 09/15/20 [History] hydrOXYzine HCL [Atarax] 25 mg PO BID 09/15/20 [History] metFORMIN HCL [Glucophage] 1,000 mg PO BID 09/15/20 [History] prednisoLONE ACETATE 1% OPHTH [Pred Forte 1%] 1 drop LEFT EYE QID 09/15/20 [History] Folic Acid 1 mg PO DAILY 11/04/20 [History] Lidocaine-Prilocaine Cream [Emla Cream 2.5%/2.5%] 1 applic TOPICAL DIRECTED PRN 11/04/20 [History] Nystatin 100,000 Unit/ml Susp [Mycostatin Oral Susp] 4 ml PO QID 11/04/20 [History] ondansetron HCL [Zofran] 8 mg PO Q6H PRN 11/04/20 [History] Amoxic-Pot Clav 875-125Mg [Augmentin 875-125] 1 tab PO Q12HR 7 Days #14 tab 11/10/20 [Rx] Famotidine [Pepcid] 20 mg PO DAILY #30 tab 11/10/20 [Rx] Ipratropium-Albuterol Nebulize [Duoneb 0.5 mg-3 mg/3 ml Soln] 3 ml INHALATION RT-QID ml 11/10/20 [Rx] Loperamide [Imodium] 2 mg PO QID PRN #60 cap 11/10/20 [Rx] predniSONE 10 mg PO DIRECTED #20 tab 11/10/20 [Rx] Follow up Appointment(s)/Referral(s): Barrie Grossman DO [Doctor of Osteopathic Medicine] - 11/27/20 1:30 pm Abdiel Ochoa DO [Primary Care Provider] - 1-2 days Patient Instructions/Handouts: How to Use a Nebulizer (DC), Bacterial Pneumonia (DC), Dyspnea (ED) Activity/Diet/Wound Care/Special Instructions: Patient requires a nebulizer to manage her COPD at home. Patient is going on Duonebs QID. Activity Limited until follow-up Follow-up with pulmonary outpatient follow up with oncology outpatient Follow-up with primary care provider upon discharge Continue with breathing treatments Continue with short prednisone taper Discussed with [facility] about humidification Continue with Imodium as needed for diarrhea hold if formed stool Discharge Disposition: HOME WITH HOME HEALTH SERVICES
== END 2020-11-10 15:03 | disposition home health service (06) | DRG 871 ==
LOC: EC 10:06 → 5NMEDONC 15:01 → 4SSUR 15:43
PROVIDERS: ADMIT Internal Medicine; ATTEND Internal Medicine
PROC: 5A09557 Assistance with Respiratory Ventilation, Greater than 96 Consecutive Hours, Continuous Positive Airway Pressure (ICD-10-PCS; principal; 2020-11-06)
DX: A41.9 Sepsis, unspecified organism (principal); N17.0 Acute kidney failure with tubular necrosis; J96.21 Acute and chronic respiratory failure with hypoxia; J96.22 Acute and chronic respiratory failure with hypercapnia; J18.9 Pneumonia, unspecified organism; C34.2 Malignant neoplasm of middle lobe, bronchus or lung; C34.91 Malignant neoplasm of unspecified part of right bronchus or lung; Z66 Do not resuscitate; J44.0 Chronic obstructive pulmonary disease with (acute) lower respiratory infection; J44.1 Chronic obstructive pulmonary disease with (acute) exacerbation; J90 Pleural effusion, not elsewhere classified; E87.1 Hypo-osmolality and hyponatremia; J98.11 Atelectasis; Z20.822 Contact with and (suspected) exposure to COVID-19; D57.3 Sickle-cell trait; E03.9 Hypothyroidism, unspecified; E11.9 Type 2 diabetes mellitus without complications; E78.5 Hyperlipidemia, unspecified; M19.90 Unspecified osteoarthritis, unspecified site; R26.2 Difficulty in walking, not elsewhere classified; E86.1 Hypovolemia; B18.2 Chronic viral hepatitis C; E55.9 Vitamin D deficiency, unspecified; R32 Unspecified urinary incontinence; Z99.81 Dependence on supplemental oxygen; Z79.84 Long term (current) use of oral hypoglycemic drugs; Z79.890 Hormone replacement therapy; Z79.899 Other long term (current) drug therapy; Z80.9 Family history of malignant neoplasm, unspecified; Z85.118 Personal history of other malignant neoplasm of bronchus and lung; Z92.3 Personal history of irradiation; F17.200 Nicotine dependence, unspecified, uncomplicated; F41.9 Anxiety disorder, unspecified; I10 Essential (primary) hypertension; D64.81 Anemia due to antineoplastic chemotherapy; T45.1X5A Adverse effect of antineoplastic and immunosuppressive drugs, initial encounter
CPT/HCPCS: 36415; 36600; 71045; 71046; 71275; 76604; 80048; 80053; 81001; 82805; 83605; 83615; 84145; 85025; 85027; 85610; 85730; 86140; 87040; 87070; 87205; 87635; 93005; 94640; 94660; 94760

== ENCOUNTER 2020-12-18 09:45 | Inpatient (IN) | payer MEDICARE, OTHER ==
[2020-12-18] MEDS ORDERED: IPRATROPIUM-ALBUTEROL 3 ML NEB INHALATION STA (10:06)
[2020-12-18] MEDS ORDERED: ACETAMINOPHEN TAB 500 MG TAB PO STA (10:07)
--- NOTE | 2020-12-18 10:11 | ED ---
General Adult HPI - General Chief complaint: Shortness of Breath Stated complaint: fever, SOB Time Seen by Provider: 12/18/20 09:58 Source: patient Mode of arrival: wheelchair Limitations: physical limitation - History of Present Illness Initial comments: 70-year-old female with a past medical history of COPD, stage IV lung cancer, diabetes mellitus, hyperlipidemia, hypertension, COPD presents to the emergency room for a chief, and shortness of breath. Patient started to develop shortness of breath yesterday. Patient states she needed a blood transfusion about a week ago and states it kind of started then but worsened yesterday. Patient denies fevers. Patient denies cough. Patient last received chemotherapy last month she believes. She was supposed to get it again today but her blood pressure was high so she was sent here. Patient has no other complaints at this time including shortness of breath, chest pain, abdominal pain, nausea or vomiting, headache, or visual changes. - Related Data Home Medications Medication Instructions Recorded Confirmed Levothyroxine Sodium [Synthroid] 50 mcg PO DAILY 03/11/14 12/11/20 Albuterol Sulfate [Ventolin HFA] 2 puff INHALATION RT-QID PRN 03/12/14 12/11/20 Nitroglycerin Sl Tabs [Nitrostat] 0.4 mg SL Q5M PRN 06/25/15 12/11/20 Allibiotic Cf 1 cap PO DAILY 09/15/20 12/11/20 Atorvastatin Calcium [Lipitor] 40 mg PO HS 09/15/20 12/11/20 Diltiazem HCl [Cartia Xt] 300 mg PO DAILY 09/15/20 12/11/20 Ergocalciferol (Vitamin D2) 1,250 mcg PO SA 09/15/20 12/11/20 [Drisdol (50,000 Iu)] HYDROcodone/APAP 10-325MG [[place] 1 tab PO TID PRN 09/15/20 12/11/20 10-325] Metoprolol Succinate (ER) [Toprol 50 mg PO DAILY 09/15/20 12/11/20 XL] Montelukast Sodium [Singulair] 10 mg PO HS 09/15/20 12/11/20 Pioglitazone [Actos] 15 mg PO DAILY 09/15/20 12/11/20 hydrOXYzine HCL [Atarax] 25 mg PO BID 09/15/20 12/11/20 metFORMIN HCL [Glucophage] 1,000 mg PO BID 09/15/20 12/11/20 prednisoLONE ACETATE 1% OPHTH 1 drop LEFT EYE QID 09/15/20 12/11/20 [Pred Forte 1%] Folic Acid 1 mg PO DAILY 11/04/20 12/11/20 Lidocaine-Prilocaine Cream [Emla 1 applic TOPICAL DIRECTED PRN 11/04/20 12/11/20 Cream 2.5%/2.5%] Nystatin 100,000 Unit/ml Susp 4 ml PO QID 11/04/20 12/11/20 [Mycostatin Oral Susp] ondansetron HCL [Zofran] 8 mg PO Q6H PRN 11/04/20 12/11/20 Previous Rx's Medication Instructions Recorded Amoxic-Pot Clav 875-125Mg 1 tab PO Q12HR 7 Days #14 tab 11/10/20 [Augmentin 875-125] Famotidine [Pepcid] 20 mg PO DAILY #30 tab 11/10/20 Ipratropium-Albuterol Nebulize 3 ml INHALATION RT-QID ml 11/10/20 [Duoneb 0.5 mg-3 mg/3 ml Soln] Loperamide [Imodium] 2 mg PO QID PRN #60 cap 11/10/20 predniSONE 10 mg PO DIRECTED #20 tab 11/10/20 Allergies Allergy/AdvReac Type Severity Reaction Status Date / Time No Known Allergies Allergy Verified 12/18/20 09:51 Review of Systems ROS Statement: Those systems with pertinent positive or pertinent negative responses have been documented in the HPI. ROS Other: All systems not noted in ROS Statement are negative. Past Medical History Past Medical History: Cancer, COPD, Diabetes Mellitus, Hyperlipidemia, Hypertension, Osteoarthritis (OA), Respiratory Disorder, Thyroid Disorder Additional Past Medical History / Comment(s): sickle cell traits, unable to walk any distance, SOB, Stage 4 lung cancer- completed radiation, currently getting chemo, wears 3L oxygen at home History of Any Multi-Drug Resistant Organisms: None Reported Past Surgical History: Tubal Ligation Additional Past Surgical History / Comment(s): bilateral cataracts, Navigational Bronchoscopy (08/03/17), LUNG RESECTION Past Anesthesia/Blood Transfusion Reactions: No Reported Reaction Additional Past Anesthesia/Blood Transfusion Reaction / Comment(s): no problems with prior blood transfusion Past Psychological History: Anxiety Smoking Status: Former smoker Past Alcohol Use History: None Reported Past Drug Use History: None Reported - Past Family History Mother Family Medical History: Cancer Additional Family Medical History / Comment(s): Unknown type of cancer. Father Family Medical History: Cancer Additional Family Medical History / Comment(s): Unknown type of cancer. General Exam Limitations: physical limitation General appearance: alert, in no apparent distress Head exam: Present: atraumatic Eye exam: Present: normal appearance, PERRL, EOMI. Absent: scleral icterus, conjunctival injection ENT exam: Present: normal exam, mucous membranes moist Neck exam: Present: normal inspection, full ROM. Absent: tenderness Respiratory exam: Present: other (L lung clear, R lung diminished). Absent: wheezes Cardiovascular Exam: Present: regular rate, normal rhythm, normal heart sounds GI/Abdominal exam: Present: soft, normal bowel sounds. Absent: distended, tenderness Neurological exam: Present: alert Course Vital Signs 12/18/20 12/18/20 12/18/20 09:45 10:24 10:56 Temperature 99.5 F Pulse Rate 134 H 120 H Respiratory 30 H 28 H Rate Blood Pressure 156/82 O2 Sat by Pulse 93 L Oximetry 12/18/20 12/18/20 12/18/20 11:00 11:05 12:00 Temperature Pulse Rate 118 H 124 H 107 H Respiratory 22 20 Rate Blood Pressure 142/91 143/85 O2 Sat by Pulse 100 98 Oximetry EKG Findings - EKG Comments: EKG Findings:: Sinus tachycardia, ventricular rate 130, ME interval 120, QTC 473 Medical Decision Making - Medical Decision Making 70-year-old female with a possible history of stage IV lung cancer on chemotherapy with last treatment today presents for dyspnea. Patient initially hypoxic at 93% on 3 L nasal cannula which is what she wears at home. Tachycardic and tachypneic. EKG showed a sinus tachycardia similar to previous EKG. CBC was obtained which did show significant cytosis with a left shift of 22.2. CMP unremarkable. CT chest shows mass versus consolidation right lower lobe with small adjacent plural effusion. Patient will be treated with broad- spectrum antibiotics and admitted. Blood cultures and urinalysis pending. - Lab Data Result diagrams: 12/18/20 10:36 12/18/20 10:36 Lab Results 12/18/20 12/18/20 12/18/20 Range/Units 10:36 10:36 10:36 WBC 22.2 H (3.8-10.6) k/uL RBC 3.30 L (3.80-5.40) m/uL Hgb 9.6 L (11.4-16.0) gm/dL Hct 29.4 L (34.0-46.0) % MCV 89.2 (80.0-100.0) fL MCH 29.0 (25.0-35.0) pg MCHC 32.5 (31.0-37.0) g/dL RDW 16.8 H (11.5-15.5) % Plt Count 394 (150-450) k/uL MPV 7.9 Neutrophils % 84 % Lymphocytes % 6 % Monocytes % 6 % Eosinophils % 0 % Basophils % 0 % Neutrophils # 18.6 H (1.3-7.7) k/uL Lymphocytes # 1.3 (1.0-4.8) k/uL Monocytes # 1.4 H (0-1.0) k/uL Eosinophils # 0.0 (0-0.7) k/uL Basophils # 0.1 (0-0.2) k/uL Hypochromasia Slight Anisocytosis Slight PT 12.0 (9.0-12.0) sec INR 1.2 H (<1.2) APTT 24.7 (22.0-30.0) sec Sodium 133 L (137-145) mmol/L Potassium 3.8 (3.5-5.1) mmol/L Chloride 96 L (98-107) mmol/L Carbon Dioxide 29 (22-30) mmol/L Anion Gap 8 mmol/L BUN 18 H (7-17) mg/dL Creatinine 1.02 (0.52-1.04) mg/dL Est GFR (CKD-EPI)AfAm 64 (>60 ml/min/1.73 sqM) Est GFR (CKD-EPI)NonAf 56 (>60 ml/min/1.73 sqM) Glucose 156 H (74-99) mg/dL Plasma Lactic Acid Rakesh (0.7-2.0) mmol/L Calcium 10.5 H (8.4-10.2) mg/dL Total Bilirubin 0.8 (0.2-1.3) mg/dL AST 88 H (14-36) U/L ALT 49 H (4-34) U/L Alkaline Phosphatase 77 (38-126) U/L Troponin I (0.000-0.034) ng/mL NT-Pro-B Natriuret Pep pg/mL Total Protein 7.8 (6.3-8.2) g/dL Albumin 3.5 (3.5-5.0) g/dL Coronavirus (PCR) (Not Detectd) 12/18/20 12/18/20 12/18/20 Range/Units 10:36 10:36 10:36 WBC (3.8-10.6) k/uL RBC (3.80-5.40) m/uL Hgb (11.4-16.0) gm/dL Hct (34.0-46.0) % MCV (80.0-100.0) fL MCH (25.0-35.0) pg MCHC (31.0-37.0) g/dL RDW (11.5-15.5) % Plt Count (150-450) k/uL MPV Neutrophils % % Lymphocytes % % Monocytes % % Eosinophils % % Basophils % % Neutrophils # (1.3-7.7) k/uL Lymphocytes # (1.0-4.8) k/uL Monocytes # (0-1.0) k/uL Eosinophils # (0-0.7) k/uL Basophils # (0-0.2) k/uL Hypochromasia Anisocytosis PT (9.0-12.0) sec INR (<1.2) APTT (22.0-30.0) sec Sodium (137-145) mmol/L Potassium (3.5-5.1) mmol/L Chloride (98-107) mmol/L Carbon Dioxide (22-30) mmol/L Anion Gap mmol/L BUN (7-17) mg/dL Creatinine (0.52-1.04) mg/dL Est GFR (CKD-EPI)AfAm (>60 ml/min/1.73 sqM) Est GFR (CKD-EPI)NonAf (>60 ml/min/1.73 sqM) Glucose (74-99) mg/dL Plasma Lactic Acid Rakesh 0.8 (0.7-2.0) mmol/L Calcium (8.4-10.2) mg/dL Total Bilirubin (0.2-1.3) mg/dL AST (14-36) U/L ALT (4-34) U/L Alkaline Phosphatase (38-126) U/L Troponin I <0.012 (0.000-0.034) ng/mL NT-Pro-B Natriuret Pep 452 pg/mL Total Protein (6.3-8.2) g/dL Albumin (3.5-5.0) g/dL Coronavirus (PCR) (Not Detectd) 12/18/20 Range/Units 10:37 WBC (3.8-10.6) k/uL RBC (3.80-5.40) m/uL Hgb (11.4-16.0) gm/dL Hct (34.0-46.0) % MCV (80.0-100.0) fL MCH (25.0-35.0) pg MCHC (31.0-37.0) g/dL RDW (11.5-15.5) % Plt Count (150-450) k/uL MPV Neutrophils % % Lymphocytes % % Monocytes % % Eosinophils % % Basophils % % Neutrophils # (1.3-7.7) k/uL Lymphocytes # (1.0-4.8) k/uL Monocytes # (0-1.0) k/uL Eosinophils # (0-0.7) k/uL Basophils # (0-0.2) k/uL Hypochromasia Anisocytosis PT (9.0-12.0) sec INR (<1.2) APTT (22.0-30.0) sec Sodium (137-145) mmol/L Potassium (3.5-5.1) mmol/L Chloride (98-107) mmol/L Carbon Dioxide (22-30) mmol/L Anion Gap mmol/L BUN (7-17) mg/dL Creatinine (0.52-1.04) mg/dL Est GFR (CKD-EPI)AfAm (>60 ml/min/1.73 sqM) Est GFR (CKD-EPI)NonAf (>60 ml/min/1.73 sqM) Glucose (74-99) mg/dL Plasma Lactic Acid Rakesh (0.7-2.0) mmol/L Calcium (8.4-10.2) mg/dL Total Bilirubin (0.2-1.3) mg/dL AST (14-36) U/L ALT (4-34) U/L Alkaline Phosphatase (38-126) U/L Troponin I (0.000-0.034) ng/mL NT-Pro-B Natriuret Pep pg/mL Total Protein (6.3-8.2) g/dL Albumin (3.5-5.0) g/dL Coronavirus (PCR) Not Detected (Not Detectd) Disposition Clinical Impression: Dyspnea, Lung consolidation, Leukocytosis Disposition: ADMITTED IP TO THIS HOSP Referrals: Abdiel Ochoa DO [Primary Care Provider] - 1-2 days Time of Disposition: 12:31
--- NOTE | 2020-12-18 10:30 | XR ---
EXAMINATION TYPE: XR chest 1V portable DATE OF EXAM: 12/18/2020 COMPARISON: 11/06/2020 INDICATION: Cough fever short of breath TECHNIQUE: Single frontal view of the chest is obtained. FINDINGS: The heart size is normal. The pulmonary vasculature is normal. There is a moderate right pleural effusion. Port is on the left with the tip in the superior vena cav a region. Previous lateral right 6th rib abnormality is not clearly identified on the current exam IMPRESSION: 1. Moderate right pleural effusion. 2. Poorly visualized known 6th right lateral rib abnormality.
[2020-12-18 10:46] LABS: Anisocytosis Slight; Basophils # (A) 0.1 k/uL (0-0.2); Basophils % (A) 0 %; Eosinophils % (A) 0 %; HCT 29.4 % (34.0-46.0); HGB 9.6 gm/dL (11.4-16.0); Hypochromasia Slight; Lymphocytes # (A) 1.3 k/uL (1.0-4.8); Lymphocytes % (A) 6 %; MCHC 32.5 g/dL (31.0-37.0); MCV 89.2 fL (80.0-100.0); Mean Platelet Volume 7.9; Monocytes # (A) 1.4 k/uL (0-1.0); Monocytes % (A) 6 %; Neutrophils # (A) 18.6 k/uL (1.3-7.7); Neutrophils % (A) 84 %; Platelet Count 394 k/uL (150-450); RDW 16.8 % (11.5-15.5); WBC 22.2 k/uL (3.8-10.6)
[2020-12-18 10:55] LABS: INR 1.2 (<1.2); Partial Thromboplastin Time 24.7 sec (22.0-30.0)
[2020-12-18 10:59] LABS: Albumin 3.5 g/dL (3.5-5.0); Calcium 10.5 mg/dL (8.4-10.2); Potassium 3.8 mmol/L (3.5-5.1); Total Bilirubin 0.8 mg/dL (0.2-1.3); Total Protein 7.8 g/dL (6.3-8.2)
--- NOTE | 2020-12-18 11:57 | CT ---
CT CHEST FOR PULMONARY EMBOLISM. EXAMINATION TYPE: CT chest angio for PE DATE OF EXAM: 12/18/2020 INDICATION: Dyspnea CT DLP: 241.9 mGycm, Automated exposure control for dose reduction was used. CONTRAST: Patient injected with 100 ml mL of Isovue 370. COMPARISON: 06/25/2015 TECHNIQUE: CT of the chest is performed on a spiral scan at 2 mm thick sections. Study is performed with intravenous contrast timed for evaluation for pulmonary embolism. This will limit additional po rtions of the evaluation. 3-D MIP images reconstructed by the technologist are reviewed on the compu ter in the coronal and sagittal planes. FINDINGS: No persistent filling defects are evident to suggest an acute pulmonary embolism. No mediastinal or hilar adenopathy enlarged by CT criteria is evident. The ascending aorta diameter at the level of the main pulmonary artery is 3.7 cm. The main pulmonary artery diameter at the bifur cation is 3.3 cm. There is a consolidation or mass right lower lobe. Large expansile lesions within the chest wall righ t rib with a depth of 3.7 cm. This is an interval finding. Pleural-based density is along the right m iddle lobe and 1.3 x 0.9 cm. Series 401 image 77. Small right pleural fluid collection is present. Limited CT section through the upper abdomen are unremarkable. IMPRESSIONS: 1. Mass versus consolidation right lower lobe with a small adjacent pleural effusion. 2. Mass within the right lateral rib and chest wall. 3. Small pleural-based density lower right middle lobe. 4. Workup for neoplasm is recommended. 5. No acute pulmonary embolism.
[2020-12-18] MEDS ORDERED: SODIUM CHLORIDE 0.9% 500 ML 500 ML IV SCH (12:15)
[2020-12-18] MEDS ORDERED: CEFEPIME 2 GM in SODIUM CHLORIDE 0.9% 100 ML IVPB STA (12:26)
[2020-12-18] MEDS ORDERED: VANCOMYCIN IV PER PHARMACY 1 EACH MISC MISCELLANE PRN (12:26)
[2020-12-18] MEDS ORDERED: AZITHROMYCIN 500 MG in SODIUM CHLORIDE 0.9% 250 ML IVPB STA (12:26)
[2020-12-18] MEDS ORDERED: NALOXONE 0.4 MG/ML 1 ML VIAL IV PRN (12:27)
[2020-12-18] MEDS ORDERED: VANCOMYCIN 1,000 MG in SODIUM CHLORIDE 0.9% 250 ML IVPB STA (12:30)
[2020-12-18] MEDS: SODIUM CHLORIDE 0.9% 1,000 ML IV SCH (13:13)
[2020-12-18 14:02] LABS: Appearance,Urine Cloudy (Clear); Bacteria,Urine Rare /hpf; Bilirubin,Urine Negative (Negative); Blood,Urine Negative (Negative); Color,Urine Yellow; Glucose,Urine (UA) Negative (Negative); Ketones,Urine 1+ (Negative); Leukocyte Esterase,Urine Moderate (Negative); Mucus,Urine Rare /hpf; Nitrite,Urine Negative (Negative); Protein,Urine 2+ (Negative); RBC,Urine 1 /hpf (0-5); Specific Gravity,Urine 1.015 (1.001-1.035); Squamous Epithelial Cell,Urine 5 /hpf (0-4); Urobilinogen,Urine <2.0 mg/dL (<2.0); WBC,Urine 16 /hpf (0-5)
[2020-12-18] MEDS ORDERED: IPRATROPIUM-ALBUTEROL 3 ML NEB INHALATION PRN (14:11)
--- NOTE | 2020-12-18 14:11 | P.CNPUL ---
History of Present Illness Consult date: 12/18/20 Requesting physician: Tuan Ross Reason for consult: dyspnea, abnormal CXR/CT Chief complaint: Shortness of breath History of present illness: This is a very pleasant 70-year-old female patient with a history of sickle cell trait, chronic hepatitis C, hypertension, hypothyroidism, vitamin D deficiency, chronic obstructive pulmonary disease with an FEV1 value of 42% of predicted. She also has a history of non-small cell lung cancer with previous wedge resection in 2018 in the right lung. Recently she had been noted to have progression of her disease. CAT scan from September 2020 revealed extensive consolidation in the right lower lobe with obstruction of the right lower lobe bronchus probably due to tumor mass at the right pulmonary hilum. This is new consolidation. There is a new nodular density in the anterior right upper lobe adjacent to the chest wall that could relate tumor. There is a large area of distruction involving the lateral right rib measuring 5 x 3 cm and consistent with metastatic disease. She is currently receiving chemotherapy and immunotherapy. She was at the [facility] for her third treatment today however she was having complaints of shortness of breath, she was hypotensive, febrile. She was referred here to the emergency room for the same. Sensory reveals a moderate right pleural effusion. Poorly visualized known [address] angiogram revealed mass versus consolidation in the right lower lobe with small adjacent pleural effusion. Mass within the right lateral rib and chest wall. Small pleural-based density of the right middle lobe. No acute pulmonary embolism. White count 22.2. Hemoglobin 9.6. INR 1.2. Sodium 133. Potassium 3.8. Creatinine 1.02. Glucose 156. Troponin negative 1. ProBNP 452. Maloney virus not detected. She is vaccinated. She is seen today in consultation in the emergency room. She is currently sitting up on the stretcher. Awake and alert in no acute distress. Maintaining good O2 saturations in the upper 90s on 3 L/m per nasal cannula. Slightly tachycardic. Temperature 99.5. She was initiated on 0.9 normal saline at 75 ML's per hour and given cefepime and azithromycin. Review of Systems REVIEW OF SYSTEMS: CONSTITUTIONAL: Denies any recent significant weight loss or weight gain. EYES: Denies change in vision. EARS, NOSE, MOUTH, THROAT: Denies headaches, denies sore throat. CARDIOVASCULAR: Denies chest pain, palpitations or syncopal episodes. RESPIRATORY: Positive for shortness of breath, cough, congestion no hemoptysis. GASTROINTESTINAL: Denies change in appetite, denies abdominal pain GENITOURINARY: Denies hematuria, denies infections. MUSKULOSKELETAL: Denies pain, denies swelling. INTEGUMENTARY: Denies rash, denies eczema. NEUROLOGICAL: Denies recent memory loss, no recent seizure activity. PSYCHIATRIC: Denies anxiety, denies depression. HEMATOLOGIC/LYMPHATIC: Denies anemia, denies enlarged lymph nodes. Past Medical History Past Medical History: Cancer, COPD, Diabetes Mellitus, Hyperlipidemia, Hypertension, Osteoarthritis (OA), Respiratory Disorder, Thyroid Disorder Additional Past Medical History / Comment(s): sickle cell traits, unable to walk any distance, SOB, Stage 4 lung cancer- completed radiation, currently getting chemo, wears 3L oxygen at home History of Any Multi-Drug Resistant Organisms: None Reported Past Surgical History: Tubal Ligation Additional Past Surgical History / Comment(s): bilateral cataracts, Navigational Bronchoscopy (08/03/17), LUNG RESECTION Past Anesthesia/Blood Transfusion Reactions: No Reported Reaction Additional Past Anesthesia/Blood Transfusion Reaction / Comment(s): no problems with prior blood transfusion Past Psychological History: Anxiety Smoking Status: Former smoker Past Alcohol Use History: None Reported Past Drug Use History: None Reported - Past Family History Mother Family Medical History: Cancer Additional Family Medical History / Comment(s): Unknown type of cancer. Father Family Medical History: Cancer Additional Family Medical History / Comment(s): Unknown type of cancer. Medications and Allergies Home Medications Medication Instructions Recorded Confirmed Type Levothyroxine Sodium [Synthroid] 50 mcg PO DAILY 03/11/14 12/18/20 History Albuterol Sulfate [Ventolin HFA] 2 puff INHALATION RT-QID PRN 03/12/14 12/18/20 History Nitroglycerin Sl Tabs [Nitrostat] 0.4 mg SL Q5M PRN 06/25/15 12/18/20 History Allibiotic Cf 1 cap PO DAILY 09/15/20 12/18/20 History Atorvastatin Calcium [Lipitor] 40 mg PO HS 09/15/20 12/18/20 History Diltiazem HCl [Cartia Xt] 300 mg PO DAILY 09/15/20 12/18/20 History Ergocalciferol (Vitamin D2) 1,250 mcg PO SA 09/15/20 12/18/20 History [Drisdol (50,000 Iu)] HYDROcodone/APAP 10-325MG [[place] 1 tab PO TID PRN 09/15/20 12/18/20 History 10-325] Metoprolol Succinate (ER) [Toprol 50 mg PO DAILY 09/15/20 12/18/20 History XL] Montelukast Sodium [Singulair] 10 mg PO HS 09/15/20 12/18/20 History Pioglitazone [Actos] 15 mg PO DAILY 09/15/20 12/18/20 History hydrOXYzine HCL [Atarax] 25 mg PO BID 09/15/20 12/18/20 History metFORMIN HCL [Glucophage] 1,000 mg PO BID 09/15/20 12/18/20 History prednisoLONE ACETATE 1% OPHTH 1 drop LEFT EYE QID 09/15/20 12/18/20 History [Pred Forte 1%] Folic Acid 1 mg PO DAILY 11/04/20 12/18/20 History Lidocaine-Prilocaine Cream [Emla 1 applic TOPICAL DIRECTED PRN 11/04/20 12/18/20 History Cream 2.5%/2.5%] Nystatin 100,000 Unit/ml Susp 4 ml PO QID 11/04/20 12/18/20 History [Mycostatin Oral Susp] ondansetron HCL [Zofran] 8 mg PO Q6H PRN 11/04/20 12/18/20 History Famotidine [Pepcid] 20 mg PO DAILY #30 tab 11/10/20 12/18/20 Rx Loperamide [Imodium] 2 mg PO QID PRN #60 cap 11/10/20 12/18/20 Rx Losartan Potassium 50 mg PO DAILY 12/18/20 12/18/20 History Allergies Allergy/AdvReac Type Severity Reaction Status Date / Time No Known Allergies Allergy Verified 12/18/20 12:34 Physical Exam Vitals: Vital Signs Temp Pulse Resp BP Pulse Ox 12/18/20 12:00 107 H 20 143/85 98 12/18/20 11:05 124 H 12/18/20 11:00 118 H 22 142/91 100 12/18/20 10:56 120 H 12/18/20 10:24 28 H 12/18/20 09:45 99.5 F 134 H 30 H 156/82 93 L Intake and Output 12/17/20 12/18/20 12/18/20 22:59 06:59 14:59 Other: Weight 58.967 kg GENERAL EXAM: Alert, weak, 70-year-old female, on 3 L nasal cannula, fairly comfortable in no apparent distress. HEAD: Normocephalic. EYES: Normal reaction of pupils, equal size. NOSE: Clear with pink turbinates. THROAT: No erythema or exudates. NECK: No masses, no JVD. CHEST: No chest wall deformity. LUNGS: Equal air entry with crackles in the right lung base, diminished. CVS: S1 and S2 normal with no audible murmur, regular rhythm. ABDOMEN: No hepatosplenomegaly, normal bowel sounds, no guarding or rigidity. SPINE: No scoliosis or deformity SKIN: No rashes CENTRAL NERVOUS SYSTEM: No focal deficits, tone is normal in all 4 extremities. EXTREMITIES: There is no peripheral edema. No clubbing, no cyanosis. Peripheral pulses are intact. Results - Laboratory Findings CBC and BMP: 12/18/20 10:36 12/18/20 10:36 PT/INR, D-dimer PT 12.0 sec (9.0-12.0) 12/18/20 10:36 INR 1.2 (<1.2) H 12/18/20 10:36 Abnormal lab findings: Abnormal Labs 12/18/20 12/18/20 12/18/20 10:36 10:36 10:36 WBC 22.2 H RBC 3.30 L Hgb 9.6 L Hct 29.4 L RDW 16.8 H Neutrophils # 18.6 H Monocytes # 1.4 H INR 1.2 H Sodium 133 L Chloride 96 L BUN 18 H Glucose 156 H Calcium 10.5 H AST 88 H ALT 49 H - Diagnostic Findings Chest x-ray: image reviewed CT scan - chest: image reviewed Assessment and Plan Assessment: 1 Acute febrile illness and hypotension prior to receiving her third round of chemotherapy/immunotherapy today at the [facility], referred here for evauation 2 Acute on chronic hypoxemic respiratory failure secondary to progressing right lung non-small cell lung cancer and possible postobstructive. COVID-19 screen negative 3 Leukocytosis 4 History of metastatic non-small cell lung cancer with previous wedge resection of the right lung in October 2017, did receive radiation however declined chemotherapy or immunotherapy 5 Chronic obstructive pulmonary disease with an FEV1 value 42% of predicted 6 Chronic tobacco dependence of greater than 40 years 7 Hypothyroidism 8 Hypertension 9 History of hepatitis C 10 History of sickle cell trait 11 Vitamin D deficiency Plan: The patient was seen and evaluated by Dr. Wade Chest x-ray, CAT scans and labs all reviewed Received ceftriaxone and azithromycin x 1, vancomycin had been ordered Add bronchodilators Add incentive spirometer We will continue to follow and make further recommendations based on her clinical status I, the cosigning physician, performed a history & physical examination of the patient. Lungs sounds with crackles in the right lung base, diminished. Maintaining good O2 saturations in the 90s on 3 L/m per nasal cannula. I discussed the assessment and plan of care with my nurse practitioner, Ramona Hernandez. I attest to the above consultation as dictated by her. Time with Patient: Greater than 30
[2020-12-18] MEDS: IPRATROPIUM-ALBUTEROL 3 ML NEB INHALATION SCH ×2 (15:44→19:51)
--- NOTE | 2020-12-18 15:58 | P.CONS ---
History of Present Illness - Reason for Consult Consult date: 12/18/20 chemo, fever Requesting physician: Huseyin Nuñez - Chief Complaint fever - History of Present Illness Mrs. Sellers is a very pleasant female who was initially diagnosed with RML lung cancer in 2017, treated with wedge resection, pathology revealed pT3 (2 separate nodules),largest 1.8 cm, invasive adenocarcinoma, no regional lymph node evaluation. She received no additional adjuvant therapy at this time and she was monitored by serial scan. She did well until CT scan of chest November 2019 revealed a new right infra hilar soft tissue measured 4.7 cm, interval increase in RML nodule (2.1 vs 1.5 cm on prior scan), 3 additional enlarging nodules in right lung measuring up to 1.6 cm. 01/07/2020 CT guided biopsy of subpleural lesion was positive for adenocarcinoma, PDl-1 and NextGen could not be done. She completed palliative XRT to right sided painful rib lesion. Molecular studies revealed PDL-1 :5%,Guardant 360 revealed no actionable mutation. She initially declined systemic therapy. She was admitted to the hospital in September 2020 with worsening dyspnea, repeat CT scan of chest revealed evidence of disease progression. Brain MRI on 09/17/2020 revealed no evidence of metastatic disease. She was started alimta/carbo/keytruda. Carbo, alimta keytruda, s/p 2 cycles on 11/30, 2 doses of feraheme. She was in ofc yesterday for cycle 3 and had c/o increasing SOB, had temp 101.3F, sputum thick, yellow, denied increase in cough, hemoptysis, chest pain, N,V, abd pain, dysuria, hematuria, diarrhea or swelling. WBC elevated on admit 22.2, slight increase in LFTs, possible RLL pneumonia. She is able to tolerate oral intake, O2 at 4L. Review of Systems 10 point ROS is neg except as stated in HPI Past Medical History Past Medical History: Cancer, COPD, Diabetes Mellitus, Hyperlipidemia, Hypertension, Osteoarthritis (OA), Respiratory Disorder, Thyroid Disorder Additional Past Medical History / Comment(s): sickle cell traits, unable to walk any distance, SOB, Stage 4 lung cancer- completed radiation, currently getting chemo, wears 3L oxygen at home History of Any Multi-Drug Resistant Organisms: None Reported Past Surgical History: Tubal Ligation Additional Past Surgical History / Comment(s): bilateral cataracts, Navigational Bronchoscopy (08/03/17), LUNG RESECTION Past Anesthesia/Blood Transfusion Reactions: No Reported Reaction Additional Past Anesthesia/Blood Transfusion Reaction / Comm: no problems with prior blood transfusion Past Psychological History: Anxiety Smoking Status: Former smoker Past Alcohol Use History: None Reported Past Drug Use History: None Reported - Past Family History Mother Family Medical History: Cancer Additional Family Medical History / Comment(s): Unknown type of cancer. Father Family Medical History: Cancer Additional Family Medical History / Comment(s): Unknown type of cancer. Medications and Allergies Home Medications Medication Instructions Recorded Confirmed Type Levothyroxine Sodium [Synthroid] 50 mcg PO DAILY 03/11/14 12/18/20 History Albuterol Sulfate [Ventolin HFA] 2 puff INHALATION RT-QID PRN 03/12/14 12/18/20 History Nitroglycerin Sl Tabs [Nitrostat] 0.4 mg SL Q5M PRN 06/25/15 12/18/20 History Allibiotic Cf 1 cap PO DAILY 09/15/20 12/18/20 History Atorvastatin Calcium [Lipitor] 40 mg PO HS 09/15/20 12/18/20 History Diltiazem HCl [Cartia Xt] 300 mg PO DAILY 09/15/20 12/18/20 History Ergocalciferol (Vitamin D2) 1,250 mcg PO SA 09/15/20 12/18/20 History [Drisdol (50,000 Iu)] HYDROcodone/APAP 10-325MG [Krebs 1 tab PO TID PRN 09/15/20 12/18/20 History 10-325] Metoprolol Succinate (ER) [Toprol 50 mg PO DAILY 09/15/20 12/18/20 History XL] Montelukast Sodium [Singulair] 10 mg PO HS 09/15/20 12/18/20 History Pioglitazone [Actos] 15 mg PO DAILY 09/15/20 12/18/20 History hydrOXYzine HCL [Atarax] 25 mg PO BID 09/15/20 12/18/20 History metFORMIN HCL [Glucophage] 1,000 mg PO BID 09/15/20 12/18/20 History prednisoLONE ACETATE 1% OPHTH 1 drop LEFT EYE QID 09/15/20 12/18/20 History [Pred Forte 1%] Folic Acid 1 mg PO DAILY 11/04/20 12/18/20 History Lidocaine-Prilocaine Cream [Emla 1 applic TOPICAL DIRECTED PRN 11/04/20 12/18/20 History Cream 2.5%/2.5%] Nystatin 100,000 Unit/ml Susp 4 ml PO QID 11/04/20 12/18/20 History [Mycostatin Oral Susp] ondansetron HCL [Zofran] 8 mg PO Q6H PRN 11/04/20 12/18/20 History Famotidine [Pepcid] 20 mg PO DAILY #30 tab 11/10/20 12/18/20 Rx Loperamide [Imodium] 2 mg PO QID PRN #60 cap 11/10/20 12/18/20 Rx Losartan Potassium 50 mg PO DAILY 12/18/20 12/18/20 History Allergies Allergy/AdvReac Type Severity Reaction Status Date / Time No Known Allergies Allergy Verified 12/18/20 12:34 Physical Exam Vitals: Vital Signs Temp Pulse Resp BP Pulse Ox 12/18/20 12:00 107 H 20 143/85 98 12/18/20 11:05 124 H 12/18/20 11:00 118 H 22 142/91 100 12/18/20 10:56 120 H 12/18/20 10:24 28 H 12/18/20 09:45 99.5 F 134 H 30 H 156/82 93 L Intake and Output 12/17/20 12/18/20 12/18/20 22:59 06:59 14:59 Other: Weight 58.967 kg - Constitutional General appearance: average body habitus, cooperative, no acute distress - EENT Eyes: anicteric sclerae, EOMI ENT: hearing grossly normal, normal oropharynx - Neck Neck: no lymphadenopathy - Respiratory Respiratory: right: diminished, bilateral: CTA - Cardiovascular Rhythm: regular Heart sounds: normal: S1, S2 Abnormal Heart Sounds: no systolic murmur, no diastolic murmur, no rub, no S3 Gallop, no S4 Gallop, no click, no other leg Peripheral Edema: bilateral: None - Gastrointestinal General gastrointestinal: no absent bowel sounds, no decreased bowel sounds, no distended, no hepatomegaly, no hyperactive bowel sounds, normal bowel sounds, no organomegaly, no rigid, no scaphoid, soft, no splenomegaly, no tenderness, no umbilical hernia, no ventral hernia - Neurologic Neurologic: CNII-XII intact - Musculoskeletal Musculoskeletal: strength equal bilaterally - Psychiatric Psychiatric: A&O x's 3, appropriate affect, intact judgment & insight Results CBC & Chem 7: 12/18/20 10:36 12/18/20 10:36 Labs: Abnormal Lab Results - Last 24 Hours (Table) 12/18/20 12/18/20 12/18/20 Range/Units 10:36 10:36 10:36 WBC 22.2 H (3.8-10.6) k/uL RBC 3.30 L (3.80-5.40) m/uL Hgb 9.6 L (11.4-16.0) gm/dL Hct 29.4 L (34.0-46.0) % RDW 16.8 H (11.5-15.5) % Neutrophils # 18.6 H (1.3-7.7) k/uL Monocytes # 1.4 H (0-1.0) k/uL INR 1.2 H (<1.2) Sodium 133 L (137-145) mmol/L Chloride 96 L (98-107) mmol/L BUN 18 H (7-17) mg/dL Glucose 156 H (74-99) mg/dL Calcium 10.5 H (8.4-10.2) mg/dL AST 88 H (14-36) U/L ALT 49 H (4-34) U/L Chest x-ray: report reviewed CT scan - chest: report reviewed Assessment and Plan (1) Fever Narrative/Plan: Pancultures pending, CTA suspicious for consolidation, no PE. Cont abx as ordered. Current Visit: Yes Status: Acute Priority: High Code(s): R50.9 - FEVER, UNSPECIFIED SNOMED Code(s): 535389276 (2) Leukocytosis Narrative/Plan: Suspect r/t infection-left shift. Cont to monitor, no acute intervention Current Visit: Yes Status: Acute Priority: High Code(s): D72.829 - ELEVATED WHITE BLOOD CELL COUNT, UNSPECIFIED SNOMED Code(s): 372826154 (3) Adenocarcinoma of right lung Narrative/Plan: Pt is on treatment for the same. Plan to continue treatment after resolution of acute condition. She has only had 2 cycles, typically treatment recheck imaging is after 3 cycles. Will be scheduled outpt Current Visit: Yes Status: Chronic Priority: Medium Code(s): C34.91 - MALIGNANT NEOPLASM OF UNSP PART OF RIGHT BRONCHUS OR LUNG SNOMED Code(s): 80858705797411127 Plan: Doctor attests: I performed a history and physical examination of this patient, developed impression and plan of care, discussed with dictator. I agree with dictators note, documented as a scribe.
[2020-12-18 17:10] LABS: Glucose,Whole Blood 146 mg/dL (75-99)
[2020-12-18] MEDS ORDERED: ONDANSETRON 4 MG TAB PO PRN (18:49)
[2020-12-18] MEDS ORDERED: ALPRAZolam 0.25 MG TAB PO PRN (18:51)
[2020-12-18] MEDS ORDERED: ACETAMINOPHEN TAB 500 MG TAB PO PRN (18:51)
[2020-12-18] MEDS ORDERED: HYDROmorphone 0.5 MG/0.5 ML SYRINGE IVP PRN (18:51)
[2020-12-18] MEDS ORDERED: HYDROcodone/APAP 5-325MG 1 EACH TAB PO PRN (18:51)
[2020-12-18] MEDS: BUDESONIDE 1 MG/2 ML NEBU INHALATION SCH (19:51)
--- NOTE | 2020-12-18 19:57 | HP ---
HISTORY AND PHYSICAL DATE OF SERVICE: 12/18/2020. CHIEF COMPLAINTS: Fever and shortness of breath. HISTORY OF PRESENT ILLNESS: This 70-year-old woman with a past medical history of multiple medical problems, including right mid lung invasive adenocarcinoma, history of COPD, diabetes mellitus, hypertension, hyperlipidemia, history of DJD, is being followed by Dr. Abdiel Ochoa in the outpatient setting. The patient is complaining of increasing shortness of breath for the last couple of days. The patient had a blood transfusion about a week ago. The shortness of breath worsened yesterday and patient has some cough also. The patient came to [facility] and was found to have elevated white count. The patient also had normal lactic acid. Urine appears to be cloudy. The patient also had a chest x-ray and CTA of the chest. The chest x-ray was reviewed personally by me and showed some evidence of right pleural effusion. A CT angio showed consolidation in the right lower lobe and small adjacent pleural effusion. The patient was admitted for further evaluation and treatment. The patient also evaluated by Dr. Wade and Dr. Avilez. There is no history of any fever, rigors or chills. No history of headache, loss of consciousness, seizures at this time. The patient was also suspected to have some contact with somebody with COVID in the health care setting apparently. PAST MEDICAL HISTORY: History of lung cancer, history of COPD, history of diabetes mellitus, type 2, hypertension, hyperlipidemia, history of DJD, history of sickle cell trait. HOME MEDICATIONS: Pred Forte, Zofran, Glucophage, Atarax, Actos, Mycostatin, Nitrostat, Singulair, Toprol- XL, Imodium, EMLA cream, Synthroid, [place]. Doses and other medications are reviewed. ALLERGIES: NONE. FAMILY HISTORY: History of cancer, unknown type. SOCIAL HISTORY: Previous history of smoking. No current smoking or alcohol intake. REVIEW OF SYSTEMS: ENT: No diminished hearing. No diminished vision. CARDIOVASCULAR SYSTEM: As mentioned earlier. RESPIRATORY SYSTEM: As mentioned earlier. GI: No nausea, vomiting, diarrhea. : No dysuria. NERVOUS SYSTEM: No numbness, weakness. ALLERGY/IMMUNOLOGY: No asthma or hay fever. MUSCULOSKELETAL: As mentioned earlier. HEMATOLOGY/ONCOLOGY: As mentioned earlier. ENDOCRINE: As mentioned earlier. CONSTITUTIONAL: As mentioned earlier. DERMATOLOGY: Negative. RHEUMATOLOGY: Negative. PSYCHIATRY: As mentioned earlier. PHYSICAL EXAMINATION: Patient alert and oriented x3. Pulse is 102, blood pressure 144/87, respiration 20, temperature 97.6, pulse ox 97% on 3 L. HEENT: Conjunctivae normal. Oral mucosa moist. NECK: No jugular venous distention. No carotid bruit. No lymph node enlargement. RESPIRATORY SYSTEM: Breathing efforts are markedly increased. Bilateral scattered rhonchi and crackles. Expiratory wheezing also present. The patient is unable to complete sentences because of extreme shortness of breath. A few rhonchi are heard. ABDOMEN: Soft, nontender. No mass palpable. LEGS: No edema. No swelling. NERVOUS SYSTEM: Higher functions as mentioned earlier. Moves all 4 limbs. No focal motor or sensory deficit. LYMPHATICS: No lymph node palpable in neck, axillae or groin. SKIN: No ulcer, rash, bleeding. JOINTS: No active deforming arthropathy. LABS: WBC 22.2, hemoglobin 9.6. Sodium 133. INR is 1.2. ASSESSMENT: 1. Chronic obstructive pulmonary disease, acute exacerbation, with acute hypoxic respiratory failure with failure of outpatient treatment, present on admission. 2. Possible right lower lobe pneumonia. Consider Gram-negative. 3. Right pleural effusion. 4. Right middle lung adenocarcinoma of lung with metastases. 5. History of diabetes mellitus, type 2. 6. Hypertension. 7. Hyperlipidemia. 8. History of degenerative joint disease. 9. History of hypothyroidism. 10.History of sickle cell trait. 11.Chronic hypoxic respiratory failure, on 3 L oxygen. 12.History of tubal ligation. 13.History of anxiety. 14.Remote history of nicotine dependence. 15.FULL CODE. RECOMMENDATIONS AND DISCUSSION: In this 70-year-old woman who presented with multiple complex medical issues, we will monitor the patient closely. I would recommend optimizing bronchodilators, empiric antibiotics, IV steroids. Otherwise, we will obtain cultures. Resume the home medications. Prognosis is extremely guarded because of multiple complex medical conditions. See orders for further details. Further recommendations to follow. A copy of this dictation is being forwarded to Dr. Ochoa, who is the primary physician. MMODL / ANUN: [id number] / MTDD
[2020-12-18] MEDS: FORMOTEROL FUMARATE 20 MCG/2 ML NEBU INHALATION SCH (20:06)
[2020-12-18 20:52] LABS: Glucose,Whole Blood 168 mg/dL (75-99)
[2020-12-18] MEDS ORDERED: CEFEPIME 2 GM in SODIUM CHLORIDE 0.9% 100 ML IVPB SCH (21:00)
[2020-12-18] MEDS: methylPREDNISolone SOD SUCCI 125 MG/2 ML VIAL IV SCH (21:04)
[2020-12-18] MEDS: MONTELUKAST 10 MG TAB PO SCH (21:05)
[2020-12-18] MEDS: HEPARIN SODIUM,PORCINE/PF 5,000 UNIT/0.5 ML SYRINGE SQ SCH (21:05)
[2020-12-18] MEDS: metFORMIN 500 MG TAB PO SCH (21:05)
[2020-12-18] MEDS: NYSTATIN 100,000 UNIT/ML SUSP 500,000 UNIT/5 ML CUP PO SCH (22:19)
[2020-12-18] MEDS: prednisoLONE ACETATE 1% OPHTH DROPS 5 ML BTL LEFT EYE SCH ×2 (22:20→22:26)
[2020-12-18] MEDS: CEFEPIME 2 GM in SODIUM CHLORIDE 0.9% 100 ML IVPB SCH (22:20)
[2020-12-18] MEDS: HYDROcodone/APAP 10-325MG 1 EACH TAB PO PRN (22:21)
[2020-12-18] MEDS: hydrOXYzine HCL 25 MG TAB PO SCH (22:25)
[2020-12-19] MEDS: methylPREDNISolone SOD SUCCI 125 MG/2 ML VIAL IV SCH ×4 (01:17→17:22)
[2020-12-19] MEDS: LOPERAMIDE 2 MG CAP PO PRN ×2 (02:16→15:50)
[2020-12-19] MEDS: SODIUM CHLORIDE 0.9% 1,000 ML IV SCH ×2 (03:25→15:56)
[2020-12-19] MEDS: LEVOTHYROXINE 50 MCG TAB PO SCH (06:23)
[2020-12-19 06:48] LABS: Glucose,Whole Blood 246 mg/dL (75-99)
[2020-12-19] MEDS: metFORMIN 500 MG TAB PO SCH ×2 (07:35→17:21)
[2020-12-19] MEDS: METOPROLOL SUCCINATE (ER) 50 MG TAB.ER.24H PO SCH (07:35)
[2020-12-19] MEDS: FAMOTIDINE 20 MG TAB PO SCH (07:36)
[2020-12-19] MEDS: LOSARTAN 50 MG TAB PO SCH (07:36)
[2020-12-19] MEDS: FOLIC ACID 1 MG TAB PO SCH (07:36)
[2020-12-19] MEDS: MULTIVITAMINS, THERA 1 EACH TAB PO SCH (07:36)
[2020-12-19] MEDS: hydrOXYzine HCL 25 MG TAB PO SCH ×2 (07:36→21:34)
[2020-12-19] MEDS: DILTIAZEM CD 300 MG CAP.ER.24H PO SCH (07:37)
[2020-12-19] MEDS: HEPARIN SODIUM,PORCINE/PF 5,000 UNIT/0.5 ML SYRINGE SQ SCH ×2 (07:37→21:34)
[2020-12-19] MEDS: NYSTATIN 100,000 UNIT/ML SUSP 500,000 UNIT/5 ML CUP PO SCH ×4 (07:38→21:35)
[2020-12-19] MEDS: prednisoLONE ACETATE 1% OPHTH DROPS 5 ML BTL LEFT EYE SCH ×4 (07:41→21:36)
[2020-12-19] MEDS: PIOGLITAZONE 15 MG TAB PO SCH (07:41)
[2020-12-19] MEDS: FORMOTEROL FUMARATE 20 MCG/2 ML NEBU INHALATION SCH ×2 (08:00→21:08)
[2020-12-19] MEDS: IPRATROPIUM-ALBUTEROL 3 ML NEB INHALATION SCH ×5 (08:00→21:08)
[2020-12-19] MEDS: BUDESONIDE 1 MG/2 ML NEBU INHALATION SCH ×2 (08:00→21:08)
[2020-12-19] MEDS: HYDROcodone/APAP 10-325MG 1 EACH TAB PO PRN ×2 (08:52→21:33)
[2020-12-19] MEDS ORDERED: ERGOCALCIFEROL 1,250 MCG (50,000 IU) CAPSULE PO SCH (09:00)
[2020-12-19] MEDS ORDERED: PANTOPRAZOLE 40 MG/10 ML VIAL IVP SCH (09:00)
[2020-12-19 10:55] LABS: Glucose,Whole Blood 209 mg/dL (75-99)
[2020-12-19] MEDS: CEFEPIME 2 GM in SODIUM CHLORIDE 0.9% 100 ML IVPB SCH ×2 (10:57→21:35)
[2020-12-19 12:01] LABS: Anisocytosis Slight; Basophils % (A) 0 %; Eosinophils % (A) 0 %; HCT 30.8 % (34.0-46.0); HGB 9.7 gm/dL (11.4-16.0); Hypochromasia Moderate; Lymphocytes # (A) 0.9 k/uL (1.0-4.8); Lymphocytes % (A) 4 %; MCH 28.9 pg (25.0-35.0); MCHC 31.4 g/dL (31.0-37.0); MCV 92.1 fL (80.0-100.0); Mean Platelet Volume 8.4; Monocytes # (A) 0.6 k/uL (0-1.0); Monocytes % (A) 3 %; Neutrophils # (A) 17.5 k/uL (1.3-7.7); Neutrophils % (A) 91 %; Platelet Count 410 k/uL (150-450); RBC 3.35 m/uL (3.80-5.40); WBC 19.3 k/uL (3.8-10.6)
[2020-12-19 12:17] LABS: African American GFR (CKD) 67 (>60 ml/min/1.73 sqM); Anion Gap 11 mmol/L; Blood Urea Nitrogen 22 mg/dL (7-17); Carbon Dioxide 24 mmol/L (22-30); Chloride 103 mmol/L (98-107); Glucose 197 mg/dL (74-99); Non-African American GFR(CKD) 58 (>60 ml/min/1.73 sqM); Potassium 4.6 mmol/L (3.5-5.1); Sodium 138 mmol/L (137-145)
[2020-12-19 13:12] VITALS: BMI 22.3
--- NOTE | 2020-12-19 13:26 | P.PN ---
Subjective Progress Note Date: 12/19/20 Principal diagnosis: Shortness of breath This is a very pleasant 70-year-old female patient with a history of sickle cell trait, chronic hepatitis C, hypertension, hypothyroidism, vitamin D deficiency, chronic obstructive pulmonary disease with an FEV1 value of 42% of predicted. She also has a history of non-small cell lung cancer with previous wedge resection in 2018 in the right lung. Recently she had been noted to have progression of her disease. CAT scan from September 2020 revealed extensive consolidation in the right lower lobe with obstruction of the right lower lobe b ronchus probably due to tumor mass at the right pulmonary hilum. This is new consolidation. There is a new nodular density in the anterior right upper lobe adjacent to the chest wall that could relate tumor. There is a large area of distruction involving the lateral right rib measuring 5 x 3 cm and consistent with metastatic disease. She is currently receiving chemotherapy and immunotherapy. She was at the [facility] for her third treatment today however she was having complaints of shortness of breath, she was hypotensive, febrile. She was referred here to the emergency room for the same. Sensory reveals a moderate right pleural effusion. Poorly visualized known [address] angiogram revealed mass versus consolidation in the right lower lobe with small adjacent pleural effusion. Mass within the right lateral rib and chest wall. Small pleural-based density of the right middle lobe. No acute pulmonary embolism. White count 22.2. Hemoglobin 9.6. INR 1.2. Sodium 133. Potassium 3.8. Creatinine 1.02. Glucose 156. Troponin negative 1. ProBNP 452. Maloney virus not detected. She is vaccinated. She is seen today in consultation in the emergency room. She is currently sitting up on the stretcher. Awake and alert in no acute distress. Maintaining good O2 saturations in the upper 90s on 3 L/m per nasal cannula. Slightly tachycardic. Temperature 99.5. She was initiated on 0.9 normal saline at 75 ML's per hour and given cefepime and azithromycin. On 12/19/2020 patient seen in follow-up on medical surgical floor, does not appear to be in any acute distress, she does get short of breath with exertion, she has a congested cough, but breathing fairly comfortably at rest, had no fever or chills overnight, vitals have been stable, she is on 3 L of oxygen pulse ox is 95%, platelets of chest discomfort or hemoptysis. she remains on cefepime and vancomycin for abiotic coverage, were trying to collect a sputum specimen for culture. today's labs have been reviewed, white blood cell count is 19.3, is improved from 22.2, hemoglobin is 9.7, electrolytes and renal profile were unremarkable. Culture showed possibility of infected urine, urine culture is pending. Patient could not sleep well last night, other than that she has no specific complaints. Overall she states she is feeling better. She remains on nebulized broncho-dilators and IV steroids Objective - Vital Signs Vital signs: Vital Signs Temp 97.6 F 12/19/20 07:33 Pulse 122 H 12/19/20 08:30 Resp 20 12/19/20 08:30 BP 155/81 12/19/20 07:33 Pulse Ox 95 12/19/20 08:00 Intake & Output 12/18/20 12/19/20 12/19/20 18:59 06:59 18:59 Intake Total 300 Balance 300 Weight 58.967 kg 58.967 kg Intake: Oral 300 Other: Voiding Method Toilet Toilet # Voids 1 4 # Bowel Movements 2 2 - Exam GENERAL EXAM: Alert, very pleasant, 70-year-old -[place] female, on 3 L of oxygen pulse ox of 95% comfortable in no apparent distress. HEAD: Normocephalic/atraumatic. EYES: Normal reaction of pupils, equal size. Conjunctiva pink, sclera white. NOSE: Clear with pink turbinates. THROAT: No erythema or exudates. NECK: No masses, no JVD, no thyroid enlargement, no adenopathy. CHEST: No chest wall deformity. Symmetrical expansion. LUNGS: Equal air entry with diffuse rhonchi and wheezing CVS: Regular rate and rhythm, normal S1 and S2, no gallops, no murmurs, no rubs ABDOMEN: Soft, nontender. No hepatosplenomegaly, normal bowel sounds, no guarding or rigidity. EXTREMITIES: No clubbing, no edema, no cyanosis, 2+ pulses and upper and lower extremities. MUSCULOSKELETAL: Muscle strength and tone normal. SPINE: No scoliosis or deformity SKIN: No rashes CENTRAL NERVOUS SYSTEM: Alert and oriented -3. No focal deficits, tone is normal in all 4 extremities. PSYCHIATRIC: Alert and oriented -3. Appropriate affect. Intact judgment and insight. - Labs CBC & Chem 7: 12/19/20 11:11 12/19/20 11:11 Labs: Abnormal Lab Results - Last 24 Hours (Table) 12/18/20 12/18/20 12/18/20 Range/Units 13:31 16:58 20:49 WBC (3.8-10.6) k/uL RBC (3.80-5.40) m/uL Hgb (11.4-16.0) gm/dL Hct (34.0-46.0) % RDW (11.5-15.5) % Neutrophils # (1.3-7.7) k/uL Lymphocytes # (1.0-4.8) k/uL BUN (7-17) mg/dL Glucose (74-99) mg/dL POC Glucose (mg/dL) 146 H 168 H (75-99) mg/dL Urine Appearance Cloudy H (Clear) Urine Protein 2+ H (Negative) Urine Ketones 1+ H (Negative) Ur Leukocyte Esterase Moderate H (Negative) Urine WBC 16 H (0-5) /hpf Ur Squamous Epith Cells 5 H (0-4) /hpf Urine Bacteria Rare H (None) /hpf Urine Mucus Rare H (None) /hpf 12/19/20 12/19/20 12/19/20 Range/Units 06:46 10:54 11:11 WBC 19.3 H (3.8-10.6) k/uL RBC 3.35 L (3.80-5.40) m/uL Hgb 9.7 L (11.4-16.0) gm/dL Hct 30.8 L (34.0-46.0) % RDW 17.0 H (11.5-15.5) % Neutrophils # 17.5 H (1.3-7.7) k/uL Lymphocytes # 0.9 L (1.0-4.8) k/uL BUN (7-17) mg/dL Glucose (74-99) mg/dL POC Glucose (mg/dL) 246 H 209 H (75-99) mg/dL Urine Appearance (Clear) Urine Protein (Negative) Urine Ketones (Negative) Ur Leukocyte Esterase (Negative) Urine WBC (0-5) /hpf Ur Squamous Epith Cells (0-4) /hpf Urine Bacteria (None) /hpf Urine Mucus (None) /hpf 12/19/20 Range/Units 11:11 WBC (3.8-10.6) k/uL RBC (3.80-5.40) m/uL Hgb (11.4-16.0) gm/dL Hct (34.0-46.0) % RDW (11.5-15.5) % Neutrophils # (1.3-7.7) k/uL Lymphocytes # (1.0-4.8) k/uL BUN 22 H (7-17) mg/dL Glucose 197 H (74-99) mg/dL POC Glucose (mg/dL) (75-99) mg/dL Urine Appearance (Clear) Urine Protein (Negative) Urine Ketones (Negative) Ur Leukocyte Esterase (Negative) Urine WBC (0-5) /hpf Ur Squamous Epith Cells (0-4) /hpf Urine Bacteria (None) /hpf Urine Mucus (None) /hpf Microbiology - Last 24 Hours (Table) 12/18/20 13:31 Urine Culture - Preliminary Urine,Clean Catch Assessment and Plan Plan: Assessment: #1. Acute hypoxic respiratory failure related to possibility of progressing right lung non-small cell lung cancer with postobstructive pneumonia, in the right lower lobe, with a small adjacent pleural effusion. CTA chest showed no evidence of PE, he did not mass versus consolidation in the right lower lobe with a small adjacent pleural effusion #2. History of metastatic non-small cell lung cancer with previous wedge resection of the right lung in October 2017, patient denied chemotherapy or immunotherapy, she did receive radiation treatment #3. COPD with FEV1 of 42% of predicted #4. Chronic tobacco dependence of 40 years #5. Hypothyroidism #6. Hypertension #7. History of hepatitis C #8. History of sickle cell trait #9. Vitamin D deficiency Plan: Continue current antibiotics Continue IV steroids and bronchodilators Sputum for culture No acute events overnight We'll continue to follow Anticipate patient will remain in the hospital for next day or 2 I performed a history & physical examination of the patient and discussed their management with my nurse practitioner, Josie Posada. I reviewed the nurse practitioner's note and agree with the documented findings and plan of care. Lung sounds are positive for diffuse wheezes throughout the lung cervantes. The findings and the impression was discussed with the patient. I attest to the doc umentation by the nurse practitioner. Time with Patient: Less than 30
[2020-12-19] MEDS ORDERED: VANCOMYCIN 1,000 MG in SODIUM CHLORIDE 0.9% 250 ML IVPB SCH (14:00)
[2020-12-19 16:39] LABS: Glucose,Whole Blood 235 mg/dL (75-99)
[2020-12-19] MEDS: INSULIN ASPART (NovoLOG) 100 UNIT/ML VIAL SQ SCH ×2 (17:12→21:35)
--- NOTE | 2020-12-19 19:53 | PN ---
PROGRESS NOTE DATE OF SERVICE: 12/19/2020 This 70-year-old woman was admitted with COPD exacerbation, also had suspected pneumonia. The patient followed by Dr. Grossman in the outpatient setting also. No chest pain. No palpitations. No fever. PHYSICAL EXAMINATION: Alert and oriented x3. Pulse 85. Blood pressure 139/71, respiration 18. Temperature 98 degrees, pulse ox 98% on 2 L. HEENT is conjunctivae normal. Neck: No JVD. Cardiovascular: S1, S2 muffled. RESPIRATION: Breath sounds diminished in the bases. A few scattered rhonchi and crackles. Abdomen: Soft, nontender. Nervous system: No focal deficits. LAB STUDIES: WBC 10, hemoglobin 9.7. Glucose noted. ASSESSMENT: 1. Chronic obstructive pulmonary disease acute exacerbation with acute hypoxic respiratory failure with failure of outpatient treatment, present on admission. 2. Possible right lower lobe pneumonia, possibly gram-negative present on admission. 3. Right pleural effusion. 4. Right mid lung adenocarcinoma with metastasis. 5. Diabetes mellitus type 2. 6. Hypertension. 7. Hyperlipidemia. 8. History of degenerative joint disease. 9. Hypothyroidism. 10.History of sickle cell trait. 11.Chronic hypoxic respiratory failure on 3 L oxygen home O2. 12.History of tubal ligation. 13.History of anxiety. 14.Remote history of nicotine dependence. 15.FULL CODE. RECOMMENDATIONS AND DISCUSSION: Continue current medications, management and symptomatic treatment. Continue with bronchodilators. Continue with empiric antibiotics. Continue with IV steroids. Otherwise continue the rest of medication. Monitor blood sugars closely. Guarded prognosis because of multiple complex medical issues. We will stop the IV fluids today and further recommendations to follow. MMODL / IJN: [id number] /
[2020-12-19 20:52] LABS: Glucose,Whole Blood 217 mg/dL (75-99)
[2020-12-19] MEDS: MONTELUKAST 10 MG TAB PO SCH (21:34)
[2020-12-20] MEDS: methylPREDNISolone SOD SUCCI 125 MG/2 ML VIAL IV SCH ×4 (01:00→18:00)
[2020-12-20] MEDS: LEVOTHYROXINE 50 MCG TAB PO SCH (06:30)
[2020-12-20 07:19] LABS: Glucose,Whole Blood 176 mg/dL (75-99)
[2020-12-20] MEDS: HEPARIN SODIUM,PORCINE/PF 5,000 UNIT/0.5 ML SYRINGE SQ SCH ×2 (07:37→21:58)
[2020-12-20] MEDS: HYDROcodone/APAP 10-325MG 1 EACH TAB PO PRN ×2 (07:37→18:04)
[2020-12-20] MEDS: metFORMIN 500 MG TAB PO SCH ×2 (07:38→17:59)
[2020-12-20] MEDS: PANTOPRAZOLE 40 MG TABLET PO SCH (07:38)
[2020-12-20] MEDS: METOPROLOL SUCCINATE (ER) 50 MG TAB.ER.24H PO SCH (07:38)
[2020-12-20] MEDS: FOLIC ACID 1 MG TAB PO SCH (07:38)
[2020-12-20] MEDS: FAMOTIDINE 20 MG TAB PO SCH (07:38)
[2020-12-20] MEDS: LOSARTAN 50 MG TAB PO SCH (07:38)
[2020-12-20] MEDS: INSULIN ASPART (NovoLOG) 100 UNIT/ML VIAL SQ SCH ×4 (07:38→21:58)
[2020-12-20] MEDS: DILTIAZEM CD 300 MG CAP.ER.24H PO SCH (07:39)
[2020-12-20] MEDS: hydrOXYzine HCL 25 MG TAB PO SCH ×2 (07:39→22:02)
[2020-12-20] MEDS: prednisoLONE ACETATE 1% OPHTH DROPS 5 ML BTL LEFT EYE SCH ×4 (07:40→22:03)
[2020-12-20] MEDS: NYSTATIN 100,000 UNIT/ML SUSP 500,000 UNIT/5 ML CUP PO SCH ×4 (07:40→22:02)
[2020-12-20] MEDS: PIOGLITAZONE 15 MG TAB PO SCH (07:40)
[2020-12-20] MEDS: BUDESONIDE 1 MG/2 ML NEBU INHALATION SCH ×2 (08:40→21:29)
[2020-12-20] MEDS: IPRATROPIUM-ALBUTEROL 3 ML NEB INHALATION SCH ×4 (08:40→21:29)
[2020-12-20] MEDS: FORMOTEROL FUMARATE 20 MCG/2 ML NEBU INHALATION SCH ×2 (08:40→21:29)
--- NOTE | 2020-12-20 08:58 | XR ---
EXAMINATION TYPE: XR chest 1V portable DATE OF EXAM: 12/20/2020 Comparison: 12/18/2020 Clinical History: 70-year-old female shortness of breath Findings: Left anterior chest wall injection port with subclavian access and catheter tip at the upper SVC leve l. Right heart margin remains obscured by adjacent pleural parenchymal opacity. Heart probably at ama st mildly enlarged. Mild hyperinflation. Continued extensive right basilar opacity extending nearly t o the midlung level. Rounded opacity in the periphery of the right midlung shows increase in size com pared to 11/04/2020. Redemonstrated destruction of the right lateral sixth rib. There appears to be a r ight-sided cervical rib. Impression: Continued extensive consolidation, atelectasis, and/or effusion filling the right lower lung with an adjacent right lateral chest wall mass destroying the right sixth rib. Compared to 11/04/2020, the mass may be slightly larger.
[2020-12-20] MEDS: CEFEPIME 2 GM in SODIUM CHLORIDE 0.9% 100 ML IVPB SCH ×2 (10:39→21:58)
[2020-12-20 11:40] LABS: Glucose,Whole Blood 322 mg/dL (75-99)
[2020-12-20] MEDS: MULTIVITAMINS, THERA 1 EACH TAB PO SCH (12:24)
--- NOTE | 2020-12-20 13:10 | P.PN ---
Subjective Progress Note Date: 12/20/20 This is a very pleasant 70-year-old female patient with a history of sickle cell trait, chronic hepatitis C, hypertension, hypothyroidism, vitamin D deficiency, chronic obstructive pulmonary disease with an FEV1 value of 42% of predicted. She also has a history of non-small cell lung cancer with previous wedge resection in 2018 in the right lung. Recently she had been noted to have progression of her disease. CAT scan from September 2020 revealed extensive consolidation in the right lower lobe with obstruction of the right lower lobe bronchus probably due to tumor mass at the right pulmonary hilum. This is new consolidation. There is a new nodular density in the anterior right upper lobe adjacent to the chest wall that could relate tumor. There is a large area of distruction involving the lateral right rib measuring 5 x 3 cm and consistent with metastatic disease. She is currently receiving chemotherapy and immunotherapy. She was at the [facility] for her third treatment today however she was having complaints of shortness of breath, she was hypotensive, febrile. She was referred here to the emergency room for the same. Sensory reveals a moderate right pleural effusion. Poorly visualized known [address] angiogram revealed mass versus consolidation in the right lower lobe with small adjacent pleural effusion. Mass within the right lateral rib and chest wall. Small pleural-based density of the right middle lobe. No acute pulmonary embolism. White count 22.2. Hemoglobin 9.6. INR 1.2. Sodium 133. Potassium 3.8. Creatinine 1.02. Glucose 156. Troponin negative 1. ProBNP 452. Maloney virus not detected. She is vaccinated. She is seen today in consultation in the emergency room. She is currently sitting up on the stretcher. Awake and alert in no acute distress. Maintaining good O2 saturations in the upper 90s on 3 L/m per nasal cannula. Slightly tachycardic. Temperature 99.5. She was initiated on 0.9 normal saline at 75 ML's per hour and given cefepime and azithromycin. On 12/19/2020 patient seen in follow-up on medical surgical floor, does not appear to be in any acute distress, she does get short of breath with exertion, she has a congested cough, but breathing fairly comfortably at rest, had no fever or chills overnight, vitals have been stable, she is on 3 L of oxygen pulse ox is 95%, platelets of chest discomfort or hemoptysis. she remains on cefepime and vancomycin for abiotic coverage, were trying to collect a sputum specimen for culture. today's labs have been reviewed, white blood cell count is 19.3, is improved from 22.2, hemoglobin is 9.7, electrolytes and renal profile were unremarkable. Culture showed possibility of infected urine, urine culture is pending. Patient could not sleep well last night, other than that she has no specific complaints. Overall she states she is feeling better. She remains on nebulized broncho-dilators and IV steroids Patient is seen today 12/20/2020 in follow-up on the regular medical floor. She is currently sitting up in bed. Awake and alert in no acute distress. No worsening shortness of breath, cough or congestion. Maintaining O2 saturations in the 90s on 3 L/m per nasal cannula. Chest x-ray concern continues to show some consolidation/atelectasis of the right lower lung. Remains an adjacent right lateral chest wall mass destroying the right sixth rib. Blood and urine cultures revealed no growth. Glucose 176. She remains on antibiotics from vancomycin and cefepime along with bronchodilators and IV Solu-Medrol. Objective - Vital Signs Vital signs: Vital Signs Temp 98.0 F 12/20/20 08:00 Pulse 92 12/20/20 09:03 Resp 18 12/20/20 08:00 BP 160/73 12/20/20 08:00 Pulse Ox 100 12/20/20 08:00 Intake & Output 12/19/20 12/20/20 12/20/20 18:59 06:59 18:59 Intake Total 200 Balance 200 Weight 58.967 kg Intake: Oral 200 Other: Voiding Method Toilet Toilet # Voids 2 # Bowel Movements 2 - Exam GENERAL EXAM: Alert, pleasant 70-year-old female, on 3 L nasal cannula, comfor table in no apparent distress. HEAD: Normocephalic. EYES: Normal reaction of pupils, equal size. NOSE: Clear with pink turbinates. THROAT: No erythema or exudates. NECK: No masses, no JVD. CHEST: No chest wall deformity. LUNGS: Equal air entry with crackles in the right lung base CVS: S1 and S2 normal with no audible murmur, regular rhythm. ABDOMEN: No hepatosplenomegaly, normal bowel sounds, no guarding or rigidity. SPINE: No scoliosis or deformity SKIN: No rashes CENTRAL NERVOUS SYSTEM: No focal deficits, tone is normal in all 4 extremities. EXTREMITIES: There is no peripheral edema. No clubbing, no cyanosis. Peripheral pulses are intact. - Labs CBC & Chem 7: 12/19/20 11:11 12/19/20 11:11 Labs: Abnormal Lab Results - Last 24 Hours (Table) 12/19/20 12/19/20 12/20/20 Range/Units 16:37 20:50 07:18 POC Glucose (mg/dL) 235 H 217 H 176 H (75-99) mg/dL 12/20/20 Range/Units 11:39 POC Glucose (mg/dL) 322 H (75-99) mg/dL Microbiology - Last 24 Hours (Table) 12/18/20 13:31 Urine Culture - Final Urine,Clean Catch 12/18/20 12:45 Blood Culture - Preliminary Blood No Growth after 24 hours 12/18/20 12:30 Blood Culture - Preliminary Blood No Growth after 24 hours Assessment and Plan Assessment: 1 Acute febrile illness and hypotension prior to receiving her third round of chemotherapy/immunotherapy today at the [facility], referred here for evauation 2 Acute on chronic hypoxemic respiratory failure secondary to progressing right lung non-small cell lung cancer and possible postobstructive. COVID-19 screen negative 3 Leukocytosis 4 History of metastatic non-small cell lung cancer with previous wedge resection of the right lung in October 2017, did receive radiation however declined c hemotherapy or immunotherapy 5 Chronic obstructive pulmonary disease with an FEV1 value 42% of predicted 6 Chronic tobacco dependence of greater than 40 years 7 Hypothyroidism 8 Hypertension 9 History of hepatitis C 10 History of sickle cell trait 11 Vitamin D deficiency Plan: The patient was seen and evaluated by Dr. Wade Chest x-ray, labs all reviewed Discontinue vancomycin, continue cefepime Continue bronchodilators, steroids, incentive spirometer Titrate the FiO2 as tolerated Probable home in a.m. We will continue to follow I, the cosigning physician, performed a history & physical examination of the patient. Lungs sounds with crackles in the right lung base, diminished. Maintaining O2 saturations in the 90s on 3 L/m per nasal cannula. I discussed the assessment and plan of care with my nurse practitioner, Ramona Hernandez. I attest to the above note as dictated by her.
[2020-12-20] MEDS: LOPERAMIDE 2 MG CAP PO PRN ×2 (14:29→17:59)
[2020-12-20 16:26] LABS: Glucose,Whole Blood 105 mg/dL (75-99)
[2020-12-20 20:47] LABS: Glucose,Whole Blood 226 mg/dL (75-99)
--- NOTE | 2020-12-20 21:01 | PN ---
PROGRESS NOTE DATE OF SERVICE: 12/20/2020 This 70-year-old woman was admitted with COPD acute exacerbation also had possible pneumonia. The patient is improving significantly. No chest pain. No palpitations. No fever. The most recent chest x-ray done today which was reviewed by me showed extensive changes in the right side. PHYSICAL EXAMINATION: Alert and oriented x3. Pulse 84. Blood pressure 140/80, respiration 18, temperature 99.2, pulse ox 97% on 3 L. HEENT: Conjunctivae normal. NECK: No JVD. CARDIOVASCULAR: S1, S2 muffled. RESPIRATORY SYSTEM: Breath sounds diminished at the bases. A few scattered rhonchi. ABDOMEN: Soft, nontender. No mass. LEGS: No edema. No swelling. LABS: Accu-Cheks 321, WBC 19.2, hemoglobin 9.7. ASSESSMENT: 1. Chronic obstructive pulmonary disease acute exacerbation with acute hypoxic respiratory failure with failure of outpatient treatment, present on admission. 2. Possible right lower lobe pneumonia possibly gram-negative, present on admission. 3. Right pleural effusion. 4. Right mid lung adenocarcinoma with METS history. 5. Diabetes mellitus type 2. 6. Hypertension. 7. Hyperlipidemia. 8. History of degenerative joint disease. 9. Hypothyroidism. 10.History of sickle cell trait. 11.Chronic hypoxic respiratory failure on 3 L home O2. 12.History of tubal ligation. 13.History of anxiety. 14.Remote history of nicotine dependence. 15.FULL CODE. RECOMMENDATIONS AND DISCUSSION: I recommend to continue current medications, bronchodilators, steroids, antibiotics. Closely monitor. Closely follow with Pulmonary, Dr. Grossman is the pulmonary doctor. Further recommendations to follow. Cultures are negative so far. MMODL / IJN: [id number] / MTDD
[2020-12-20] MEDS: MONTELUKAST 10 MG TAB PO SCH (21:58)
[2020-12-21] MEDS: methylPREDNISolone SOD SUCCI 125 MG/2 ML VIAL IV SCH ×2 (00:39→06:08)
[2020-12-21 02:38] VITALS: RESP 17
[2020-12-21] MEDS: LEVOTHYROXINE 50 MCG TAB PO SCH (06:09)
[2020-12-21] MEDS: HYDROcodone/APAP 10-325MG 1 EACH TAB PO PRN ×2 (06:09→12:11)
[2020-12-21 06:55] LABS: Glucose,Whole Blood 183 mg/dL (75-99)
[2020-12-21] MEDS: LOPERAMIDE 2 MG CAP PO PRN (08:13)
[2020-12-21] MEDS: HEPARIN SODIUM,PORCINE/PF 5,000 UNIT/0.5 ML SYRINGE SQ SCH (08:13)
[2020-12-21] MEDS: METOPROLOL SUCCINATE (ER) 50 MG TAB.ER.24H PO SCH (08:14)
[2020-12-21] MEDS: FOLIC ACID 1 MG TAB PO SCH (08:14)
[2020-12-21] MEDS: INSULIN ASPART (NovoLOG) 100 UNIT/ML VIAL SQ SCH ×2 (08:14→12:32)
[2020-12-21] MEDS: PIOGLITAZONE 15 MG TAB PO SCH (08:14)
[2020-12-21] MEDS: MULTIVITAMINS, THERA 1 EACH TAB PO SCH (08:14)
[2020-12-21] MEDS: metFORMIN 500 MG TAB PO SCH (08:14)
[2020-12-21] MEDS: PANTOPRAZOLE 40 MG TABLET PO SCH (08:14)
[2020-12-21] MEDS: FAMOTIDINE 20 MG TAB PO SCH (08:15)
[2020-12-21] MEDS: NYSTATIN 100,000 UNIT/ML SUSP 500,000 UNIT/5 ML CUP PO SCH (08:15)
[2020-12-21] MEDS: LOSARTAN 50 MG TAB PO SCH (08:15)
[2020-12-21] MEDS: DILTIAZEM CD 300 MG CAP.ER.24H PO SCH (08:15)
[2020-12-21] MEDS: hydrOXYzine HCL 25 MG TAB PO SCH (08:15)
[2020-12-21] MEDS: prednisoLONE ACETATE 1% OPHTH DROPS 5 ML BTL LEFT EYE SCH ×2 (08:16→08:20)
[2020-12-21] MEDS: FORMOTEROL FUMARATE 20 MCG/2 ML NEBU INHALATION SCH (08:16)
[2020-12-21] MEDS: BUDESONIDE 1 MG/2 ML NEBU INHALATION SCH (08:16)
[2020-12-21] MEDS: IPRATROPIUM-ALBUTEROL 3 ML NEB INHALATION SCH ×2 (08:16→12:11)
[2020-12-21 08:23] VITALS: BP 109/65; TEMP 97.6
[2020-12-21 09:01] VITALS: PULSE 82
[2020-12-21] MEDS: CEFEPIME 2 GM in SODIUM CHLORIDE 0.9% 100 ML IVPB SCH (10:33)
[2020-12-21 11:35] LABS: Glucose,Whole Blood 210 mg/dL (75-99)
--- NOTE | 2020-12-21 15:12 | PN ---
PROGRESS NOTE DATE OF SERVICE: PULMONARY/CRITICAL care progress note dated December 21, 2020. HISTORY: This is a 70-year-old black female, well known to me. The patient was admitted with a diagnosis of acute febrile illness and hypotension, which resulted after her third round of chemotherapy/immune therapy for recurrent lung cancer. The patient does have a history of acute on chronic hypoxemic respiratory failure. This is in large part to her underlying non-small cell lung cancer and possible postobstructive pneumonia. The patient does have a history of prior wedge resection in the right mid lung, back in October 2017. She did receive radiation at that time, but declined any chemotherapy or immune therapy. She does have a history of severe COPD with an FEV1 that is 46% of predicted. Currently, the patient is doing reasonably well. She remains on a couple L of O2. She states that her breathing is much improved. She denies any fever or chills. She is a bit weak. Denies any chest pain or chest discomfort. Denies any cough or phlegm production. PHYSICAL EXAMINATION: VITAL SIGNS: Current vital signs reviewed. Temperature 97.6, heart rate 63, respiratory rate 16, blood pressure 109/65 mean 79, 2 L saturation is 100%. GENERAL: She appears in no acute distress. HEENT: Examination is grossly unremarkable. NECK: Supple. Full range of motion. No adenopathy. Neck veins are flat. CARDIOVASCULAR: Examination reveals regular rhythm and rate. Heart rate mid 80s. S1, S2 normal. Heart sounds are distant. No S3 or S4. LUNGS: Reveal some diffuse mild rhonchi. No wheezes or crackles. Breath sounds equal. ABDOMEN: Soft, bowel sounds are heard. EXTREMITIES are intact. No cyanosis, clubbing, or edema. SKIN: Without rash. NEUROLOGIC: Examination is nonfocal. LABS: Reviewed. Currently, the only lab from the 20h is a glucose of 210. Microbiology including blood and urine sampling is negative. The most recent chest x-ray done on December 20 shows significant consolidation, volume loss and possible atelectasis/infiltrate/fluid at the right lung base. ASSESSMENT: 1. Acute febrile illness with hypotension, following her 3rd round of chemo chemotherapy/immune therapy, at [facility]. 2. Acute on chronic hypoxemic respiratory failure, secondary to chronic obstructive pulmonary disease exacerbation, right lung non-small cell lung cancer, and postobstructive pneumonia. 3. Leukocytosis, secondary to febrile illness. 4. History of metastatic non-small cell lung cancer, status post wedge resection right lung, October 2017. 5. History of chronic obstructive pulmonary disease, with an FEV1 at 42% of predicted. 6. Chronic tobacco dependence of greater than 40 years. 7. Hypothyroidism. 8. History of hypertension. 9. History of hepatitis C. 10.History of sickle cell trait. 11.History of vitamin D deficiency. PLAN: The patient is possibly going to be discharged. No additional recommendations are made. She will follow with me in the office in about 10 days. Prognosis is guarded. We will continue to follow. MMODL / IJN: [id number] /
--- NOTE | 2020-12-21 18:55 | P.PN ---
Subjective Progress Note Date: 12/21/20 Principal diagnosis: Fever, on chemo In f/u today pt states feeling much better then on admit, her O2 is almost back at baseline of 3L, she can ambulate without difficulty in breathing, she is tolerating oral intake, she has had a BM, almost diarrhea. Objective - Vital Signs Vital signs: Vital Signs Temp 97.6 F 12/21/20 08:22 Pulse 82 12/21/20 08:36 Resp 17 12/21/20 08:22 BP 109/65 12/21/20 08:22 Pulse Ox 100 12/21/20 08:22 Intake & Output 12/20/20 12/21/20 12/21/20 18:59 06:59 18:59 Intake Total 100 380 Balance 100 380 Intake: Intake, IV Titration 100 Amount Cefepime 2 gm In Sodium 100 Chloride 0.9% 100 ml @ 25 mls/hr IVPB Q12H [facility] Rx# :[id number] Oral 380 Other: Voiding Method Toilet # Voids 2 3 # Bowel Movements 3 - Constitutional General appearance: Present: average body habitus, cooperative, no acute distress - EENT Eyes: Present: anicteric sclerae, EOMI ENT: Present: hearing grossly normal, normal oropharynx - Respiratory Respiratory: bilateral: CTA, diminished (bases) - Cardiovascular Rhythm: regular Heart sounds: normal: S1, S2 Abnormal Heart Sounds: Present: systolic murmur (very soft systolic) - Peripheral edema leg Peripheral Edema: bilateral: None - Gastrointestinal General gastrointestinal: Present: normal bowel sounds, soft - Neurologic Neurologic: Present: CNII-XII intact - Musculoskeletal Musculoskeletal: Present: strength equal bilaterally - Psychiatric Psychiatric: Present: A&O x's 3, appropriate affect, intact judgment & insight - Labs CBC & Chem 7: 12/19/20 11:11 12/19/20 11:11 Labs: Abnormal Lab Results - Last 24 Hours (Table) 12/20/20 12/20/20 12/20/20 Range/Units 11:39 16:24 20:44 POC Glucose (mg/dL) 322 H 105 H 226 H (75-99) mg/dL 12/21/20 Range/Units 06:53 POC Glucose (mg/dL) 183 H (75-99) mg/dL Microbiology - Last 24 Hours (Table) 12/18/20 12:45 Blood Culture - Preliminary Blood No Growth after 48 hours 12/18/20 12:30 Blood Culture - Preliminary Blood No Growth after 48 hours Assessment and Plan (1) Fever Narrative/Plan: No fever after admit. No bactremia or UTI. CTA on admit suspicious for consolidation, no PE. She is on abx and will likely be prescribed a course on DC. Complete, may consider f/u image to resolution of lung consolidation Status: Acute Priority: High Code(s): R50.9 - FEVER, UNSPECIFIED SNOMED Code(s): 728811501 (2) Leukocytosis Narrative/Plan: Suspect r/t infection-left shift. No CBC today but, last CBC WBC was decreasing. Status: Acute Priority: High Code(s): D72.829 - ELEVATED WHITE BLOOD CELL COUNT, UNSPECIFIED SNOMED Code(s): 011871653 (3) Adenocarcinoma of right lung Narrative/Plan: Pt is on treatment for the same. Plan to continue treatment after resolution of acute condition. She has only had 2 cycles, typically treatment recheck imaging is after 3 cycles. Will be scheduled outpt Status: Chronic Priority: Medium Code(s): C34.91 - MALIGNANT NEOPLASM OF UNSP PART OF RIGHT BRONCHUS OR LUNG SNOMED Code(s): 23585004045200614
--- NOTE | 2020-12-21 21:33 | DS ---
DISCHARGE SUMMARY DATE OF SERVICE: 12/21/2020 FINAL DIAGNOSES: 1. Chronic obstructive pulmonary disease acute exacerbation with acute hypoxic respiratory failure with failure of outpatient treatment present on admission. 2. Possible right lower lobe pneumonia possibly gram-negative present on admission. 3. Right pleural effusion. 4. Right mid lung adenocarcinoma with METS history. 5. Diabetes mellitus type 2. 6. Hypertension. 7. Hyperlipidemia. 8. History of degenerative joint disease. 9. Hypothyroidism. 10.History of sickle cell trait. 11.Chronic hypoxic respiratory failure on 3 L home O2. 12.History of tubal ligation. 13.History of anxiety. 14.Remote history of nicotine dependence. 15.FULL CODE. DISCHARGE DISPOSITION: The patient will be discharged in stable condition with guarded prognosis. Pulmonary cleared the patient for discharge. HISTORY OF PRESENT ILLNESS: This 70-year-old with a past medical history of multiple medical problems admitted with COPD, possible pneumonia and respiratory difficulties. Patient treated with bronchodilators, antibiotics. Patient improved significantly. Pulmonary saw the patient. Cultures are negative so far. Chest x-ray also improved. EXAM: Vitals signs stable. Cardiovascular: S1, S2. Abdomen soft. Nontender. Nervous system: No focal deficits. Respiratory: A few scattered rhonchi. DISCHARGE ADVICE AND MEDICATIONS: 1. Diet is cardiac diet. 2. Activity limited until followup. 3. Follow up with Dr. Ochoa in 2-3 days. 4. Follow up with Dr. Grossman as recommended. DISCHARGE MEDICATIONS: 1. Actos 15 mg p.o. daily. 2. Hydroxyzine 25 mg p.o. b.i.d. 3. Cartia XT 300 mg p.o. daily. 4. Vitamin D2 1250 mg p.o. Monday. 5. Lidocaine cream as before. 6. Folic acid 1 mg p.o. daily. 7. Metformin 1000 mg p.o. b.i.d. 8. Lipitor 40 mg q.h.s. 9. Losartan 50 mg p.o. daily. 10.Nystatin 4 mL q.i.d. 11.Nitrostat p.r.n. 12.Bentley 10 mg q t.i.d. p.r.n. 13.Prednisone acetate ophthalmic drops. 14.Singulair 10 mg q.h.s. 15.Levothyroxine 50 mcg p.o. daily. 16.Metoprolol Toprol-XL 50 mg p.o. daily. 17.Ventolin HFA 2 puffs q.i.d. p.r.n. 18.Zofran 8 mg q.8h p.r.n. 19.Augmentin 875 mg p.o. b.i.d. for 4 days. 20.DuoNeb q.i.d. and p.r.n. 21.Imodium p.r.n. 22.Multivitamins 1 p.o. daily. 23.Pepcid 20 mg p.o. daily. 24.Prednisone taper 40 mg daily for 3 days, 30 for 3 days, 20 for 3 days 10 for 3 days. 25.Symbicort 1 puff b.i.d. Once again the patient will be discharged in stable condition with guarded prognosis. MMGRADYL / ANUN: [id number] /
--- NOTE | 2020-12-23 13:41 | CDI ---
Documentation Clarification Form Date: 12/23/20 From: Cheryl Smith Admit Date: 12/18/2020 12:22:00 PM Patient Name: Lety Sellers Visit Number: [id number] Discharge Date: 12/21/2020 02:05:00 PM ATTENTION: The Clinical Documentation Specialists (CDI) and [facility] Coding Staff appreciate your assistance in clarifying documentation. Please respond to the clarification below the line at the bottom and electronically sign. The CDI & [facility] Coding staff will review the response and follow-up if needed. Please note: Queries are made part of the Legal Health Record. If you have any questions, please contact the author of this message via ITS. Dr. Joan Esteves, Acute on chronic hypoxemic respiratory failure is documented in the H&P, numerous progress notes and DS, which may lack sufficient clinical evidence/support in the medical record. Additional clarification is requested. History/Risk Factors: Gram-neg pneumonia, AE of COPD and COPD w lower respiratory infection, neoplasm of middle lobe, mets to ribs/bone, home oxygen 3L Clinical Indicators: No ABGs. O2 sats on admission 93 on 3L of O2. Tachycardia and tachypneic. Treatment: Nebulizer, IV Zithromax, IV Maxipime, IV Vanco Please clarify if acute hypoxic respiratory failure is a valid diagnosis? [ ] Yes, acute hypoxic respiratory failure is present as evidence by (additional clinical support): [ ] No, acute respiratory failure is ruled out [ ] Other (please specify diagnosis) [ ] Unable to determine Yes, acute hypoxic respiratory failure is present as evidence by (additional clinical support): MTDD
--- NOTE | 2020-12-23 14:05 | CDI ---
Documentation Clarification Form Date: 12/23/2020 01:45:00 PM From: Cheryl Smith Admit Date: 12/18/2020 12:22:00 PM Patient Name: Lety Sellers Visit Number: [id number] Discharge Date: 12/21/2020 02:05:00 PM ATTENTION: The Clinical Documentation Specialists (CDI) and [facility] Coding Staff appreciate your assistance in clarifying documentation. Please respond to the clarification below the line at the bottom and electronically sign. The CDI & [facility] Coding staff will review the response and follow-up if needed. Please note: Queries are made part of the Legal Health Record. If you have any questions, please contact the author of this message via ITS. Dr. Joan Esteves, Diabetes is documented H&P, DS, several PNs and both consults. Additional specificity regarding the diabetes diagnosis is requested. History/Risk Factors: Gram-neg pneumonia, AE of COPD and COPD w lower respiratory infection, neoplasm of middle lobe, mets to ribs/bone, home oxygen 3L Clinical Indicators: Glucose: 156, 197; POC Glucose: 146, 168, 546, 209, 235, 217, 176, 322, 105, 226, 183, 210 Treatment: Solu-Medrol 60 mg IV Q6HR, Insulin Aspart per Protocol SQ ACHS, Metformin 1000 mg PO BID w meals, Actos 15 mg tab Please clarify the type of diabetes, if known: [ ] Diabetes Type 2 with hyperglycemia [ ] Diabetes Type 2 uncomplicated [ ] Other, please specify [ ] Unable to Determine Diabetes Type 2 uncomplicated MTDD
== END 2020-12-21 14:05 | disposition home health service (06) | DRG 177 ==
LOC: EC 09:45 → 5NMEDONC 12:22 → 4SSUR 13:53
PROVIDERS: ADMIT Internal Medicine; ATTEND Internal Medicine
DX: J15.6 Pneumonia due to other Gram-negative bacteria (principal); J96.21 Acute and chronic respiratory failure with hypoxia; J44.1 Chronic obstructive pulmonary disease with (acute) exacerbation; C79.51 Secondary malignant neoplasm of bone; C34.2 Malignant neoplasm of middle lobe, bronchus or lung; J90 Pleural effusion, not elsewhere classified; J44.0 Chronic obstructive pulmonary disease with (acute) lower respiratory infection; J98.11 Atelectasis; D57.3 Sickle-cell trait; Z20.822 Contact with and (suspected) exposure to COVID-19; I10 Essential (primary) hypertension; E03.9 Hypothyroidism, unspecified; E78.5 Hyperlipidemia, unspecified; E55.9 Vitamin D deficiency, unspecified; F41.9 Anxiety disorder, unspecified; R26.2 Difficulty in walking, not elsewhere classified; R19.7 Diarrhea, unspecified; M19.90 Unspecified osteoarthritis, unspecified site; Z99.81 Dependence on supplemental oxygen; Z79.890 Hormone replacement therapy; Z79.84 Long term (current) use of oral hypoglycemic drugs; Z79.899 Other long term (current) drug therapy; Z92.3 Personal history of irradiation; Z98.51 Tubal ligation status; Z98.42 Cataract extraction status, left eye; Z98.41 Cataract extraction status, right eye; Z90.2 Acquired absence of lung [part of]; Z87.891 Personal history of nicotine dependence; Z86.19 Personal history of other infectious and parasitic diseases; Z85.118 Personal history of other malignant neoplasm of bronchus and lung; Z98.890 Other specified postprocedural states; Z80.9 Family history of malignant neoplasm, unspecified; E11.9 Type 2 diabetes mellitus without complications
CPT/HCPCS: 36415; 71045; 71275; 80048; 80053; 81001; 83605; 83880; 84484; 85025; 85610; 85730; 87040; 87086; 87635; 93005; 94640; 94760; 99285

== ENCOUNTER → 2021-02-15 | Outpatient (CLI) | payer MEDICARE, OTHER ==
--- NOTE | 2021-02-15 16:17 | CT ---
EXAMINATION TYPE: CT chest w con DATE OF EXAM: 02/15/2021 COMPARISON: 11/04/2020 HISTORY: lux ca, f/u CT DLP: 293.4 mGycm, Automated exposure control for dose reduction was used. CONTRAST: Performed injected with 80 mL of Isovue 300. TECHNIQUE: Axial images were obtained at 5 mm thick sections. Reconstructed images are reviewed on [employer] computer in the coronal plane. FINDINGS: Portion of the thyroid visualized is normal. There is a right lower lobe mass or atelectasis. This is present previously. Small right pleural effu kisha is present. There is prominent infrahilar lymphadenopathy measuring 2.8 x 3.4 cm. The lateral ri ght chest wall mass thickness of 3.8 cm is again evident. This is slightly thickened from comparison. There is a retrosternal lymph node chain region mass measuring 1.7 x 2.6 cm. This is larger than com parison. There are prominent pretracheal lymph nodes. Largest of these measures 1.1 cm in thickness. No enlarged mediastinal or hilar adenopathy is evident. The ascending aorta diameter at the level o f the main pulmonary artery is 0.6 cm. The main pulmonary artery diameter at the bifurcation is 3.[address] sections are obtained through the upper abdomen. Abdomen is essentially unremarkable. IMPRESSIONS: 1. Persistent right lower lobe mass with surrounding stable moderate right pleural effusion. 2. Right lateral chest wall mass is increased in thickness over the interval. 3. Increasing size right retrosternal mass. 4. Enlarged mediastinal adenopathy appears similar to prior study.
== END | disposition home or self-care (01) ==
LOC: RADPROMAIN 14:05
PROVIDERS: ATTEND Internal Medicine Hematology & Oncology
DX: C34.90 Malignant neoplasm of unspecified part of unspecified bronchus or lung (principal); R91.8 Other nonspecific abnormal finding of lung field; J90 Pleural effusion, not elsewhere classified
CPT/HCPCS: 82565; 84520; 71260; 36415; J1642; Q9967

== ENCOUNTER → 2021-03-11 | Outpatient (CLI) | payer MEDICARE, OTHER ==
--- NOTE | 2021-03-11 12:20 | US ---
EXAMINATION TYPE: US chest DATE OF EXAM: 03/11/2021 COMPARISON: NONE CLINICAL HISTORY: J90 pleural effusion. SOB TECHNIQUE: Targeted ultrasound of the posterior lower bilateral hemithoraces EXAM MEASUREMENTS: Right Pleural Effusion pocket size: 7.8 cm Right skin surface to fluid distance: 3.4 cm Left Pleural Effusion pocket size: No fluid seen Right side marked for possible thoracentesis outside the dept. Pulmonologists are able to review the images in the patient?s EMR. IMPRESSIONS: As above
== END | disposition home or self-care (01) ==
LOC: RADUSWWP 10:09
PROVIDERS: ATTEND Internal Medicine Critical Care Medicine
DX: J90 Pleural effusion, not elsewhere classified (principal)
CPT/HCPCS: 76604

== ENCOUNTER → 2021-03-15 | Day surgery (SDC) | payer MEDICARE, OTHER ==
[~2021-03-15] MED LIST changes: -ALBUTEROL INHALER 60 PUFF/8 GM INHALER INHALATION PRN; -ALBUTEROL NEBULIZED 2.5 MG/3 ML INHALATION PRN; -ALPRAZolam 0.25 MG TAB PO PRN; -ALPRAZolam 0.5 MG TAB PO PRN; -ASPIRIN 325 MG TAB PO STA; -ASPIRIN 81 MG PO SCH; -ATORVASTATIN 80 MG TAB PO STA; +ATROPINE SULFATE 0.4 MG/ML 1 ML VIAL IM STA; -BUSPIRONE HCL 7.5 MG PO SCH; -ERGOCALCIFEROL 50,000 UNIT CAP PO SCH; -HEPARIN SODIUM 1,000 UN/ML (10ML VL) ONE; -HYDROcodone/APAP 7.5-325MG 1 EACH TAB PO PRN; -IOPAMIDOL-370 125ML BTL INJ ONE; -IPRATROPIUM 0.5 MG/2.5 ML NEBU INHALATION SCH; -LEVOTHYROXINE 50 MCG TAB PO SCH; -LIDOCAINE 2% INJ 20 MG/ML SQ ONE; -MIDAZOLAM 2 MG/2 ML VIAL IV ONE; -NITROGLYCERIN SL TABS 0.4 MG TAB SUBLINGUAL PRN; -NON-FORMULARY DRUG (Alendronate Sodium [Alendronate Sodium] 70 MG) PO SCH; -PARoxetine 20 MG TAB PO SCH; -RX INFO: IV CONTRAST WAS GIVEN 1 EACH MISC MISCELLANE PRN; -SODIUM CHLORIDE 0.9% 1,000 ML IV SCH; -SODIUM CHLORIDE 0.9% 1,000 ML in EMPTY BAG 1 BAG IV ONE; +SODIUM CHLORIDE 0.9% 500 ML 500 ML in EMPTY BAG 1 BAG IV PRN; -VERAPAMIL 2.5 MG/ML 2 ML AMP ONE; -VERAPAMIL SYRINGE (5 MG/10 ML) INTRAARTER ONE; -amLODIPine 10 MG TAB PO SCH; -fentaNYL (PF) 50 MCG/ML 2 ML AMP IV ONE; -fentaNYL (PF) 50 MCG/ML 2 ML AMP ONE
[2021-03-15 12:02] VITALS: RESP 16; TEMP 97.8
[2021-03-15 12:54] VITALS: BP 151/94; PULSE 115
--- NOTE | 2021-03-15 13:15 | XR ---
EXAMINATION TYPE: XR chest 1V portable DATE OF EXAM: 03/15/2021 COMPARISON: Chest x-ray 12/20/2020 HISTORY: Post right thoracentesis TECHNIQUE: Single frontal view of the chest is obtained. FINDINGS: There is abnormal attenuation at the right lung base as on prior with blunting the costoph renic angle. There is a port in the left pectoral region, catheter tip is overlying the superior vena cava. No evident pneumothorax. Cardiac mediastinal silhouette is likely stable, heart may be enlarge d. Aorta appears tortuous and likely dense. Bones show destructive right-sided sixth rib lesion, elva ical thickening involving the seventh rib laterally on the right. IMPRESSION: No evident complication status post thoracentesis
--- NOTE | 2021-03-15 13:53 | PCN ---
PROCEDURE NOTE PULMONARY/CRITICAL CARE PROCEDURE NOTE: Right-sided thoracentesis. PREOPERATIVE DIAGNOSIS: Right pleural effusion. POSTOPERATIVE DIAGNOSIS: Right pleural effusion. PRESCHOOL ASSOCIATE TEACHER: Dr. Grossman. PROCEDURE DESCRIPTION: There was informed consent. [place] timeout was completed verifying correct patient, procedure, site, positioning, and implant (s) or special equipment if applicable. Ultrasound guidance was used to alyce the posterior chest and appropriate fluid pocket was identified and marked. Patient was positioned, prepped and draped in usual sterile fashion. Lidocaine was used to anesthetize the area. A thoracentesis catheter was introduced into the pleural space and fluid was removed. Blood loss was none. A chest x-ray was ordered to evaluate for pneumothorax. The fluid was sent for analysis, including cytology, microbiology and chemistry. Total Fluid Removed: About 350 mL. Color of Fluid: Dark yellow-brown. Patient tolerated the procedure well and there were no complications. MMODL / IJN: [id number] /
[2021-03-15 16:01] LABS: Appearance,BF Cloudy; Nucleated Cells, Body Fluid 4500 /uL; RBC, Body Fluid 1700 /uL
[2021-03-15 16:16] LABS: Mononuclear WBC,Body Fluid 95 %; Polynuclear WBC,Body Fluid 5 %; Total Cells Counted,Body Fluid 100
[2021-03-16 00:58] LABS: Glucose, BF Source Pleural Fluid; Glucose, Body Fluid 122 mg/dL; LDH, Body Fluid Source Pleural Fluid; Total Protein, Body Fluid 7400 mg/dL
== END ==
LOC: PROCWHC3 11:43 → EEVIPCON 11:43
PROVIDERS: ATTEND Internal Medicine Critical Care Medicine
DX: J90 Pleural effusion, not elsewhere classified (principal); Z99.81 Dependence on supplemental oxygen; Z79.899 Other long term (current) drug therapy; Z85.118 Personal history of other malignant neoplasm of bronchus and lung; R25.1 Tremor, unspecified; I25.10 Atherosclerotic heart disease of native coronary artery without angina pectoris; I10 Essential (primary) hypertension; D57.3 Sickle-cell trait; E55.9 Vitamin D deficiency, unspecified; B19.20 Unspecified viral hepatitis C without hepatic coma; E03.9 Hypothyroidism, unspecified; J44.9 Chronic obstructive pulmonary disease, unspecified; Z83.3 Family history of diabetes mellitus; Z87.891 Personal history of nicotine dependence; Z98.42 Cataract extraction status, left eye; Z98.41 Cataract extraction status, right eye; Z98.51 Tubal ligation status; Z98.890 Other specified postprocedural states; M19.90 Unspecified osteoarthritis, unspecified site; Z79.84 Long term (current) use of oral hypoglycemic drugs; Z79.82 Long term (current) use of aspirin; Z79.890 Hormone replacement therapy
CPT/HCPCS: 89050; 87070; 87205; 82945; 83615; 84157; 71045; 96372; 32554; J0461; J2001; 88108; 88305; 88341; 88342

== ENCOUNTER 2021-07-18 13:51 | Inpatient (IN) | payer MEDICARE, OTHER ==
[2021-07-18] MEDS ORDERED: ALBUTEROL NEBULIZED 2.5 MG/3 ML INHALATION STA (14:11)
[2021-07-18] MEDS ORDERED: IPRATROPIUM 0.5 MG/2.5 ML NEBU INHALATION STA (14:11)
[2021-07-18] MEDS ORDERED: DEXAMETHASONE SOD PHOSPHATE 10 MG/ML 1 ML VIAL IV STA (14:14)
--- NOTE | 2021-07-18 14:18 | ED ---
General Adult HPI - General Chief complaint: Shortness of Breath Stated complaint: SOB Time Seen by Provider: 07/18/21 13:57 Source: patient Mode of arrival: ambulatory Limitations: no limitations - History of Present Illness Initial comments: Dictation was produced using [employer] dictation software. please excuse any grammatical, word or spelling errors. Chief Complaint: 71-year-old female presents to emergency room for shortness of breath the last 4-5 days History of Present Illness: Patient is 71-year-old female she has multiple comorbidities. She is here today for 4-5 days of shortness of breath. 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 The last 4 days she has been feeling worsening shortness of breath. Patient wears home O2 at 3 L. She states that her oxygen has been in the 60 percents for the last several days. She is, in by family member was at the bedside who aids in providing history present illness. Patient has not had chemoradiation in several weeks because of progression of tumor. She was in [place] today when she started to become even more short of breath. Patient has any fever. Denies any cough. The ROS documented in this emergency department record has been reviewed and confirmed by me. Those systems with pertinent positive or negative responses have been documented in the HPI. All other systems are other negative and/or noncontributory. PHYSICAL EXAM: General Impression: Alert and oriented x3, dyspneic HEENT: Normocephalic atraumatic, extra-ocular movements intact, pupils equal and reactive to light bilaterally, mucous membranes moist. Cardiovascular: Heart regular rate and rhythm Chest: Tachypnea, no retractions Abdomen: abdomen soft, non-tender, non-distended, no organomegaly Musculoskeletal: Pulses present and equal in all extremities, no peripheral edema Motor: no focal deficits noted Neurological: CN II-XII grossly intact, no focal motor or sensory deficits noted Skin: Intact with no visualized rashes Psych: Normal affect and mood ED course: 71-year-old female with multiple pulmonary comorbidities presents to the ER for shortness of breath. States that she's been hypoxic at home per she is mildly dyspneic at the bedside. Patient not retracting though she is breathing at an increased rate. Signs upon arrival shows heart rate of 105, respiratory rate of 28, not hypoxic on room air. EKG interpretation: Ventricular rate 81, sinus rhythm,. Interval 136, QS 147, QTc 456. No WA prolongation, no QTC prolongation, no ST or T-wave changes noted. EKG compared to 12/18/2020 showing no changes. Overall, this EKG is unremarkable Patient did not have any obvious auscultatory findings. Chest x-ray shows stable findings except for new finding of right paraspinal infiltrate. patient not having any respiratory infectious symptoms. Laboratory evaluation obtained. No leukocytosis. Hemoglobin stable 9.6. Coag panel is unremarkable. D-dimer slightly elevated at 1.29. She has had higher elevations in the past. Creatinine is 1.7 with a BUN of 45. Lactic acid is 3.2. Troponin 0.013. Brain natruretic peptide normal. Patient not a candidate for CT angio chest with c ontrast per radiologist. No PE is unlikely that it is part of the differential given that patient has dyspnea with no obvious lung auscultatory findings and lung cancer risk factors. Patient reevaluated after breathing treatment and [place] states that her breathing is slightly improved. Her vital signs are better with a respiratory rate improved to 20. She is not tachycardic. Patient reevaluated at bedside at 4:00 PM. She still does appear to be slightly dyspneic though better. Still not hypoxic. She states that she feels like the supplemental oxygen is helping her. Patient be admitted to [facility] hospitalist [facility] with consultation to pulmonology and oncology. At this point there is some concern for PE. She does not candidate for contrast exposure. She is not showing any high-risk features. She is not hypotensive not tachycardic with no significantly elevated troponin. - Related Data Home Medications Medication Instructions Recorded Confirmed Levothyroxine Sodium [Synthroid] 50 mcg PO DAILY 03/11/14 07/18/21 Albuterol Sulfate [Ventolin HFA] 2 puff INHALATION RT-Q6H PRN 03/12/14 07/18/21 Nitroglycerin Sl Tabs [Nitrostat] 0.4 mg SL Q5M PRN 06/25/15 07/18/21 Atorvastatin Calcium [Lipitor] 40 mg PO HS 09/15/20 07/18/21 Diltiazem HCl [Cartia Xt] 300 mg PO DAILY 09/15/20 07/18/21 HYDROcodone/APAP 10-325MG [[place] 1 tab PO TID PRN 09/15/20 07/18/21 10-325] Metoprolol Succinate (ER) [Toprol 25 mg PO DAILY 09/15/20 07/18/21 XL] Montelukast Sodium [Singulair] 10 mg PO HS 09/15/20 07/18/21 Pioglitazone [Actos] 15 mg PO DAILY 09/15/20 07/18/21 Folic Acid 1 mg PO DAILY 11/04/20 07/18/21 Lidocaine-Prilocaine Cream [Emla 1 applic TOPICAL DIRECTED PRN 11/04/20 07/18/21 Cream 2.5%/2.5%] ondansetron HCL [Zofran] 8 mg PO Q6H PRN 11/04/20 07/18/21 Losartan Potassium 25 mg PO DAILY 12/18/20 07/18/21 Aspirin EC [Ecotrin Low Dose] 81 mg PO DAILY 07/18/21 07/18/21 Budesonide/Formoterol Fumarate 2 puff INHALATION RT-BID 07/18/21 07/18/21 [Symbicort 160-4.5 Mcg Inhaler] Diclofenac Sodium Gel [Voltaren 2 gm TOPICAL QID 07/18/21 07/18/21 Gel] Famotidine [Pepcid] 20 mg PO DAILY PRN 07/18/21 07/18/21 Multivitamins, Thera [Multivitamin 1 tab PO DAILY 07/18/21 07/18/21 (formulary)] Previous Rx's Medication Instructions Recorded Loperamide [Imodium] 2 mg PO QID PRN #60 cap 11/10/20 Allergies Allergy/AdvReac Type Severity Reaction Status Date / Time No Known Allergies Allergy Verified 07/18/21 15:19 Review of Systems ROS Statement: Those systems with pertinent positive or pertinent negative responses have been documented in the HPI. ROS Other: All systems not noted in ROS Statement are negative. Past Medical History Past Medical History: Cancer, COPD, Diabetes Mellitus, Hyperlipidemia, Hypertension, Osteoarthritis (OA), Respiratory Disorder, Thyroid Disorder Additional Past Medical History / Comment(s): sickle cell traits, unable to walk any distance, SOB, Stage 4 lung cancer- completed radiation, currently getting chemo, wears 3L oxygen at home History of Any Multi-Drug Resistant Organisms: None Reported Past Surgical History: Tubal Ligation Additional Past Surgical History / Comment(s): bilateral cataracts, Navigational Bronchoscopy (08/03/17), LUNG RESECTION Past Anesthesia/Blood Transfusion Reactions: No Reported Reaction Additional Past Anesthesia/Blood Transfusion Reaction / Comment(s): no problems with prior blood transfusion Past Psychological History: Anxiety Smoking Status: Former smoker - Past Family History Mother Family Medical History: Cancer Additional Family Medical History / Comment(s): Unknown type of cancer. Father Family Medical History: Cancer Additional Family Medical History / Comment(s): Unknown type of cancer. General Exam Limitations: no limitations Course Vital Signs 07/18/21 07/18/21 07/18/21 13:54 14:51 15:08 Temperature 98 F Pulse Rate 105 H 82 87 Respiratory 28 H 20 Rate Blood Pressure 179/95 160/88 O2 Sat by Pulse 95 100 Oximetry 07/18/21 15:09 Temperature Pulse Rate 88 Respiratory Rate Blood Pressure O2 Sat by Pulse Oximetry Medical Decision Making - Lab Data Result diagrams: 07/18/21 14:38 07/18/21 14:38 Lab Results 07/18/21 07/18/21 07/18/21 Range/Units 14:38 14:38 14:38 WBC 10.0 (3.8-10.6) k/uL RBC 3.03 L (3.80-5.40) m/uL Hgb 9.6 L (11.4-16.0) gm/dL Hct 29.7 L (34.0-46.0) % MCV 97.8 (80.0-100.0) fL MCH 31.6 (25.0-35.0) pg MCHC 32.3 (31.0-37.0) g/dL RDW 13.6 (11.5-15.5) % Plt Count 124 L (150-450) k/uL MPV 9.0 Neutrophils % 69 % Lymphocytes % 23 % Monocytes % 4 % Eosinophils % 1 % Basophils % 1 % Neutrophils # 6.9 (1.3-7.7) k/uL Lymphocytes # 2.3 (1.0-4.8) k/uL Monocytes # 0.4 (0-1.0) k/uL Eosinophils # 0.1 (0-0.7) k/uL Basophils # 0.1 (0-0.2) k/uL Hypochromasia Slight PT 11.8 (9.0-12.0) sec INR 1.1 (<1.2) APTT 40.5 H (22.0-30.0) sec D-Dimer 1.29 H (<0.60) mg/L FEU Sodium 139 (137-145) mmol/L Potassium 3.8 (3.5-5.1) mmol/L Chloride 99 (98-107) mmol/L Carbon Dioxide 30 (22-30) mmol/L Anion Gap 10 mmol/L BUN 45 H (7-17) mg/dL Creatinine 1.71 H (0.52-1.04) mg/dL Est GFR (CKD-EPI)AfAm 34 (>60 ml/min/1.73 sqM) Est GFR (CKD-EPI)NonAf 30 (>60 ml/min/1.73 sqM) Glucose 236 H (74-99) mg/dL Plasma Lactic Acid Rakesh (0.7-2.0) mmol/L Calcium 11.1 H (8.4-10.2) mg/dL Magnesium 1.5 L (1.6-2.3) mg/dL Total Bilirubin 0.9 (0.2-1.3) mg/dL AST 49 H (14-36) U/L ALT 32 (4-34) U/L Alkaline Phosphatase 45 (38-126) U/L Troponin I (0.000-0.034) ng/mL NT-Pro-B Natriuret Pep pg/mL Total Protein 9.1 H (6.3-8.2) g/dL Albumin 4.4 (3.5-5.0) g/dL 07/18/21 07/18/21 07/18/21 Range/Units 14:38 14:38 14:38 WBC (3.8-10.6) k/uL RBC (3.80-5.40) m/uL Hgb (11.4-16.0) gm/dL Hct (34.0-46.0) % MCV (80.0-100.0) fL MCH (25.0-35.0) pg MCHC (31.0-37.0) g/dL RDW (11.5-15.5) % Plt Count (150-450) k/uL MPV Neutrophils % % Lymphocytes % % Monocytes % % Eosinophils % % Basophils % % Neutrophils # (1.3-7.7) k/uL Lymphocytes # (1.0-4.8) k/uL Monocytes # (0-1.0) k/uL Eosinophils # (0-0.7) k/uL Basophils # (0-0.2) k/uL Hypochromasia PT (9.0-12.0) sec INR (<1.2) APTT (22.0-30.0) sec D-Dimer (<0.60) mg/L FEU Sodium (137-145) mmol/L Potassium (3.5-5.1) mmol/L Chloride (98-107) mmol/L Carbon Dioxide (22-30) mmol/L Anion Gap mmol/L BUN (7-17) mg/dL Creatinine (0.52-1.04) mg/dL Est GFR (CKD-EPI)AfAm (>60 ml/min/1.73 sqM) Est GFR (CKD-EPI)NonAf (>60 ml/min/1.73 sqM) Glucose (74-99) mg/dL Plasma Lactic Acid Rakesh 3.2 H* (0.7-2.0) mmol/L Calcium (8.4-10.2) mg/dL Magnesium (1.6-2.3) mg/dL Total Bilirubin (0.2-1.3) mg/dL AST (14-36) U/L ALT (4-34) U/L Alkaline Phosphatase (38-126) U/L Troponin I 0.013 (0.000-0.034) ng/mL NT-Pro-B Natriuret Pep 257 pg/mL Total Protein (6.3-8.2) g/dL Albumin (3.5-5.0) g/dL Disposition Clinical Impression: Dyspnea Disposition: ADMITTED IP TO THIS HOSP Condition: Fair Referrals: Abdiel Ochoa DO [Primary Care Provider] - 1-2 days Decision Time: 16:06
--- NOTE | 2021-07-18 14:39 | XR ---
EXAMINATION TYPE: XR chest 1V portable DATE OF EXAM: 07/18/2021 COMPARISON: 03/30/2021 HISTORY: Short of breath TECHNIQUE: Single view FINDINGS: There is pleural thickening and blunting at the right lung base and lateral chest wall. The re is right lateral rib deformity. Thoracic aorta is atheromatous. There is left-sided central venous catheter with tip in the superior vena cava. No heart failure seen. There is a 3 cm infiltrate in th e right upper lobe paraspinal region which is a change. IMPRESSION: There is right pleural effusion and right lower lobe atelectasis which is similar to last exam. There is a new right upper lobe paraspinal infiltrate compared to old exam. There is right lat eral rib deformity or absence which could relate to bone destruction or surgery and should be correla maame.
[2021-07-18 14:53] LABS: Basophils # (A) 0.1 k/uL (0-0.2); Basophils % (A) 1 %; Eosinophils # (A) 0.1 k/uL (0-0.7); Eosinophils % (A) 1 %; HCT 29.7 % (34.0-46.0); HGB 9.6 gm/dL (11.4-16.0); Hypochromasia Slight; Lymphocytes # (A) 2.3 k/uL (1.0-4.8); Lymphocytes % (A) 23 %; MCH 31.6 pg (25.0-35.0); MCHC 32.3 g/dL (31.0-37.0); MCV 97.8 fL (80.0-100.0); Monocytes # (A) 0.4 k/uL (0-1.0); Monocytes % (A) 4 %; Neutrophils # (A) 6.9 k/uL (1.3-7.7); Neutrophils % (A) 69 %; Platelet Count 124 k/uL (150-450); RBC 3.03 m/uL (3.80-5.40); RDW 13.6 % (11.5-15.5)
[2021-07-18 15:03] LABS: INR 1.1 (<1.2); Partial Thromboplastin Time 40.5 sec (22.0-30.0); Prothrombin Time 11.8 sec (9.0-12.0)
[2021-07-18 15:37] LABS: Albumin 4.4 g/dL (3.5-5.0); Calcium 11.1 mg/dL (8.4-10.2); Magnesium 1.5 mg/dL (1.6-2.3); Potassium 3.8 mmol/L (3.5-5.1); Total Bilirubin 0.9 mg/dL (0.2-1.3); Total Protein 9.1 g/dL (6.3-8.2)
[2021-07-18] MEDS ORDERED: SODIUM CHLORIDE 0.9% 500 ML 500 ML IV STA (15:48)
[2021-07-18] MEDS ORDERED: HEPARIN SODIUM 1,000 UN/ML (10ML VL) IV PRN (15:50)
[2021-07-18] MEDS ORDERED: HEPARIN SODIUM 1,000 UN/ML (10ML VL) IV ONE (15:50)
[2021-07-18] MEDS ORDERED: AMPICILLIN-SULBACTAM 3 GM in SODIUM CHLORIDE 0.9% 100 ML IVPB STA (15:57)
[2021-07-18] MEDS ORDERED: NALOXONE 0.4 MG/ML 1 ML VIAL IV PRN (15:58)
[2021-07-18] MEDS ORDERED: ONDANSETRON 4 MG/2 ML VIAL IVP PRN (15:58)
[2021-07-18] MEDS ORDERED: ACETAMINOPHEN TAB 325 MG TAB PO PRN (15:58)
[2021-07-18] MEDS ORDERED: MORPHINE SULFATE 4 MG/ML SYRINGE IV STA (16:06)
[2021-07-18] MEDS: HEPARIN SOD,PORK IN 0.45% NACL 25,000 UNIT in 0.45% NACL 1 250ML.BAG IV SCH (16:24)
[2021-07-18] MEDS: SODIUM CHLORIDE 0.9% 1,000 ML IV SCH (16:28)
[2021-07-18] MEDS ORDERED: LOPERAMIDE 2 MG CAP PO PRN (18:30)
[2021-07-18] MEDS ORDERED: ONDANSETRON 4 MG TAB PO PRN (18:30)
[2021-07-18] MEDS ORDERED: FAMOTIDINE 20 MG TAB PO PRN (18:30)
[2021-07-18] MEDS: BUDESONIDE 1 MG/2 ML NEBU INHALATION SCH (19:31)
[2021-07-18 19:50] LABS: Glucose,Whole Blood 209 mg/dL (75-99)
[2021-07-18] MEDS ORDERED: IPRATROPIUM-ALBUTEROL 3 ML NEB INHALATION SCH (20:00)
[2021-07-18] MEDS ORDERED: IPRATROPIUM-ALBUTEROL 3 ML NEB INHALATION PRN (20:27)
[2021-07-18] MEDS: HYDROcodone/APAP 10-325MG 1 EACH TAB PO PRN (20:49)
[2021-07-18] MEDS: INSULIN ASPART (NovoLOG) 100 UNIT/ML VIAL SQ SCH (20:50)
[2021-07-18] MEDS: DICLOFENAC SODIUM GEL 100 GM TUBE TOPICAL SCH (20:50)
[2021-07-18] MEDS ORDERED: MONTELUKAST 10 MG TAB PO SCH (21:00)
[2021-07-18] MEDS: methylPREDNISolone SOD SUCCI 125 MG/2 ML VIAL IV SCH (23:24)
[2021-07-19] MEDS: HYDROcodone/APAP 10-325MG 1 EACH TAB PO PRN ×3 (03:49→23:34)
[2021-07-19] MEDS: LEVOTHYROXINE 50 MCG TAB PO SCH (05:44)
[2021-07-19] MEDS: methylPREDNISolone SOD SUCCI 125 MG/2 ML VIAL IV SCH ×2 (05:44→13:49)
[2021-07-19 06:00] LABS: Glucose,Whole Blood 326 mg/dL (75-99)
[2021-07-19] MEDS: INSULIN ASPART (NovoLOG) 100 UNIT/ML VIAL SQ SCH ×4 (06:45→21:05)
[2021-07-19] MEDS: MULTIVITAMINS, THERA 1 EACH TAB PO SCH (09:04)
[2021-07-19] MEDS: ASPIRIN 81 MG PO SCH (09:04)
[2021-07-19] MEDS: PIOGLITAZONE 15 MG TAB PO SCH (09:04)
[2021-07-19] MEDS: LOSARTAN 25 MG TAB PO SCH (09:04)
[2021-07-19] MEDS: FOLIC ACID 1 MG TAB PO SCH (09:04)
[2021-07-19] MEDS: DILTIAZEM CD 300 MG CAP.ER.24H PO SCH (09:04)
[2021-07-19] MEDS: METOPROLOL SUCCINATE (ER) 25 MG TAB.ER.24H PO SCH (09:04)
[2021-07-19] MEDS: DICLOFENAC SODIUM GEL 100 GM TUBE TOPICAL SCH ×4 (09:04→21:09)
[2021-07-19] MEDS: BUDESONIDE 1 MG/2 ML NEBU INHALATION SCH ×2 (09:09→19:35)
[2021-07-19] MEDS: IPRATROPIUM-ALBUTEROL 3 ML NEB INHALATION SCH ×4 (09:09→19:35)
[2021-07-19 11:54] LABS: Glucose,Whole Blood 213 mg/dL (75-99)
[2021-07-19 12:11] LABS: Calcium 10.1 mg/dL (8.4-10.2); Potassium 4.5 mmol/L (3.5-5.1)
--- NOTE | 2021-07-19 14:57 | P.HPIM ---
History of Present Illness H&P Date: 07/19/21 Chief Complaint: Shortness of breath patient is a 71-year-old female with a known history of hypertension, hyperlipidemia, osteoarthritis, sickle cell trait, stage IV lung cancer status post radiation currently getting chemotherapy, chronic hypoxic respiratory failure on. Approximately another cannula, COPD and other medical problemswith the complaints of worsening shortness of breath for the past 4-5 days. Patient states that she's been wearing oxygen all the time. [facility] [employer] [facility] and found her pulseoxygen to be 60%. She did taking deep breaths and went up to 98%. Patient also having more short of breath is related to come to ER. Otherwise denied any fever or chills. No increased cough or sputum production. No nausea vomiting or abdominal diarrhea. Patient had not had chemoradiation in several weeks because of progression of tumor. Due to hypoxia and shortness of breath, concern for PE in the ER and was started on heparin drip. Chest x-ray showed there is right pleural effusion and right lower lobe atelectasis which is similar to last exam. There is a new right upper lobe paraspinal infiltrate compared to old exam. laboratory data showed WBC 10.0 hemoglobin 9.6 and platelets 124, D-dimer 1.29, sodium 1:30 potassium 3.8 chloride 99 BUN 45 and creatinine 1.71, lactic acid 3.2, calcium 11.1 and magnesium 1.5 Troponin 0.013and proBNP 257 albumin 4.4 Review of Systems Constitutional: Patient denies any fever or chills . No generalized weakness or weight loss. Abdomen: Patient denied nausea vomiting and diarrhea and abdominal pain. Cardiovascular: Patient denies any chest pain or short of breath no palpitations. No leg swelling. Respiratory: Patient does come in of cough without sputum production. Does have shortness of breath Neurologic: Patient denied any numbness or tingling headache. Musculoskeletal: Patient denies any complaints of joint swelling or deformity. Skin: Negative Psychiatric: Negative Endocrine: No heat or cold intolerance. No recent weight gain. Genitourinary: No dysuria or hematuria. All other 14 point ROS negative except the above Past Medical History Past Medical History: Cancer, COPD, Diabetes Mellitus, Hyperlipidemia, Hypertension, Osteoarthritis (OA), Respiratory Disorder, Thyroid Disorder Additional Past Medical History / Comment(s): sickle cell traits, unable to walk any distance, SOB, Stage 4 lung cancer- completed radiation, currently getting chemo, wears 3L oxygen at home History of Any Multi-Drug Resistant Organisms: None Reported Past Surgical History: Tubal Ligation Additional Past Surgical History / Comment(s): bilateral cataracts, Navigational Bronchoscopy (08/03/17), LUNG RESECTION Past Anesthesia/Blood Transfusion Reactions: No Reported Reaction Additional Past Anesthesia/Blood Transfusion Reaction / Comment(s): no problems with prior blood transfusion Past Psychological History: Anxiety Additional Psychological History / Comment(s): Pt resides with her son who is very helpful. She has home oxygen, nebulizer and glucometer. Smoking Status: Former smoker Past Alcohol Use History: None Reported Additional Past Alcohol Use History / Comment(s): quit smoking Apr 2017,smoked since age 20,<1ppd Past Drug Use History: None Reported - Past Family History Mother Family Medical History: Cancer Additional Family Medical History / Comment(s): Unknown type of cancer. Father Family Medical History: Cancer Additional Family Medical History / Comment(s): Unknown type of cancer. Medications and Allergies Home Medications Medication Instructions Recorded Confirmed Type Levothyroxine Sodium [Synthroid] 50 mcg PO DAILY 03/11/14 07/18/21 History Albuterol Sulfate [Ventolin HFA] 2 puff INHALATION RT-Q6H PRN 03/12/14 07/18/21 History Nitroglycerin Sl Tabs [Nitrostat] 0.4 mg SL Q5M PRN 06/25/15 07/18/21 History Atorvastatin Calcium [Lipitor] 40 mg PO HS 09/15/20 07/18/21 History Diltiazem HCl [Cartia Xt] 300 mg PO DAILY 09/15/20 07/18/21 History HYDROcodone/APAP 10-325MG [[place] 1 tab PO TID PRN 09/15/20 07/18/21 History 10-325] Metoprolol Succinate (ER) [Toprol 25 mg PO DAILY 09/15/20 07/18/21 History XL] Montelukast Sodium [Singulair] 10 mg PO HS 09/15/20 07/18/21 History Pioglitazone [Actos] 15 mg PO DAILY 09/15/20 07/18/21 History Folic Acid 1 mg PO DAILY 11/04/20 07/18/21 History Lidocaine-Prilocaine Cream [Emla 1 applic TOPICAL DIRECTED PRN 11/04/20 07/18/21 History Cream 2.5%/2.5%] ondansetron HCL [Zofran] 8 mg PO Q6H PRN 11/04/20 07/18/21 History Loperamide [Imodium] 2 mg PO QID PRN #60 cap 11/10/20 07/18/21 Rx Losartan Potassium 25 mg PO DAILY 12/18/20 07/18/21 History Aspirin EC [Ecotrin Low Dose] 81 mg PO DAILY 07/18/21 07/18/21 History Budesonide/Formoterol Fumarate 2 puff INHALATION RT-BID 07/18/21 07/18/21 History [Symbicort 160-4.5 Mcg Inhaler] Diclofenac Sodium Gel [Voltaren 2 gm TOPICAL QID 07/18/21 07/18/21 History Gel] Famotidine [Pepcid] 20 mg PO DAILY PRN 07/18/21 07/18/21 History Multivitamins, Thera [Multivitamin 1 tab PO DAILY 07/18/21 07/18/21 History (formulary)] Allergies Allergy/AdvReac Type Severity Reaction Status Date / Time No Known Allergies Allergy Verified 07/18/21 15:19 Physical Exam Vitals: Vital Signs Temp Pulse Pulse Resp BP BP Pulse Ox 07/19/21 09:20 88 18 07/19/21 09:13 97 07/19/21 09:10 82 16 07/19/21 03:50 97.8 F 87 18 154/78 100 07/19/21 01:39 85 16 07/18/21 23:27 98.1 F 85 16 136/82 99 07/18/21 20:00 97.8 F 85 18 179/87 99 07/18/21 19:45 84 07/18/21 19:32 86 07/18/21 16:36 84 20 122/94 97 07/18/21 15:09 88 07/18/21 15:08 87 20 160/88 100 07/18/21 14:51 82 07/18/21 13:54 98 F 105 H 28 H 179/95 95 Intake and Output 07/18/21 07/19/21 07/19/21 22:59 06:59 14:59 Intake Total 74.726 0 Output Total 300 200 Balance -225.274 -200 Intake: Intake, IV Titration 74.726 0 Amount Heparin Sod,Pork in 0.45% 74.726 0 NaCl 25,000 unit In 0.45 % NaCl 1 250ml.bag @ 18 UNITS/KG/HR 11.676 mls/hr IV .[id number] [facility] Rx#: [id number] Output: Urine 300 200 Other: Voiding Method Toilet Toilet Bedside Commode Bedside Commode # Voids 1 Weight 64.864 kg 64.864 kg PHYSICAL EXAMINATION: Patient is lying in the bed comfortably, no acute distress, awake alert and oriented.. HEENT: Normocephalic. Neck is supple. Pupils reactive. Nostrils clear. Oral cavity is moist. Neck reveals no JVD, carotid bruits, or thyromegaly. CHEST EXAMINATION: Trachea is central. Symmetrical expansion. Bibasilar diminished sounds, scattered crackles. Nonlabored breathing.. CARDIAC: Normal S1, S2 with no gallops. No murmurs ABDOMEN: Soft. Bowel sounds normal. No organomegaly. No abdominal bruits. Extremities: reveal no edema. No clubbing or cyanosis Neurologically awake, alert, oriented x3 with well-coordinated movements. No focal deficits noted Skin: No rash or skin lesions. Psychiatric: Coperative. Nonsuicidal Musculoskeletal: No joint swelling or deformity. Normal range of motion. Results CBC & Chem 7: 07/18/21 14:38 07/19/21 07:24 Labs: Abnormal Lab Results - Last 24 Hours (Table) 07/18/21 07/18/21 07/18/21 Range/Units 14:38 14:38 14:38 RBC 3.03 L (3.80-5.40) m/uL Hgb 9.6 L (11.4-16.0) gm/dL Hct 29.7 L (34.0-46.0) % Plt Count 124 L (150-450) k/uL APTT 40.5 H (22.0-30.0) sec D-Dimer 1.29 H (<0.60) mg/L FEU BUN 45 H (7-17) mg/dL Creatinine 1.71 H (0.52-1.04) mg/dL Glucose 236 H (74-99) mg/dL POC Glucose (mg/dL) (75-99) mg/dL Plasma Lactic Acid Rakesh (0.7-2.0) mmol/L Calcium 11.1 H (8.4-10.2) mg/dL Magnesium 1.5 L (1.6-2.3) mg/dL AST 49 H (14-36) U/L Total Protein 9.1 H (6.3-8.2) g/dL 07/18/21 07/18/21 07/18/21 Range/Units 14:38 17:24 19:48 RBC (3.80-5.40) m/uL Hgb (11.4-16.0) gm/dL Hct (34.0-46.0) % Plt Count (150-450) k/uL APTT (22.0-30.0) sec D-Dimer (<0.60) mg/L FEU BUN (7-17) mg/dL Creatinine (0.52-1.04) mg/dL Glucose (74-99) mg/dL POC Glucose (mg/dL) 209 H (75-99) mg/dL Plasma Lactic Acid Rakesh 3.2 H* 2.9 H* (0.7-2.0) mmol/L Calcium (8.4-10.2) mg/dL Magnesium (1.6-2.3) mg/dL AST (14-36) U/L Total Protein (6.3-8.2) g/dL 07/18/21 07/18/21 07/19/21 Range/Units 22:04 22:04 03:53 RBC (3.80-5.40) m/uL Hgb (11.4-16.0) gm/dL Hct (34.0-46.0) % Plt Count (150-450) k/uL APTT >200.0 H* 64.9 H (22.0-30.0) sec D-Dimer (<0.60) mg/L FEU BUN (7-17) mg/dL Creatinine (0.52-1.04) mg/dL Glucose (74-99) mg/dL POC Glucose (mg/dL) (75-99) mg/dL Plasma Lactic Acid Rakesh 2.9 H* (0.7-2.0) mmol/L Calcium (8.4-10.2) mg/dL Magnesium (1.6-2.3) mg/dL AST (14-36) U/L Total Protein (6.3-8.2) g/dL 07/19/21 07/19/21 07/19/21 Range/Units 03:53 05:59 07:25 RBC (3.80-5.40) m/uL Hgb (11.4-16.0) gm/dL Hct (34.0-46.0) % Plt Count (150-450) k/uL APTT (22.0-30.0) sec D-Dimer (<0.60) mg/L FEU BUN (7-17) mg/dL Creatinine (0.52-1.04) mg/dL Glucose (74-99) mg/dL POC Glucose (mg/dL) 326 H (75-99) mg/dL Plasma Lactic Acid Rakesh 3.3 H* 3.4 H* (0.7-2.0) mmol/L Calcium (8.4-10.2) mg/dL Magnesium (1.6-2.3) mg/dL AST (14-36) U/L Total Protein (6.3-8.2) g/dL Thrombosis Risk Factor Assmnt - DVT/VTE Prophylaxis DVT/VTE Prophylaxis: Pharmacologic Prophylaxis ordered - Choose All That Apply Each Risk Factor Represents 2 Points: Age 61-74 years Thrombosis Risk Factor Assessment Total Risk Factor Score: 2 Thrombosis Risk Factor Assessment Level: Low Risk Assessment and Plan Assessment: shortness of breath likely due toright pleural effusionand right lower lobe atelectasis. suspected acute PEdue to hypoxia and tachycardia at home. Acute kidney injury likely prerenal with creatinine level I.71 Elevated d-dimer level I.29 Lactic acidosis Hypercalcemia due to malignancy Hypomagnesemia Stage IV lung cancer status postpalliative chemoradiation Hypertension uncontrolled Hyperlipidemia osteoarthritisDiabetes type 2 [id number] Hypothyroidism sickle cell trait DVT prophylaxis Plan: Patient will be continued on oxygen supplementation. Currently saturating well on 2 L oxygen with nasal cannula. Patient was started on heparin drip for possible PE. VQ scan was ordereddue to elevated creatinine level to 1.7. Patient will be continued on DuoNeb's andfollow up closely. rule out Covid 19 infection. Pulmonary and oncology was consulted for evaluation.. Time with Patient: Greater than 30
--- NOTE | 2021-07-19 15:07 | P.CNPUL ---
History of Present Illness Consult date: 07/19/21 Requesting physician: Ash Crooks Reason for consult: dyspnea, cough, COPD, hypoxemia, pneumonia, lung mass, abnormal CXR/CT Chief complaint: Shortness of breath. History of present illness: Pulmonary consult dated 07/19/2021. 71-year-old black female well-known to me. The patient presented to the emergency department on July 18, complaining of increasing shortness of breath and low saturations. She apparently has had 4 or 5 days of increasing shortness of breath. Apparently the patient's son encouraged her to go to the emergency room, but she apparently has some other family event to attend. She does have a history of hepatitis, COPD which is quite severe, and non-small cell lung cancer, status post previous resection. She has not had any treatment for her recurrent lung cancer since January of last year. She typically does use oxygen at 3 L/m, 24, at home. Currently, the patient is on 2 L nasal cannula. She's getting saline at 20 mL an hour. The patient was given IV heparin, I think because they were thinking about pulmonary embolism. A CT angiogram could not be done because of her renal function. She is coughing up yellow phlegm. She did show us a sample of it today. She does feel like she has a chest cold. In addition to the above, she has a history of diabetes, hyperlipidemia, hypertension, DJD, and chronic hypoxemic respiratory failure. White count 10, hemoglobin 9.6, hematocrit 29.7, and platelet count 124,000. Her d-dimer was 1.29. Sodium 136, potassium 4.5, chlorides 98, CO2 25, anion gap 13, BUN 42, and creatinine 1.59. Her lactic acid was 4. Her calcium was 10.1. Her troponin level was 0.013. The patient has a chronic right lower lobe area of atelectasis and pleural effusion. That area is unchanged. There is a new right upper lobe paraspinal infiltrate. Review of Systems REVIEW OF SYSTEMS: CONSTITUTIONAL: [Negative.] NEUROLOGIC: [ Negative.] HEENT: [ Negative.] CARDIAC: [Negative.] PULMONARY: Worsening shortness of breath, cough, chest congestion, and yellow phlegm production. In addition, patient had much lower saturations. GI: [Negative.] : [Negative.] RHEUMATOLOGIC: [ Negative.] IMMUNOLOGIC: [ Negative.] ENDOCRINE: [Negative. ] DERMATOLOGIC: [Negative.] Past Medical History Past Medical History: Cancer, COPD, Diabetes Mellitus, Hyperlipidemia, Hypertension, Osteoarthritis (OA), Respiratory Disorder, Thyroid Disorder Additional Past Medical History / Comment(s): sickle cell traits, unable to walk any distance, SOB, Stage 4 lung cancer- completed radiation, currently getting chemo, wears 3L oxygen at home History of Any Multi-Drug Resistant Organisms: None Reported Past Surgical History: Tubal Ligation Additional Past Surgical History / Comment(s): bilateral cataracts, Navigational Bronchoscopy (08/03/17), LUNG RESECTION Past Anesthesia/Blood Transfusion Reactions: No Reported Reaction Additional Past Anesthesia/Blood Transfusion Reaction / Comment(s): no problems with prior blood transfusion Past Psychological History: Anxiety Additional Psychological History / Comment(s): Pt resides with her son who is very helpful. She has home oxygen, nebulizer and glucometer. Smoking Status: Former smoker Past Alcohol Use History: None Reported Additional Past Alcohol Use History / Comment(s): quit smoking Apr 2017,smoked since age 20,<1ppd Past Drug Use History: None Reported - Past Family History Mother Family Medical History: Cancer Additional Family Medical History / Comment(s): Unknown type of cancer. Father Family Medical History: Cancer Additional Family Medical History / Comment(s): Unknown type of cancer. Medications and Allergies Home Medications Medication Instructions Recorded Confirmed Type Levothyroxine Sodium [Synthroid] 50 mcg PO DAILY 03/11/14 07/18/21 History Albuterol Sulfate [Ventolin HFA] 2 puff INHALATION RT-Q6H PRN 03/12/14 07/18/21 History Nitroglycerin Sl Tabs [Nitrostat] 0.4 mg SL Q5M PRN 06/25/15 07/18/21 History Atorvastatin Calcium [Lipitor] 40 mg PO HS 09/15/20 07/18/21 History Diltiazem HCl [Cartia Xt] 300 mg PO DAILY 09/15/20 07/18/21 History HYDROcodone/APAP 10-325MG [[place] 1 tab PO TID PRN 09/15/20 07/18/21 History 10-325] Metoprolol Succinate (ER) [Toprol 25 mg PO DAILY 09/15/20 07/18/21 History XL] Montelukast Sodium [Singulair] 10 mg PO HS 09/15/20 07/18/21 History Pioglitazone [Actos] 15 mg PO DAILY 09/15/20 07/18/21 History Folic Acid 1 mg PO DAILY 11/04/20 07/18/21 History Lidocaine-Prilocaine Cream [Emla 1 applic TOPICAL DIRECTED PRN 11/04/20 07/18/21 History Cream 2.5%/2.5%] ondansetron HCL [Zofran] 8 mg PO Q6H PRN 11/04/20 07/18/21 History Loperamide [Imodium] 2 mg PO QID PRN #60 cap 11/10/20 07/18/21 Rx Losartan Potassium 25 mg PO DAILY 12/18/20 07/18/21 History Aspirin EC [Ecotrin Low Dose] 81 mg PO DAILY 07/18/21 07/18/21 History Budesonide/Formoterol Fumarate 2 puff INHALATION RT-BID 07/18/21 07/18/21 Hist ory [Symbicort 160-4.5 Mcg Inhaler] Diclofenac Sodium Gel [Voltaren 2 gm TOPICAL QID 07/18/21 07/18/21 History Gel] Famotidine [Pepcid] 20 mg PO DAILY PRN 07/18/21 07/18/21 History Multivitamins, Thera [Multivitamin 1 tab PO DAILY 07/18/21 07/18/21 History (formulary)] Allergies Allergy/AdvReac Type Severity Reaction Status Date / Time No Known Allergies Allergy Verified 07/18/21 15:19 Physical Exam Osteopathic Statement: *. No significant issues noted on an osteopathic structural exam other than those noted in the History and Physical/Consult. Vitals: Vital Signs Temp Pulse Pulse Resp BP BP Pulse Ox 07/19/21 13:14 88 18 07/19/21 09:20 88 18 07/19/21 09:13 97 07/19/21 09:10 82 16 07/19/21 08:00 98.7 F 95 18 171/89 98 07/19/21 03:50 97.8 F 87 18 154/78 100 07/19/21 01:39 85 16 07/18/21 23:27 98.1 F 85 16 136/82 99 07/18/21 20:00 97.8 F 85 18 179/87 99 07/18/21 19:45 84 07/18/21 19:32 86 07/18/21 16:36 84 20 122/94 97 07/18/21 15:09 88 07/18/21 15:08 87 20 160/88 100 Intake and Output 07/18/21 07/19/21 07/19/21 22:59 06:59 14:59 Intake Total 74.726 0 Output Total 300 200 Balance -225.274 -200 Intake: Intake, IV Titration 74.726 0 Amount Heparin Sod,Pork in 0.45% 74.726 0 NaCl 25,000 unit In 0.45 % NaCl 1 250ml.bag @ 18 UNITS/KG/HR 11.676 mls/hr IV .[id number] [facility] Rx#: [id number] Output: Urine 300 200 Other: Voiding Method Toilet Toilet Bedside Commode Bedside Commode # Voids 1 Weight 64.864 kg 64.864 kg No acute distress, oriented 3. Currently on 2 L nasal O2. No audible wheezing, use of accessory muscles, or conversational dyspnea. HEENT examination is grossly unremarkable. Neck supple. Full range of motion. No adenopathy thyromegaly or neck vein distention. Cardiovascular examination reveals regular rhythm rate. S1-S2 normal. No S3 or S4. No discernible murmur noted. Heart rate is 88 bpm. Lungs reveal diffuse scattered rhonchi and mild expiratory wheezes. Breath sounds equal bilaterally but diminished throughout. No crackles. There is prolongation on forced maneuver. 2 L saturation is 97%. Abdomen soft bowel sounds are heard. No masses or tenderness. Extremities are intact. No cyanosis clubbing or edema. Skin is without rash or lesion. Neurologic examination is brief but nonfocal. Results - Laboratory Findings CBC and BMP: 07/18/21 14:38 07/19/21 07:24 PT/INR, D-dimer PT 11.8 sec (9.0-12.0) 07/18/21 14:38 INR 1.1 (<1.2) 07/18/21 14:38 D-Dimer 1.29 mg/L FEU (<0.60) H 07/18/21 14:38 Abnormal lab findings: Abnormal Labs 07/18/21 07/18/21 07/18/21 14:38 14:38 14:38 RBC 3.03 L Hgb 9.6 L Hct 29.7 L Plt Count 124 L APTT 40.5 H D-Dimer 1.29 H Sodium BUN 45 H Creatinine 1.71 H Glucose 236 H POC Glucose (mg/dL) Plasma Lactic Acid Rakesh Calcium 11.1 H Magnesium 1.5 L AST 49 H Total Protein 9.1 H 07/18/21 07/18/21 07/18/21 14:38 17:24 19:48 RBC Hgb Hct Plt Count APTT D-Dimer Sodium BUN Creatinine Glucose POC Glucose (mg/dL) 209 H Plasma Lactic Acid Rakesh 3.2 H* 2.9 H* Calcium Magnesium AST Total Protein 07/18/21 07/18/21 07/19/21 22:04 22:04 03:53 RBC Hgb Hct Plt Count APTT >200.0 H* 64.9 H D-Dimer Sodium BUN Creatinine Glucose POC Glucose (mg/dL) Plasma Lactic Acid Rakesh 2.9 H* Calcium Magnesium AST Total Protein 07/19/21 07/19/21 07/19/21 03:53 05:59 07:24 RBC Hgb Hct Plt Count APTT D-Dimer Sodium 136 L BUN 42 H Creatinine 1.59 H Glucose 353 H POC Glucose (mg/dL) 326 H Plasma Lactic Acid Rakesh 3.3 H* Calcium Magnesium AST Total Protein 07/19/21 07/19/21 07/19/21 07:25 11:13 11:45 RBC Hgb Hct Plt Count APTT D-Dimer Sodium BUN Creatinine Glucose POC Glucose (mg/dL) 213 H Plasma Lactic Acid Rakesh 3.4 H* 4.0 H* Calcium Magnesium AST Total Protein - Diagnostic Findings Chest x-ray: image reviewed Assessment and Plan Assessment: Worsening shortness of breath, likely related to COPD exacerbation, and possible pneumonia, right lung. History of recurrent non-small cell lung cancer, with previous lung resection. Severe COPD with an FEV1 that is 46% of predicted. Chronic hypoxemic respiratory failure. Status post right midlung wedge resection, October 2017. History of vitamin D deficiency. History of hepatitis C. History of sickle cell trait. History of hypertension. History of hypothyroidism. Chronic tobacco dependence for greater than 40 years. Plan: Plan dated 07/19/2021. The patient should be treated for a COPD exacerbation, and pneumonia, involving the right lung. I doubt pulmonary embolism on this patient. I will leave it up to the primary service to make a decision about IV heparin. I don't think it's necessary. I will review the patient's labs, x-rays, and medications. Adjustments in medications were made. Prognosis is very guarded. The patient has been very noncompliant. Oncology has been consulted. We will continue to follow make recommendations where appropriate. Time with Patient: Greater than 30
[2021-07-19] MEDS ORDERED: methylPREDNISolone SOD SUCCI 125 MG/2 ML VIAL IV SCH (16:00)
--- NOTE | 2021-07-19 16:31 | NM ---
EXAMINATION TYPE: NM pul vent and perfuse DATE OF EXAM: 07/19/2021 COMPARISON: Chest x-ray 07/18/2021 HISTORY: Hypoxia, dyspnea TECHNIQUE: Utilizing inhalation of 67.8 mCi Tc 99m DTPA aerosol and intravenous injection of 5.3 mCi of Tc 99m MAA, ventilation and perfusion images are acquired post injection in multiple projections. FINDINGS: Matched defect is present at the right lung base laterally corresponding to the pleural effusion mult iple matched defect. Left lung is spared. IMPRESSION: Intermediate probability for pulmonary embolus.
[2021-07-19 16:46] LABS: Glucose,Whole Blood 296 mg/dL (75-99)
--- NOTE | 2021-07-19 17:00 | P.CONS ---
History of Present Illness - Reason for Consult Consult date: 07/19/21 Metastatic Cancer - Chief Complaint Nausea, Dizzy, cough - History of Present Illness This is a very nice lady who was initially diagnosed with RML lung cancer in 2018,she had a wedge resection at that time pathology revealed pT3 (2 separate nodules),largest 1.8 cm,invasive adenocarcinoma,no regional lymph node evaluation. Primary Oncologist Dr. Guerra She received no additional adjuvant therapy at this time and she was monitored by serial scan. her PET scan in 04/2019 was fine,however,repeat CT scan of chest in November/2019 revealed a new right infra hilar soft tissue measured 4.7 cm,interval increase in RML nodule (2.1 vs 1.5 cm on prior scan),3 addiitonal enlarging nodules in right lung measuring up to 1.6 cm. 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 Molecular studies revealed PDL-1 :5%,Guardant 360 revealed no actionable mutation. She initially declined systemic therapy. However,she was admitted to the hospital in September/2020 with worsening dyspnea,repeat CT scan of chest revealed evidence of disease progression. Brain MRI on 09/17/2020 revealed no evidence of metastatic disease. On 10/16/2020,she started alimta/carbo/keytruda. She was discharged from [facility] on 12/21/2020,was admitted for dyspnea and COPD,repeat CT scan of chest revealed stable disease Onn 02/15/2021,repeat CT scan of chest revealed mild disease progression,right pleural effusion,keytruda was held due to poor PS She feels very tired,has exertional dyspnea,on home O2,has right rib pain,under relatively good control with norco as needed,she also has some nausea in the morning. She is currently of therapy,on best supportive care. Recently Dr. Guerra had a long discussion with patient and son regarding goals of care and progression. Treatment options are limited with her overall performance. Patient's son is concerned if she knows the severity of illness she will give up, we have discussed this in detail as well during last appointment. She has not had treatment due to performance since February. She is progressively worsening, and medical chart indicates multiple conversations with patient and son regarding palliaitive and/or hospital care with patient and son not ready at this time. Review of Systems All systems: negative Constitutional: Reports as per HPI Past Medical History Past Medical History: Cancer, COPD, Diabetes Mellitus, Hyperlipidemia, Hypertension, Osteoarthritis (OA), Respiratory Disorder, Thyroid Disorder Additional Past Medical History / Comment(s): sickle cell traits, unable to walk any distance, SOB, Stage 4 lung cancer- completed radiation, currently getting chemo, wears 3L oxygen at home History of Any Multi-Drug Resistant Organisms: None Reported Past Surgical History: Tubal Ligation Additional Past Surgical History / Comment(s): bilateral cataracts, Navigational Bronchoscopy (08/03/17), LUNG RESECTION Past Anesthesia/Blood Transfusion Reactions: No Reported Reaction Additional Past Anesthesia/Blood Transfusion Reaction / Comm: no problems with prior blood transfusion Past Psychological History: Anxiety Additional Psychological History / Comment(s): Pt resides with her son who is very helpful. She has home oxygen, nebulizer and glucometer. Smoking Status: Former smoker Past Alcohol Use History: None Reported Additional Past Alcohol Use History / Comment(s): quit smoking Apr 2017,smoked since age 20,<1ppd Past Drug Use History: None Reported - Past Family History Mother Family Medical History: Cancer Additional Family Medical History / Comment(s): Unknown type of cancer. Father Family Medical History: Cancer Additional Family Medical History / Comment(s): Unknown type of cancer. Medications and Allergies Home Medications Medication Instructions Recorded Confirmed Type Levothyroxine Sodium [Synthroid] 50 mcg PO DAILY 03/11/14 07/18/21 History Albuterol Sulfate [Ventolin HFA] 2 puff INHALATION RT-Q6H PRN 03/12/14 07/18/21 History Nitroglycerin Sl Tabs [Nitrostat] 0.4 mg SL Q5M PRN 06/25/15 07/18/21 History Atorvastatin Calcium [Lipitor] 40 mg PO HS 09/15/20 07/18/21 History Diltiazem HCl [Cartia Xt] 300 mg PO DAILY 09/15/20 07/18/21 History HYDROcodone/APAP 10-325MG [[place] 1 tab PO TID PRN 09/15/20 07/18/21 History 10-325] Metoprolol Succinate (ER) [Toprol 25 mg PO DAILY 09/15/20 07/18/21 History XL] Montelukast Sodium [Singulair] 10 mg PO HS 09/15/20 07/18/21 History Pioglitazone [Actos] 15 mg PO DAILY 09/15/20 07/18/21 History Folic Acid 1 mg PO DAILY 11/04/20 07/18/21 History Lidocaine-Prilocaine Cream [Emla 1 applic TOPICAL DIRECTED PRN 11/04/2007/18 History Cream 2.5%/2.5%] ondansetron HCL [Zofran] 8 mg PO Q6H PRN 11/04/20 07/18/21 History Loperamide [Imodium] 2 mg PO QID PRN #60 cap 11/10/20 07/18/21 Rx Losartan Potassium 25 mg PO DAILY 12/18/20 07/18/21 History Aspirin EC [Ecotrin Low Dose] 81 mg PO DAILY 07/18/21 07/18/21 History Budesonide/Formoterol Fumarate 2 puff INHALATION RT-BID 07/18/21 07/18/21 History [Symbicort 160-4.5 Mcg Inhaler] Diclofenac Sodium Gel [Voltaren 2 gm TOPICAL QID 07/18/21 07/18/21 History Gel] Famotidine [Pepcid] 20 mg PO DAILY PRN 07/18/21 07/18/21 History Multivitamins, Thera [Multivitamin 1 tab PO DAILY 07/18/21 07/18/21 History (formulary)] Allergies Allergy/AdvReac Type Severity Reaction Status Date / Time No Known Allergies Allergy Verified 07/18/21 15:19 Physical Exam Vitals: Vital Signs Temp Pulse Pulse Resp BP BP Pulse Ox 07/19/21 09:13 97 07/19/21 09:10 82 16 07/19/21 03:50 97.8 F 87 18 154/78 100 07/19/21 01:39 85 16 07/18/21 23:27 98.1 F 85 16 136/82 99 07/18/21 20:00 97.8 F 85 18 179/87 99 07/18/21 19:45 84 07/18/21 19:32 86 07/18/21 16:36 84 20 122/94 97 07/18/21 15:09 88 07/18/21 15:08 87 20 160/88 100 07/18/21 14:51 82 07/18/21 13:54 98 F 105 H 28 H 179/95 95 Intake and Output 07/18/21 07/19/21 07/19/21 22:59 06:59 14:59 Intake Total 74.726 0 Output Total 300 200 Balance -225.274 -200 Intake: Intake, IV Titration 74.726 0 Amount Heparin Sod,Pork in 0.45% 74.726 0 NaCl 25,000 unit In 0.45 % NaCl 1 250ml.bag @ 18 UNITS/KG/HR 11.676 mls/hr IV .[id number] [facility] Rx#: [id number] Output: Urine 300 200 Other: Voiding Method Toilet Toilet Bedside Commode Bedside Commode # Voids 1 Weight 64.864 kg 64.864 kg - Constitutional General appearance: cooperative, mild distress - EENT ENT: NA/AT - Respiratory Respiratory: bilateral: diminished, wheezing - Cardiovascular Rhythm: regularly irregular - Gastrointestinal General gastrointestinal: soft, tenderness - Integumentary Integumentary: pale - Neurologic non focal - Musculoskeletal Musculoskeletal: generalized weakness - Psychiatric Psychiatric: A&O x's 3 Results CBC & Chem 7: 07/18/21 14:38 07/19/21 07:24 Labs: Abnormal Lab Results - Last 24 Hours (Table) 07/18/21 07/18/21 07/18/21 Range/Units 14:38 14:38 14:38 RBC 3.03 L (3.80-5.40) m/uL Hgb 9.6 L (11.4-16.0) gm/dL Hct 29.7 L (34.0-46.0) % Plt Count 124 L (150-450) k/uL APTT 40.5 H (22.0-30.0) sec D-Dimer 1.29 H (<0.60) mg/L FEU BUN 45 H (7-17) mg/dL Creatinine 1.71 H (0.52-1.04) mg/dL Glucose 236 H (74-99) mg/dL POC Glucose (mg/dL) (75-99) mg/dL Plasma Lactic Acid Rakesh (0.7-2.0) mmol/L Calcium 11.1 H (8.4-10.2) mg/dL Magnesium 1.5 L (1.6-2.3) mg/dL AST 49 H (14-36) U/L Total Protein 9.1 H (6.3-8.2) g/dL 07/18/21 07/18/21 07/18/21 Range/Units 14:38 17:24 19:48 RBC (3.80-5.40) m/uL Hgb (11.4-16.0) gm/dL Hct (34.0-46.0) % Plt Count (150-450) k/uL APTT (22.0-30.0) sec D-Dimer (<0.60) mg/L FEU BUN (7-17) mg/dL Creatinine (0.52-1.04) mg/dL Glucose (74-99) mg/dL POC Glucose (mg/dL) 209 H (75-99) mg/dL Plasma Lactic Acid Rakesh 3.2 H* 2.9 H* (0.7-2.0) mmol/L Calcium (8.4-10.2) mg/dL Magnesium (1.6-2.3) mg/dL AST (14-36) U/L Total Protein (6.3-8.2) g/dL 07/18/21 07/18/21 07/19/21 Range/Units 22:04 22:04 03:53 RBC (3.80-5.40) m/uL Hgb (11.4-16.0) gm/dL Hct (34.0-46.0) % Plt Count (150-450) k/uL APTT >200.0 H* 64.9 H (22.0-30.0) sec D-Dimer (<0.60) mg/L FEU BUN (7-17) mg/dL Creatinine (0.52-1.04) mg/dL Glucose (74-99) mg/dL POC Glucose (mg/dL) (75-99) mg/dL Plasma Lactic Acid Rakesh 2.9 H* (0.7-2.0) mmol/L Calcium (8.4-10.2) mg/dL Magnesium (1.6-2.3) mg/dL AST (14-36) U/L Total Protein (6.3-8.2) g/dL 07/19/21 07/19/21 07/19/21 Range/Units 03:53 05:59 07:25 RBC (3.80-5.40) m/uL Hgb (11.4-16.0) gm/dL Hct (34.0-46.0) % Plt Count (150-450) k/uL APTT (22.0-30.0) sec D-Dimer (<0.60) mg/L FEU BUN (7-17) mg/dL Creatinine (0.52-1.04) mg/dL Glucose (74-99) mg/dL POC Glucose (mg/dL) 326 H (75-99) mg/dL Plasma Lactic Acid Rakesh 3.3 H* 3.4 H* (0.7-2.0) mmol/L Calcium (8.4-10.2) mg/dL Magnesium (1.6-2.3) mg/dL AST (14-36) U/L Total Protein (6.3-8.2) g/dL Chest x-ray: report reviewed Assessment and Plan (1) Recurrent pleural effusion Current Visit: Yes Status: Acute Code(s): J90 - PLEURAL EFFUSION, NOT ELSEWHERE CLASSIFIED SNOMED Code(s): 03645678 (2) Adenocarcinoma of right lung Current Visit: No Status: Chronic Priority: Medium Code(s): C34.91 - MALIGNANT NEOPLASM OF UNSP PART OF RIGHT BRONCHUS OR LUNG SNOMED Code(s): 13507566345411591 Plan: Discussed with Pulmonary and Primary team Agree with COvid and infectious work-up and treatment of Pneumonia Per Pulm effussion is unchanged at this time Await improved renal function for CTA Dr. Justice: I have completed the full history and physical and developed the above impression and plan, agree with dictation, dictated as a ascribe.
[2021-07-19] MEDS: HEPARIN SOD,PORK IN 0.45% NACL 25,000 UNIT in 0.45% NACL 1 250ML.BAG IV SCH (17:54)
[2021-07-19 19:19] LABS: Glucose,Whole Blood 278 mg/dL (75-99)
[2021-07-19] MEDS: FORMOTEROL FUMARATE 20 MCG/2 ML NEBU INHALATION SCH (19:35)
[2021-07-19] MEDS: SODIUM CHLORIDE 0.9% 1,000 ML IV SCH (19:44)
[2021-07-19] MEDS: PIPERACILLIN-TAZOBACTAM 3.375 GM in SODIUM CHLORIDE 0.9% 100 ML IVPB SCH (21:08)
[2021-07-19] MEDS: MELATONIN 3 MG TABLET PO PRN (23:36)
[2021-07-20 05:51] LABS: Glucose,Whole Blood 205 mg/dL (75-99)
[2021-07-20] MEDS: HYDROcodone/APAP 10-325MG 1 EACH TAB PO PRN ×2 (06:30→21:18)
[2021-07-20] MEDS: INSULIN ASPART (NovoLOG) 100 UNIT/ML VIAL SQ SCH ×4 (06:30→21:16)
[2021-07-20] MEDS: LEVOTHYROXINE 50 MCG TAB PO SCH (06:31)
[2021-07-20 07:23] LABS: Basophils % (A) 0 %; Eosinophils % (A) 0 %; HGB 8.7 gm/dL (11.4-16.0); Hypochromasia Slight; Lymphocytes # (A) 1.1 k/uL (1.0-4.8); Lymphocytes % (A) 8 %; MCH 32.2 pg (25.0-35.0); MCHC 32.2 g/dL (31.0-37.0); MCV 99.9 fL (80.0-100.0); Mean Platelet Volume 9.3; Monocytes # (A) 0.5 k/uL (0-1.0); Monocytes % (A) 4 %; Neutrophils # (A) 11.3 k/uL (1.3-7.7); Neutrophils % (A) 86 %; Platelet Count 131 k/uL (150-450); RBC 2.71 m/uL (3.80-5.40); RDW 13.5 % (11.5-15.5); WBC 13.2 k/uL (3.8-10.6)
[2021-07-20 07:43] LABS: Calcium 9.8 mg/dL (8.4-10.2); Potassium 4.5 mmol/L (3.5-5.1)
[2021-07-20] MEDS: ASPIRIN 81 MG PO SCH (08:04)
[2021-07-20] MEDS: PIOGLITAZONE 15 MG TAB PO SCH (08:04)
[2021-07-20] MEDS: METOPROLOL SUCCINATE (ER) 25 MG TAB.ER.24H PO SCH (08:04)
[2021-07-20] MEDS: LOSARTAN 25 MG TAB PO SCH (08:04)
[2021-07-20] MEDS: DILTIAZEM CD 300 MG CAP.ER.24H PO SCH (08:04)
[2021-07-20] MEDS: MULTIVITAMINS, THERA 1 EACH TAB PO SCH (08:04)
[2021-07-20] MEDS: DICLOFENAC SODIUM GEL 100 GM TUBE TOPICAL SCH ×4 (08:05→21:15)
[2021-07-20] MEDS: FOLIC ACID 1 MG TAB PO SCH (08:05)
[2021-07-20] MEDS: PIPERACILLIN-TAZOBACTAM 3.375 GM in SODIUM CHLORIDE 0.9% 100 ML IVPB SCH ×3 (08:05→22:51)
[2021-07-20] MEDS: BUDESONIDE 1 MG/2 ML NEBU INHALATION SCH ×2 (08:29→19:50)
[2021-07-20] MEDS: IPRATROPIUM-ALBUTEROL 3 ML NEB INHALATION SCH ×4 (08:29→19:50)
[2021-07-20] MEDS: FORMOTEROL FUMARATE 20 MCG/2 ML NEBU INHALATION SCH ×2 (08:29→19:49)
--- NOTE | 2021-07-20 10:16 | US ---
EXAMINATION TYPE: US venous doppler duplex LE DATE OF EXAM: 07/20/2021 9:59 AM COMPARISON: NONE CLINICAL HISTORY: elelvated d-dimer. pain SIDE PERFORMED: Bilateral TECHNIQUE: The lower extremity deep venous system is examined utilizing real time linear array sonog suzy with graded compression, doppler sonography and color-flow sonography. VESSELS IMAGED: Common Femoral Vein Deep Femoral Vein Greater Saphenous Vein * Femoral Vein Popliteal Vein Small Saphenous Vein * Proximal Calf Veins (* superficial vessels) Right Leg: Negative for DVT Left Leg: Negative for DVT IMPRESSION: 1. Bilateral lower extremity ultrasound negative for deep venous thrombosis.
--- NOTE | 2021-07-20 11:12 | P.PN ---
Subjective Progress Note Date: 07/20/21 Principal diagnosis: Shortness of breath. Pulmonary consult dated 07/19/2021. 71-year-old black female well-known to me. The patient presented to the emergency department on July 18, complaining of increasing shortness of breath and low saturations. She apparently has had 4 or 5 days of increasing shortness of breath. Apparently the patient's son encouraged her to go to the emergency room, but she apparently has some other family event to attend. She does have a history of hepatitis, COPD which is quite severe, and non-small cell lung cancer, status post previous resection. She has not had any treatment for her recurrent lung cancer since January of last year. She typically does use oxygen at 3 L/m, , at home. Currently, the patient is on 2 L nasal cannula. She's getting saline at 20 mL an hour. The patient was given IV heparin, I think because they were thinking about pulmonary embolism. A CT angiogram could not be done because of her renal function. She is coughing up yellow phlegm. She did show us a sample of it today. She does feel like she has a chest cold. In addition to the above, she has a history of diabetes, hyperlipidemia, hyp ertension, DJD, and chronic hypoxemic respiratory failure. White count 10, hemoglobin 9.6, hematocrit 29.7, and platelet count 124,000. Her d-dimer was 1.29. Sodium 136, potassium 4.5, chlorides 98, CO2 25, anion gap 13, BUN 42, and creatinine 1.59. Her lactic acid was 4. Her calcium was 10.1. Her troponin level was 0.013. The patient has a chronic right lower lobe area of atelectasis and pleural effusion. That area is unchanged. There is a new right upper lobe paraspinal infiltrate. Progress note dated 07/20/2021. 71-year-old black female, well-known to me. She has recurrent lung cancer. She has recurrent non-small cell lung cancer. She presented to the emergency department, on July 18 complaining of increasing shortness of breath, low saturations, cough, chest congestion, and green phlegm production. The patient was placed on IV heparin, because there was some concern of a pulmonary embolism. Ventilation perfusion lung scan was indeterminate. Because of her renal function, the patient cannot have a CT angiogram. We will order some Dopplers of the lower extremities. White count 13.2, hemoglobin 8.7, hematocrit 27, and platelet count 131,000. PTT was 86.3. Sodium, potassium, chloride, CO2, oral normal. Anion gap was 10. BUN was 37 with a creatinine of 1.45. Dopplers of the lower extremities were negative for DVT. The patient's oxygen has been turned down to 2 L. Saturations are 94-97%. Objective - Vital Signs Vital signs: Vital Signs Temp 98.2 F 07/20/21 04:00 Pulse 88 07/20/21 08:45 Resp 19 07/20/21 04:00 BP 165/71 07/20/21 04:00 Pulse Ox 97 07/20/21 04:00 Intake & Output 07/19/21 07/20/21 07/20/21 18:59 06:59 18:59 Intake Total 385.988 880 499.966 Output Total 1400 Balance 385.988 -520 499.966 Intake: Intake, IV Titration 149.988 280 141.966 Amount Heparin Sod,Pork in 0.45% 149.988 141.966 NaCl 25,000 unit In 0.45 % NaCl 1 250ml.bag @ 18 UNITS/KG/HR 11.676 mls/hr IV .[id number] [facility] Rx#: [id number] Piperacillin-Tazobactam 3 100 .375 gm In Sodium Chloride 0.9% 100 ml @ 25 mls/hr IVPB Q12HR [facility] Rx #:[id number] Sodium Chloride 0.9% 1, 180 000 ml @ 20 mls/hr IV . Q24H [facility] Rx#:[id number] Oral 236 600 358 Output: Urine 1400 Other: Voiding Method Toilet Bedside Commode # Voids 2 - Exam No acute distress, oriented 3. Currently on 2 L nasal O2. No audible wheezing, use of accessory muscles, or conversational dyspnea. HEENT examination is grossly unremarkable. Neck supple. Full range of motion. No adenopathy thyromegaly or neck vein distention. Cardiovascular examination reveals regular rhythm rate. S1-S2 normal. No S3 or S4. No discernible murmur noted. Heart rate is 80 bpm. Lungs reveal diffuse scattered rhonchi and mild expiratory wheezes. Breath sounds equal bilaterally but diminished throughout. No crackles. There is prolongation on forced maneuver. 2 L saturations are 94-97%. Abdomen soft bowel sounds are heard. No masses or tenderness. Extremities are intact. No cyanosis clubbing or edema. Skin is without rash or lesion. Neurologic examination is brief but nonfocal. - Labs CBC & Chem 7: 07/20/21 06:58 07/20/21 06:58 Labs: Abnormal Lab Results - Last 24 Hours (Table) 07/19/21 07/19/21 07/19/21 Range/Units 07:24 11:13 11:45 WBC (3.8-10.6) k/uL RBC (3.80-5.40) m/uL Hgb (11.4-16.0) gm/dL Hct (34.0-46.0) % Plt Count (150-450) k/uL Neutrophils # (1.3-7.7) k/uL APTT (22.0-30.0) sec Sodium 136 L (137-145) mmol/L BUN 42 H (7-17) mg/dL Creatinine 1.59 H (0.52-1.04) mg/dL Glucose 353 H (74-99) mg/dL POC Glucose (mg/dL) 213 H (75-99) mg/dL Plasma Lactic Acid Rakesh 4.0 H* (0.7-2.0) mmol/L 07/19/21 07/19/21 07/19/21 Range/Units 16:43 17:20 19:18 WBC (3.8-10.6) k/uL RBC (3.80-5.40) m/uL Hgb (11.4-16.0) gm/dL Hct (34.0-46.0) % Plt Count (150-450) k/uL Neutrophils # (1.3-7.7) k/uL APTT (22.0-30.0) sec Sodium (137-145) mmol/L BUN (7-17) mg/dL Creatinine (0.52-1.04) mg/dL Glucose (74-99) mg/dL POC Glucose (mg/dL) 296 H 278 H (75-99) mg/dL Plasma Lactic Acid Rakesh 3.9 H* (0.7-2.0) mmol/L 07/20/21 07/20/21 07/20/21 Range/Units 05:50 06:58 06:58 WBC (3.8-10.6) k/uL RBC (3.80-5.40) m/uL Hgb (11.4-16.0) gm/dL Hct (34.0-46.0) % Plt Count (150-450) k/uL Neutrophils # (1.3-7.7) k/uL APTT 86.3 H (22.0-30.0) sec Sodium (137-145) mmol/L BUN (7-17) mg/dL Creatinine (0.52-1.04) mg/dL Glucose (74-99) mg/dL POC Glucose (mg/dL) 205 H (75-99) mg/dL Plasma Lactic Acid Rakesh 2.2 H* (0.7-2.0) mmol/L 07/20/21 07/20/21 Range/Units 06:58 06:58 WBC 13.2 H (3.8-10.6) k/uL RBC 2.71 L (3.80-5.40) m/uL Hgb 8.7 L (11.4-16.0) gm/dL Hct 27.0 L (34.0-46.0) % Plt Count 131 L (150-450) k/uL Neutrophils # 11.3 H (1.3-7.7) k/uL APTT (22.0-30.0) sec Sodium (137-145) mmol/L BUN 37 H (7-17) mg/dL Creatinine 1.45 H (0.52-1.04) mg/dL Glucose 187 H (74-99) mg/dL POC Glucose (mg/dL) (75-99) mg/dL Plasma Lactic Acid Rakesh (0.7-2.0) mmol/L Assessment and Plan Assessment: Worsening shortness of breath, likely related to COPD exacerbation, and possible pneumonia, right lung. History of recurrent non-small cell lung cancer, with previous lung resection. Severe COPD with an FEV1 that is 46% of predicted. Chronic hypoxemic respiratory failure. Status post right midlung wedge resection, October 2017. History of vitamin D deficiency. History of hepatitis C. History of sickle cell trait. History of hypertension. History of hypothyroidism. Chronic tobacco dependence for greater than 40 years. Plan: Plan dated 07/19/2021. The patient should be treated for a COPD exacerbation, and pneumonia, involving the right lung. I doubt pulmonary embolism on this patient. I will leave it up to the primary service to make a decision about IV heparin. I don't think it's necessary. I will review the patient's labs, x-rays, and medications. Adjustments in medications were made. Prognosis is very guarded. The patient has been very noncompliant. Oncology has been consulted. We will continue to follow make recommendations where appropriate. Plan dated 07/20/2021. The patient is being treated for a COPD exacerbation and pneumonia. Dopplers of the lower extremities bilaterally were negative. The ventilation perfusion lung scan was indeterminate, precisely in the area, where the abnormalities are chronically present, at the right lung base. I don't suspect the patient has had a pulmonary embolism. In my opinion the blood thinners could be discontinue d. We'll leave that up to the primary service. Labs, x-rays, and medications are reviewed. Prognosis is guarded. She remains on DuoNeb's, budesonide, formoterol, and Zosyn. I will add some prednisone to the regimen. Time with Patient: Less than 30
[2021-07-20 11:59] LABS: Glucose,Whole Blood 190 mg/dL (75-99)
[2021-07-20] MEDS: predniSONE 10 MG TAB PO SCH (12:33)
[2021-07-20] MEDS: HEPARIN SODIUM,PORCINE/PF 5,000 UNIT/0.5 ML SYRINGE SQ SCH ×2 (14:51→22:50)
[2021-07-20] MEDS: HEPARIN SOD,PORK IN 0.45% NACL 25,000 UNIT in 0.45% NACL 1 250ML.BAG IV SCH (16:17)
[2021-07-20 16:42] LABS: Glucose,Whole Blood 157 mg/dL (75-99)
[2021-07-20] MEDS: SODIUM CHLORIDE 0.9% 1,000 ML IV SCH (17:35)
[2021-07-20 20:51] LABS: Glucose,Whole Blood 278 mg/dL (75-99)
[2021-07-20] MEDS: MELATONIN 3 MG TABLET PO PRN (22:50)
[2021-07-21 06:20] LABS: Glucose,Whole Blood 141 mg/dL (75-99)
[2021-07-21] MEDS: INSULIN ASPART (NovoLOG) 100 UNIT/ML VIAL SQ SCH ×4 (06:25→21:01)
[2021-07-21] MEDS: LEVOTHYROXINE 50 MCG TAB PO SCH (06:25)
[2021-07-21 07:18] LABS: Basophils % (A) 0 %; Eosinophils % (A) 0 %; HCT 26.5 % (34.0-46.0); HGB 8.3 gm/dL (11.4-16.0); Hypochromasia Slight; Lymphocytes # (A) 1.4 k/uL (1.0-4.8); Lymphocytes % (A) 13 %; MCH 31.2 pg (25.0-35.0); MCHC 31.3 g/dL (31.0-37.0); MCV 99.9 fL (80.0-100.0); Mean Platelet Volume 9.2; Monocytes # (A) 0.5 k/uL (0-1.0); Monocytes % (A) 5 %; Neutrophils # (A) 8.6 k/uL (1.3-7.7); Neutrophils % (A) 79 %; Platelet Count 131 k/uL (150-450); RBC 2.65 m/uL (3.80-5.40); RDW 13.7 % (11.5-15.5); WBC 10.9 k/uL (3.8-10.6)
[2021-07-21] MEDS: BUDESONIDE 1 MG/2 ML NEBU INHALATION SCH ×2 (07:24→19:27)
[2021-07-21] MEDS: FORMOTEROL FUMARATE 20 MCG/2 ML NEBU INHALATION SCH ×2 (07:24→19:27)
[2021-07-21] MEDS: IPRATROPIUM-ALBUTEROL 3 ML NEB INHALATION SCH ×4 (07:24→19:27)
[2021-07-21 07:43] LABS: Calcium 9.5 mg/dL (8.4-10.2); Potassium 4.3 mmol/L (3.5-5.1)
[2021-07-21] MEDS: HEPARIN SODIUM,PORCINE/PF 5,000 UNIT/0.5 ML SYRINGE SQ SCH ×2 (08:24→17:12)
[2021-07-21] MEDS: DILTIAZEM CD 300 MG CAP.ER.24H PO SCH (08:24)
[2021-07-21] MEDS: PIPERACILLIN-TAZOBACTAM 3.375 GM in SODIUM CHLORIDE 0.9% 100 ML IVPB SCH ×2 (08:24→17:12)
[2021-07-21] MEDS: predniSONE 10 MG TAB PO SCH (08:24)
[2021-07-21] MEDS: FOLIC ACID 1 MG TAB PO SCH (08:25)
[2021-07-21] MEDS: MULTIVITAMINS, THERA 1 EACH TAB PO SCH (08:25)
[2021-07-21] MEDS: HYDROcodone/APAP 10-325MG 1 EACH TAB PO PRN ×2 (08:25→21:02)
[2021-07-21] MEDS: PIOGLITAZONE 15 MG TAB PO SCH (08:25)
[2021-07-21] MEDS: METOPROLOL SUCCINATE (ER) 25 MG TAB.ER.24H PO SCH (08:25)
[2021-07-21] MEDS: ASPIRIN 81 MG PO SCH (08:25)
[2021-07-21] MEDS: LOSARTAN 25 MG TAB PO SCH (08:25)
[2021-07-21] MEDS: DICLOFENAC SODIUM GEL 100 GM TUBE TOPICAL SCH ×3 (08:26→17:15)
--- NOTE | 2021-07-21 09:37 | CDI ---
Documentation Clarification Form Date: 07/21/2021 09:22:06 AM From: Virginia Atkins CCS, CCDS Admit Date: 07/18/2021 03:59:00 PM Patient Name: Lety Sellers Visit Number: [id number] Discharge Date: ATTENTION: The Clinical Documentation Specialists (CDI) and [facility] Coding Staff appreciate your assistance in clarifying documentation. Please respond to the clarification below the line at the bottom and electronically sign. The CDI & [facility] Coding staff will review the response and follow-up if needed. Please note: Queries are made part of the Legal Health Record. If you have any questions, please contact the author of this message via ITS. Dr. Ash Crooks: The patient presented with the following clinical indicators: SOB, PO 60% at home (on home O2); Dyspneic, Tachypnea. Per the 07/19 Pulmonary Consult: Worsening SOB likely related to COPD Exacerbation and Right Lung Pneumonia. Per the 07/19 Oncology Consult: Recurrent pleural effusion, Adenocarcinoma of right lung. Additional clarification regarding the etiology/cause of the clinical indicators is requested. History/Risk Factors per the 07/19 H/P: Hypertension, Hyperlipidemia, Osteoarthritis, Sickle Cell Trait, Stage IV Lung Cancer status post Radiation & Resection, currently in Chemotherapy; Chronic Hypoxic Respiratory Failure on home O2, COPD, DM, Hypothyroidism, Former smoker. Clinical Indicators: Presented to the ED on 07/18 with SOB. Admit with Dyspnea 07/18 VS: T 98, P 105, R 28, BP 179/55, PO 95 RA - 100 3Lnc, BMI: 28.9 07/18 LAB: WBC 10.0, RBC 3.03, Hgb 9.6, Hct 29.7, Plt Ct 124; APTT 40.5, >200.0; D Dimer 1.29; BUN 45, Creatinine 1.71, Glucose 236, Lactic Acid 3.2, 2.9, 2.9; Calcium 11.1, Magnesium 1.5, AST 49, Total Protein 9.1 No Blood Cultures. 07/18 CXR: Right pleural effusion & RLL atelectasis. New RUL paraspinal infiltrate. Right lateral rib deformity or absence could relate to bone destruction or surgery. 07/18 Treatment: Telemetry, Heparin Drip (for suspected PE), O2 3Lnc, INH Ventolin, INH Atrovent, IV Decadron 10 mg x1, IV Na Cl 500 mls @ 999 mls/hr q31M, IV Heparin Drip, IV Ampicillin 100 mls @ 200 mls/hr x1 418: IV Zosyn 100 mls @ 25 mls/hr q12H In your professional opinion, please clarify if these findings signify one of the following conditions: [ x ] Sepsis POA [ ] Sepsis, Not POA [ ] Severe Sepsis with organ failure [ ] Other, please specify [ ] Unable to determine (Template Last Reviewed: May 2020) NIXON
--- NOTE | 2021-07-21 10:46 | P.PN ---
Subjective Progress Note Date: 07/21/21 Principal diagnosis: Shortness of breath. Pulmonary consult dated 07/19/2021. 71-year-old black female well-known to me. The patient presented to the emergency department on July 18, complaining of increasing shortness of breath and low saturations. She apparently has had 4 or 5 days of increasing shortness of breath. Apparently the patient's son encouraged her to go to the emergency room, but she apparently has some other family event to attend. She does have a history of hepatitis, COPD which is quite severe, and non-small cell lung cancer, status post previous resection. She has not had any treatment for her recurrent lung cancer since January of last year. She typically does use oxygen at 3 L/m, , at home. Currently, the patient is on 2 L nasal cannula. She's getting saline at 20 mL an hour. The patient was given IV heparin, I think because they were thinking about pulmonary embolism. A CT angiogram could not be done because of her renal function. She is coughing up yellow phlegm. She did show us a sample of it today. She does feel like she has a chest cold. In addition to the above, she has a history of diabetes, hyperlipidemia, hyp ertension, DJD, and chronic hypoxemic respiratory failure. White count 10, hemoglobin 9.6, hematocrit 29.7, and platelet count 124,000. Her d-dimer was 1.29. Sodium 136, potassium 4.5, chlorides 98, CO2 25, anion gap 13, BUN 42, and creatinine 1.59. Her lactic acid was 4. Her calcium was 10.1. Her troponin level was 0.013. The patient has a chronic right lower lobe area of atelectasis and pleural effusion. That area is unchanged. There is a new right upper lobe paraspinal infiltrate. Progress note dated 07/20/2021. 71-year-old black female, well-known to me. She has recurrent lung cancer. She has recurrent non-small cell lung cancer. She presented to the emergency department, on July 18 complaining of increasing shortness of breath, low saturations, cough, chest congestion, and green phlegm production. The patient was placed on IV heparin, because there was some concern of a pulmonary embolism. Ventilation perfusion lung scan was indeterminate. Because of her renal function, the patient cannot have a CT angiogram. We will order some Dopplers of the lower extremities. White count 13.2, hemoglobin 8.7, hematocrit 27, and platelet count 131,000. PTT was 86.3. Sodium, potassium, chloride, CO2, oral normal. Anion gap was 10. BUN was 37 with a creatinine of 1.45. Dopplers of the lower extremities were negative for DVT. The patient's oxygen has been turned down to 2 L. Saturations are 94-97%. Progress note dated 07/21/2021. 71-year-old black female, well-known to me. She has a history of recurrent lung cancer. She has non-small cell lung cancer. She presented to the emergency department on 07/18/2021, complaining of increasing shortness of breath, low saturations, cough, chest congestion, and green phlegm production. Currently, the patient's feeling much improved. She was initially placed on IV heparin. There was some concern initially about pulmonary embolism. Ventilation perfusion lung scan was indeterminate. She could not have a CT angiogram because of renal dysfunction. Dopplers are negative. White count 10.9, hemoglobin 8.3, hematocrit 26.5, and platelet count 131,000. Sodium, potassium, chloride, and CO2 are all normal. Anion gap normal. BUN 36 with a creatinine of 1.69. Objective - Vital Signs Vital signs: Vital Signs Temp 97.6 F 07/21/21 08:00 Pulse 82 07/21/21 08:00 Resp 18 07/21/21 08:00 BP 168/86 07/21/21 08:00 Pulse Ox 98 07/21/21 08:00 Intake & Output 07/20/21 07/21/21 07/21/21 18:59 06:59 18:59 Intake Total 1271.966 200 100 Output Total 550 Balance 1271.966 -350 100 Intake: Intake, IV Titration 321.966 200 100 Amount Heparin Sod,Pork in 0.45% 141.966 NaCl 25,000 unit In 0.45 % NaCl 1 250ml.bag @ 18 UNITS/KG/HR 11.676 mls/hr IV .[id number] [facility] Rx#: [id number] Piperacillin-Tazobactam 3 100 200 100 .375 gm In Sodium Chloride 0.9% 100 ml @ 25 mls/hr IVPB Q8HR [facility] Rx# :[id number] Sodium Chloride 0.9% 1, 80 000 ml @ 20 mls/hr IV . Q24H [facility] Rx#:[id number] Oral 950 Output: Urine 550 Other: Voiding Method Toilet Toilet Bedside Commode # Voids 3 1 - Exam No acute distress, oriented 3. Currently on 2 L nasal O2. No audible wheezing, use of accessory muscles, or conversational dyspnea. HEENT examination is grossly unremarkable. Neck supple. Full range of motion. No adenopathy thyromegaly or neck vein distention. Cardiovascular examination reveals regular rhythm rate. S1-S2 normal. No S3 or S4. No discernible murmur noted. Heart rate is 82 bpm. Lungs reveal diffuse scattered rhonchi and mild expiratory wheezes. Breath sounds equal bilaterally but diminished throughout. No crackles. There is prolongation on forced maneuver. 2 L saturations are 98%. Abdomen soft bowel sounds are heard. No masses or tenderness. Extremities are intact. No cyanosis clubbing or edema. Skin is without rash or lesion. Neurologic examination is brief but nonfocal. - Labs CBC & Chem 7: 07/21/21 06:56 07/21/21 06:56 Labs: Abnormal Lab Results - Last 24 Hours (Table) 07/20/21 07/20/21 07/20/21 Range/Units 10:46 11:58 16:21 WBC (3.8-10.6) k/uL RBC (3.80-5.40) m/uL Hgb (11.4-16.0) gm/dL Hct (34.0-46.0) % Plt Count (150-450) k/uL Neutrophils # (1.3-7.7) k/uL BUN (7-17) mg/dL Creatinine (0.52-1.04) mg/dL Glucose (74-99) mg/dL POC Glucose (mg/dL) 190 H 157 H (75-99) mg/dL Plasma Lactic Acid Rakesh 2.2 H* (0.7-2.0) mmol/L 07/20/21 07/21/21 07/21/21 Range/Units 20:49 06:17 06:56 WBC 10.9 H (3.8-10.6) k/uL RBC 2.65 L (3.80-5.40) m/uL Hgb 8.3 L (11.4-16.0) gm/dL Hct 26.5 L (34.0-46.0) % Plt Count 131 L (150-450) k/uL Neutrophils # 8.6 H (1.3-7.7) k/uL BUN (7-17) mg/dL Creatinine (0.52-1.04) mg/dL Glucose (74-99) mg/dL POC Glucose (mg/dL) 278 H 141 H (75-99) mg/dL Plasma Lactic Acid Rakesh (0.7-2.0) mmol/L 07/21/21 Range/Units 06:56 WBC (3.8-10.6) k/uL RBC (3.80-5.40) m/uL Hgb (11.4-16.0) gm/dL Hct (34.0-46.0) % Plt Count (150-450) k/uL Neutrophils # (1.3-7.7) k/uL BUN 36 H (7-17) mg/dL Creatinine 1.69 H (0.52-1.04) mg/dL Glucose 140 H (74-99) mg/dL POC Glucose (mg/dL) (75-99) mg/dL Plasma Lactic Acid Rakesh (0.7-2.0) mmol/L Assessment and Plan Assessment: Worsening shortness of breath, likely related to COPD exacerbation, and possible pneumonia, right lung. History of recurrent non-small cell lung cancer, with previous lung resection. Severe COPD with an FEV1 that is 46% of predicted. Chronic hypoxemic respiratory failure. Status post right midlung wedge resection, October 2017. History of vitamin D deficiency. History of hepatitis C. History of sickle cell trait. History of hypertension. History of hypothyroidism. Chronic tobacco dependence for greater than 40 years. Plan: Plan dated 07/19/2021. The patient should be treated for a COPD exacerbation, and pneumonia, involving the right lung. I doubt pulmonary embolism on this patient. I will leave it up to the primary service to make a decision about IV heparin. I don't think it's necessary. I will review the patient's labs, x-rays, and medications. Adjustments in medications were made. Prognosis is very guarded. The patient has been very noncompliant. Oncology has been consulted. We will continue to follow make recommendations where appropriate. Plan dated 07/20/2021. The patient is being treated for a COPD exacerbation and pneumonia. Dopplers of the lower extremities bilaterally were negative. The ventilation perfusion lung scan was indeterminate, precisely in the area, where the abnormalities are chronically present, at the right lung base. I don't suspect the patient has had a pulmonary embolism. In my opinion the blood thinners could be discontinued. We'll leave that up to the primary service. Labs, x-rays, and medications are reviewed. Prognosis is guarded. She remains on DuoNeb's, budesonide, formoterol, and Zosyn. I will add some prednisone to the regimen. Plan dated 07/21/2021. The patient is primarily being treated for a COPD exacerbation, and possible purulent tracheobronchitis/bronchopneumonia. Dopplers of the lower extremities were negative. The ventilation perfusion lung scan was indeterminate. The abnormality on the scan, an area of the abnormalities noted on chest x-ray. The patient's labs, x-rays, and medications are all reviewed. She is feeling much improved. Possible discharge tomorrow or Monday. She does have an appointment to see me in the office next week. I do want her to keep that appointment. Time with Patient: Less than 30
[2021-07-21 12:13] LABS: Glucose,Whole Blood 239 mg/dL (75-99)
--- NOTE | 2021-07-21 13:50 | P.PN ---
Subjective Progress Note Date: 07/21/21 She is feeling much better today with the exception of Right rib pain, this was palliatively radiated in 2019, but I did speak with Dr. Cochran who states she is likely a candidate for palliative radiation for pain again. He has since been consulted. Objective - Vital Signs Vital signs: Vital Signs Temp 98.3 F 07/21/21 04:00 Pulse 78 07/21/21 07:45 Resp 18 07/21/21 04:00 BP 149/71 07/21/21 04:00 Pulse Ox 100 07/21/21 07:24 Intake & Output 07/20/21 07/21/21 07/21/21 18:59 06:59 18:59 Intake Total 1271.966 200 Output Total 550 Balance 1271.966 -350 Intake: Intake, IV Titration 321.966 200 Amount Heparin Sod,Pork in 0.45% 141.966 NaCl 25,000 unit In 0.45 % NaCl 1 250ml.bag @ 18 UNITS/KG/HR 11.676 mls/hr IV .[id number] [facility] Rx#: [id number] Piperacillin-Tazobactam 3 100 200 .375 gm In Sodium Chloride 0.9% 100 ml @ 25 mls/hr IVPB Q8HR [facility] Rx# :[id number] Sodium Chloride 0.9% 1, 80 000 ml @ 20 mls/hr IV . Q24H [facility] Rx#:[id number] Oral 950 Output: Urine 550 Other: Voiding Method Toilet Bedside Commode # Voids 3 1 - Exam - Constitutional General appearance: cooperative, mild distress - EENT ENT: NA/AT - Respiratory Respiratory: bilateral: diminished, wheezing - Cardiovascular Rhythm: regularly irregular - Gastrointestinal General gastrointestinal: soft, tenderness - Integumentary Integumentary: pale - Neurologic non focal - Musculoskeletal Musculoskeletal: generalized weakness - Psychiatric Psychiatric: A&O x's 3 - Labs CBC & Chem 7: 07/21/21 06:56 07/21/21 06:56 Labs: Abnormal Lab Results - Last 24 Hours (Table) 07/20/21 07/20/21 07/20/21 Range/Units 10:46 11:58 16:21 WBC (3.8-10.6) k/uL RBC (3.80-5.40) m/uL Hgb (11.4-16.0) gm/dL Hct (34.0-46.0) % Plt Count (150-450) k/uL Neutrophils # (1.3-7.7) k/uL BUN (7-17) mg/dL Creatinine (0.52-1.04) mg/dL Glucose (74-99) mg/dL POC Glucose (mg/dL) 190 H 157 H (75-99) mg/dL Plasma Lactic Acid Rakesh 2.2 H* (0.7-2.0) mmol/L 07/20/21 07/21/21 07/21/21 Range/Units 20:49 06:17 06:56 WBC 10.9 H (3.8-10.6) k/uL RBC 2.65 L (3.80-5.40) m/uL Hgb 8.3 L (11.4-16.0) gm/dL Hct 26.5 L (34.0-46.0) % Plt Count 131 L (150-450) k/uL Neutrophils # 8.6 H (1.3-7.7) k/uL BUN (7-17) mg/dL Creatinine (0.52-1.04) mg/dL Glucose (74-99) mg/dL POC Glucose (mg/dL) 278 H 141 H (75-99) mg/dL Plasma Lactic Acid Rakesh (0.7-2.0) mmol/L 07/21/21 Range/Units 06:56 WBC (3.8-10.6) k/uL RBC (3.80-5.40) m/uL Hgb (11.4-16.0) gm/dL Hct (34.0-46.0) % Plt Count (150-450) k/uL Neutrophils # (1.3-7.7) k/uL BUN 36 H (7-17) mg/dL Creatinine 1.69 H (0.52-1.04) mg/dL Glucose 140 H (74-99) mg/dL POC Glucose (mg/dL) (75-99) mg/dL Plasma Lactic Acid Rakesh (0.7-2.0) mmol/L Assessment and Plan (1) Recurrent pleural effusion Current Visit: Yes Status: Acute Code(s): J90 - PLEURAL EFFUSION, NOT ELSEWHERE CLASSIFIED SNOMED Code(s): 86168951 (2) Adenocarcinoma of right lung Current Visit: No Status: Chronic Priority: Medium Code(s): C34.91 - MALIGNANT NEOPLASM OF UNSP PART OF RIGHT BRONCHUS OR LUNG SNOMED Code(s): 74681432167319196 Plan: Discussed with Pulmonary and Primary team Agree with COvid and infectious work-up and treatment of Pneumonia Per Pulm effussion is unchanged at this time Right Rib Pain worsening and not totally controlled on [place], we have asked Dr. Cochran to see patient for options of palliaitive radiation
[2021-07-21 16:33] LABS: Glucose,Whole Blood 315 mg/dL (75-99)
[2021-07-21] MEDS: polyethylene glycoL 3350 17 GM POWD.PACK PO SCH (17:12)
[2021-07-21] MEDS: SODIUM CHLORIDE 0.9% 1,000 ML IV SCH (17:13)
[2021-07-21 20:31] LABS: Glucose,Whole Blood 162 mg/dL (75-99)
--- NOTE | 2021-07-21 23:42 | P.PN ---
Subjective Progress Note Date: 07/20/21 patient is a 71-year-old female with a known history of hypertension, hyperlipidemia, osteoarthritis, sickle cell trait, stage IV lung cancer status post radiation currently getting chemotherapy, chronic hypoxic respiratory failure on. Approximately another cannula, COPD and other medical problemswith the complaints of worsening shortness of breath for the past 4-5 days. Patient states that she's been wearing oxygen all the time. [facility] and found her pulseoxygen to be 60%. She did taking deep breaths and went up to 98%. Patient also having more short of breath is related to come to ER. Otherwise denied any fever or chills. No increased cough or sputum production. No nausea vomiting or abdominal diarrhea. Patient had not had chemoradiation in several weeks because of progression of tumor. Due to hypoxia and shortness of breath, concern for PE in the ER and was started on heparin drip. Chest x-ray showed there is right pleural effusion and right lower lobe atel ectasis which is similar to last exam. There is a new right upper lobe paraspinal infiltrate compared to old exam. laboratory data showed WBC 10.0 hemoglobin 9.6 and platelets 124, D-dimer 1.29, sodium 1:30 potassium 3.8 chloride 99 BUN 45 and creatinine 1.71, lactic acid 3.2, calcium 11.1 and magnesium 1.5 Troponin 0.013and proBNP 257 albumin 4.4 07/20/2020 Patient is currently sitting in the bed. Awake alert and oriented x3. Breathing status is better today. No complaints of chest pain. Nuclear scan showed intermediate probability for PE. Patient does have for effusion defect mainly in the area of chronic at the right lung base. Bilateral lower extremity duplex scan is negative for DVT. Heparin has been discontinued. Patient is currently 2 L oxygen which is at baseline. Patient has been afebrile. No nausea vomiting abdominal pain or diarrhea. Laboratory data showed WBC 13.2 hemoglobin 8.7 platelets 131 Sodium 141 potassium 4.5 chloride 105 bicarb is 26 BUN 37 creatinine 1.45 and lactic acid 2.2. Patient is being continued prednisone changed to 30 mg daily. Also on antibiotics above Zosyn. Pulmonary is on board. Current medications reviewed. Objective - Vital Signs Vital signs: Vital Signs Temp 98.0 F 07/20/21 12:00 Pulse 88 07/20/21 13:46 Resp 18 07/20/21 13:46 BP 152/84 07/20/21 12:00 Pulse Ox 97 07/20/21 12:00 Intake & Output 07/19/21 07/20/21 07/20/21 18:59 06:59 18:59 Intake Total 385.265 811 1363.966 Output Total 1400 Balance 385.988 -520 1153.966 Intake: Intake, IV Titration 149.988 280 321.966 Amount Heparin Sod,Pork in 0.45% 149.988 141.966 NaCl 25,000 unit In 0.45 % NaCl 1 250ml.bag @ 18 UNITS/KG/HR 11.676 mls/hr IV .[id number] [facility] Rx#: [id number] Piperacillin-Tazobactam 3 100 .375 gm In Sodium Chloride 0.9% 100 ml @ 25 mls/hr IVPB Q12HR [facility] Rx #:[id number] Piperacillin-Tazobactam 3 100 .375 gm In Sodium Chloride 0.9% 100 ml @ 25 mls/hr IVPB Q8HR [facility] Rx# :[id number] Sodium Chloride 0.9% 1, 180 80 000 ml @ 20 mls/hr IV . Q24H [facility] Rx#:[id number] Oral 236 600 832 Output: Urine 1400 Other: Voiding Method Toilet Toilet Bedside Commode Bedside Commode # Voids 2 2 - Exam PHYSICAL EXAMINATION: Patient is lying in the bed comfortably, no acute distress, awake alert and oriented.. HEENT: Normocephalic. Neck is supple. Pupils reactive. Nostrils clear. Oral cavity is moist. Neck reveals no JVD, carotid bruits, or thyromegaly. CHEST EXAMINATION: Trachea is central. Symmetrical expansion. rt Bibasilar diminished sounds, scattered crackles. Nonlabored breathing.. CARDIAC: Normal S1, S2 with no gallops. No murmurs ABDOMEN: Soft. Bowel sounds normal. No organomegaly. No abdominal bruits. Extremities: reveal no edema. No clubbing or cyanosis Neurologically awake, alert, oriented x3 with well-coordinated movements. No focal deficits noted Skin: No rash or skin lesions. Psychiatric: Coperative. Nonsuicidal Musculoskeletal: No joint swelling or deformity. Normal range of motion. - Labs CBC & Chem 7: 07/21/21 06:56 07/21/21 06:56 Labs: Abnormal Lab Results - Last 24 Hours (Table) 07/19/21 07/19/21 07/19/21 Range/Units 16:43 17:20 19:18 WBC (3.8-10.6) k/uL RBC (3.80-5.40) m/uL Hgb (11.4-16.0) gm/dL Hct (34.0-46.0) % Plt Count (150-450) k/uL Neutrophils # (1.3-7.7) k/uL APTT (22.0-30.0) sec BUN (7-17) mg/dL Creatinine (0.52-1.04) mg/dL Glucose (74-99) mg/dL POC Glucose (mg/dL) 296 H 278 H (75-99) mg/dL Plasma Lactic Acid Rakesh 3.9 H* (0.7-2.0) mmol/L 07/20/21 07/20/21 07/20/21 Range/Units 05:50 06:58 06:58 WBC (3.8-10.6) k/uL RBC (3.80-5.40) m/uL Hgb (11.4-16.0) gm/dL Hct (34.0-46.0) % Plt Count (150-450) k/uL Neutrophils # (1.3-7.7) k/uL APTT 86.3 H (22.0-30.0) sec BUN (7-17) mg/dL Creatinine (0.52-1.04) mg/dL Glucose (74-99) mg/dL POC Glucose (mg/dL) 205 H (75-99) mg/dL Plasma Lactic Acid Rakesh 2.2 H* (0.7-2.0) mmol/L 07/20/21 07/20/21 07/20/21 Range/Units 06:58 06:58 10:46 WBC 13.2 H (3.8-10.6) k/uL RBC 2.71 L (3.80-5.40) m/uL Hgb 8.7 L (11.4-16.0) gm/dL Hct 27.0 L (34.0-46.0) % Plt Count 131 L (150-450) k/uL Neutrophils # 11.3 H (1.3-7.7) k/uL APTT (22.0-30.0) sec BUN 37 H (7-17) mg/dL Creatinine 1.45 H (0.52-1.04) mg/dL Glucose 187 H (74-99) mg/dL POC Glucose (mg/dL) (75-99) mg/dL Plasma Lactic Acid Rakesh 2.2 H* (0.7-2.0) mmol/L 07/20/21 Range/Units 11:58 WBC (3.8-10.6) k/uL RBC (3.80-5.40) m/uL Hgb (11.4-16.0) gm/dL Hct (34.0-46.0) % Plt Count (150-450) k/uL Neutrophils # (1.3-7.7) k/uL APTT (22.0-30.0) sec BUN (7-17) mg/dL Creatinine (0.52-1.04) mg/dL Glucose (74-99) mg/dL POC Glucose (mg/dL) 190 H (75-99) mg/dL Plasma Lactic Acid Rakesh (0.7-2.0) mmol/L Assessment and Plan Assessment: shortness of breath likely due to right pleural effusion and right lower lobe atelectasis/pneumonia. Unlikely PE. Acute kidney injury likely prerenal with creatinine level I.71 Elevated d-dimer level I.29 Lactic acidosis Hypercalcemia due to malignancy Hypomagnesemia Stage IV lung cancer status postpalliative chemoradiation Hypertension uncontrolled Hyperlipidemia osteoarthritisDiabetes type 2 [id number] Hypothyroidism sickle cell trait DVT prophylaxis Plan: Patient will be continued on oxygen supplementation. Currently saturating well on 2 L oxygen with nasal cannula. PHeparin has been discontinued. VQ scan showed intermediate probability for PE mainly at the right lower lobe where she had chronic lung changes. Lower extremity duplex scan is negative for DVT. Heparin has been discontinued and patient was started back on heparin subcu for DVT prophylaxis. Patient will be current antibiotics involved Zosyn. Pulmonary and oncology is on board. Time with Patient: Greater than 30
--- NOTE | 2021-07-21 23:44 | P.PN ---
Subjective Progress Note Date: 07/21/21 patient is a 71-year-old female with a known history of hypertension, hyperlipidemia, osteoarthritis, sickle cell trait, stage IV lung cancer status post radiation currently getting chemotherapy, chronic hypoxic respiratory failure on. Approximately another cannula, COPD and other medical problemswith the complaints of worsening shortness of breath for the past 4-5 days. Patient states that she's been wearing oxygen all the time. [facility] and found her pulseoxygen to be 60%. She did taking deep breaths and went up to 98%. Patient also having more short of breath is related to come to ER. Otherwise denied any fever or chills. No increased cough or sputum production. No nausea vomiting or abdominal diarrhea. Patient had not had chemoradiation in several weeks because of progression of tumor. Due to hypoxia and shortness of breath, concern for PE in the ER and was started on heparin drip. Chest x-ray showed there is right pleural effusion and right lower lobe atel ectasis which is similar to last exam. There is a new right upper lobe paraspinal infiltrate compared to old exam. laboratory data showed WBC 10.0 hemoglobin 9.6 and platelets 124, D-dimer 1.29, sodium 1:30 potassium 3.8 chloride 99 BUN 45 and creatinine 1.71, lactic acid 3.2, calcium 11.1 and magnesium 1.5 Troponin 0.013and proBNP 257 albumin 4.4 07/20/2020 Patient is currently sitting in the bed. Awake alert and oriented x3. Breathing status is better today. No complaints of chest pain. Nuclear scan showed intermediate probability for PE. Patient does have for effusion defect mainly in the area of chronic at the right lung base. Bilateral lower extremity duplex scan is negative for DVT. Heparin has been discontinued. Patient is currently 2 L oxygen which is at baseline. Patient has been afebrile. No nausea vomiting abdominal pain or diarrhea. Laboratory data showed WBC 13.2 hemoglobin 8.7 platelets 131 Sodium 141 potassium 4.5 chloride 105 bicarb is 26 BUN 37 creatinine 1.45 and lactic acid 2.2. Patient is being continued prednisone changed to 30 mg daily. Also on antibiotics above Zosyn. Pulmonary is on board. 07/21/2021 Patient is currently sitting on the side of the bed. Breathing status is improving slowly. No complaints of chest pain or shortness breath. No nausea vomiting or abdominal pain or diarrhea. Still having some exertional dyspnea. Currently requiring 2 L of oxygen via nasal cannula. Patient is being current antibiotics Zosyn. Currently on prednisone and duo nebs. Anterior incentive spirometry. Laboratory pressure WBC 10.9 hemoglobin 8.3 and platelets 131 Sodium 142 potassium 4.3 chloride 106 bicarb is 29 BUN 36 and creatinine 1.6 and blood sugar is 140 lactic acid came down to 1.7. Patient is tolerating oral diet. Current medications reviewed. Objective - Vital Signs Vital signs: Vital Signs Temp 98.0 F 07/21/21 15:35 Pulse 72 07/21/21 19:45 Resp 18 07/21/21 15:35 BP 155/71 07/21/21 15:35 Pulse Ox 99 07/21/21 15:46 Intake & Output 07/21/21 07/21/21 07/22/21 06:59 18:59 06:59 Intake Total 200 1362 320 Output Total 550 1200 500 Balance -350 162 -180 Intake: Intake, IV Titration 200 300 Amount Piperacillin-Tazobactam 3 200 300 .375 gm In Sodium Chloride 0.9% 100 ml @ 25 mls/hr IVPB Q8HR [facility] Rx# :[id number] Oral 1062 320 Output: Urine 550 1200 500 Other: Voiding Method Toilet # Voids 1 1 # Bowel Movements 1 - Exam PHYSICAL EXAMINATION: Patient is lying in the bed comfortably, no acute distress, awake alert and oriented.. HEENT: Normocephalic. Neck is supple. Pupils reactive. Nostrils clear. Oral cavity is moist. Neck reveals no JVD, carotid bruits, or thyromegaly. CHEST EXAMINATION: Trachea is central. Symmetrical expansion. rt Bibasilar diminished sounds, scattered crackles. Nonlabored breathing.. CARDIAC: Normal S1, S2 with no gallops. No murmurs ABDOMEN: Soft. Bowel sounds normal. No organomegaly. No abdominal bruits. Extremities: reveal no edema. No clubbing or cyanosis Neurologically awake, alert, oriented x3 with well-coordinated movements. No focal deficits noted Skin: No rash or skin lesions. Psychiatric: Coperative. Nonsuicidal Musculoskeletal: No joint swelling or deformity. Normal range of motion. - Labs CBC & Chem 7: 07/21/21 06:56 07/21/21 06:56 Labs: Abnormal Lab Results - Last 24 Hours (Table) 07/21/21 07/21/21 07/21/21 Range/Units 06:17 06:56 06:56 WBC 10.9 H (3.8-10.6) k/uL RBC 2.65 L (3.80-5.40) m/uL Hgb 8.3 L (11.4-16.0) gm/dL Hct 26.5 L (34.0-46.0) % Plt Count 131 L (150-450) k/uL Neutrophils # 8.6 H (1.3-7.7) k/uL BUN 36 H (7-17) mg/dL Creatinine 1.69 H (0.52-1.04) mg/dL Glucose 140 H (74-99) mg/dL POC Glucose (mg/dL) 141 H (75-99) mg/dL 07/21/21 07/21/21 07/21/21 Range/Units 12:02 16:29 20:26 WBC (3.8-10.6) k/uL RBC (3.80-5.40) m/uL Hgb (11.4-16.0) gm/dL Hct (34.0-46.0) % Plt Count (150-450) k/uL Neutrophils # (1.3-7.7) k/uL BUN (7-17) mg/dL Creatinine (0.52-1.04) mg/dL Glucose (74-99) mg/dL POC Glucose (mg/dL) 239 H 315 H 162 H (75-99) mg/dL Assessment and Plan Assessment: shortness of breath likely due to right pleural effusion and right lower lobe atelectasis/pneumonia. Unlikely PE. Acute kidney injury likely prerenal with creatinine level I.71 Elevated d-dimer level I.29 Lactic acidosis Hypercalcemia due to malignancy Hypomagnesemia Stage IV lung cancer status postpalliative chemoradiation Hypertension uncontrolled Hyperlipidemia osteoarthritisDiabetes type 2 [id number] Hypothyroidism sickle cell trait DVT prophylaxis Plan: Patient will be continued on oxygen supplementation. Currently saturating well on 2 L oxygen with nasal cannula. PHeparin has been discontinued. VQ scan showed intermediate probability for PE mainly at the right lower lobe where she had chronic lung changes. Lower extremity duplex scan is negative for DVT. Heparin has been discontinued and patient was started back on heparin subcu for DVT prophylaxis. Patient will be current antibiotics involved Zosyn. Pulmonary and oncology is on board. Time with Patient: Greater than 30
[2021-07-22] MEDS: MELATONIN 3 MG TABLET PO PRN ×2 (00:50→23:01)
[2021-07-22] MEDS: PIPERACILLIN-TAZOBACTAM 3.375 GM in SODIUM CHLORIDE 0.9% 100 ML IVPB SCH ×2 (00:50→08:32)
[2021-07-22] MEDS: DICLOFENAC SODIUM GEL 100 GM TUBE TOPICAL SCH ×5 (01:07→20:48)
[2021-07-22] MEDS: HEPARIN SODIUM,PORCINE/PF 5,000 UNIT/0.5 ML SYRINGE SQ SCH ×4 (01:07→23:20)
[2021-07-22 05:25] LABS: Glucose,Whole Blood 122 mg/dL (75-99)
[2021-07-22] MEDS: INSULIN ASPART (NovoLOG) 100 UNIT/ML VIAL SQ SCH ×4 (05:53→20:47)
[2021-07-22] MEDS: LEVOTHYROXINE 50 MCG TAB PO SCH (06:27)
[2021-07-22] MEDS: HYDROcodone/APAP 10-325MG 1 EACH TAB PO PRN ×2 (06:30→20:47)
[2021-07-22] MEDS: IPRATROPIUM-ALBUTEROL 3 ML NEB INHALATION SCH ×4 (07:49→20:12)
[2021-07-22] MEDS: BUDESONIDE 1 MG/2 ML NEBU INHALATION SCH (07:49)
[2021-07-22] MEDS: FORMOTEROL FUMARATE 20 MCG/2 ML NEBU INHALATION SCH (07:49)
[2021-07-22] MEDS: METOPROLOL SUCCINATE (ER) 25 MG TAB.ER.24H PO SCH (08:33)
[2021-07-22] MEDS: ASPIRIN 81 MG PO SCH (08:33)
[2021-07-22] MEDS: MULTIVITAMINS, THERA 1 EACH TAB PO SCH (08:33)
[2021-07-22] MEDS: LOSARTAN 25 MG TAB PO SCH (08:33)
[2021-07-22] MEDS: FOLIC ACID 1 MG TAB PO SCH (08:33)
[2021-07-22] MEDS: DILTIAZEM CD 300 MG CAP.ER.24H PO SCH (08:33)
[2021-07-22] MEDS: PIOGLITAZONE 15 MG TAB PO SCH (08:33)
[2021-07-22] MEDS: predniSONE 10 MG TAB PO SCH (08:33)
[2021-07-22] MEDS: polyethylene glycoL 3350 17 GM POWD.PACK PO SCH (08:33)
[2021-07-22 08:37] LABS: Basophils % (A) 0 %; Eosinophils % (A) 0 %; HCT 27.5 % (34.0-46.0); HGB 8.5 gm/dL (11.4-16.0); Hypochromasia Slight; Lymphocytes % (A) 21 %; MCH 30.7 pg (25.0-35.0); MCHC 30.8 g/dL (31.0-37.0); MCV 99.7 fL (80.0-100.0); Mean Platelet Volume 9.5; Monocytes # (A) 0.9 k/uL (0-1.0); Monocytes % (A) 7 %; Neutrophils # (A) 9.5 k/uL (1.3-7.7); Neutrophils % (A) 68 %; Platelet Count 129 k/uL (150-450); RBC 2.76 m/uL (3.80-5.40); RDW 13.9 % (11.5-15.5); WBC 13.9 k/uL (3.8-10.6)
[2021-07-22 08:40] LABS: Calcium 9.1 mg/dL (8.4-10.2); Potassium 3.9 mmol/L (3.5-5.1)
--- NOTE | 2021-07-22 09:36 | XR ---
EXAMINATION TYPE: XR chest 1V portable DATE OF EXAM: 07/22/2021 COMPARISON: X-ray dated 07/18/2021 HISTORY: Shortness of breath TECHNIQUE: Single frontal view of the chest is obtained. FINDINGS: Grossly stable loculated right-sided pleural effusion and questionable adjacent pulmonary atelectasis . The gapping of the intercostal space between the right sixth and seventh ribs is stable. The previo usly described opacity superimposed on the medial aspect of the right upper lung zone is less appreci ated today. Questionable minimal left pleural effusion. Grossly unremarkable remainder of the left lung. Unchange d position of the left-sided Port-A-Cath with the tip is seen within the superior aspect of the SVC. Cardiac size cannot be properly assessed. Unchanged bony thoracic cage. IMPRESSION: Minimal interval changes as described above.
--- NOTE | 2021-07-22 11:20 | P.PN ---
Subjective Progress Note Date: 07/22/21 Principal diagnosis: Shortness of breath. Pulmonary consult dated 07/19/2021. 71-year-old black female well-known to me. The patient presented to the emergency department on July 18, complaining of increasing shortness of breath and low saturations. She apparently has had 4 or 5 days of increasing shortness of breath. Apparently the patient's son encouraged her to go to the emergency room, but she apparently has some other family event to attend. She does have a history of hepatitis, COPD which is quite severe, and non-small cell lung cancer, status post previous resection. She has not had any treatment for her recurrent lung cancer since January of last year. She typically does use oxygen at 3 L/m, , at home. Currently, the patient is on 2 L nasal cannula. She's getting saline at 20 mL an hour. The patient was given IV heparin, I think because they were thinking about pulmonary embolism. A CT angiogram could not be done because of her renal function. She is coughing up yellow phlegm. She did show us a sample of it today. She does feel like she has a chest cold. In addition to the above, she has a history of diabetes, hyperlipidemia, hyp ertension, DJD, and chronic hypoxemic respiratory failure. White count 10, hemoglobin 9.6, hematocrit 29.7, and platelet count 124,000. Her d-dimer was 1.29. Sodium 136, potassium 4.5, chlorides 98, CO2 25, anion gap 13, BUN 42, and creatinine 1.59. Her lactic acid was 4. Her calcium was 10.1. Her troponin level was 0.013. The patient has a chronic right lower lobe area of atelectasis and pleural effusion. That area is unchanged. There is a new right upper lobe paraspinal infiltrate. Progress note dated 07/20/2021. 71-year-old black female, well-known to me. She has recurrent lung cancer. She has recurrent non-small cell lung cancer. She presented to the emergency department, on July 18 complaining of increasing shortness of breath, low saturations, cough, chest congestion, and green phlegm production. The patient was placed on IV heparin, because there was some concern of a pulmonary embolism. Ventilation perfusion lung scan was indeterminate. Because of her renal function, the patient cannot have a CT angiogram. We will order some Dopplers of the lower extremities. White count 13.2, hemoglobin 8.7, hematocrit 27, and platelet count 131,000. PTT was 86.3. Sodium, potassium, chloride, CO2, oral normal. Anion gap was 10. BUN was 37 with a creatinine of 1.45. Dopplers of the lower extremities were negative for DVT. The patient's oxygen has been turned down to 2 L. Saturations are 94-97%. Progress note dated 07/21/2021. 71-year-old black female, well-known to me. She has a history of recurrent lung cancer. She has non-small cell lung cancer. She presented to the emergency department on 07/18/2021, complaining of increasing shortness of breath, low saturations, cough, chest congestion, and green phlegm production. Currently, the patient's feeling much improved. She was initially placed on IV heparin. There was some concern initially about pulmonary embolism. Ventilation perfusion lung scan was indeterminate. She could not have a CT angiogram because of renal dysfunction. Dopplers are negative. White count 10.9, hemoglobin 8.3, hematocrit 26.5, and platelet count 131,000. Sodium, potassium, chloride, and CO2 are all normal. Anion gap normal. BUN 36 with a creatinine of 1.69. Progress note dated 07/22/2021. 71-year-old black female, well-known to ms. She has a history of lung cancer, and COPD. The patient is currently on 2 L nasal cannula. Saturations are excellent. She states that she feels better on 3 L. Laboratory data today includes a white count of 13.9, hemoglobin 8.5, hematocrit 27.5, and platelet count 129,000. Sodium, potassium, chloride, and CO2 are all normal. BUN is 42 with a creatinine of 1.59. The infiltrate, that we treated for, for possible pneumonia, and the medial aspect of the right upper lobe, is better and less appreciated today. Clinically, the patient is stable, and could possibly be discharged today or tomorrow. Objective - Vital Signs Vital signs: Vital Signs Temp 97.9 F 07/22/21 09:00 Pulse 94 07/22/21 09:00 Resp 20 07/22/21 09:00 BP 176/78 07/22/21 09:00 Pulse Ox 98 04/21/22 09:00 Intake & Output 07/21/21 07/22/21 07/22/21 18:59 06:59 18:59 Intake Total 1362 320 360 Output Total 1200 900 Balance 162 -580 360 Intake: Intake, IV Titration 300 Amount Piperacillin-Tazobactam 3 300 .375 gm In Sodium Chloride 0.9% 100 ml @ 25 mls/hr IVPB Q8HR [facility] Rx# :[id number] Oral 1062 320 360 Output: Urine 1200 900 Other: Voiding Method Toilet Toilet # Voids 1 # Bowel Movements 2 - Exam No acute distress, oriented 3. Currently on 2 L nasal O2. No audible wheezing, use of accessory muscles, or conversational dyspnea. HEENT examination is grossly unremarkable. Neck supple. Full range of motion. No adenopathy thyromegaly or neck vein distention. Cardiovascular examination reveals regular rhythm rate. S1-S2 normal. No S3 or S4. No discernible murmur noted. Heart rate is 94 bpm. Lungs reveal diffuse scattered rhonchi and mild expiratory wheezes. Breath sounds equal bilaterally but diminished throughout. No crackles. There is prolongation on forced maneuver. 2 L saturations are 98%. Abdomen soft bowel sounds are heard. No masses or tenderness. Extremities are intact. No cyanosis clubbing or edema. Skin is without rash or lesion. Neurologic examination is brief but nonfocal. - Labs CBC & Chem 7: 07/22/21 07:48 07/22/21 07:48 Labs: Abnormal Lab Results - Last 24 Hours (Table) 07/21/21 07/21/21 07/21/21 Range/Units 12:02 16:29 20:26 WBC (3.8-10.6) k/uL RBC (3.80-5.40) m/uL Hgb (11.4-16.0) gm/dL Hct (34.0-46.0) % MCHC (31.0-37.0) g/dL Plt Count (150-450) k/uL Neutrophils # (1.3-7.7) k/uL BUN (7-17) mg/dL Creatinine (0.52-1.04) mg/dL Glucose (74-99) mg/dL POC Glucose (mg/dL) 239 H 315 H 162 H (75-99) mg/dL 07/22/21 07/22/21 07/22/21 Range/Units 05:14 07:48 07:48 WBC 13.9 H (3.8-10.6) k/uL RBC 2.76 L (3.80-5.40) m/uL Hgb 8.5 L (11.4-16.0) gm/dL Hct 27.5 L (34.0-46.0) % MCHC 30.8 L (31.0-37.0) g/dL Plt Count 129 L (150-450) k/uL Neutrophils # 9.5 H (1.3-7.7) k/uL BUN 42 H (7-17) mg/dL Creatinine 1.59 H (0.52-1.04) mg/dL Glucose 133 H (74-99) mg/dL POC Glucose (mg/dL) 122 H (75-99) mg/dL Assessment and Plan Assessment: Worsening shortness of breath, likely related to COPD exacerbation, and possible pneumonia, right lung. History of recurrent non-small cell lung cancer, with previous lung resection. Severe COPD with an FEV1 that is 46% of predicted. Chronic hypoxemic respiratory failure. Status post right midlung wedge resection, October 2017. History of vitamin D deficiency. History of hepatitis C. History of sickle cell trait. History of hypertension. History of hypothyroidism. Chronic tobacco dependence for greater than 40 years. Plan: Plan dated 07/19/2021. The patient should be treated for a COPD exacerbation, and pneumonia, involving the right lung. I doubt pulmonary embolism on this patient. I will leave it up to the primary service to make a decision about IV heparin. I don't think it's necessary. I will review the patient's labs, x-rays, and medications. Adjustments in medications were made. Prognosis is very guarded. The patient has been very noncompliant. Oncology has been consulted. We will continue to follow make recommendations where appropriate. Plan dated 07/20/2021. The patient is being treated for a COPD exacerbation and pneumonia. Dopplers of the lower extremities bilaterally were negative. The ventilation perfusion lung scan was indeterminate, precisely in the area, where the abnormalities are chronically present, at the right lung base. I don't suspect the patient has had a pulmonary embolism. In my opinion the blood thinners could be discontinued. We'll leave that up to the primary service. Labs, x-rays, and medications are reviewed. Prognosis is guarded. She remains on DuoNeb's, budesonide, formoterol, and Zosyn. I will add some prednisone to the regimen. Plan dated 07/21/2021. The patient is primarily being treated for a COPD exacerbation, and possible purulent tracheobronchitis/bronchopneumonia. Dopplers of the lower extremities were negative. The ventilation perfusion lung scan was indeterminate. The abnormality on the scan, an area of the abnormalities noted on chest x-ray. The patient's labs, x-rays, and medications are all reviewed. She is feeling much improved. Possible discharge tomorrow or Monday. She does have an appointment to see me in the office next week. I do want her to keep that appointment. Plan dated 07/22/2021. The patient's currently on 2 L nasal cannula. He feels better on 3 L. The chest x-ray today in my opinion is improved. Dopplers of the lower extremities were negative. The patient knows to follow-up with me in the office, when she is discharged. She could be considered for discharge later today or tomorrow. We'll leave that up to the primary service. Overall prognosis remains guarded. She is on appropriate medications. She has been switched to prednisone and Augmentin. Time with Patient: Less than 30
[2021-07-22] MEDS ORDERED: METOPROLOL SUCCINATE (ER) 25 MG TAB.ER.24H PO STA (11:43)
[2021-07-22 12:21] LABS: Glucose,Whole Blood 159 mg/dL (75-99)
[2021-07-22] MEDS: AMOXIC-POT CLAV 875-125MG 1 EACH TAB PO SCH ×2 (14:53→20:47)
--- NOTE | 2021-07-22 16:20 | P.CONS ---
History of Present Illness - Reason for Consult Consult date: 07/22/21 right rib pain - bone metastasis Requesting physician: Modesto Avilez - Chief Complaint dyspnea, right chest-wall pain - History of Present Illness The patient is a 71-year-old female previously treated with a wedge resection for a stage IIB (pT3, pNX, M0) adenocarcinoma of the right middle lung in 2017. The patient subsequently developed recurrent disease involving the right ribs and multiple areas of adenopathy in 2019. She did undergo a palliative course of radiotherapy finishing in January 2020 to the right lateral ribs. She subsequently did a couple cycles of chemotherapy with Carbo, Alimta and Keytruda starting in October 2020 but has not had any further treatment since January. She was hospitalized secondary to increased dyspnea and was found to have COPD exace rbation. As noted above, the patient has been off of any systemic therapy for some time. She is currently undergoing best supportive care. Her most recent CT scan of the chest from February 15, 2021 did show increasing disease in the right lateral rib measuring 3.8 cm as well as right infrahilar adenopathy and prominent mediastinal adenopathy. The patient was recently hospitalized with increased dyspnea on exertion. There was underlying concern for PE, however further testing is been unremarkable. The patient was unable to do a CT angiogram secondary to poor kidney function. The patient is now on 2-3L O2, which is her baseline. She reports she feels dyspneic with slight exertion, and admit she has not been very active the last few days in the hospital. There is discussion about potential discharge tomorrow. She does however continue to complain of pain along the right lateral lower ribs. She states this can be up to 8 out of 10 at times. She gets partial relief from [place] 10 mg, which she has been given in the hospital. Review of Systems Constitutional: Denies chills, Denies fever Eyes: denies blurred vision Ears: deny: decreased hearing Ears, nose, mouth and throat: Denies headache Cardiovascular: Reports chest pain (Right lateral lower ribs - see HPI), Reports dyspnea on exertion Gastrointestinal: Denies bloating Genitourinary: Denies flank pain Integumentary: Denies rash Neurological: Denies confusion, Denies convulsions Psychiatric: Denies confusion Past Medical History Past Medical History: Cancer, COPD, Diabetes Mellitus, Hyperlipidemia, Hypertension, Osteoarthritis (OA), Respiratory Disorder, Thyroid Disorder Additional Past Medical History / Comment(s): sickle cell traits, unable to walk any distance, SOB, Stage 4 lung cancer- completed radiation, currently getting chemo, wears 3L oxygen at home History of Any Multi-Drug Resistant Organisms: None Reported Past Surgical History: Tubal Ligation Additional Past Surgical History / Comment(s): bilateral cataracts, Navigational Bronchoscopy (08/03/17), LUNG RESECTION Past Anesthesia/Blood Transfusion Reactions: No Reported Reaction Additional Past Anesthesia/Blood Transfusion Reaction / Comm: no problems with prior blood transfusion Past Psychological History: Anxiety Additional Psychological History / Comment(s): Pt resides with her son who is very helpful. She has home oxygen, nebulizer and glucometer. Smoking Status: Former smoker Past Alcohol Use History: None Reported Additional Past Alcohol Use History / Comment(s): quit smoking Apr 2017,smoked since age 20,<1ppd Past Drug Use History: None Reported - Past Family History Mother Family Medical History: Cancer Additional Family Medical History / Comment(s): Unknown type of cancer. Father Family Medical History: Cancer Additional Family Medical History / Comment(s): Unknown type of cancer. Medications and Allergies Home Medications Medication Instructions Recorded Confirmed Type Levothyroxine Sodium [Synthroid] 50 mcg PO DAILY 03/11/14 07/18/21 History Albuterol Sulfate [Ventolin HFA] 2 puff INHALATION RT-Q6H PRN 03/12/14 07/18/21 History Nitroglycerin Sl Tabs [Nitrostat] 0.4 mg SL Q5M PRN 06/25/15 07/18/21 History Atorvastatin Calcium [Lipitor] 40 mg PO HS 09/15/20 07/18/21 History Diltiazem HCl [Cartia Xt] 300 mg PO DAILY 09/15/20 07/18/21 History HYDROcodone/APAP 10-325MG [[place] 1 tab PO TID PRN 09/15/20 07/18/21 History 10-325] Metoprolol Succinate (ER) [Toprol 25 mg PO DAILY 09/15/20 07/18/21 History XL] Montelukast Sodium [Singulair] 10 mg PO HS 09/15/20 07/18/21 History Pioglitazone [Actos] 15 mg PO DAILY 09/15/20 07/18/21 History Folic Acid 1 mg PO DAILY 11/04/20 07/18/21 History Lidocaine-Prilocaine Cream [Emla 1 applic TOPICAL DIRECTED PRN 11/04/20 07/18/21 History Cream 2.5%/2.5%] ondansetron HCL [Zofran] 8 mg PO Q6H PRN 11/04/20 07/18/21 History Loperamide [Imodium] 2 mg PO QID PRN #60 cap 11/10/20 07/18/21 Rx Losartan Potassium 25 mg PO DAILY 12/18/20 07/18/21 History Aspirin EC [Ecotrin Low Dose] 81 mg PO DAILY 07/18/21 07/18/21 History Budesonide/Formoterol Fumarate 2 puff INHALATION RT-BID 07/18/21 07/18/21 History [Symbicort 160-4.5 Mcg Inhaler] Diclofenac Sodium Gel [Voltaren 2 gm TOPICAL QID 07/18/21 07/18/21 History Gel] Famotidine [Pepcid] 20 mg PO DAILY PRN 07/18/21 07/18/21 History Multivitamins, Thera [Multivitamin 1 tab PO DAILY 07/18/21 07/18/21 History (formulary)] Allergies Allergy/AdvReac Type Severity Reaction Status Date / Time No Known Allergies Allergy Verified 07/18/21 15:19 Physical Exam Vitals: Vital Signs Temp Pulse Pulse Resp BP Pulse Ox 07/22/21 15:36 98 07/22/21 15:27 94 07/22/21 14:00 88 20 07/22/21 12:00 88 20 183/93 98 07/22/21 11:47 90 07/22/21 11:35 91 07/22/21 09:00 97.9 F 94 20 176/78 98 07/22/21 08:08 94 07/22/21 08:00 94 20 07/22/21 07:57 95 07/22/21 07:49 93 07/22/21 04:00 97.6 F 81 18 143/68 98 07/22/21 00:00 98.2 F 88 20 175/84 99 07/21/21 20:00 98.4 F 79 20 147/70 98 07/21/21 19:45 72 07/21/21 19:35 70 07/21/21 19:27 68 Intake and Output 07/22/21 07/22/21 07/22/21 06:59 14:59 22:59 Intake Total 360 Output Total 400 1 Balance -400 359 Intake: Oral 360 Output: Urine 400 1 Other: Voiding Method Toilet # Bowel Movements 2 - Constitutional General appearance: no acute distress - EENT Eyes: EOMI, PERRLA ENT: hearing grossly normal - Neck Neck: no lymphadenopathy - Respiratory Respiratory: bilateral: diminished - Cardiovascular Rhythm: regular - Gastrointestinal General gastrointestinal: no distended, no tenderness - Integumentary Integumentary: no calor - Neurologic Neurologic: CNII-XII intact - Musculoskeletal Musculoskeletal: no generalized weakness - Psychiatric Psychiatric: A&O x's 3 Results CBC & Chem 7: 07/22/21 07:48 07/22/21 07:48 Labs: Abnormal Lab Results - Last 24 Hours (Table) 07/21/21 07/21/21 07/22/21 Range/Units 16:29 20:26 05:14 WBC (3.8-10.6) k/uL RBC (3.80-5.40) m/uL Hgb (11.4-16.0) gm/dL Hct (34.0-46.0) % MCHC (31.0-37.0) g/dL Plt Count (150-450) k/uL Neutrophils # (1.3-7.7) k/uL BUN (7-17) mg/dL Creatinine (0.52-1.04) mg/dL Glucose (74-99) mg/dL POC Glucose (mg/dL) 315 H 162 H 122 H (75-99) mg/dL 07/22/21 07/22/21 07/22/21 Range/Units 07:48 07:48 11:52 WBC 13.9 H (3.8-10.6) k/uL RBC 2.76 L (3.80-5.40) m/uL Hgb 8.5 L (11.4-16.0) gm/dL Hct 27.5 L (34.0-46.0) % MCHC 30.8 L (31.0-37.0) g/dL Plt Count 129 L (150-450) k/uL Neutrophils # 9.5 H (1.3-7.7) k/uL BUN 42 H (7-17) mg/dL Creatinine 1.59 H (0.52-1.04) mg/dL Glucose 133 H (74-99) mg/dL POC Glucose (mg/dL) 159 H (75-99) mg/dL Assessment and Plan Assessment: The patient is a 71-year-old female previously treated with a wedge resection for a stage IIB (pT3, pNX, M0) adenocarcinoma of the right middle lung in 2017. The patient subsequently developed recurrent disease involving the right ribs and multiple areas of adenopathy in 2019. She did undergo a palliative course of radiotherapy finishing in January 2020 to the right lateral ribs. She subsequently did a couple cycles of chemotherapy with Carbo, Alimta and Keytruda starting in October 2020 but has not had any further treatment since January. She was hospitalized secondary to increased dyspnea and was found to have COPD exacerbation. Plan: 1. Rib pain: As noted previously, the patient has evidence of a 3.8 cm right rib lesion from her prior imaging in February. This lesion is likely increased in size as the patient has not had any systemic therapy since January. This was previously treated with palliative radiotherapy approximately 1.5 years ago. The patient does not recall if the radiotherapy was particularly beneficial in her case. Considering the long time interval, I did explain to the patient and may be beneficial for her to undergo a palliative course of radiotherapy. I discussed this could potentially be done in a single fraction of treatment. I did review the risks, benefits and potential toxicity associated with a palliative course of radiation. As the patient is mostly valuing quality of life at this time and not interested in chemotherapy, this would be consistent with her treatment goals. The patient and her son will discuss a possible course of radiation. We will plan to visit with them prior to discharge tomorrow. 2. Metastatic NSCLC: As noted above, it is been approximately 5 months since the patient's last imaging study. She however is more motivated for best supportive care at this time. The patient and her son have been offered hospice, but have declined previous discussion. It may be worthwhile to update the patient's imaging to give her a better picture of her disease progression. However, this could certainly be completed as an outpatient. 3. COPD exacerbation: The patient's respiratory status appears to be adequate for her to be discharged home. She does have follow-up with pulmonology alber mejias. Time with Patient: Less than 30
[2021-07-22 16:26] LABS: Glucose,Whole Blood 338 mg/dL (75-99)
[2021-07-22] MEDS: SODIUM CHLORIDE 0.9% 1,000 ML IV SCH (16:38)
--- NOTE | 2021-07-22 17:19 | P.PN ---
Subjective Progress Note Date: 07/22/21 She is feeling overall better, seen by Dr. Cochran and planning radiation Objective - Vital Signs Vital signs: Vital Signs Temp 97.9 F 07/22/21 09:00 Pulse 88 07/22/21 12:00 Resp 20 07/22/21 12:00 BP 183/93 07/22/21 12:00 Pulse Ox 98 07/22/21 12:00 Intake & Output 07/21/21 07/22/21 07/22/21 18:59 06:59 18:59 Intake Total 1362 320 360 Output Total 1200 900 Balance 162 -580 360 Intake: Intake, IV Titration 300 Amount Piperacillin-Tazobactam 3 300 .375 gm In Sodium Chloride 0.9% 100 ml @ 25 mls/hr IVPB Q8HR [facility] Rx# :[id number] Oral 1062 320 360 Output: Urine 1200 900 Other: Voiding Method Toilet Toilet # Voids 1 # Bowel Movements 2 - Exam - Constitutional General appearance: cooperative, mild distress - EENT ENT: NA/AT - Respiratory Respiratory: bilateral: diminished, wheezing - Cardiovascular Rhythm: regularly irregular - Gastrointestinal General gastrointestinal: soft, tenderness - Integumentary Integumentary: pale - Neurologic non focal - Musculoskeletal Musculoskeletal: generalized weakness - Psychiatric Psychiatric: A&O x's 3 - Labs CBC & Chem 7: 07/22/21 07:48 07/22/21 07:48 Labs: Abnormal Lab Results - Last 24 Hours (Table) 07/21/21 07/21/21 07/22/21 Range/Units 16:29 20:26 05:14 WBC (3.8-10.6) k/uL RBC (3.80-5.40) m/uL Hgb (11.4-16.0) gm/dL Hct (34.0-46.0) % MCHC (31.0-37.0) g/dL Plt Count (150-450) k/uL Neutrophils # (1.3-7.7) k/uL BUN (7-17) mg/dL Creatinine (0.52-1.04) mg/dL Glucose (74-99) mg/dL POC Glucose (mg/dL) 315 H 162 H 122 H (75-99) mg/dL 04/21/22 04/21/22 04/21/22 Range/Units 07:48 07:48 11:52 WBC 13.9 H (3.8-10.6) k/uL RBC 2.76 L (3.80-5.40) m/uL Hgb 8.5 L (11.4-16.0) gm/dL Hct 27.5 L (34.0-46.0) % MCHC 30.8 L (31.0-37.0) g/dL Plt Count 129 L (150-450) k/uL Neutrophils # 9.5 H (1.3-7.7) k/uL BUN 42 H (7-17) mg/dL Creatinine 1.59 H (0.52-1.04) mg/dL Glucose 133 H (74-99) mg/dL POC Glucose (mg/dL) 159 H (75-99) mg/dL Assessment and Plan (1) Recurrent pleural effusion Current Visit: Yes Status: Acute Code(s): J90 - PLEURAL EFFUSION, NOT ELSEWHERE CLASSIFIED SNOMED Code(s): 63911529 (2) Adenocarcinoma of right lung Current Visit: No Status: Chronic Priority: Medium Code(s): C34.91 - MALIGNANT NEOPLASM OF UNSP PART OF RIGHT BRONCHUS OR LUNG SNOMED Code(s): 29697303590122284 Plan: Discussed with Pulmonary and Primary team Agree with COvid and infectious work-up and treatment of Pneumonia Per Pulm effussion is unchanged at this time Right Rib Pain worsening and not totally controlled on [place], we have asked Dr. Cochran to see patient for options of palliaitive radiation Palliaitive xrt with Dr. Cochran
[2021-07-22 18:51] LABS: % Iron Saturation 41.28 (12.00-45.00)
[2021-07-22 19:53] LABS: Glucose,Whole Blood 181 mg/dL (75-99)
[2021-07-22] MEDS: SYMBICORT 160-4.5 MCG INHALER INHALATION SCH (20:15)
[2021-07-22] MEDS ORDERED: AMOXIC-POT CLAV 875-125MG 1 EACH TAB PO SCH (21:00)
[2021-07-23 04:20] VITALS: RESP 18
[2021-07-23 06:16] LABS: Glucose,Whole Blood 105 mg/dL (75-99)
[2021-07-23] MEDS: INSULIN ASPART (NovoLOG) 100 UNIT/ML VIAL SQ SCH ×2 (06:21→12:46)
[2021-07-23] MEDS: LEVOTHYROXINE 50 MCG TAB PO SCH (06:21)
[2021-07-23] MEDS: SYMBICORT 160-4.5 MCG INHALER INHALATION SCH (08:15)
[2021-07-23] MEDS: IPRATROPIUM-ALBUTEROL 3 ML NEB INHALATION SCH ×2 (08:15→11:41)
[2021-07-23 08:46] VITALS: TEMP 97.7
[2021-07-23] MEDS: polyethylene glycoL 3350 17 GM POWD.PACK PO SCH (08:52)
[2021-07-23] MEDS: HEPARIN SODIUM,PORCINE/PF 5,000 UNIT/0.5 ML SYRINGE SQ SCH (08:53)
[2021-07-23] MEDS: AMOXIC-POT CLAV 875-125MG 1 EACH TAB PO SCH (08:53)
[2021-07-23] MEDS: DILTIAZEM CD 300 MG CAP.ER.24H PO SCH (08:53)
[2021-07-23] MEDS: ASPIRIN 81 MG PO SCH (08:53)
[2021-07-23] MEDS: predniSONE 10 MG TAB PO SCH (08:54)
[2021-07-23] MEDS: FOLIC ACID 1 MG TAB PO SCH (08:54)
[2021-07-23] MEDS: HYDROcodone/APAP 10-325MG 1 EACH TAB PO PRN (08:54)
[2021-07-23] MEDS: MULTIVITAMINS, THERA 1 EACH TAB PO SCH (08:55)
[2021-07-23] MEDS: PIOGLITAZONE 15 MG TAB PO SCH (08:55)
[2021-07-23] MEDS: LOSARTAN 25 MG TAB PO SCH (08:55)
[2021-07-23] MEDS ORDERED: METOPROLOL SUCCINATE (ER) 50 MG TAB.ER.24H PO SCH (09:00)
[2021-07-23] MEDS: DICLOFENAC SODIUM GEL 100 GM TUBE TOPICAL SCH ×2 (09:00→12:46)
[2021-07-23 09:40] LABS: HCT 29.4 % (34.0-46.0); HGB 9.4 gm/dL (11.4-16.0); Hypochromasia Moderate; MCH 32.4 pg (25.0-35.0); MCHC 32.1 g/dL (31.0-37.0); Macrocytosis Slight; Mean Platelet Volume 8.6; Platelet Count 145 k/uL (150-450); RBC 2.91 m/uL (3.80-5.40); RDW 14.6 % (11.5-15.5); WBC 13.8 k/uL (3.8-10.6)
[2021-07-23 10:05] LABS: Calcium 9.4 mg/dL (8.4-10.2)
[2021-07-23 11:55] VITALS: BP 151/74; PULSE 71
[2021-07-23 12:00] LABS: Lymphocytes # (M) 4.97 k/uL (1.0-4.8); Monocytes # (M) 0.69 k/uL (0-1.0); Neutrophils # (M) 8.14 k/uL (1.3-7.7); Neutrophils % (M) 59 %; Nucleated Red Blood Cells 0 /100 WBC (0-0); Total Cells Counted 100
[2021-07-23 12:16] LABS: Glucose,Whole Blood 279 mg/dL (75-99)
--- NOTE | 2021-07-23 12:25 | P.PN ---
Subjective Progress Note Date: 07/23/21 Principal diagnosis: Shortness of breath. Pulmonary consult dated 07/19/2021. 71-year-old black female well-known to me. The patient presented to the emergency department on July 18, complaining of increasing shortness of breath and low saturations. She apparently has had 4 or 5 days of increasing shortness of breath. Apparently the patient's son encouraged her to go to the emergency room, but she apparently has some other family event to attend. She does have a history of hepatitis, COPD which is quite severe, and non-small cell lung cancer, status post previous resection. She has not had any treatment for her recurrent lung cancer since January of last year. She typically does use oxygen at 3 L/m, , at home. Currently, the patient is on 2 L nasal cannula. She's getting saline at 20 mL an hour. The patient was given IV heparin, I think because they were thinking about pulmonary embolism. A CT angiogram could not be done because of her renal function. She is coughing up yellow phlegm. She did show us a sample of it today. She does feel like she has a chest cold. In addition to the above, she has a history of diabetes, hyperlipidemia, hyp ertension, DJD, and chronic hypoxemic respiratory failure. White count 10, hemoglobin 9.6, hematocrit 29.7, and platelet count 124,000. Her d-dimer was 1.29. Sodium 136, potassium 4.5, chlorides 98, CO2 25, anion gap 13, BUN 42, and creatinine 1.59. Her lactic acid was 4. Her calcium was 10.1. Her troponin level was 0.013. The patient has a chronic right lower lobe area of atelectasis and pleural effusion. That area is unchanged. There is a new right upper lobe paraspinal infiltrate. Progress note dated 07/20/2021. 71-year-old black female, well-known to me. She has recurrent lung cancer. She has recurrent non-small cell lung cancer. She presented to the emergency department, on July 18 complaining of increasing shortness of breath, low saturations, cough, chest congestion, and green phlegm production. The patient was placed on IV heparin, because there was some concern of a pulmonary embolism. Ventilation perfusion lung scan was indeterminate. Because of her renal function, the patient cannot have a CT angiogram. We will order some Dopplers of the lower extremities. White count 13.2, hemoglobin 8.7, hematocrit 27, and platelet count 131,000. PTT was 86.3. Sodium, potassium, chloride, CO2, oral normal. Anion gap was 10. BUN was 37 with a creatinine of 1.45. Dopplers of the lower extremities were negative for DVT. The patient's oxygen has been turned down to 2 L. Saturations are 94-97%. Progress note dated 07/21/2021. 71-year-old black female, well-known to me. She has a history of recurrent lung cancer. She has non-small cell lung cancer. She presented to the emergency department on 07/18/2021, complaining of increasing shortness of breath, low saturations, cough, chest congestion, and green phlegm production. Currently, the patient's feeling much improved. She was initially placed on IV heparin. There was some concern initially about pulmonary embolism. Ventilation perfusion lung scan was indeterminate. She could not have a CT angiogram because of renal dysfunction. Dopplers are negative. White count 10.9, hemoglobin 8.3, hematocrit 26.5, and platelet count 131,000. Sodium, potassium, chloride, and CO2 are all normal. Anion gap normal. BUN 36 with a creatinine of 1.69. Progress note dated 07/22/2021. 71-year-old black female, well-known to ca. She has a history of lung cancer, and COPD. The patient is currently on 2 L nasal cannula. Saturations are excellent. She states that she feels better on 3 L. Laboratory data today includes a white count of 13.9, hemoglobin 8.5, hematocrit 27.5, and platelet count 129,000. Sodium, potassium, chloride, and CO2 are all normal. BUN is 42 with a creatinine of 1.59. The infiltrate, that we treated for, for possible pneumonia, and the medial aspect of the right upper lobe, is better and less appreciated today. Clinically, the patient is stable, and could possibly be discharged today or tomorrow. Progress note dated 07/23/2021. 71-year-old black female, well-known to our service. She has a history of COPD, and recurrent lung cancer. Currently, the patient's on 3 L nasal cannula. She's not receiving any IV fluids. She appears to be very stable and could be considered for possible discharge home. White count 13.8, hemoglobin 9.4, hematocrit 29.4, and platelet count 145,000. Sodium 138, potassium 4, chlorides 104, CO2 26, BUN 38, and creatinine 1.31. Initial chest x-ray, and follow-up chest x-ray have been reviewed. Objective - Vital Signs Vital signs: Vital Signs Temp 97.7 F 07/23/21 08:40 Pulse 84 07/23/21 11:51 Resp 18 07/23/21 11:50 BP 151/74 07/23/21 11:50 Pulse Ox 100 07/23/21 11:50 Intake & Output 07/22/21 07/23/21 07/23/21 18:59 06:59 18:59 Intake Total 1150 240 Output Total 1 Balance 1149 240 Intake: Oral 1150 240 Output: Urine 1 Other: Voiding Method Toilet Toilet # Voids 1 # Bowel Movements 1 - Exam No acute distress, oriented 3. Currently on 2 L nasal O2. No audible wheezing, use of accessory muscles, or conversational dyspnea. HEENT examination is grossly unremarkable. Neck supple. Full range of motion. No adenopathy thyromegaly or neck vein distention. Cardiovascular examination reveals regular rhythm rate. S1-S2 normal. No S3 or S4. No discernible murmur noted. Heart rate is 71 bpm. Lungs reveal diffuse scattered rhonchi and mild expiratory wheezes. Breath sounds equal bilaterally but diminished throughout. No crackles. There is prolongation on forced maneuver. 2 L saturations are 100%. Abdomen soft bowel sounds are heard. No masses or tenderness. Extremities are intact. No cyanosis clubbing or edema. Skin is without rash or lesion. Neurologic examination is brief but nonfocal. - Labs CBC & Chem 7: 07/23/21 09:22 07/23/21 09:22 Labs: Abnormal Lab Results - Last 24 Hours (Table) 07/22/21 07/22/21 07/22/21 Range/Units 13:07 16:14 19:33 WBC (3.8-10.6) k/uL RBC (3.80-5.40) m/uL Hgb (11.4-16.0) gm/dL Hct (34.0-46.0) % MCV (80.0-100.0) fL Plt Count (150-450) k/uL Neutrophils # (Manual) (1.3-7.7) k/uL Lymphocytes # (Manual) (1.0-4.8) k/uL BUN (7-17) mg/dL Creatinine (0.52-1.04) mg/dL Glucose (74-99) mg/dL POC Glucose (mg/dL) 338 H 181 H (75-99) mg/dL Vitamin B12 1336.0 H (200.0-944.0) pg/mL 07/23/21 07/23/21 07/23/21 Range/Units 05:32 09:22 09:22 WBC 13.8 H (3.8-10.6) k/uL RBC 2.91 L (3.80-5.40) m/uL Hgb 9.4 L (11.4-16.0) gm/dL Hct 29.4 L (34.0-46.0) % MCV 101.0 H (80.0-100.0) fL Plt Count 145 L (150-450) k/uL Neutrophils # (Manual) 8.14 H (1.3-7.7) k/uL Lymphocytes # (Manual) 4.97 H (1.0-4.8) k/uL BUN 38 H (7-17) mg/dL Creatinine 1.31 H (0.52-1.04) mg/dL Glucose 209 H (74-99) mg/dL POC Glucose (mg/dL) 105 H (75-99) mg/dL Vitamin B12 (200.0-944.0) pg/mL 07/23/21 Range/Units 12:14 WBC (3.8-10.6) k/uL RBC (3.80-5.40) m/uL Hgb (11.4-16.0) gm/dL Hct (34.0-46.0) % MCV (80.0-100.0) fL Plt Count (150-450) k/uL Neutrophils # (Manual) (1.3-7.7) k/uL Lymphocytes # (Manual) (1.0-4.8) k/uL BUN (7-17) mg/dL Creatinine (0.52-1.04) mg/dL Glucose (74-99) mg/dL POC Glucose (mg/dL) 279 H (75-99) mg/dL Vitamin B12 (200.0-944.0) pg/mL Assessment and Plan Assessment: Worsening shortness of breath, likely related to COPD exacerbation, and possible pneumonia, right lung. History of recurrent non-small cell lung cancer, with previous lung resection. Severe COPD with an FEV1 that is 46% of predicted. Chronic hypoxemic respiratory failure. Status post right midlung wedge resection, October 2017. History of vitamin D deficiency. History of hepatitis C. History of sickle cell trait. History of hypertension. History of hypothyroidism. Chronic tobacco dependence for greater than 40 years. Plan: Plan dated 07/19/2021. The patient should be treated for a COPD exacerbation, and pneumonia, involving the right lung. I doubt pulmonary embolism on this patient. I will leave it up to the primary service to make a decision about IV heparin. I don't think it's necessary. I will review the patient's labs, x-rays, and medications. Adjus tments in medications were made. Prognosis is very guarded. The patient has been very noncompliant. Oncology has been consulted. We will continue to follow make recommendations where appropriate. Plan dated 07/20/2021. The patient is being treated for a COPD exacerbation and pneumonia. Dopplers of the lower extremities bilaterally were negative. The ventilation perfusion lung scan was indeterminate, precisely in the area, where the abnormalities are chronically present, at the right lung base. I don't suspect the patient has had a pulmonary embolism. In my opinion the blood thinners could be discontinued. We'll leave that up to the primary service. Labs, x-rays, and medications are reviewed. Prognosis is guarded. She remains on DuoNeb's, budesonide, formoterol, and Zosyn. I will add some prednisone to the regimen. Plan dated 07/21/2021. The patient is primarily being treated for a COPD exacerbation, and possible purulent tracheobronchitis/bronchopneumonia. Dopplers of the lower extremities were negative. The ventilation perfusion lung scan was indeterminate. The abnormality on the scan, an area of the abnormalities noted on chest x-ray. The patient's labs, x-rays, and medications are all reviewed. She is feeling much improved. Possible discharge tomorrow or Monday. She does have an appointment to see me in the office next week. I do want her to keep that appointment. Plan dated 07/22/2021. The patient's currently on 2 L nasal cannula. He feels better on 3 L. The chest x-ray today in my opinion is improved. Dopplers of the lower extremities were negative. The patient knows to follow-up with me in the office, when she is discharged. She could be considered for discharge later today or tomorrow. We'll leave that up to the primary service. Overall prognosis remains guarded. She is on appropriate medications. She has been switched to prednisone and Augmentin. Plan dated 07/24/1999. Currently, the patient's doing much better. The patient could be considered for possible discharge home. The patient can follow-up with me in the office in a couple weeks or so. The patient's antibiotic has been switched to Augmentin. She is on oral prednisone. Labs, x-rays, and medications are all reviewed. Is guarded. We will continue to follow the patient and make recommendations where appropriate. Time with Patient: Less than 30
[2021-07-23 17:35] LABS: T4, Free (Free Thyroxine) 1.23 ng/dL (0.78-2.19)
== END 2021-07-23 14:15 | disposition home health service (06) | DRG 871 ==
LOC: EC 13:51 → 3SCARD 15:59
PROVIDERS: ADMIT Internal Medicine; ATTEND Internal Medicine
DX: A41.9 Sepsis, unspecified organism (principal); J18.9 Pneumonia, unspecified organism; C34.91 Malignant neoplasm of unspecified part of right bronchus or lung; C79.51 Secondary malignant neoplasm of bone; E87.2 Acidosis; J44.0 Chronic obstructive pulmonary disease with (acute) lower respiratory infection; J44.1 Chronic obstructive pulmonary disease with (acute) exacerbation; J90 Pleural effusion, not elsewhere classified; J96.11 Chronic respiratory failure with hypoxia; J98.11 Atelectasis; N17.9 Acute kidney failure, unspecified; D57.3 Sickle-cell trait; E03.9 Hypothyroidism, unspecified; E11.9 Type 2 diabetes mellitus without complications; E78.5 Hyperlipidemia, unspecified; F41.9 Anxiety disorder, unspecified; I10 Essential (primary) hypertension; Z20.822 Contact with and (suspected) exposure to COVID-19; Z79.51 Long term (current) use of inhaled steroids; Z79.82 Long term (current) use of aspirin; Z79.84 Long term (current) use of oral hypoglycemic drugs; Z79.890 Hormone replacement therapy; Z79.899 Other long term (current) drug therapy; Z92.21 Personal history of antineoplastic chemotherapy; Z87.891 Personal history of nicotine dependence; Z90.2 Acquired absence of lung [part of]; Z92.3 Personal history of irradiation; E55.9 Vitamin D deficiency, unspecified; B18.2 Chronic viral hepatitis C
CPT/HCPCS: 36415; 71045; 78582; 80048; 80053; 82306; 82607; 82746; 83540; 83550; 83605; 83735; 83880; 83921; 84439; 84443; 84484; 85025; 85379; 85610; 85730; 93005; 93970; 94640; 94760; 96365; 96375; 99285

== ENCOUNTER → 2021-08-25 | Outpatient (CLI) | payer MEDICARE, OTHER ==
--- NOTE | 2021-08-25 18:39 | CT ---
EXAMINATION TYPE: CT brain wo con DATE OF EXAM: 08/25/2021 COMPARISON: 07/16/2010 HISTORY: headaches CT DLP: 1012.7 mGycm Automated exposure control for dose reduction was used. Images obtained of the brain without contrast. There is cerebral cortical atrophy. There is no mass effect or midline shift. No sign of intracranial hemorrhage. Calvarium is intact. IMPRESSION: Cerebral atrophy. No acute intracranial abnormality. There is progression of atrophy compared to old exam.
== END | disposition home or self-care (01) ==
LOC: RADCTMAIN 18:02
PROVIDERS: ATTEND Family Medicine
DX: G31.9 Degenerative disease of nervous system, unspecified (principal)
CPT/HCPCS: 70450

== ENCOUNTER → 2021-10-29 | Outpatient (CLI) | payer MEDICARE, OTHER ==
--- NOTE | 2021-10-31 13:13 | US ---
EXAMINATION TYPE: US chest DATE OF EXAM: 10/29/2021 COMPARISON: NONE CLINICAL HISTORY: R91.8. TECHNIQUE: Targeted ultrasound of the posterior lower right hemithorax EXAM MEASUREMENTS: Right Pleural Effusion pocket size: 3.1 cm Right skin surface to fluid distance: 3.0 cm Right side marked for possible thoracentesis outside the dept. Pulmonologists are able to review the images in the patient?s EMR. IMPRESSIONS: Right pleural effusion.
== END | disposition home or self-care (01) ==
LOC: RADUSWWP 16:44
PROVIDERS: ATTEND Internal Medicine Critical Care Medicine
DX: J90 Pleural effusion, not elsewhere classified (principal)
CPT/HCPCS: 76604; 82565; 84520

== ENCOUNTER → 2021-11-01 | Outpatient (CLI) | payer MEDICARE, OTHER ==
--- NOTE | 2021-11-01 12:24 | CT ---
EXAMINATION TYPE: CT chest wo con DATE OF EXAM: 11/01/2021 COMPARISON: NONE prior CT February 15, 2021 and older CTs. HISTORY: Previous abnormal exam lung cervantes. Right-sided Lung cancer progress study. Completed chemot herapy in May. Completed radiation treatment August 05. CT DLP: 359 mGycm. Automated Exposure Control for Dose Reduction was Utilized. TECHNIQUE: CT scan of the thorax is performed without IV contrast. FINDINGS: Suboptimal as coronal reconstructed images are not created by technologist. LUNGS: Persistent small to moderate-sized right pleural fluid collection with associated central righ t mid to lower lung heterogeneous mass and/or masslike consolidation with some surgical suture or josé migule cifications superiorly near the hilar region. Persistent partially calcified heterogeneous right mid lung 5.5 x 3.7 cm mass destroying portions of the right sixth rib fairly stable from prior. Continued enlarging anterior 3.5 x 3.3 cm right midlung mass or neoplasm axial image 29 from prior study measu ring 2.5 x 1.7 cm. There is new 9mm anterior left mid lung nodule axial image 17. There is new 1.5 x 1.3 cm posterior left basilar nodule axial image 36. Mucous plugging or filling defect into the right lower lobe bronchus redemonstrated. MEDIASTINUM: Persistent cardiomegaly with prominent pulmonary arteries suggesting underlying pulmonar y artery hypertension. Stable prominent paratracheal and pericarinal lymph nodes. No definitive new a bnormal greater than 1 cm mediastinal lymph nodes. OTHER: Enlarging bilateral right lower thoracic and upper abdominal soft tissue masses suspicious for metastatic disease measuring 2.8 x 1.8 cm axial image 41 and 3.9 x 2.0 cm posterior inferior to this axial image 44. Stable left subclavian Mediport catheter. Stable prominent subcentimeter bilateral a xillary lymph nodes. IMPRESSION: Findings consistent with continued neoplastic progression as detailed above, new and enla rging nodules and masses are present.
== END | disposition home or self-care (01) ==
LOC: RADCTMAIN 10:54
PROVIDERS: ATTEND Internal Medicine Critical Care Medicine
DX: C34.91 Malignant neoplasm of unspecified part of right bronchus or lung (principal); R91.8 Other nonspecific abnormal finding of lung field
CPT/HCPCS: 71250

== ENCOUNTER → 2021-11-11 | Outpatient (CLI) | payer MEDICARE, OTHER ==
--- NOTE | 2021-11-11 08:29 | CT ---
EXAMINATION TYPE: CT brain wo con CT DLP: 943.8 mGycm, Automated exposure control for dose reduction was used. DATE OF EXAM: 11/11/2021 8:22 AM COMPARISON: 08/25/2021. CLINICAL INDICATION:Female, 71 years old with history of C34.90 non small cell lung ca, Headache, diz ziness, lightheadedness TECHNIQUE: Brain: Axial CT images of the brain were obtained with coronal and sagittal reformats created and rev iewed. Contrast used: None. Oral contrast used: None. FINDINGS: Brain: Extra-axial spaces: No abnormal extra-axial fluid collections. Ventricular system: Dilatation in proportion to cerebral atrophy. Cerebral parenchyma: Cerebral atrophy. No acute intraparenchymal hemorrhage or mass effect. The tai -white junction is well differentiated. Scattered hypoattenuating areas are seen within the white mat ter. Cerebellum: Unremarkable. Mass effect: No evidence of midline shift. Intracranial vasculature: Atherosclerotic calcifications of the intracranial vessels. Soft tissues: Normal. Calvarium/osseous structures: No depressed skull fracture. Paranasal sinuses and mastoid air cells: Mild scattered paranasal sinus disease. Visualized orbits: Orbital contents are intact. IMPRESSION: 1. No acute intracranial process. 2. Nonspecific white matter changes, likely secondary to chronic small vessel ischemic disease.
== END | disposition home or self-care (01) ==
LOC: RADCTMAIN 08:04
PROVIDERS: ATTEND Internal Medicine Critical Care Medicine
DX: C34.90 Malignant neoplasm of unspecified part of unspecified bronchus or lung (principal)
CPT/HCPCS: 70450

== ENCOUNTER → 2021-11-18 | Outpatient (CLI) | payer MEDICARE, OTHER ==
[2021-11-18 18:14] LABS: Basophils # (A) 0.04 X 10*3/uL (0.00-0.10); Basophils % (A) 0.4 %; Eosinophils # (A) 0.07 X 10*3/uL (0.04-0.35); Eosinophils % (A) 0.7 %; HCT 33.8 % (37.2-46.3); HGB 10.1 g/dL (12.0-15.0); Immature Grans, Automated 0.6 %; Lymphocytes # (A) 1.47 X 10*3/uL (0.90-5.00); Lymphocytes % (A) 14.8 %; MCH 29.3 pg (27.0-32.0); MCHC 29.9 g/dL (32.0-37.0); Mean Platelet Volume 12.8 fL (9.5-12.2); Monocytes # (A) 0.71 X 10*3/uL (0.20-1.00); Monocytes % (A) 7.2 %; NRBC Per 100 WBC 0 /100 WBCS (0.0-0.0); Neutrophils # (A) 7.57 X 10*3/uL (1.80-7.70); Neutrophils % (A) 76.3 %; Platelet Count 173 X 10*3/uL (140-440); RBC 3.45 X 10*6/uL (4.10-5.20); RDW 13.2 % (11.5-14.5); WBC 9.92 X 10*3/uL (4.50-10.00)
[2021-11-18 22:17] LABS: African American GFR (CKD) 69.1 (60.0-200.0); Albumin 4.3 g/dL (3.8-4.9); Albumin/Globulin Ratio 1.01 (1.60-3.17); Anion Gap 8.8 mmol/L (10.00-18.00); BUN/Creat Ratio 14.8 Ratio (12.00-20.00); Blood Urea Nitrogen 14.1 mg/dL (9.0-27.0); Calcium 12.1 mg/dL (8.7-10.3); Carbon Dioxide 37.3 mmol/L (20.0-27.5); Globulin 4.2 g/dL (1.6-3.3); Non-African American GFR(CKD) 59.6 (60.0-200.0); Potassium 4.3 mmol/L (3.5-5.5); T4, Free (Free Thyroxine) 1.34 ng/dL (0.800-1.800); Total Bilirubin 0.5 mg/dL (0.30-1.20); Total Protein 8.5 g/dL (6.2-8.2)
== END | disposition home or self-care (01) ==
LOC: LABWHC1 11:52
PROVIDERS: ATTEND Family Medicine
DX: R53.83 Other fatigue (principal)
CPT/HCPCS: 36415; 80053; 82607; 84439; 84443; 85025

== ENCOUNTER 2021-12-05 21:20 | Inpatient (IN) | payer MEDICARE, OTHER ==
[2021-12-05] MEDS ORDERED: IPRATROPIUM-ALBUTEROL 3 ML NEB INHALATION STA (21:37)
[2021-12-05] MEDS ORDERED: ALBUTEROL NEBULIZED 2.5 MG/3 ML INHALATION STA (21:38)
--- NOTE | 2021-12-05 21:47 | ED ---
SOB HPI - General Chief Complaint: Shortness of Breath Stated Complaint: DELICIA-Lung cancer pt Time Seen by Provider: 12/05/21 21:25 Source: patient Mode of arrival: wheelchair Limitations: no limitations - History of Present Illness Initial Comments: 71-year-old female with past history of lung cancer, COPD on 3 L home O2 who presents emergency Department with shortness of breath. Son is at bedside and provides a history. States that she has a history of lung cancer and had previous chemo, radiation and surgical removal. Last treatment was one year ago. Dr. Guerra had a told her that she would no longer respond to any treatment and therefore the patient is no longer undergoing any therapy. She usually wears 3 L of oxygen however over the past couple of days the patient has become weak, short of breath with a cough. She has had increased secretions. Denies fevers. The patient does admit to chronic chest pain. No history of cardiac disease. Patient does arrive in visible respiratory distress and therefore the HPI is limited. Son at bedside states that it has been very difficult to take care of his mother and as she is no longer wishing to pursue treatment that he is requesting palliative/hospice consult. Patient reports that "it wont be much longer". - Related Data Home Medications Medication Instructions Recorded Confirmed Levothyroxine Sodium [Synthroid] 50 mcg PO DAILY 03/11/14 12/06/21 Albuterol Sulfate [Ventolin HFA] 2 puff INHALATION RT-Q6H PRN 03/12/14 12/06/21 Nitroglycerin Sl Tabs [Nitrostat] 0.4 mg SL Q5M PRN 06/25/15 12/06/21 Atorvastatin Calcium [Lipitor] 40 mg PO HS 09/15/20 12/06/21 HYDROcodone/APAP 10-325MG [[place] 1 tab PO TID PRN 09/15/20 12/06/21 10-325] Metoprolol Succinate (ER) [Toprol 25 mg PO DAILY 09/15/20 12/06/21 XL] Montelukast Sodium [Singulair] 10 mg PO HS 09/15/20 12/06/21 Pioglitazone [Actos] 15 mg PO DAILY 09/15/20 12/06/21 dilTIAZem HCL [Cartia Xt] 300 mg PO DAILY 09/15/20 12/06/21 Folic Acid 1 mg PO DAILY 11/04/20 12/06/21 Lidocaine-Prilocaine Cream [Emla 1 applic TOPICAL DIRECTED PRN 11/04/20 12/06/21 Cream 2.5%/2.5%] ondansetron HCL [Zofran] 8 mg PO Q6H PRN 11/04/20 12/06/21 Aspirin EC [Ecotrin Low Dose] 81 mg PO DAILY 07/18/21 12/06/21 Budesonide/Formoterol Fumarate 2 puff INHALATION RT-BID 07/18/21 12/06/21 [Symbicort 160-4.5 Mcg Inhaler] Diclofenac Sodium Gel [Voltaren 2 gm TOPICAL QID PRN 07/18/21 12/06/21 Gel] Famotidine [Pepcid] 20 mg PO DAILY PRN 07/18/21 12/06/21 Multivitamins, Thera [Multivitamin 1 tab PO DAILY 07/18/21 12/06/21 (formulary)] Diphenoxylate HCl/Atropine 1 tab PO TID PRN 12/06/21 12/06/21 [Lomotil 2.5-0.025 mg Tablet] Ergocalciferol [Vitamin D2 (1250 1,250 mcg PO Q7D 12/06/21 12/06/21 Mcg = 87350 Iu)] Losartan [Cozaar] 25 mg PO DAILY 12/06/21 12/06/21 Magnesium Oxide [Mag-Ox] 250 mg PO DAILY 12/06/21 12/06/21 Previous Rx's Medication Instructions Recorded Loperamide [Imodium] 2 mg PO QID PRN #60 cap 11/10/20 Allergies Allergy/AdvReac Type Severity Reaction Status Date / Time No Known Allergies Allergy Verified 12/06/21 07:52 Review of Systems ROS Statement: Those systems with pertinent positive or pertinent negative responses have been documented in the HPI. ROS Other: All systems not noted in ROS Statement are negative. Past Medical History Past Medical History: Cancer, COPD, Diabetes Mellitus, Hyperlipidemia, Hypertension, Osteoarthritis (OA), Respiratory Disorder, Thyroid Disorder Additional Past Medical History / Comment(s): sickle cell traits, unable to walk any distance, SOB, Stage 4 lung cancer- completed radiation, currently getting chemo, wears 3L oxygen at home History of Any Multi-Drug Resistant Organisms: None Reported Past Surgical History: Tubal Ligation Additional Past Surgical History / Comment(s): bilateral cataracts, Navigational Bronchoscopy (08/03/17), LUNG RESECTION Past Anesthesia/Blood Transfusion Reactions: No Reported Reaction Additional Past Anesthesia/Blood Transfusion Reaction / Comment(s): no problems with prior blood transfusion Past Psychological History: Anxiety Smoking Status: Former smoker Past Alcohol Use History: None Reported Past Drug Use History: None Reported - Past Family History Mother Family Medical History: Cancer Additional Family Medical History / Comment(s): Unknown type of cancer. Father Family Medical History: Cancer Additional Family Medical History / Comment(s): Unknown type of cancer. General Exam Limitations: physical limitation General appearance: alert, in distress Head exam: Present: atraumatic, normocephalic, normal inspection Eye exam: Present: normal appearance, PERRL, EOMI. Absent: scleral icterus, conjunctival injection, periorbital swelling Respiratory exam: Present: respiratory distress, accessory muscle use, decreased breath sounds Cardiovascular Exam: Present: normal rhythm, tachycardia GI/Abdominal exam: Present: soft, normal bowel sounds. Absent: distended, tenderness, guarding, rebound, rigid Neurological exam: Present: alert Psychiatric exam: Present: flat affect Skin exam: Present: warm, dry, intact. Absent: rash Course Vital Signs 12/05/21 12/05/21 12/05/21 21:23 21:40 22:18 Temperature 98.2 F Pulse Rate 121 H 98 101 H Pulse Rate [ Bus Inspector ] Respiratory 40 H Rate Blood Pressure 158/54 Blood Pressure [Right Arm] O2 Sat by Pulse 65 L Oximetry Fraction of Inspired Oxygen (FIO2) 12/05/21 12/06/21 12/06/21 23:55 01:57 02:00 Temperature Pulse Rate 104 H Pulse Rate [ Bus Inspector ] Respiratory 15 Rate Blood Pressure 139/77 Blood Pressure [Right Arm] O2 Sat by Pulse 92 L Oximetry Fraction of 100 40 Inspired Oxygen (FIO2) 12/06/21 12/06/21 12/06/21 02:59 06:58 07:14 Temperature Pulse Rate 101 H Pulse Rate [ Bus Inspector ] Respiratory 14 Rate Blood Pressure 145/83 Blood Pressure [Right Arm] O2 Sat by Pulse 92 L Oximetry Fraction of 40 35 Inspired Oxygen (FIO2) 12/06/21 12/06/21 12/06/21 08:00 11:46 11:53 Temperature Pulse Rate Pulse Rate [ 100 Bus Inspector ] Respiratory 34 H Rate Blood Pressure Blood Pressure 198/98 176/112 [Right Arm] O2 Sat by Pulse 92 L Oximetry Fraction of 35 35 Inspired Oxygen (FIO2) 12/06/21 12/06/21 12/06/21 12:07 13:00 16:00 Temperature 98.1 F 98.0 F Pulse Rate Pulse Rate [ 94 75 96 Bus Inspector ] Respiratory 25 H 30 H 18 Rate Blood Pressure Blood Pressure 175/124 152/78 124/77 [Right Arm] O2 Sat by Pulse 94 L 93 L 99 Oximetry Fraction of 35 35 Inspired Oxygen (FIO2) 12/06/21 16:06 Temperature Pulse Rate 78 Pulse Rate [ Bus Inspector ] Respiratory 18 Rate Blood Pressure 167/92 Blood Pressure [Right Arm] O2 Sat by Pulse 93 L Oximetry Fraction of Inspired Oxygen (FIO2) Medical Decision Making - Medical Decision Making Upon arrival patient was placed into trauma 2. Her oxygenation is 60%. She is placed on a nonrebreather. IV access established. Patient was given 2 DuoNeb breathing treatments and 4 mg of morphine. Laboratory studies were conducted and reviewed. Covid and flu not detected. Chest x-ray demonstrates right lower lobe consolidation and pleural fluid which results in 50% opacification of the hemithorax. Patient is reevaluated and appears improved. Discussed results with the patient and the patient's son. He does request that if she has worsening respiratory distress that she be placed on the ventilator however the patient would not like CPR. They would also like a hospice consult. Patient remained in stable condition awaiting a bed on the floor Patient had been admitted to the floor. She maintained oxyenation of 92-95% on NR. Patient is continuously re-evaluated and appears to have decrease in her mentation. An ABG is drawn which demonstrates high CO2 levels therefore patient is placed on BiPAP. - Lab Data Result diagrams: 12/08/21 07:46 12/08/21 03:38 Lab Results 12/05/21 12/05/21 12/05/21 Range/Units 22:57 22:57 22:57 WBC 11.1 H (3.8-10.6) k/uL RBC 3.04 L (3.80-5.40) m/uL Hgb 9.4 L (11.4-16.0) gm/dL Hct 30.2 L (34.0-46.0) % MCV 99.4 (80.0-100.0) fL MCH 31.1 (25.0-35.0) pg MCHC 31.2 (31.0-37.0) g/dL RDW 13.4 (11.5-15.5) % Plt Count 140 L (150-450) k/uL MPV 8.5 Neutrophils % 84 % Lymphocytes % 8 % Monocytes % 4 % Eosinophils % 1 % Basophils % 0 % Neutrophils # 9.3 H (1.3-7.7) k/uL Lymphocytes # 0.9 L (1.0-4.8) k/uL Monocytes # 0.4 (0-1.0) k/uL Eosinophils # 0.1 (0-0.7) k/uL Basophils # 0.0 (0-0.2) k/uL Hypochromasia Moderate PT 10.8 (9.0-12.0) sec INR 1.0 (<1.2) APTT 34.1 H (22.0-30.0) sec Sodium 136 L (137-145) mmol/L Potassium 3.9 (3.5-5.1) mmol/L Chloride 89 L (98-107) mmol/L Carbon Dioxide 39 H (22-30) mmol/L Anion Gap 8 mmol/L BUN 29 H (7-17) mg/dL Creatinine 1.10 H (0.52-1.04) mg/dL Est GFR (CKD-EPI)AfAm 58 (>60 ml/min/1.73 sqM) Est GFR (CKD-EPI)NonAf 50 (>60 ml/min/1.73 sqM) Glucose 166 H (74-99) mg/dL Estimated Ave Glu mg/dL Hemoglobin A1c (0.0-6.0) % Plasma Lactic Acid Rakesh (0.7-2.0) mmol/L Calcium 10.3 H (8.4-10.2) mg/dL Magnesium 1.3 L (1.6-2.3) mg/dL Total Bilirubin 0.4 (0.2-1.3) mg/dL AST 38 H (14-36) U/L ALT 19 (4-34) U/L Alkaline Phosphatase 47 (38-126) U/L Troponin I (0.000-0.034) ng/mL NT-Pro-B Natriuret Pep pg/mL Total Protein 7.8 (6.3-8.2) g/dL Albumin 3.9 (3.5-5.0) g/dL Procalcitonin (0.02-0.09) ng/mL Coronavirus (PCR) (Not Detectd) Influenza Type A RNA (Not Detectd) Influenza Type B (PCR) (Not Detectd) 12/05/21 12/05/21 12/05/21 Range/Units 22:57 22:57 22:57 WBC (3.8-10.6) k/uL RBC (3.80-5.40) m/uL Hgb (11.4-16.0) gm/dL Hct (34.0-46.0) % MCV (80.0-100.0) fL MCH (25.0-35.0) pg MCHC (31.0-37.0) g/dL RDW (11.5-15.5) % Plt Count (150-450) k/uL MPV Neutrophils % % Lymphocytes % % Monocytes % % Eosinophils % % Basophils % % Neutrophils # (1.3-7.7) k/uL Lymphocytes # (1.0-4.8) k/uL Monocytes # (0-1.0) k/uL Eosinophils # (0-0.7) k/uL Basophils # (0-0.2) k/uL Hypochromasia PT (9.0-12.0) sec INR (<1.2) APTT (22.0-30.0) sec Sodium (137-145) mmol/L Potassium (3.5-5.1) mmol/L Chloride (98-107) mmol/L Carbon Dioxide (22-30) mmol/L Anion Gap mmol/L BUN (7-17) mg/dL Creatinine (0.52-1.04) mg/dL Est GFR (CKD-EPI)AfAm (>60 ml/min/1.73 sqM) Est GFR (CKD-EPI)NonAf (>60 ml/min/1.73 sqM) Glucose (74-99) mg/dL Estimated Ave Glu mg/dL Hemoglobin A1c (0.0-6.0) % Plasma Lactic Acid Rakesh <0.5 L (0.7-2.0) mmol/L Calcium (8.4-10.2) mg/dL Magnesium (1.6-2.3) mg/dL Total Bilirubin (0.2-1.3) mg/dL AST (14-36) U/L ALT (4-34) U/L Alkaline Phosphatase (38-126) U/L Troponin I 0.022 (0.000-0.034) ng/mL NT-Pro-B Natriuret Pep 157 pg/mL Total Protein (6.3-8.2) g/dL Albumin (3.5-5.0) g/dL Procalcitonin (0.02-0.09) ng/mL Coronavirus (PCR) (Not Detectd) Influenza Type A RNA (Not Detectd) Influenza Type B (PCR) (Not Detectd) 12/05/21 12/05/21 12/05/21 Range/Units 22:57 22:57 23:42 WBC (3.8-10.6) k/uL RBC (3.80-5.40) m/uL Hgb (11.4-16.0) gm/dL Hct (34.0-46.0) % MCV (80.0-100.0) fL MCH (25.0-35.0) pg MCHC (31.0-37.0) g/dL RDW (11.5-15.5) % Plt Count (150-450) k/uL MPV Neutrophils % % Lymphocytes % % Monocytes % % Eosinophils % % Basophils % % Neutrophils # (1.3-7.7) k/uL Lymphocytes # (1.0-4.8) k/uL Monocytes # (0-1.0) k/uL Eosinophils # (0-0.7) k/uL Basophils # (0-0.2) k/uL Hypochromasia PT (9.0-12.0) sec INR (<1.2) APTT (22.0-30.0) sec Sodium (137-145) mmol/L Potassium (3.5-5.1) mmol/L Chloride (98-107) mmol/L Carbon Dioxide (22-30) mmol/L Anion Gap mmol/L BUN (7-17) mg/dL Creatinine (0.52-1.04) mg/dL Est GFR (CKD-EPI)AfAm (>60 ml/min/1.73 sqM) Est GFR (CKD-EPI)NonAf (>60 ml/min/1.73 sqM) Glucose (74-99) mg/dL Estimated Ave Glu mg/dL 128 Hemoglobin A1c 6.1 H (0.0-6.0) % Plasma Lactic Acid Rakesh (0.7-2.0) mmol/L Calcium (8.4-10.2) mg/dL Magnesium (1.6-2.3) mg/dL Total Bilirubin (0.2-1.3) mg/dL AST (14-36) U/L ALT (4-34) U/L Alkaline Phosphatase (38-126) U/L Troponin I (0.000-0.034) ng/mL NT-Pro-B Natriuret Pep pg/mL Total Protein (6.3-8.2) g/dL Albumin (3.5-5.0) g/dL Procalcitonin 0.33 H (0.02-0.09) ng/mL Coronavirus (PCR) (Not Detectd) Influenza Type A RNA Not Detected (Not Detectd) Influenza Type B (PCR) Not Detected (Not Detectd) 12/05/21 Range/Units 23:42 WBC (3.8-10.6) k/uL RBC (3.80-5.40) m/uL Hgb (11.4-16.0) gm/dL Hct (34.0-46.0) % MCV (80.0-100.0) fL MCH (25.0-35.0) pg MCHC (31.0-37.0) g/dL RDW (11.5-15.5) % Plt Count (150-450) k/uL MPV Neutrophils % % Lymphocytes % % Monocytes % % Eosinophils % % Basophils % % Neutrophils # (1.3-7.7) k/uL Lymphocytes # (1.0-4.8) k/uL Monocytes # (0-1.0) k/uL Eosinophils # (0-0.7) k/uL Basophils # (0-0.2) k/uL Hypochromasia PT (9.0-12.0) sec INR (<1.2) APTT (22.0-30.0) sec Sodium (137-145) mmol/L Potassium (3.5-5.1) mmol/L Chloride (98-107) mmol/L Carbon Dioxide (22-30) mmol/L Anion Gap mmol/L BUN (7-17) mg/dL Creatinine (0.52-1.04) mg/dL Est GFR (CKD-EPI)AfAm (>60 ml/min/1.73 sqM) Est GFR (CKD-EPI)NonAf (>60 ml/min/1.73 sqM) Glucose (74-99) mg/dL Estimated Ave Glu mg/dL Hemoglobin A1c (0.0-6.0) % Plasma Lactic Acid Rakesh (0.7-2.0) mmol/L Calcium (8.4-10.2) mg/dL Magnesium (1.6-2.3) mg/dL Total Bilirubin (0.2-1.3) mg/dL AST (14-36) U/L ALT (4-34) U/L Alkaline Phosphatase (38-126) U/L Troponin I (0.000-0.034) ng/mL NT-Pro-B Natriuret Pep pg/mL Total Protein (6.3-8.2) g/dL Albumin (3.5-5.0) g/dL Procalcitonin (0.02-0.09) ng/mL Coronavirus (PCR) Not Detected (Not Detectd) Influenza Type A RNA (Not Detectd) Influenza Type B (PCR) (Not Detectd) - EKG Data EKG Comments: EKG demonstrates sinus tachycardia with a rate of 113. VT interval 124. QRS 145. QTC of 423. There is a right bundle branch block. No acute ST segment elevations Critical Care Time Critical Care Time: Yes Critical Care Time: 35 minutes for bipap respiratory failure Disposition Clinical Impression: COPD (chronic obstructive pulmonary disease), Hypoxia, Mass of right lung, Lung consolidation, CAP (community acquired pneumonia), BiPAP (biphasic positive airway pressure) dependence Disposition: ADMITTED IP TO THIS HOSP Condition: Serious Is patient prescribed a controlled substance at d/c from ED?: No Time of Disposition: 00:29 Decision to Admit Reason: Admit from EC Decision Date: 12/05/21 Decision Time: 00:29
--- NOTE | 2021-12-05 22:06 | XR ---
EXAMINATION TYPE: XR chest 1V portable DATE OF EXAM: 12/05/2021 COMPARISON: NONE HISTORY: Short of breath TECHNIQUE: Single view FINDINGS: There is blunting right costophrenic angle. Left lung is fairly clear. No heart failure. Th ere is opacification 50% of the right hemithorax. There is left-sided central venous catheter with ti p in the superior vena cava. The bony thorax appears intact. IMPRESSION: There is right lower lobe consolidation and right pleural fluid which is slightly worse t [place] last exam.
[2021-12-05] MEDS ORDERED: cefTRIAXone IN SWFI 1,000 MG/10 ML SYRINGE IVP STA (22:33)
[2021-12-05] MEDS ORDERED: MORPHINE SULFATE 4 MG/ML SYRINGE IVP STA (22:34)
[2021-12-05] MEDS ORDERED: AZITHROMYCIN 500 MG in SODIUM CHLORIDE 0.9% 250 ML IVPB ONE (23:00)
[2021-12-05 23:13] LABS: Basophils % (A) 0 %; Eosinophils # (A) 0.1 k/uL (0-0.7); Eosinophils % (A) 1 %; HCT 30.2 % (34.0-46.0); HGB 9.4 gm/dL (11.4-16.0); Hypochromasia Moderate; Lymphocytes # (A) 0.9 k/uL (1.0-4.8); Lymphocytes % (A) 8 %; MCH 31.1 pg (25.0-35.0); MCHC 31.2 g/dL (31.0-37.0); MCV 99.4 fL (80.0-100.0); Mean Platelet Volume 8.5; Monocytes # (A) 0.4 k/uL (0-1.0); Monocytes % (A) 4 %; Neutrophils # (A) 9.3 k/uL (1.3-7.7); Neutrophils % (A) 84 %; Platelet Count 140 k/uL (150-450); RBC 3.04 m/uL (3.80-5.40); RDW 13.4 % (11.5-15.5); WBC 11.1 k/uL (3.8-10.6)
[2021-12-05 23:26] LABS: Partial Thromboplastin Time 34.1 sec (22.0-30.0); Prothrombin Time 10.8 sec (9.0-12.0)
[2021-12-06 00:09] LABS: Albumin 3.9 g/dL (3.5-5.0); Calcium 10.3 mg/dL (8.4-10.2); Magnesium 1.3 mg/dL (1.6-2.3); Potassium 3.9 mmol/L (3.5-5.1); Total Bilirubin 0.4 mg/dL (0.2-1.3); Total Protein 7.8 g/dL (6.3-8.2)
[2021-12-06] MEDS ORDERED: IBUPROFEN 400 MG TAB PO PRN (00:29)
[2021-12-06] MEDS ORDERED: NALOXONE 0.4 MG/ML 1 ML VIAL IV PRN (00:29)
[2021-12-06] MEDS ORDERED: MORPHINE SULFATE 4 MG/ML SYRINGE IV PRN (00:29)
[2021-12-06] MEDS ORDERED: ACETAMINOPHEN TAB 325 MG TAB PO PRN (00:29)
[2021-12-06] MEDS ORDERED: IPRATROPIUM-ALBUTEROL 3 ML NEB INHALATION PRN (01:22)
[2021-12-06] MEDS ORDERED: methylPREDNISolone SOD SUCCI 125 MG/2 ML VIAL IV STA (01:22)
[2021-12-06 01:54] LABS: ABG Base Excess 11.6 mmol/L; ABG Hematocrit 28 % (34.0-46.0); ABG Oxygen Saturation 99.4 % (94-97); ABG PO2 165 mmHg (83-108); ABG TCO2 43 mmol/L (19-24); Allen Test Performed? Yes
[2021-12-06 02:02] LABS: ABG HCO3 40 mmol/L (21-25); ABG PCO2 106 mmHg (35-45); ABG PH 7.18 (7.35-7.45)
[2021-12-06] MEDS: SYMBICORT 160-4.5 MCG INHALER INHALATION SCH ×3 (07:04→19:16)
[2021-12-06] MEDS ORDERED: methylPREDNISolone SOD SUCCI 125 MG/2 ML VIAL IV SCH (08:00)
[2021-12-06] MEDS ORDERED: DEXTROSE 50% SYRINGE 50 ML IVP PRN ×2 (10:12)
[2021-12-06] MEDS: DILTIAZEM CD 300 MG CAP.ER.24H PO SCH (10:18)
--- NOTE | 2021-12-06 10:29 | P.HPIM ---
History of Present Illness This is a pleasant 71 years old -[place] female with past medical history of COPD, Diabetes Mellitus, Hyperlipidemia, Hypertension, Osteoarthritis, hypothyroidism, sickle cell trait, stage IV lung cancer completed radiotherapy and getting chemotherapy, chronic hypoxic respiratory failure on 3 L oxygen via nasal cannula. Her shoe coverer is Dr. Grossman. Her oncologist is Dr. Guerra Patient currently on BiPAP and looks tired and she could not provide information was obtained from the family at bedside, 2 sons Patient presents with worsening dyspnea over 2 days associated with cough and clear to cloudy phlegm. Also patient has been complaining from pain in her right lower site where her lung cancer is. Also patient feels generally weak. 4 days ago she had diarrhea but no stopped, no dysuria or urgency. Presents with increasing dyspnea, weakness and cough and On admission patient is tachycardic and tachypneic, with a breathing rate goes up to 30. She was saturating 65% on admission, 92% on 15 L ventilator and she was placed on BiPAP machine. That showing mild leukocytosis of 11.1, hemoglobin 9.4. INR is 1.0. ABG showing pH below 7.1, high pCO2 106 and had pO2 of 165 Creatinine 1.1 Sodium 136, magnesium 1.3. Liver enzymes elevated. ProBNP is low 157. Troponin is elevated 0.04 and 0.03. Maloney and influenza virus is not detected. EKG showing sinus tachycardia [address]-T changes Chest x-ray: There is right lower lobe consolidation and right pleural fluid which is slightly worse than last exam. Review of Systems Review of systems CONSTITUTIONAL: No fever, no malaise, no fatigue. HEENT: No recent visual problems or hearing problems. Denied any sore throat. CARDIOVASCULAR: No orthopnea, PND, no palpitations, no syncope. PULMONARY: No chest wall tenderness, no hemoptysis. GASTROINTESTINAL: No diarrhea, no nausea, no vomiting, no abdominal pain. Normoactive bowel sounds. NEUROLOGICAL: No headaches, no weakness, no numbness. HEMATOLOGICAL: Denies any bleeding or petechiae. GENITOURINARY: Denies any burning micturition, frequency, or urgency. MUSCULOSKELETAL/RHEUMATOLOGICAL: Denies any joint pain, swelling, or any muscle pain. ENDOCRINE: Denies any polyuria or polydipsia. Past Medical History Past Medical History: Cancer, COPD, Diabetes Mellitus, Hyperlipidemia, Hy pertension, Osteoarthritis (OA), Respiratory Disorder, Thyroid Disorder Additional Past Medical History / Comment(s): sickle cell traits, unable to walk any distance, SOB, Stage 4 lung cancer- completed radiation, currently getting chemo, wears 3L oxygen at home History of Any Multi-Drug Resistant Organisms: None Reported Past Surgical History: Tubal Ligation Additional Past Surgical History / Comment(s): bilateral cataracts, Navigational Bronchoscopy (08/03/17), LUNG RESECTION Past Anesthesia/Blood Transfusion Reactions: No Reported Reaction Additional Past Anesthesia/Blood Transfusion Reaction / Comment(s): no problems with prior blood transfusion Past Psychological History: Anxiety Smoking Status: Former smoker Past Alcohol Use History: None Reported Past Drug Use History: None Reported - Past Family History Mother Family Medical History: Cancer Additional Family Medical History / Comment(s): Unknown type of cancer. Father Family Medical History: Cancer Additional Family Medical History / Comment(s): Unknown type of cancer. Medications and Allergies Home Medications Medication Instructions Recorded Confirmed Type Levothyroxine Sodium [Synthroid] 50 mcg PO DAILY 03/11/14 12/06/21 History Albuterol Sulfate [Ventolin HFA] 2 puff INHALATION RT-Q6H PRN 03/12/14 12/06/21 History Nitroglycerin Sl Tabs [Nitrostat] 0.4 mg SL Q5M PRN 06/25/15 12/06/21 History Atorvastatin Calcium [Lipitor] 40 mg PO HS 09/15/20 12/06/21 History HYDROcodone/APAP 10-325MG [[place] 1 tab PO TID PRN 09/15/20 12/06/21 History 10-325] Metoprolol Succinate (ER) [Toprol 25 mg PO DAILY 09/15/20 12/06/21 History XL] Montelukast Sodium [Singulair] 10 mg PO HS 09/15/20 12/06/21 History Pioglitazone [Actos] 15 mg PO DAILY 09/15/20 12/06/21 History dilTIAZem HCL [Cartia Xt] 300 mg PO DAILY 09/15/20 12/06/21 History Folic Acid 1 mg PO DAILY 11/04/20 12/06/21 History Lidocaine-Prilocaine Cream [Emla 1 applic TOPICAL DIRECTED PRN 11/04/20 History Cream 2.5%/2.5%] ondansetron HCL [Zofran] 8 mg PO Q6H PRN 11/04/20 12/06/21 History Loperamide [Imodium] 2 mg PO QID PRN #60 cap 11/10/20 12/06/21 Rx Aspirin EC [Ecotrin Low Dose] 81 mg PO DAILY 07/18/21 12/06/21 History Budesonide/Formoterol Fumarate 2 puff INHALATION RT-BID 07/18/21 12/06/21 History [Symbicort 160-4.5 Mcg Inhaler] Diclofenac Sodium Gel [Voltaren 2 gm TOPICAL QID PRN 07/18/21 12/06/21 History Gel] Famotidine [Pepcid] 20 mg PO DAILY PRN 07/18/21 12/06/21 History Multivitamins, Thera [Multivitamin 1 tab PO DAILY 07/18/21 12/06/21 History (formulary)] Diphenoxylate HCl/Atropine 1 tab PO TID PRN 12/06/21 12/06/21 History [Lomotil 2.5-0.025 mg Tablet] Ergocalciferol [Vitamin D2 (1250 1,250 mcg PO Q7D 12/06/21 12/06/21 History Mcg = 83845 Iu)] Losartan [Cozaar] 25 mg PO DAILY 12/06/21 12/06/21 History Magnesium Oxide [Mag-Ox] 250 mg PO DAILY 12/06/21 12/06/21 History Allergies Allergy/AdvReac Type Severity Reaction Status Date / Time No Known Allergies Allergy Verified 12/06/21 07:52 Physical Exam Vitals: Vital Signs Temp Pulse Pulse Resp BP BP Pulse Ox 12/06/21 08:00 100 34 H 198/98 92 L 12/06/21 07:14 12/06/21 06:58 12/06/21 02:59 101 H 14 145/83 92 L 12/06/21 02:00 12/06/21 01:57 104 H 15 139/77 92 L 12/05/21 23:55 12/05/21 22:18 101 H 12/05/21 21:40 98 12/05/21 21:23 98.2 F 121 H 40 H 158/54 65 L FiO2 09/05/22 08:00 35 12/06/21 07:14 35 12/06/21 06:58 40 12/06/21 02:59 12/06/21 02:00 40 12/06/21 01:57 12/05/21 23:55 100 12/05/21 22:18 12/05/21 21:40 12/05/21 21:23 Intake and Output 12/05/21 12/06/21 12/06/21 22:59 06:59 14:59 Other: Weight 64.41 kg GENERAL: The patient is alert and oriented x3, not in any acute distress. Well developed, well nourished. HEENT: Pupils are round and equally reacting to light. EOMI. No scleral icterus. No conjunctival pallor. Normocephalic, atraumatic. No pharyngeal erythema. No thyromegaly. CARDIOVASCULAR: S1 and S2 present. No murmurs, rubs, or gallops. -PULMONARY: Chest is clear to auscultation, scattered wheezing with good air entry on both sides ABDOMEN: Soft, nontender, nondistended, normoactive bowel sounds. No palpable organomegaly. MUSCULOSKELETAL: No joint swelling or deformity. EXTREMITIES: No cyanosis, clubbing, or pedal edema. NEUROLOGICAL: Gross neurological examination did not reveal any focal deficits. SKIN: No rashes. no petechiae. Results CBC & Chem 7: 12/05/21 22:57 12/05/21 22:57 Labs: Abnormal Lab Results - Last 24 Hours (Table) 12/05/21 12/05/21 12/05/21 Range/Units 22:57 22:57 22:57 WBC 11.1 H (3.8-10.6) k/uL RBC 3.04 L (3.80-5.40) m/uL Hgb 9.4 L (11.4-16.0) gm/dL Hct 30.2 L (34.0-46.0) % Plt Count 140 L (150-450) k/uL Neutrophils # 9.3 H (1.3-7.7) k/uL Lymphocytes # 0.9 L (1.0-4.8) k/uL APTT 34.1 H (22.0-30.0) sec ABG pH (7.35-7.45) ABG pCO2 (35-45) mmHg ABG pO2 (83-108) mmHg ABG HCO3 (21-25) mmol/L ABG Total CO2 (19-24) mmol/L ABG O2 Saturation (94-97) % ABG Hematocrit (34.0-46.0) % Hemoglobin (11.4-16.0) gm/dL Sodium 136 L (137-145) mmol/L Chloride 89 L (98-107) mmol/L Carbon Dioxide 39 H (22-30) mmol/L BUN 29 H (7-17) mg/dL Creatinine 1.10 H (0.52-1.04) mg/dL Glucose 166 H (74-99) mg/dL Plasma Lactic Acid Rakesh (0.7-2.0) mmol/L Calcium 10.3 H (8.4-10.2) mg/dL Magnesium 1.3 L (1.6-2.3) mg/dL AST 38 H (14-36) U/L Troponin I (0.000-0.034) ng/mL 12/05/21 12/06/21 12/06/21 Range/Units 22:57 01:50 03:07 WBC (3.8-10.6) k/uL RBC (3.80-5.40) m/uL Hgb (11.4-16.0) gm/dL Hct (34.0-46.0) % Plt Count (150-450) k/uL Neutrophils # (1.3-7.7) k/uL Lymphocytes # (1.0-4.8) k/uL APTT (22.0-30.0) sec ABG pH 7.18 L* (7.35-7.45) ABG pCO2 106 H* (35-45) mmHg ABG pO2 165 H (83-108) mmHg ABG HCO3 40 H* (21-25) mmol/L ABG Total CO2 43 H (19-24) mmol/L ABG O2 Saturation 99.4 H (94-97) % ABG Hematocrit 28 L (34.0-46.0) % Hemoglobin 9.2 L (11.4-16.0) gm/dL Sodium (137-145) mmol/L Chloride (98-107) mmol/L Carbon Dioxide (22-30) mmol/L BUN (7-17) mg/dL Creatinine (0.52-1.04) mg/dL Glucose (74-99) mg/dL Plasma Lactic Acid Rakesh <0.5 L (0.7-2.0) mmol/L Calcium (8.4-10.2) mg/dL Magnesium (1.6-2.3) mg/dL AST (14-36) U/L Troponin I 0.044 H* (0.000-0.034) ng/mL 12/06/21 Range/Units 06:44 WBC (3.8-10.6) k/uL RBC (3.80-5.40) m/uL Hgb (11.4-16.0) gm/dL Hct (34.0-46.0) % Plt Count (150-450) k/uL Neutrophils # (1.3-7.7) k/uL Lymphocytes # (1.0-4.8) k/uL APTT (22.0-30.0) sec ABG pH (7.35-7.45) ABG pCO2 (35-45) mmHg ABG pO2 (83-108) mmHg ABG HCO3 (21-25) mmol/L ABG Total CO2 (19-24) mmol/L ABG O2 Saturation (94-97) % ABG Hematocrit (34.0-46.0) % Hemoglobin (11.4-16.0) gm/dL Sodium (137-145) mmol/L Chloride (98-107) mmol/L Carbon Dioxide (22-30) mmol/L BUN (7-17) mg/dL Creatinine (0.52-1.04) mg/dL Glucose (74-99) mg/dL Plasma Lactic Acid Rakesh (0.7-2.0) mmol/L Calcium (8.4-10.2) mg/dL Magnesium (1.6-2.3) mg/dL AST (14-36) U/L Troponin I 0.037 H* (0.000-0.034) ng/mL Assessment and Plan Assessment: Acute hypoxic respiratory failure, on chronic failure right lower lobe consolidation and pleural effusion, related to her h/o lung cancer ,possible superimposed pneumonia Acute COPD exacerbation Stage IV lung cancer on chemotherapy elevated troponin most likely secondary to hypoxia and renal injury, type 2 ND due to hypoxia Diabetes mellitus Chronic kidney disease stage III 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 Continue same treatment. Continue with symptomatic treatment. Resume home medication. Monitor lytes and vitals. DVT and GI prophylaxis. Further recommendations as per clinical course of the patient DVT prophylaxis: Subcutaneous heparin GI Prophylaxis: Pepcid Prognosis is guarded
[2021-12-06 11:31] LABS: Glucose,Whole Blood 165 mg/dL (70-110)
[2021-12-06] MEDS ORDERED: FUROSEMIDE 10 MG/ML 4 ML VIAL IV STA (11:41)
[2021-12-06] MEDS ORDERED: FAMOTIDINE 20 MG TAB PO PRN (11:41)
[2021-12-06] MEDS: LOSARTAN 25 MG TAB PO SCH (11:59)
[2021-12-06] MEDS: METOPROLOL SUCCINATE (ER) 25 MG TAB.ER.24H PO SCH (11:59)
[2021-12-06] MEDS: INSULIN ASPART (NovoLOG) 100 UNIT/ML VIAL SQ SCH ×3 (12:36→23:16)
[2021-12-06] MEDS: PIPERACILLIN-TAZOBACTAM 3.375 GM in SODIUM CHLORIDE 0.9% 100 ML IVPB SCH ×2 (12:39→20:52)
[2021-12-06] MEDS: methylPREDNISolone SOD SUCCI 125 MG/2 ML VIAL IV SCH ×3 (12:41→23:14)
[2021-12-06 13:31] LABS: ABG Base Excess 15.3 mmol/L; ABG Hematocrit 29 % (34.0-46.0); ABG PCO2 69 mmHg (35-45); ABG PH 7.38 (7.35-7.45); ABG PO2 62 mmHg (83-108); ABG TCO2 43 mmol/L (19-24); Allen Test Performed? Yes
[2021-12-06 13:38] LABS: ABG HCO3 41 mmol/L (21-25)
--- NOTE | 2021-12-06 13:39 | P.CNPUL ---
History of Present Illness Consult date: 12/06/21 Reason for consult: dyspnea History of present illness: 69-year-old -Italian female patient with known history of COPD and non- small cell lung cancer, initially diagnosed in 2017 and the patient underwent a wedge resection at that time and she had a T3 lesion which do not to be an adenocarcinoma. She was being followed up with Dr. Guerra. The patient did not receive any adjuvant therapy at that time. Her subsequent evaluations including a PET/CT from 2019 and a CAT scan from November 2019 revealed a right infrahilar soft tissue mass measuring 4.7 cm in size and this was growing in size in addition to that there was 3 additional lymph nodes. CAT scan either biopsy was consistent again with adenocarcinoma. She completed palliative radiation therapy to her right sided pulmonary lesion. She had a PPD [id number] :5%,Guardant 360 revealed no actionable mutation.. She declined systemic treatment. Her condition has been progressively getting worse since. She developed a right- sided pleural effusion and this was drained and the cytology came back negative for malignancy. The patient was started on treatment with carboplatin and Alimta and Keytruda on 10/16/2020. Subsequent follow-up including a CAT scan of the chest from 02/15/2021 showed mild disease progression and the Keytruda was held due to her poor performance status. She was recently hospitalized in July 2021, and at then she was treated for COPD exacerbation and she was discharged home. She is known to have severe COPD with FEV1 of 46% of predicted and ch ronic hypoxic respiratory failure. She presented yesterday to the emergency department because of worsening shortness of breath. At home, she is on 3 L about 2 by nasal cannula. She was getting quite weak and obtunded and she had also increased cough and wheezing. In the emergency, she had a white cell count 11.0 with a hemoglobin of 9.4 and a platelet count of 140. Sodium is at 136 with a BUN of 29 and a creatinine of 1.1. Coagulation profile was within normal limits. COVID 19 testing was negative and the patient had a influenza screen that was negative. Chest x-ray showed some mild four-vessel congestion and there was a volume loss in addition to her right-sided pleural effusion that was moderate in size. She was currently placed on a BiPAP as the patient's blood. This showed significant respiratory acidosis with a pH of 7.1 episodes of 106 and pO2 165. Currently, she is on a BiPAP at a pressure of 12/5 cm of water and she is feeling much better than she is communicating. She has bronchus spastic and wheezy and her breathing is labored and degenerated tidal volumes in order of 250-300 mL. Troponins of 0.04 and 0.03 respectively and the patient is a DNR/DNI CODE STATUS. She denies having any chest pain. Review of Systems CONSTITUTIONAL: Denies any recent significant weight loss or weight gain. Generalized weakness and fatigue and tiredness and debility and weight loss and poor performance status EYES: Denies change in vision. EARS, NOSE, MOUTH, THROAT: Denies headaches, denies sore throat. CARDIOVASCULAR: Denies chest pain, palpitations or syncopal episodes. RESPIRATORY: Positive for shortness of breath, cough, congestion no he moptysis.worsening shortness of breath GASTROINTESTINAL: Denies change in appetite, denies abdominal pain GENITOURINARY: Denies hematuria, denies infections. MUSKULOSKELETAL: Denies pain, denies swelling. INTEGUMENTARY: Denies rash, denies eczema. NEUROLOGICAL: Denies recent memory loss, no recent seizure activity. PSYCHIATRIC: Denies anxiety, denies depression. HEMATOLOGIC/LYMPHATIC: Denies anemia, denies enlarged lymph nodes. Past Medical History Past Medical History: Cancer, COPD, Diabetes Mellitus, Hyperlipidemia, Hypertension, Osteoarthritis (OA), Respiratory Disorder, Thyroid Disorder Additional Past Medical History / Comment(s): sickle cell traits, unable to walk any distance, SOB, Stage 4 lung cancer- completed radiation, currently getting chemo, wears 3L oxygen at home History of Any Multi-Drug Resistant Organisms: None Reported Past Surgical History: Tubal Ligation Additional Past Surgical History / Comment(s): bilateral cataracts, Navigational Bronchoscopy (08/03/17), LUNG RESECTION Past Anesthesia/Blood Transfusion Reactions: No Reported Reaction Additional Past Anesthesia/Blood Transfusion Reaction / Comment(s): no problems with prior blood transfusion Past Psychological History: Anxiety Smoking Status: Former smoker Past Alcohol Use History: None Reported Past Drug Use History: None Reported - Past Family History Mother Family Medical History: Cancer Additional Family Medical History / Comment(s): Unknown type of cancer. Father Family Medical History: Cancer Additional Family Medical History / Comment(s): Unknown type of cancer. Medications and Allergies Home Medications Medication Instructions Recorded Confirmed Type Levothyroxine Sodium [Synthroid] 50 mcg PO DAILY 03/11/14 12/06/21 History Albuterol Sulfate [Ventolin HFA] 2 puff INHALATION RT-Q6H PRN 03/12/14 12/06/21 History Nitroglycerin Sl Tabs [Nitrostat] 0.4 mg SL Q5M PRN 06/25/15 12/06/21 History Atorvastatin Calcium [Lipitor] 40 mg PO HS 09/15/20 12/06/21 History HYDROcodone/APAP 10-325MG [[place] 1 tab PO TID PRN 09/15/20 12/06/21 History 10-325] Metoprolol Succinate (ER) [Toprol 25 mg PO DAILY 09/15/20 12/06/21 History XL] Montelukast Sodium [Singulair] 10 mg PO HS 09/15/20 12/06/21 History Pioglitazone [Actos] 15 mg PO DAILY 09/15/20 12/06/21 History dilTIAZem HCL [Cartia Xt] 300 mg PO DAILY 09/15/20 12/06/21 History Folic Acid 1 mg PO DAILY 11/04/20 12/06/21 History Lidocaine-Prilocaine Cream [Emla 1 applic TOPICAL DIRECTED PRN 11/04/20 12/06/21 History Cream 2.5%/2.5%] ondansetron HCL [Zofran] 8 mg PO Q6H PRN 11/04/20 12/06/21 History Loperamide [Imodium] 2 mg PO QID PRN #60 cap 11/10/20 12/06/21 Rx Aspirin EC [Ecotrin Low Dose] 81 mg PO DAILY 07/18/21 12/06/21 History Budesonide/Formoterol Fumarate 2 puff INHALATION RT-BID 07/18/21 12/06/21 History [Symbicort 160-4.5 Mcg Inhaler] Diclofenac Sodium Gel [Voltaren 2 gm TOPICAL QID PRN 07/18/21 12/06/21 History Gel] Famotidine [Pepcid] 20 mg PO DAILY PRN 07/18/21 12/06/21 History Multivitamins, Thera [Multivitamin 1 tab PO DAILY 07/18/21 12/06/21 History (formulary)] Diphenoxylate HCl/Atropine 1 tab PO TID PRN 12/06/21 12/06/21 History [Lomotil 2.5-0.025 mg Tablet] Ergocalciferol [Vitamin D2 (1250 1,250 mcg PO Q7D 12/06/21 12/06/21 History Mcg = [id number] Iu)] Losartan [Cozaar] 25 mg PO DAILY 12/06/21 12/06/21 History Magnesium Oxide [Mag-Ox] 250 mg PO DAILY 12/06/21 12/06/21 History Allergies Allergy/AdvReac Type Severity Reaction Status Date / Time No Known Allergies Allergy Verified 12/06/21 07:52 Physical Exam Vitals: Vital Signs Temp Pulse Pulse Resp BP BP Pulse Ox 12/06/21 08:00 100 34 H 198/98 92 L 12/06/21 07:14 12/06/21 06:58 12/06/21 02:59 101 H 14 145/83 92 L 12/06/21 02:00 12/06/21 01:57 104 H 15 139/77 92 L 12/05/21 23:55 12/05/21 22:18 101 H 12/05/21 21:40 98 12/05/21 21:23 98.2 F 121 H 40 H 158/54 65 L FiO2 12/06/21 08:00 35 12/06/21 07:14 35 12/06/21 06:58 40 12/06/21 02:59 12/06/21 02:00 40 12/06/21 01:57 12/05/21 23:55 100 12/05/21 22:18 12/05/21 21:40 12/05/21 21:23 Intake and Output 12/05/21 12/06/21 12/06/21 22:59 06:59 14:59 Other: Weight 64.41 kg GENERAL EXAM: Alert, weak, patient is currently on BiPAP in the breathing is labored even while on the BiPAP. BMI 27.7. HEAD: Normocephalic. EYES: Normal reaction of pupils, equal size. NOSE: Clear with pink turbinates. THROAT: No erythema or exudates. NECK: No masses, no JVD. CHEST: No chest wall deformity. LUNGS: Equal air entry with crackles in the right lung base, diminished. Breath sounds are quite diminished in the right lung base along with dullness to percussion the patient is extensively bronchospastic and wheezy. CVS: S1 and S2 normal with no audible murmur, regular rhythm. ABDOMEN: No hepatosplenomegaly, normal bowel sounds, no guarding or rigidity. SPINE: No scoliosis or deformity SKIN: No rashes CENTRAL NERVOUS SYSTEM: No focal deficits, tone is normal in all 4 extremities. EXTREMITIES: There is no peripheral edema. No clubbing, no cyanosis. Peripheral pulses are intact. Results - Laboratory Findings CBC and BMP: 12/05/21 22:57 12/05/21 22:57 ABG ABG pH 7.18 (7.35-7.45) L* 12/06/21 01:50 ABG pCO2 106 mmHg (35-45) H* 12/06/21 01:50 ABG pO2 165 mmHg (83-108) H 12/06/21 01:50 ABG O2 Saturation 99.4 % (94-97) H 12/06/21 01:50 PT/INR, D-dimer PT 10.8 sec (9.0-12.0) 12/05/21 22:57 INR 1.0 (<1.2) 12/05/21 22:57 Abnormal lab findings: Abnormal Labs 12/05/21 12/05/21 12/05/21 22:57 22:57 22:57 WBC 11.1 H RBC 3.04 L Hgb 9.4 L Hct 30.2 L Plt Count 140 L Neutrophils # 9.3 H Lymphocytes # 0.9 L APTT 34.1 H ABG pH ABG pCO2 ABG pO2 ABG HCO3 ABG Total CO2 ABG O2 Saturation ABG Hematocrit Hemoglobin Sodium 136 L Chloride 89 L Carbon Dioxide 39 H BUN 29 H Creatinine 1.10 H Glucose 166 H POC Glucose (mg/dL) Plasma Lactic Acid Rakesh Calcium 10.3 H Magnesium 1.3 L AST 38 H Troponin I 12/05/21 12/06/21 12/06/21 22:57 01:50 03:07 WBC RBC Hgb Hct Plt Count Neutrophils # Lymphocytes # APTT ABG pH 7.18 L* ABG pCO2 106 H* ABG pO2 165 H ABG HCO3 40 H* ABG Total CO2 43 H ABG O2 Saturation 99.4 H ABG Hematocrit 28 L Hemoglobin 9.2 L Sodium Chloride Carbon Dioxide BUN Creatinine Glucose POC Glucose (mg/dL) Plasma Lactic Acid Rakesh <0.5 L Calcium Magnesium AST Troponin I 0.044 H* 12/06/21 12/06/21 06:44 11:30 WBC RBC Hgb Hct Plt Count Neutrophils # Lymphocytes # APTT ABG pH ABG pCO2 ABG pO2 ABG HCO3 ABG Total CO2 ABG O2 Saturation ABG Hematocrit Hemoglobin Sodium Chloride Carbon Dioxide BUN Creatinine Glucose POC Glucose (mg/dL) 165 H Plasma Lactic Acid Rakesh Calcium Magnesium AST Troponin I 0.037 H* - Diagnostic Findings Chest x-ray: image reviewed Assessment and Plan Plan: Acute hypoxic respiratory failure, on chronic failure , Bipap 03/08, fio2 35%, the patient's acute hypoxic respiratory failure is multifactorial and the patient has acute hypoxic and hypercapnic respiratory failure. The patient is currently on a BiPAP. Her respiratory failure is due to her advanced COPD, stage IV lung cancer, right-sided pleural effusion, possible progression of her malignancy addition to a possible superimposed pneumonia of the right lower lobe. Acute hypercapnic respiratory failure currently on BiPAP Stage IV adenocarcinoma of the lung, please refer to the details above currently off treatment because of her performance status being poor. She was treated with systemic treatment and later on immunotherapy with Keytruda. 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 Chronic leukocytosis Hypertension Hyperlipidemia History of osteoarthritis Hypothyroidism History of sickle cell trait Plan Very poor outcome ampullary poor prognosis based on the above The patient is coming in with acute hypoxic and hypercapnic respiratory failure and currently she is on a BiPAP We'll obtain a CT angios gram of the chest once her condition is more stable Consider a right-sided thoracentesis although this is not going to alter her outcome With the patient IV Zosyn IV Solu Medrol 60 mg IV every 6 hours DuoNeb neb last treatment [id number] Continue with outpatient medications Prognosis poor and her CODE STATUS is DNR/DNI. This was confirmed with the family members including her son at the bedside.
[2021-12-06] MEDS: IPRATROPIUM-ALBUTEROL 3 ML NEB INHALATION SCH ×2 (16:42→19:15)
--- NOTE | 2021-12-06 16:48 | CT ---
EXAMINATION TYPE: CT angio chest CT DLP: 235.3 mGycm, Automated exposure control for dose reduction was used. DATE OF EXAM: 12/06/2021 4:28 PM COMPARISON: Chest radiograph 12/05/2021, CT chest 11/01/2021. CLINICAL INDICATION:Female, 71 years old with history of dyspnea; stage 4 lung ca TECHNIQUE/CONTRAST: CTA scan of the thorax is performed with IV Contrast, patient injected with 80ml mL of Isovue 370, pu lmonary embolism protocol. MIP images are created and reviewed. FINDINGS: Pulmonary Artery: There is no evidence for a filling defect within the pulmonary vasculature to sugge st acute pulmonary embolism. Prominence of the main coronary measuring up to 3.1 cm which can be seen with pulmonary arterial hypertension. Lungs/Pleura: Increased moderate size right pleural effusion. Left basilar scarring or atelectasis. S ize of right anterior upper lobe soft tissue mass which invades into the second rib measuring 4.2 x 3 .6 cm, previously 3.7 x 3.4 cm. Marginal increase in size of right upper lobe pleural-based metastati c lesion measuring 1.8 cm, previously 1.7 cm. Increase in size of right chest wall soft tissue mass w ith destruction of the sixth rib measuring grossly 9.1 x 3.2 cm. Additional right lateral chest wall hyperdense metastasis redemonstrated an increase in size with example including a 4.9 x 2.1 cm mass ( series 401, image 106) and a 3.1 x 2.0 cm mass (series 401, 115). Increased size of left upper lobe p ulmonary nodule measuring 1.2 cm, previously 0.9 cm. Increased size of left lower lobe 1.6 cm pulmona ry nodule, previously 1.5 cm. Mild centrilobular emphysematous changes. Atelectasis of the right midd le and lower lobes with expansile low-attenuation likely representing mucus impaction. Masslike conso lidation demonstrated within the right middle lobe. Airway: Large airways are patent. Heart: Cardiomegaly. No pericardial effusion. Vasculature: No evidence of aortic aneurysm. Left chest wall Mediport catheter terminates in the high SVC. Mediastinum: Stable prominent paratracheal and pericarinal lymph nodes. No new mediastinal adenopathy . Musculoskeletal: Soft tissue metastasis with cortical irregularity and destruction of the right secon d sixth ribs. Additional healed fracture of the lateral right seventh rib. Similar healing sternal fr acture possibly related to pathologic fracture Lower neck: No significant findings. Upper Abdomen: No significant findings. IMPRESSION: 1. No evidence of pulmonary embolism. 2. Findings consistent with continued neoplastic progression as detailed above with increased moderat e right pleural effusion with new and enlarging nodules and masses.
[2021-12-06 16:58] LABS: Glucose,Whole Blood 151 mg/dL (70-110)
[2021-12-06] MEDS ORDERED: Magnesium Replacement Protocol 1 EACH MISC MISCELLANE PRN (17:11)
[2021-12-06] MEDS: MAGNESIUM SULFATE-D5W PMX 1 GM in DEXTROSE/WATER 1 100ML.BAG IVPB SCH ×3 (17:30→23:16)
[2021-12-06] MEDS ORDERED: ALBUTEROL NEBULIZED 2.5 MG/3 ML INHALATION PRN (20:51)
[2021-12-06] MEDS ORDERED: LOPERAMIDE 2 MG CAP PO PRN (20:51)
[2021-12-06] MEDS ORDERED: ONDANSETRON 4 MG TAB PO PRN (20:51)
[2021-12-06] MEDS: FAMOTIDINE 20 MG/2 ML VIAL IV SCH (20:52)
[2021-12-06] MEDS: HEPARIN SODIUM,PORCINE/PF 5,000 UNIT/0.5 ML SYRINGE SQ SCH (20:53)
[2021-12-06] MEDS: ATORVASTATIN 40 MG TAB PO SCH (20:53)
[2021-12-06] MEDS ORDERED: FAMOTIDINE 20 MG/2 ML VIAL IV SCH (21:00)
[2021-12-06] MEDS: HYDROcodone/APAP 10-325MG 1 EACH TAB PO PRN (21:03)
[2021-12-06] MEDS: MONTELUKAST 10 MG TAB PO SCH (21:04)
[2021-12-06 23:08] LABS: Glucose,Whole Blood 362 mg/dL (70-110)
[2021-12-07] MEDS: IPRATROPIUM-ALBUTEROL 3 ML NEB INHALATION SCH ×6 (00:51→20:17)
[2021-12-07 06:02] LABS: Glucose,Whole Blood 132 mg/dL (70-110)
[2021-12-07] MEDS: INSULIN ASPART (NovoLOG) 100 UNIT/ML VIAL SQ SCH ×5 (06:07→20:53)
[2021-12-07] MEDS: HYDROcodone/APAP 10-325MG 1 EACH TAB PO PRN ×2 (06:14→20:54)
[2021-12-07] MEDS: PIPERACILLIN-TAZOBACTAM 3.375 GM in SODIUM CHLORIDE 0.9% 100 ML IVPB SCH ×3 (06:14→21:02)
[2021-12-07] MEDS: LEVOTHYROXINE 50 MCG TAB PO SCH (06:14)
[2021-12-07] MEDS: methylPREDNISolone SOD SUCCI 125 MG/2 ML VIAL IV SCH ×3 (06:14→19:27)
[2021-12-07] MEDS: SYMBICORT 160-4.5 MCG INHALER INHALATION SCH ×2 (07:30→20:17)
[2021-12-07] MEDS: FOLIC ACID 1 MG TAB PO SCH (08:00)
[2021-12-07] MEDS: LOSARTAN 25 MG TAB PO SCH (08:00)
[2021-12-07] MEDS: ASPIRIN 81 MG PO SCH (08:00)
[2021-12-07] MEDS: METOPROLOL SUCCINATE (ER) 25 MG TAB.ER.24H PO SCH (08:00)
[2021-12-07] MEDS: HEPARIN SODIUM,PORCINE/PF 5,000 UNIT/0.5 ML SYRINGE SQ SCH ×2 (08:00→20:53)
[2021-12-07 09:36] LABS: Basophils % (A) 0 %; Eosinophils % (A) 0 %; HCT 30.1 % (34.0-46.0); HGB 9.3 gm/dL (11.4-16.0); Hypochromasia Moderate; Lymphocytes # (A) 0.7 k/uL (1.0-4.8); Lymphocytes % (A) 7 %; MCHC 30.8 g/dL (31.0-37.0); MCV 97.3 fL (80.0-100.0); Mean Platelet Volume 9.1; Monocytes # (A) 0.3 k/uL (0-1.0); Monocytes % (A) 3 %; Neutrophils # (A) 9.3 k/uL (1.3-7.7); Neutrophils % (A) 90 %; Platelet Count 150 k/uL (150-450); RBC 3.09 m/uL (3.80-5.40); RDW 13.2 % (11.5-15.5); WBC 10.3 k/uL (3.8-10.6)
[2021-12-07 09:45] LABS: Calcium 10.5 mg/dL (8.4-10.2); Magnesium 2.4 mg/dL (1.6-2.3); Potassium 3.8 mmol/L (3.5-5.1)
[2021-12-07] MEDS: DILTIAZEM CD 300 MG CAP.ER.24H PO SCH (10:34)
[2021-12-07 11:54] LABS: Glucose,Whole Blood 335 mg/dL (70-110)
--- NOTE | 2021-12-07 12:00 | P.PN ---
Subjective This is a pleasant 71 years old -Cypriot female with past medical history of COPD, Diabetes Mellitus, Hyperlipidemia, Hypertension, Osteoart hritis, hypothyroidism, sickle cell trait, stage IV lung cancer completed radiotherapy and getting chemotherapy, chronic hypoxic respiratory failure on 3 L oxygen via nasal cannula. Her form grader operator is Dr. Grossman. Her oncologist is Dr. Guerra Patient currently on BiPAP and looks tired and she could not provide information was obtained from the family at bedside, 2 sons Patient presents with worsening dyspnea over 2 days associated with cough and clear to cloudy phlegm. Also patient has been complaining from pain in her right lower site where her lung cancer is. Also patient feels generally weak. 4 days ago she had diarrhea but no stopped, no dysuria or urgency. Presents with increasing dyspnea, weakness and cough and On admission patient is tachycardic and tachypneic, with a breathing rate goes up to 30. She was saturating 65% on admission, 92% on 15 L ventilator and she was placed on BiPAP machine. That showing mild leukocytosis of 11.1, hemoglobin 9.4. INR is 1.0. ABG showing pH below 7.1, high pCO2 106 and had pO2 of 165 Creatinine 1.1 Sodium 136, magnesium 1.3. Liver enzymes elevated. ProBNP is low 157. Troponin is elevated 0.04 and 0.03. Maloney and influenza virus is not detected. EKG showing sinus tachycardia [address]-T changes Chest x-ray: There is right lower lobe consolidation and right pleural fluid which is slightly worse than last exam. Pro-calcitonin elevated 0.33 Hemoglobin A1c is 6.1% Objective - Vital Signs Vital signs: Vital Signs Temp 98.0 F 12/07/21 08:03 Pulse 84 12/07/21 08:03 Resp 18 12/07/21 08:03 BP 154/77 12/07/21 08:03 Pulse Ox 95 12/07/21 08:03 FiO2 30 12/07/21 04:30 Intake & Output 12/06/21 12/07/21 12/07/21 18:59 06:59 18:59 Intake Total 500 118 Output Total 900 800 500 Balance -400 -800 -382 Weight 64.41 kg Intake: Intake, IV Titration 100 Amount Piperacillin-Tazobactam 3 100 .375 gm In Sodium Chloride 0.9% 100 ml @ 25 mls/hr IVPB Q8H [facility] Rx#: [id number] Oral 400 118 Output: Urine 900 800 500 Other: Voiding Method External Catheter External Catheter External Catheter # Voids 1 # Bowel Movements 1 - Exam GENERAL: The patient is alert and oriented x3, not in any acute distress. Well developed, well nourished. HEENT: Pupils are round and equally reacting to light. EOMI. No scleral icterus. No conjunctival pallor. Normocephalic, atraumatic. No pharyngeal erythema. No thyromegaly. CARDIOVASCULAR: S1 and S2 present. No murmurs, rubs, or gallops. -PULMONARY: Chest is clear to auscultation, no wheezing or crackles. Decreased breath sounds on the right basal site ABDOMEN: Soft, nontender, nondistended, normoactive bowel sounds. No palpable organomegaly. MUSCULOSKELETAL: No joint swelling or deformity. EXTREMITIES: No cyanosis, clubbing, or pedal edema. NEUROLOGICAL: Gross neurological examination did not reveal any focal deficits. SKIN: No rashes. no petechiae. - Labs CBC & Chem 7: 12/07/21 08:47 12/07/21 08:47 Labs: Abnormal Lab Results - Last 24 Hours (Table) 12/05/21 12/05/21 12/06/21 Range/Units 22:57 22:57 11:30 RBC (3.80-5.40) m/uL Hgb (11.4-16.0) gm/dL Hct (34.0-46.0) % MCHC (31.0-37.0) g/dL Neutrophils # (1.3-7.7) k/uL Lymphocytes # (1.0-4.8) k/uL ABG pCO2 (35-45) mmHg ABG pO2 (83-108) mmHg ABG HCO3 (21-25) mmol/L ABG Total CO2 (19-24) mmol/L ABG O2 Saturation (94-97) % ABG Hematocrit (34.0-46.0) % Hemoglobin (11.4-16.0) gm/dL Sodium (137-145) mmol/L Chloride (98-107) mmol/L Carbon Dioxide (22-30) mmol/L BUN (7-17) mg/dL Creatinine (0.52-1.04) mg/dL Glucose (74-99) mg/dL POC Glucose (mg/dL) 165 H (70-110) mg/dL Hemoglobin A1c 6.1 H (0.0-6.0) % Calcium (8.4-10.2) mg/dL Magnesium (1.6-2.3) mg/dL Procalcitonin 0.33 H (0.02-0.09) ng/mL 12/06/21 12/06/21 12/06/21 Range/Units 13:28 15:23 16:56 RBC (3.80-5.40) m/uL Hgb (11.4-16.0) gm/dL Hct (34.0-46.0) % MCHC (31.0-37.0) g/dL Neutrophils # (1.3-7.7) k/uL Lymphocytes # (1.0-4.8) k/uL ABG pCO2 69 H (35-45) mmHg ABG pO2 62 L (83-108) mmHg ABG HCO3 41 H* (21-25) mmol/L ABG Total CO2 43 H (19-24) mmol/L ABG O2 Saturation 93.0 L (94-97) % ABG Hematocrit 29 L (34.0-46.0) % Hemoglobin 9.5 L (11.4-16.0) gm/dL Sodium (137-145) mmol/L Chloride (98-107) mmol/L Carbon Dioxide (22-30) mmol/L BUN (7-17) mg/dL Creatinine (0.52-1.04) mg/dL Glucose (74-99) mg/dL POC Glucose (mg/dL) 151 H (70-110) mg/dL Hemoglobin A1c (0.0-6.0) % Calcium (8.4-10.2) mg/dL Magnesium 1.3 L (1.6-2.3) mg/dL Procalcitonin (0.02-0.09) ng/mL 12/06/21 12/07/21 12/07/21 Range/Units 23:06 06:00 08:47 RBC (3.80-5.40) m/uL Hgb (11.4-16.0) gm/dL Hct (34.0-46.0) % MCHC (31.0-37.0) g/dL Neutrophils # (1.3-7.7) k/uL Lymphocytes # (1.0-4.8) k/uL ABG pCO2 (35-45) mmHg ABG pO2 (83-108) mmHg ABG HCO3 (21-25) mmol/L ABG Total CO2 (19-24) mmol/L ABG O2 Saturation (94-97) % ABG Hematocrit (34.0-46.0) % Hemoglobin (11.4-16.0) gm/dL Sodium 135 L (137-145) mmol/L Chloride 84 L (98-107) mmol/L Carbon Dioxide 39 H (22-30) mmol/L BUN 42 H (7-17) mg/dL Creatinine 1.21 H (0.52-1.04) mg/dL Glucose 235 H (74-99) mg/dL POC Glucose (mg/dL) 362 H 132 H (70-110) mg/dL Hemoglobin A1c (0.0-6.0) % Calcium 10.5 H (8.4-10.2) mg/dL Magnesium 2.4 H (1.6-2.3) mg/dL Procalcitonin (0.02-0.09) ng/mL 12/07/21 Range/Units 08:47 RBC 3.09 L (3.80-5.40) m/uL Hgb 9.3 L (11.4-16.0) gm/dL Hct 30.1 L (34.0-46.0) % MCHC 30.8 L (31.0-37.0) g/dL Neutrophils # 9.3 H (1.3-7.7) k/uL Lymphocytes # 0.7 L (1.0-4.8) k/uL ABG pCO2 (35-45) mmHg ABG pO2 (83-108) mmHg ABG HCO3 (21-25) mmol/L ABG Total CO2 (19-24) mmol/L ABG O2 Saturation (94-97) % ABG Hematocrit (34.0-46.0) % Hemoglobin (11.4-16.0) gm/dL Sodium (137-145) mmol/L Chloride (98-107) mmol/L Carbon Dioxide (22-30) mmol/L BUN (7-17) mg/dL Creatinine (0.52-1.04) mg/dL Glucose (74-99) mg/dL POC Glucose (mg/dL) (70-110) mg/dL Hemoglobin A1c (0.0-6.0) % Calcium (8.4-10.2) mg/dL Magnesium (1.6-2.3) mg/dL Procalcitonin (0.02-0.09) ng/mL Assessment and Plan Assessment: Acute hypoxic respiratory failure, on chronic failure right lower lobe consolidation and pleural effusion, related to her h/o lung cancer ,possible superimposed pneumonia Acute COPD exacerbation Stage IV lung cancer of the right lower lung on chemotherapy elevated troponin most likely secondary to hypoxia and renal injury, type 2 AL due to hypoxia Diabetes mellitus 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 Continue same treatment. Continue with symptomatic treatment. Resume home medication. Monitor lytes and vitals. DVT and GI prophylaxis. Further recommendations as per clinical course of the patient DVT prophylaxis: Subcutaneous heparin GI Prophylaxis: Pepcid Prognosis is guarded
--- NOTE | 2021-12-07 12:46 | P.CONS ---
History of Present Illness - Reason for Consult Consult date: 12/07/21 History of metastatic lung cancer - Chief Complaint Shortness of breath - History of Present Illness Ms. Sellers is a 71 year old woman with a PMHx significant for progressive metastatic adenocarcinoma of the lung with right chest wall and upper abdominal soft tissue metastases along with COPD and CKD stage 3 who presented with acute on chronic dyspnea. She had been having worsening breathing over the past month per her son at bedside, but noted worsening of dyspnea with wheezing for about 3 days prior to admission. She had no known fevers or chills, but noted worsening cough from baseline that was without hemoptysis. Given her worsening breathing, she presented to the ED for additional management. She was noted to be hypoxic requiring BiPAP on initial presentation with pCO2 of 103. CXR revealed right lower lobe consolidation not present on last CXR, consistent with acute CAP. CTA revealed no evidence for PE, but did note progression of her malignancy compared to findings on CT chest from 11/01/21. Her breathing has progressively improved with antibiotics, IV steroids, and BiPAP. Currently, she notes having increased pain secondary to right chest wall discomfort. Review of Systems 14 point review of systems was conducted with pertinent positives and negatives per HPI. Past Medical History Past Medical History: Cancer, COPD, Diabetes Mellitus, Hyperlipidemia, Hypertension, Osteoarthritis (OA), Respiratory Disorder, Thyroid Disorder Additional Past Medical History / Comment(s): sickle cell traits, unable to walk any distance, SOB, Stage 4 lung cancer- completed radiation, currently getting chemo, wears 3L oxygen at home History of Any Multi-Drug Resistant Organisms: None Reported Past Surgical History: Tubal Ligation Additional Past Surgical History / Comment(s): bilateral cataracts, Navigational Bronchoscopy (08/03/17), LUNG RESECTION Past Anesthesia/Blood Transfusion Reactions: No Reported Reaction Additional Past Anesthesia/Blood Transfusion Reaction / Comm: no problems with prior blood transfusion Past Psychological History: Anxiety Additional Psychological History / Comment(s): Pt resides with her son who is very helpful. She has home oxygen, nebulizer and glucometer. Smoking Status: Former smoker Past Alcohol Use History: None Reported Additional Past Alcohol Use History / Comment(s): quit smoking Apr 2017,smoked since age 20,<1ppd Past Drug Use History: None Reported - Past Family History Mother Family Medical History: Cancer Additional Family Medical History / Comment(s): Unknown type of cancer. Father Family Medical History: Cancer Additional Family Medical History / Comment(s): Unknown type of cancer. Medications and Allergies Home Medications Medication Instructions Recorded Confirmed Type Levothyroxine Sodium [Synthroid] 50 mcg PO DAILY 03/11/14 12/06/21 History Albuterol Sulfate [Ventolin HFA] 2 puff INHALATION RT-Q6H PRN 03/12/14 12/06/21 History Nitroglycerin Sl Tabs [Nitrostat] 0.4 mg SL Q5M PRN 06/25/15 12/06/21 History Atorvastatin Calcium [Lipitor] 40 mg PO HS 09/15/20 12/06/21 History HYDROcodone/APAP 10-325MG [[place] 1 tab PO TID PRN 09/15/20 12/06/21 History 10-325] Metoprolol Succinate (ER) [Toprol 25 mg PO DAILY 09/15/20 12/06/21 History XL] Montelukast Sodium [Singulair] 10 mg PO HS 09/15/20 12/06/21 History Pioglitazone [Actos] 15 mg PO DAILY 09/15/20 12/06/21 History dilTIAZem HCL [Cartia Xt] 300 mg PO DAILY 09/15/20 12/06/21 History Folic Acid 1 mg PO DAILY 11/04/20 12/06/21 History Lidocaine-Prilocaine Cream [Emla 1 applic TOPICAL DIRECTED PRN 11/04/20 12/06/21 History Cream 2.5%/2.5%] ondansetron HCL [Zofran] 8 mg PO Q6H PRN 11/04/20 12/06/21 History Loperamide [Imodium] 2 mg PO QID PRN #60 cap 11/10/20 12/06/21 Rx Aspirin EC [Ecotrin Low Dose] 81 mg PO DAILY 07/18/21 12/06/21 History Budesonide/Formoterol Fumarate 2 puff INHALATION RT-BID 07/18/21 12/06/21 History [Symbicort 160-4.5 Mcg Inhaler] Diclofenac Sodium Gel [Voltaren 2 gm TOPICAL QID PRN 07/18/21 12/06/21 History Gel] Famotidine [Pepcid] 20 mg PO DAILY PRN 07/18/21 12/06/21 History Multivitamins, Thera [Multivitamin 1 tab PO DAILY 07/18/21 12/06/21 History (formulary)] Diphenoxylate HCl/Atropine 1 tab PO TID PRN 12/06/21 12/06/21 History [Lomotil 2.5-0.025 mg Tablet] Ergocalciferol [Vitamin D2 (1250 1,250 mcg PO Q7D 12/06/21 12/06/21 History Mcg = 70255 Iu)] Losartan [Cozaar] 25 mg PO DAILY 12/06/21 12/06/21 History Magnesium Oxide [Mag-Ox] 250 mg PO DAILY 12/06/21 12/06/21 History Allergies Allergy/AdvReac Type Severity Reaction Status Date / Time No Known Allergies Allergy Verified 12/06/21 07:52 Physical Exam Vitals: Vital Signs Temp Pulse Pulse Resp BP BP Pulse Ox 12/07/21 12:11 97.9 F 80 18 133/66 94 L 12/07/21 11:22 86 12/07/21 11:13 83 12/07/21 08:03 98.0 F 84 18 154/77 95 12/07/21 08:00 18 12/07/21 07:39 80 12/07/21 07:32 96 12/07/21 07:30 82 12/07/21 04:30 88 18 129/85 12/07/21 00:00 12/06/21 23:20 87 20 135/73 12/06/21 20:50 99.7 F H 90 18 153/74 12/06/21 19:28 85 12/06/21 19:15 84 94 L 12/06/21 17:01 100 12/06/21 16:57 88 12/06/21 16:46 12/06/21 16:43 88 12/06/21 16:06 78 18 167/92 93 L 12/06/21 16:00 98.0 F 96 18 124/77 99 12/06/21 13:00 98.1 F 75 30 H 152/78 93 L FiO2 12/07/21 12:11 12/07/21 11:22 12/07/21 11:13 12/07/21 08:03 12/07/21 08:00 12/07/21 07:39 12/07/21 07:32 12/07/21 07:30 12/07/21 04:30 30 12/07/21 00:00 30 12/06/21 23:20 30 12/06/21 20:50 30 12/06/21 19:28 12/06/21 19:15 12/06/21 17:01 12/06/21 16:57 12/06/21 16:46 35 12/06/21 16:43 12/06/21 16:06 12/06/21 16:00 12/06/21 13:00 35 Intake and Output 12/06/21 12/07/21 12/07/21 22:59 06:59 14:59 Intake Total 118 Output Total 900 500 Balance -900 -382 Intake: Oral 118 Output: Urine 900 500 Other: Voiding Method External Catheter External Catheter External Catheter # Voids 1 # Bowel Movements 1 Weight 64.41 kg - Constitutional General appearance: average body habitus, cooperative, mild distress - EENT Eyes: EOMI - Respiratory Respiratory: bilateral: diminished, negative: wheezing - Cardiovascular Rhythm: regular - Gastrointestinal General gastrointestinal: normal bowel sounds, soft, no tenderness - Neurologic Neurologic: CNII-XII intact - Musculoskeletal Right chest wall mass around 6th rib is tender to palpation - Psychiatric Psychiatric: appropriate affect Results CBC & Chem 7: 12/07/21 08:47 12/07/21 08:47 Labs: Abnormal Lab Results - Last 24 Hours (Table) 12/05/21 12/05/21 12/06/21 Range/Units 22:57 22:57 13:28 RBC (3.80-5.40) m/uL Hgb (11.4-16.0) gm/dL Hct (34.0-46.0) % MCHC (31.0-37.0) g/dL Neutrophils # (1.3-7.7) k/uL Lymphocytes # (1.0-4.8) k/uL ABG pCO2 69 H (35-45) mmHg ABG pO2 62 L (83-108) mmHg ABG HCO3 41 H* (21-25) mmol/L ABG Total CO2 43 H (19-24) mmol/L ABG O2 Saturation 93.0 L (94-97) % ABG Hematocrit 29 L (34.0-46.0) % Hemoglobin 9.5 L (11.4-16.0) gm/dL Sodium (137-145) mmol/L Chloride (98-107) mmol/L Carbon Dioxide (22-30) mmol/L BUN (7-17) mg/dL Creatinine (0.52-1.04) mg/dL Glucose (74-99) mg/dL POC Glucose (mg/dL) (70-110) mg/dL Hemoglobin A1c 6.1 H (0.0-6.0) % Calcium (8.4-10.2) mg/dL Magnesium (1.6-2.3) mg/dL Procalcitonin 0.33 H (0.02-0.09) ng/mL 12/06/21 12/06/21 12/06/21 Range/Units 15:23 16:56 23:06 RBC (3.80-5.40) m/uL Hgb (11.4-16.0) gm/dL Hct (34.0-46.0) % MCHC (31.0-37.0) g/dL Neutrophils # (1.3-7.7) k/uL Lymphocytes # (1.0-4.8) k/uL ABG pCO2 (35-45) mmHg ABG pO2 (83-108) mmHg ABG HCO3 (21-25) mmol/L ABG Total CO2 (19-24) mmol/L ABG O2 Saturation (94-97) % ABG Hematocrit (34.0-46.0) % Hemoglobin (11.4-16.0) gm/dL Sodium (137-145) mmol/L Chloride (98-107) mmol/L Carbon Dioxide (22-30) mmol/L BUN (7-17) mg/dL Creatinine (0.52-1.04) mg/dL Glucose (74-99) mg/dL POC Glucose (mg/dL) 151 H 362 H (70-110) mg/dL Hemoglobin A1c (0.0-6.0) % Calcium (8.4-10.2) mg/dL Magnesium 1.3 L (1.6-2.3) mg/dL Procalcitonin (0.02-0.09) ng/mL 12/07/21 12/07/21 12/07/21 Range/Units 06:00 08:47 08:47 RBC 3.09 L (3.80-5.40) m/uL Hgb 9.3 L (11.4-16.0) gm/dL Hct 30.1 L (34.0-46.0) % MCHC 30.8 L (31.0-37.0) g/dL Neutrophils # 9.3 H (1.3-7.7) k/uL Lymphocytes # 0.7 L (1.0-4.8) k/uL ABG pCO2 (35-45) mmHg ABG pO2 (83-108) mmHg ABG HCO3 (21-25) mmol/L ABG Total CO2 (19-24) mmol/L ABG O2 Saturation (94-97) % ABG Hematocrit (34.0-46.0) % Hemoglobin (11.4-16.0) gm/dL Sodium 135 L (137-145) mmol/L Chloride 84 L (98-107) mmol/L Carbon Dioxide 39 H (22-30) mmol/L BUN 42 H (7-17) mg/dL Creatinine 1.21 H (0.52-1.04) mg/dL Glucose 235 H (74-99) mg/dL POC Glucose (mg/dL) 132 H (70-110) mg/dL Hemoglobin A1c (0.0-6.0) % Calcium 10.5 H (8.4-10.2) mg/dL Magnesium 2.4 H (1.6-2.3) mg/dL Procalcitonin (0.02-0.09) ng/mL 12/07/21 Range/Units 11:42 RBC (3.80-5.40) m/uL Hgb (11.4-16.0) gm/dL Hct (34.0-46.0) % MCHC (31.0-37.0) g/dL Neutrophils # (1.3-7.7) k/uL Lymphocytes # (1.0-4.8) k/uL ABG pCO2 (35-45) mmHg ABG pO2 (83-108) mmHg ABG HCO3 (21-25) mmol/L ABG Total CO2 (19-24) mmol/L ABG O2 Saturation (94-97) % ABG Hematocrit (34.0-46.0) % Hemoglobin (11.4-16.0) gm/dL Sodium (137-145) mmol/L Chloride (98-107) mmol/L Carbon Dioxide (22-30) mmol/L BUN (7-17) mg/dL Creatinine (0.52-1.04) mg/dL Glucose (74-99) mg/dL POC Glucose (mg/dL) 335 H (70-110) mg/dL Hemoglobin A1c (0.0-6.0) % Calcium (8.4-10.2) mg/dL Magnesium (1.6-2.3) mg/dL Procalcitonin (0.02-0.09) ng/mL Chest x-ray: report reviewed, image reviewed CT scan - chest: report reviewed, image reviewed Assessment and Plan Assessment: Ms. Sellers is a 71 year old woman with a history of metastatic adenocarcinoma of the lung with metastases to right chest and abdominal wall with recent evidence of disease progression per staging scans on 11/01/21 who presents with COPD exacerbation secondary to pneumonia. Plan: #Metastatic adenocarcinoma of the lung -Staging CT chest on 11/01/21 revealed evidence of disease progression -She received 3 cycles of combined chemo-immunotherapy with carboplatin/alimta/keytruda from 10/2020-12/2020 followed by 1 cycle of keytruda maintenance therapy in 01/2021 -She's been documented as having multiple visits thereafter with her oncologist Dr. Guerra as having poor performance status not suitable for additional treatment with recommendation for palliative care and hospice -Prior to entering the room, I did discuss her current medical condition with her sister Kaylie by phone as well as her son in person. They are in agreement to pursuing palliative care, but noted patient gets extremely upset and anxious when the word hospice is mentioned. We agreed that I would not use that term, but that we would discuss palliative care -When talking with Ms. Sellers, she agreed to see palliative care, particularly for pain management. We discussed that palliative care can also help alleviate other symptoms that develop over time -Consult to palliative care was placed today and case was discussed with J[employer] APPLICATION DEVELOPER Berna Oates #COPD exacerbation due to pneumonia -Continue with antibiotics, steroids, and BiPAP as needed per primary and pulm onary teams Time with Patient: Greater than 30
[2021-12-07 19:09] LABS: Glucose,Whole Blood 269 mg/dL (70-110)
[2021-12-07 19:19] LABS: Glucose,Whole Blood 185 mg/dL (70-110)
[2021-12-07] MEDS: ATORVASTATIN 40 MG TAB PO SCH (20:52)
[2021-12-07] MEDS: FAMOTIDINE 20 MG/2 ML VIAL IV SCH (20:52)
[2021-12-07] MEDS: MONTELUKAST 10 MG TAB PO SCH (20:54)
--- NOTE | 2021-12-07 22:29 | P.PN ---
Subjective Progress Note Date: 12/07/21 69-year-old -[place] female patient with known history of COPD and non- small cell lung cancer, initially diagnosed in 2017 and the patient underwent a wedge resection at that time and she had a T3 lesion which do not to be an adenocarcinoma. She was being followed up with Dr. Guerra. The patient did not receive any adjuvant therapy at that time. Her subsequent evaluations including a PET/CT from 2019 and a CAT scan from November 2019 revealed a right infrahilar soft tissue mass measuring 4.7 cm in size and this was growing in size in addition to that there was 3 additional lymph nodes. CAT scan either biopsy was consistent again with adenocarcinoma. She completed palliative radiation the rapy to her right sided pulmonary lesion. She had a PPD U0REO-4 :5%,Guardant 360 revealed no actionable mutation.. She declined systemic treatment. Her condition has been progressively getting worse since. She developed a right- sided pleural effusion and this was drained and the cytology came back negative for malignancy. The patient was started on treatment with carboplatin and Alimta and Keytruda on 10/16/2020. Subsequent follow-up including a CAT scan of the chest from 02/15/2021 showed mild disease progression and the Keytruda was held due to her poor performance status. She was recently hospitalized in July 2021, and at then she was treated for COPD exacerbation and she was discharged home. She is known to have severe COPD with FEV1 of 46% of predicted and chronic hypoxic respiratory failure. She presented yesterday to the emergency department because of worsening shortness of breath. At home, she is on 3 L about 2 by nasal cannula. She was getting quite weak and obtunded and she had also increased cough and wheezing. In the emergency, she had a white cell count 11.0 with a hemoglobin of 9.4 and a platelet count of 140. Sodium is at 136 with a BUN of 29 and a creatinine of 1.1. Coagulation profile was within normal limits. COVID 19 testing was negative and the patient had a influenza screen that was negative. Chest x-ray showed some mild four-vessel congestion and there was a volume loss in addition to her right-sided pleural effusion that was moderate in size. She was currently placed on a BiPAP as the patient's blood. This showed significant respiratory acidosis with a pH of 7.1 episodes of 106 and pO2 165. Currently, she is on a BiPAP at a pressure of 12/5 cm of water and she is feeling much better than she is communicating. She has bronchus spastic and wheezy and her breathing is labored and degenerated tidal volumes in order of 250-300 mL. Troponins of 0.04 and 0.03 respectively and the patient is a DNR/DNI CODE STATUS. She denies having any chest pain. The patient is seen today 12/07/2021 in follow-up on the regular medical floor. She is currently resting comfortably in bed. Awake and alert in no acute distress. She is maintaining good O2 saturations in the 90s on 4 L/m per nasal cannula. Alternating with BiPAP 12/6 and 35% FiO2. She is still short of breath with exertion. Dyspneic on conversation. Has a continued cough. Her shortness of breath is somewhat better. CT angiogram of the chest revealed no evidence of pulmonary embolism. Increased moderate size right pleural effusion. Left basilar scarring. Continued right anterior upper lobe soft tissue mass invading into the second rib. Marginal increase in size of the right upper lobe pleural-based metastatic lesion. Increase in size of the right chest wall soft tissue mass with destruction the sixth rib. Additional right lateral chest wall hyperdense metastasis. Increase size left upper lobe pulmonary nodule measuring 1.2 cm. Mild centrilobular emphysematous changes. Atelectasis at the right middle lobe and lower lobes. No new mediastinal adenopathy. Oncology is on the case. White count 10.3. Hemoglobin 9.3. Platelets 150. Sodium 135. Potassium 3.8. Bicarb 39. BUN 42. Creatinine 1.21. Glucose 235. She remains on DuoNeb inhalations, Symbicort, heparin for DVT prophylaxis. Remains on IV Solu-Medrol. Antibiotics in the form of Zosyn. Objective - Vital Signs Vital signs: Vital Signs Temp 98.3 F 12/07/21 20:00 Pulse 84 12/07/21 20:32 Resp 14 12/07/21 20:00 BP 183/88 12/07/21 20:00 Pulse Ox 99 12/07/21 20:00 FiO2 30 12/07/21 04:30 Intake & Output 12/07/21 12/07/21 12/08/21 06:59 18:59 06:59 Intake Total 118 Output Total 800 500 Balance -800 -382 Intake: Oral 118 Output: Urine 800 500 Other: Voiding Method External Catheter External Catheter # Voids 1 # Bowel Movements 1 - Exam GENERAL EXAM: Alert, pleasant 71-year-old female patient, on 4 L nasal cannula, comfortable in no apparent distress. HEAD: Normocephalic. EYES: Normal reaction of pupils, equal size. NOSE: Clear with pink turbinates. THROAT: No erythema or exudates. NECK: No masses, no JVD. CHEST: No chest wall deformity. LUNGS: Equal air entry with bilateral scattered rhonchi. CVS: S1 and S2 normal with no audible murmur, regular rhythm. ABDOMEN: No hepatosplenomegaly, normal bowel sounds, no guarding or rigidity. SPINE: No scoliosis or deformity SKIN: No rashes CENTRAL NERVOUS SYSTEM: No focal deficits, tone is normal in all 4 extremities. EXTREMITIES: There is no peripheral edema. No clubbing, no cyanosis. Peripheral pulses are intact. - Labs CBC & Chem 7: 12/07/21 08:47 12/07/21 08:47 Labs: Abnormal Lab Results - Last 24 Hours (Table) 12/05/21 12/06/21 12/07/21 Range/Units 22:57 23:06 06:00 RBC (3.80-5.40) m/uL Hgb (11.4-16.0) gm/dL Hct (34.0-46.0) % MCHC (31.0-37.0) g/dL Neutrophils # (1.3-7.7) k/uL Lymphocytes # (1.0-4.8) k/uL Sodium (137-145) mmol/L Chloride (98-107) mmol/L Carbon Dioxide (22-30) mmol/L BUN (7-17) mg/dL Creatinine (0.52-1.04) mg/dL Glucose (74-99) mg/dL POC Glucose (mg/dL) 362 H 132 H (70-110) mg/dL Hemoglobin A1c 6.1 H (0.0-6.0) % Calcium (8.4-10.2) mg/dL Magnesium (1.6-2.3) mg/dL 12/07/21 12/07/21 12/07/21 Range/Units 08:47 08:47 11:42 RBC 3.09 L (3.80-5.40) m/uL Hgb 9.3 L (11.4-16.0) gm/dL Hct 30.1 L (34.0-46.0) % MCHC 30.8 L (31.0-37.0) g/dL Neutrophils # 9.3 H (1.3-7.7) k/uL Lymphocytes # 0.7 L (1.0-4.8) k/uL Sodium 135 L (137-145) mmol/L Chloride 84 L (98-107) mmol/L Carbon Dioxide 39 H (22-30) mmol/L BUN 42 H (7-17) mg/dL Creatinine 1.21 H (0.52-1.04) mg/dL Glucose 235 H (74-99) mg/dL POC Glucose (mg/dL) 335 H (70-110) mg/dL Hemoglobin A1c (0.0-6.0) % Calcium 10.5 H (8.4-10.2) mg/dL Magnesium 2.4 H (1.6-2.3) mg/dL 12/07/21/09/22 Range/Units 16:45 19:18 RBC (3.80-5.40) m/uL Hgb (11.4-16.0) gm/dL Hct (34.0-46.0) % MCHC (31.0-37.0) g/dL Neutrophils # (1.3-7.7) k/uL Lymphocytes # (1.0-4.8) k/uL Sodium (137-145) mmol/L Chloride (98-107) mmol/L Carbon Dioxide (22-30) mmol/L BUN (7-17) mg/dL Creatinine (0.52-1.04) mg/dL Glucose (74-99) mg/dL POC Glucose (mg/dL) 269 H 185 H (70-110) mg/dL Hemoglobin A1c (0.0-6.0) % Calcium (8.4-10.2) mg/dL Magnesium (1.6-2.3) mg/dL Assessment and Plan Assessment: Acute hypoxic respiratory failure, on chronic failure, the patient's acute hypoxic respiratory failure is multifactorial and the patient has acute hypoxic and hypercapnic respiratory failure. The patient is currently on 4 L nasal cannula. Her respiratory failure is due to her advanced COPD, stage IV lung cancer, right-sided pleural effusion, possible progression of her malignancy addition to a possible superimposed pneumonia of the right lower lobe. Acute hypercapnic respiratory failure currently on 4 L nasal cannula, alternating with BiPAP Stage IV adenocarcinoma of the lung, please refer to the details above currently off treatment because of her performance status being poor. She was treated with systemic treatment and later on immunotherapy with Keytruda. 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 We'll continue to follow 0I have personally seen and examined the patient, performed the documentation and the assessment and plan as written. Number of minutes spent on the visit 10.
[2021-12-08] MEDS: IPRATROPIUM-ALBUTEROL 3 ML NEB INHALATION SCH ×7 (00:07→23:34)
[2021-12-08] MEDS: methylPREDNISolone SOD SUCCI 125 MG/2 ML VIAL IV SCH ×4 (00:12→17:12)
[2021-12-08] MEDS ORDERED: guaiFENesin-DM 100-10MG/5ML 10 ML CUP PO PRN (03:24)
[2021-12-08 03:45] LABS: Basophils % (A) 0 %; Eosinophils % (A) 0 %; HCT 30.2 % (34.0-46.0); HGB 9.6 gm/dL (11.4-16.0); Hypochromasia Slight; Lymphocytes # (A) 0.5 k/uL (1.0-4.8); Lymphocytes % (A) 4 %; MCH 30.8 pg (25.0-35.0); MCHC 31.6 g/dL (31.0-37.0); MCV 97.3 fL (80.0-100.0); Mean Platelet Volume 9.4; Monocytes # (A) 0.4 k/uL (0-1.0); Monocytes % (A) 3 %; Neutrophils # (A) 11.6 k/uL (1.3-7.7); Neutrophils % (A) 92 %; Platelet Count 158 k/uL (150-450); RBC 3.11 m/uL (3.80-5.40); RDW 13.8 % (11.5-15.5); WBC 12.7 k/uL (3.8-10.6)
[2021-12-08 04:06] LABS: Glucose,Whole Blood 223 mg/dL (70-110)
[2021-12-08 04:23] LABS: Calcium 10.3 mg/dL (8.4-10.2); Magnesium 2.2 mg/dL (1.6-2.3); Potassium 3.5 mmol/L (3.5-5.1)
[2021-12-08] MEDS: guaiFENesin-Coden 100-10MG/5ML 10 ML CUP PO PRN ×2 (04:50→10:08)
[2021-12-08] MEDS: PIPERACILLIN-TAZOBACTAM 3.375 GM in SODIUM CHLORIDE 0.9% 100 ML IVPB SCH ×3 (04:53→21:32)
[2021-12-08] MEDS: INSULIN ASPART (NovoLOG) 100 UNIT/ML VIAL SQ SCH ×4 (05:07→21:37)
[2021-12-08] MEDS: LEVOTHYROXINE 50 MCG TAB PO SCH (05:07)
[2021-12-08] MEDS: ALPRAZolam 0.5 MG TAB PO PRN ×3 (05:11→22:54)
[2021-12-08] MEDS: ASPIRIN 81 MG PO SCH (08:28)
[2021-12-08 08:31] LABS: Prothrombin Time 10.7 sec (9.0-12.0)
[2021-12-08] MEDS: FOLIC ACID 1 MG TAB PO SCH (08:32)
[2021-12-08] MEDS: METOPROLOL SUCCINATE (ER) 25 MG TAB.ER.24H PO SCH (08:33)
[2021-12-08] MEDS: HYDROcodone/APAP 10-325MG 1 EACH TAB PO PRN (08:33)
[2021-12-08] MEDS: DILTIAZEM CD 300 MG CAP.ER.24H PO SCH (08:33)
[2021-12-08 08:42] LABS: Partial Thromboplastin Time 20.9 sec (22.0-30.0)
[2021-12-08] MEDS: SYMBICORT 160-4.5 MCG INHALER INHALATION SCH ×2 (09:00→19:55)
[2021-12-08 09:05] LABS: Basophils % (A) 0 %; Eosinophils % (A) 0 %; HCT 28.2 % (34.0-46.0); HGB 9.1 gm/dL (11.4-16.0); Hypochromasia Slight; Lymphocytes # (A) 0.5 k/uL (1.0-4.8); Lymphocytes % (A) 4 %; MCH 31.5 pg (25.0-35.0); MCHC 32.4 g/dL (31.0-37.0); Mean Platelet Volume 8.5; Monocytes # (A) 0.3 k/uL (0-1.0); Monocytes % (A) 3 %; Neutrophils # (A) 9.3 k/uL (1.3-7.7); Neutrophils % (A) 91 %; Platelet Count 153 k/uL (150-450); RBC 2.91 m/uL (3.80-5.40); RDW 13.7 % (11.5-15.5); WBC 10.3 k/uL (3.8-10.6)
--- NOTE | 2021-12-08 09:51 | XR ---
EXAM: XR Chest, 1 View CLINICAL HISTORY: ITS.REASON XR Reason: pneumonia TECHNIQUE: Frontal view of the chest. COMPARISON: No relevant prior studies available. FINDINGS: Lungs: Dense opacity in the right lower lung zone obscure cardiovascular silhouette. This likely represents combination of pleural effusion and atelectasis/airspace disease. Follow-up to clearing recommended to exclude underlying lesion. Mild streaky density in the left lung base. This may represent atelectasis or early infiltrate. Follow-up recommended. Pleural space: See above. Heart: Cardiovascular silhouette obscured by the dense opacity in the right lower lung. Suspect mild cardiomegaly. Mediastinum: Unremarkable. Bones/joints: Unremarkable. Vasculature: Tortuous thoracic aorta. Tubes, lines and devices: Overlying chest leads obscure portion of the chest. Left-sided Port-A-Cath, tip in the SVC. IMPRESSION: 1. Left lower lung airspace disease/atelectasis and effusion. 2. Probable left basilar atelectasis. 3. Follow-up to clearing recommended as described. 4. Left-sided Port-A-Cath, tip in the SVC.
[2021-12-08] MEDS: LOSARTAN 25 MG TAB PO SCH (10:06)
--- NOTE | 2021-12-08 10:50 | P.PN ---
Subjective Progress Note Date: 12/08/21 Principal diagnosis: Acute on chronic hypoxic respiratory failure, multifactorial secondary to advanced COPD, stage IV lung cancer, right-sided pleural effusion, and progression of right lung cancer. 69-year-old -[place] female patient with known history of COPD and non- small cell lung cancer, initially diagnosed in 2017 and the patient underwent a wedge resection at that time and she had a T3 lesion which do not to be an adenocarcinoma. She was being followed up with Dr. Guerra. The patient did not receive any adjuvant therapy at that time. Her subsequent evaluations including a PET/CT from 2019 and a CAT scan from November 2019 revealed a right infrahilar soft tissue mass measuring 4.7 cm in size and this was growing in size in addition to that there was 3 additional lymph nodes. CAT scan either biopsy was consistent again with adenocarcinoma. She completed palliative radiation therapy to her right sided pulmonary lesion. She had a PPD U8ANG-2 :5%,Guardant 360 revealed no actionable mutation.. She declined systemic treatment. Her condition has been progressively getting worse since. She developed a right- sided pleural effusion and this was drained and the cytology came back negative for malignancy. The patient was started on treatment with carboplatin and Alimta and Keytruda on 10/16/2020. Subsequent follow-up including a CAT scan of the chest from 02/15/2021 showed mild disease progression and the Keytruda was held due to her poor performance status. She was recently hospitalized in July 2021, and at then she was treated for COPD exacerbation and she was discharged home. She is known to have severe COPD with FEV1 of 46% of predicted and chronic hypoxic respiratory failure. She presented yesterday to the emergency department because of worsening shortness of breath. At home, she is on 3 L about 2 by nasal cannula. She was getting quite weak and obtunded and she had also increased cough and wheezing. In the emergency, she had a white cell count 11.0 with a hemoglobin of 9.4 and a platelet count of 140. Sodium is at 136 with a BUN of 29 and a creatinine of 1.1. Coagulation profile was within normal limits. COVID 19 testing was negative and the patient had a influenza screen that was negative. Chest x-ray showed some mild four-vessel congestion and there was a volume loss in addition to her right-sided pleural effusion that was moderate in size. She was currently placed on a BiPAP as the patient's blood. This showed significant respiratory acidosis with a pH of 7.1 episodes of 106 and pO2 165. Currently, she is on a BiPAP at a pressure of 12/5 cm of water and she is feeling much better than she is communicating. She has bronchus spastic and wheezy and her breathing is labored and degenerated tidal volumes in order of 250-300 mL. Troponins of 0.04 and 0.03 respectively and the patient is a DNR/DNI CODE STATUS. She denies having any chest pain. The patient is seen today 12/07/2021 in follow-up on the regular medical floor. She is currently resting comfortably in bed. Awake and alert in no acute distress. She is maintaining good O2 saturations in the 90s on 4 L/m per nasal cannula. Alternating with BiPAP 12/6 and 35% FiO2. She is still short of breath with exertion. Dyspneic on conversation. Has a continued cough. Her shortness of breath is somewhat better. CT angiogram of the chest revealed no evidence of pulmonary embolism. Increased moderate size right pleural effusion. Left basilar scarring. Continued right anterior upper lobe soft tissue mass invading into the second rib. Marginal increase in size of the right upper lobe pleural-based metastatic lesion. Increase in size of the right chest wall soft tissue mass with destruction the sixth rib. Additional right lateral chest wall hyperdense metastasis. Increase size left upper lobe pulmonary nodule measuring 1.2 cm. Mild centrilobular emphysematous changes. Atelectasis at the right middle lobe and lower lobes. No new mediastinal adenopathy. Oncology is on the case. White count 10.3. Hemoglobin 9.3. Platelets 150. Sodium 135. Potassium 3.8. Bicarb 39. BUN 42. Creatinine 1.21. Glucose 235. She remains on DuoNeb inhalations, Symbicort, heparin for DVT prophylaxis. Remains on IV Solu-Medrol. Antibiotics in the form of Zosyn. Reevaluated today on 12/09/19, patient was transferred to the ICU yesterday, mostly because of intermittent episodes of hemoptysis. Patient was on subcu heparin which has been discontinued. Patient is about the same, continues to have intermittent episodes of blood-tinged sputum. She is on 3 L nasal cannula, last night she was on BiPAP. And today I had a chance to explain to the patient her overall prognostic picture and made aware that her condition is terminal and I agree with the rest of the consultants including oncology that the patient should seriously consider palliative care. She seems to be very agreeable to the idea palliative care, hence no need to do thoracentesis and no need to arrange for bronchoscopy at this point. Overall prognostic picture is extremely poor. WBC count is 10.3 hemoglobin is 9.1. Basic metabolic profile is normal BUN is 44 creatinine 1.23. Blood sugar is 223. CT angiogram of the chest on admission showed progression of her lung cancer and moderate sized right-sided pleural effusion with new and enlarging nodules and masses. Objective - Vital Signs Vital signs: Vital Signs Temp 97.7 F 12/08/21 08:00 Pulse 81 12/08/21 09:00 Resp 16 12/08/21 08:00 BP 190/107 12/08/21 09:00 Pulse Ox 96 12/08/21 09:00 FiO2 30 12/08/21 00:03 Intake & Output 12/07/21 12/08/21 12/08/21 18:59 06:59 18:59 Intake Total 118 200 Output Total 500 150 0 Balance -382 50 0 Intake: Intake, IV Titration 100 Amount Piperacillin-Tazobactam 3 100 .375 gm In Sodium Chloride 0.9% 100 ml @ 25 mls/hr IVPB Q8H [facility] Rx#: [id number] Oral 118 100 Output: Urine 500 150 0 Other: Voiding Method External Catheter Diaper External Catheter # Voids 1 0 # Bowel Movements 1 1 - Exam Physical Exam: Revealed a 71-year-old -[place] female on 3 L nasal cannula, comfortable, in no distress. Head: Atraumatic, normocephalic. HEENT:[Neck is supple.] [No neck masses.] [No thyromegaly.] [No JVD.] Chest: [Diminished breath sounds and dullness at the right base. Scattered rhonchi noted bilaterally. Cardiac Exam: [Normal S1 and S2, no S3 gallop, no murmur.] Abdomen: [Soft, nontender, no megaly, no rebound, no guarding, normal bowel sounds.] Extremities: [No clubbing, no edema, no cyanosis.] Neurological Exam: [No focal neurologic deficit.] Alert and oriented 3. Psychiatric: Depressed mood, normal affect, normal mental status examination. Skin: No rashes. - Labs CBC & Chem 7: 12/08/21 07:46 12/08/21 03:38 Labs: Abnormal Lab Results - Last 24 Hours (Table) 12/07/21 12/07/21 12/07/21 Range/Units 11:42 16:45 19:18 WBC (3.8-10.6) k/uL RBC (3.80-5.40) m/uL Hgb (11.4-16.0) gm/dL Hct (34.0-46.0) % Neutrophils # (1.3-7.7) k/uL Lymphocytes # (1.0-4.8) k/uL APTT (22.0-30.0) sec Sodium (137-145) mmol/L Chloride (98-107) mmol/L Carbon Dioxide (22-30) mmol/L BUN (7-17) mg/dL Creatinine (0.52-1.04) mg/dL Glucose (74-99) mg/dL POC Glucose (mg/dL) 335 H 269 H 185 H (70-110) mg/dL Calcium (8.4-10.2) mg/dL 12/08/21 12/08/21 12/08/21 Range/Units 03:38 03:38 04:04 WBC 12.7 H (3.8-10.6) k/uL RBC 3.11 L (3.80-5.40) m/uL Hgb 9.6 L (11.4-16.0) gm/dL Hct 30.2 L (34.0-46.0) % Neutrophils # 11.6 H (1.3-7.7) k/uL Lymphocytes # 0.5 L (1.0-4.8) k/uL APTT (22.0-30.0) sec Sodium 134 L (137-145) mmol/L Chloride 85 L (98-107) mmol/L Carbon Dioxide 39 H (22-30) mmol/L BUN 44 H (7-17) mg/dL Creatinine 1.23 H (0.52-1.04) mg/dL Glucose 222 H (74-99) mg/dL POC Glucose (mg/dL) 223 H (70-110) mg/dL Calcium 10.3 H (8.4-10.2) mg/dL 12/08/21 12/08/21 Range/Units 07:46 07:46 WBC (3.8-10.6) k/uL RBC 2.91 L (3.80-5.40) m/uL Hgb 9.1 L (11.4-16.0) gm/dL Hct 28.2 L (34.0-46.0) % Neutrophils # (1.3-7.7) k/uL Lymphocytes # (1.0-4.8) k/uL APTT 20.9 L (22.0-30.0) sec Sodium (137-145) mmol/L Chloride (98-107) mmol/L Carbon Dioxide (22-30) mmol/L BUN (7-17) mg/dL Creatinine (0.52-1.04) mg/dL Glucose (74-99) mg/dL POC Glucose (mg/dL) (70-110) mg/dL Calcium (8.4-10.2) mg/dL Assessment and Plan Assessment: Impression: Acute on chronic hypoxic respiratory failure, multifactorial Acute hypercapnic respiratory failure, intermittently requiring BiPAP. Severe underlying COPD. Stage IV adenocarcinoma of the right lung. Right-sided pleural effusion, malignant unless for otherwise. Acute exacerbation of COPD Elevated troponin/being addressed by cardiology Chronic kidney disease stage III Type 2 diabetes Dyslipidemia Hypothyroidism History of sickle cell trait. Recommendation: Discussed and updated the patient on her condition Reviewed the consultation from oncology Considering the significant progression of the disease, I am strongly recommending palliative care. Prognosis is extremely poor and guarded. Consider transferring the patient back to regular medical floor. Time with Patient: Less than 30
[2021-12-08 11:26] LABS: Glucose,Whole Blood 249 mg/dL (70-110)
[2021-12-08 13:41] VITALS: BMI 27.7
[2021-12-08 14:19] LABS: Poikilocytosis (M) Present; Rouleaux Present
--- NOTE | 2021-12-08 14:33 | P.CONS ---
History of Present Illness - Reason for Consult Consult date: 12/08/21 Pain management Requesting physician: Daniella Schmidt - Chief Complaint Dyspnea - History of Present Illness The patient is [id number] -[place] female patient with known history of COPD and non-small cell lung cancer, initially diagnosed in 2017 and the patient underwent a wedge resection at that time and she had a T3 lesion which do not to be an adenocarcinoma. She was being followed up with Dr. Guerra. The patient did not receive any adjuvant therapy at that time. Her subsequent evaluations including a PET/CT from 2019 and a CAT scan from November 2019 reve aled a right infrahilar soft tissue mass measuring 4.7 cm in size and this was growing in size in addition to that there was 3 additional lymph nodes. CAT scan either biopsy was consistent again with adenocarcinoma. She completed palliative radiation therapy to her right sided pulmonary lesion. She had a PPD [id number] :5%,Guardant 360 revealed no actionable mutation.. She declined systemic treatment. Her condition has been progressively getting worse since. She developed a right-sided pleural effusion and this was drained and the cytology came back negative for malignancy. The patient was started on treatment with carboplatin and Alimta and Keytruda on 10/16/2020. Subsequent follow-up including a CAT scan of the chest from 02/15/2021 showed mild disease progression and the Keytruda was held due to her poor performance status. She was recently hospitalized in July 2021, and at then she was treated for COPD exacerbation and she was discharged home. She is known to have severe COPD with FEV1 of 46% of predicted and chronic hypoxic respiratory failure. She presented to the emergency department on 12/05/21 with worsening shortness of breath. At home, she is on 3 L O2 by nasal cannula. She was getting quite weak and obtunded and she had also increased cough and wheezing. In the emergency, she had a white cell count 11.0 with a hemoglobin of 9.4 and a platelet count of 140. Sodium is at 136 with a BUN of 29 and a creatinine of 1.1. Coagulation profile was within normal limits. COVID 19 testing was negative and the patient had a influenza screen that was negative. Chest x-ray showed some mild vascular congestion and there was a volume loss in addition to her right-sided pleural effusion that was moderate in size. She was placed on a BiPAP. ABG showed significant respiratory acidosis with a pH of 7.1, pCO2 of 106, and pO2 165. BiPAP is at a pressure of 12/5 cm of water and she was waking up more. Her breathing has progressively improved with antibiotics, IV steroids, and BiPAP. She has experienced an increased pain to right chest wall. Review of Systems Constitutional: Reports as per HPI Past Medical History Past Medical History: Cancer, COPD, Diabetes Mellitus, Hyperlipidemia, Hypertension, Osteoarthritis (OA), Respiratory Disorder, Thyroid Disorder Additional Past Medical History / Comment(s): sickle cell traits, unable to walk any distance, SOB, Stage 4 lung cancer- completed radiation, currently getting chemo, wears 3L oxygen at home History of Any Multi-Drug Resistant Organisms: None Reported Past Surgical History: Tubal Ligation Additional Past Surgical History / Comment(s): bilateral cataracts, Navigational Bronchoscopy (08/03/17), LUNG RESECTION Past Anesthesia/Blood Transfusion Reactions: No Reported Reaction Additional Past Anesthesia/Blood Transfusion Reaction / Comm: no problems with prior blood transfusion Past Psychological History: Anxiety Smoking Status: Former smoker Past Alcohol Use History: None Reported Past Drug Use History: None Reported - Past Family History Mother Family Medical History: Cancer Additional Family Medical History / Comment(s): Unknown type of cancer. Father Family Medical History: Cancer Additional Family Medical History / Comment(s): Unknown type of cancer. Medications and Allergies Home Medications Medication Instructions Recorded Confirmed Type Levothyroxine Sodium [Synthroid] 50 mcg PO DAILY 03/11/14 12/06/21 History Albuterol Sulfate [Ventolin HFA] 2 puff INHALATION RT-Q6H PRN 03/12/14 12/06/21 History Nitroglycerin Sl Tabs [Nitrostat] 0.4 mg SL Q5M PRN 06/25/15 12/06/21 History Atorvastatin Calcium [Lipitor] 40 mg PO HS 09/15/20 12/06/21 History HYDROcodone/APAP 10-325MG [[place] 1 tab PO TID PRN 09/15/20 12/06/21 History 10-325] Metoprolol Succinate (ER) [Toprol 25 mg PO DAILY 09/15/20 12/06/21 History XL] Montelukast Sodium [Singulair] 10 mg PO HS 09/15/20 12/06/21 History Pioglitazone [Actos] 15 mg PO DAILY 09/15/20 12/06/21 History dilTIAZem HCL [Cartia Xt] 300 mg PO DAILY 09/15/20 12/06/21 History Folic Acid 1 mg PO DAILY 11/04/20 12/06/21 History Lidocaine-Prilocaine Cream [Emla 1 applic TOPICAL DIRECTED PRN 11/04/20 0 12/06/21 History Cream 2.5%/2.5%] ondansetron HCL [Zofran] 8 mg PO Q6H PRN 11/04/20 12/06/21 History Loperamide [Imodium] 2 mg PO QID PRN #60 cap 11/10/20 12/06/21 Rx Aspirin EC [Ecotrin Low Dose] 81 mg PO DAILY 07/18/21 12/06/21 History Budesonide/Formoterol Fumarate 2 puff INHALATION RT-BID 07/18/21 12/06/21 History [Symbicort 160-4.5 Mcg Inhaler] Diclofenac Sodium Gel [Voltaren 2 gm TOPICAL QID PRN 07/18/21 12/06/21 History Gel] Famotidine [Pepcid] 20 mg PO DAILY PRN 07/18/21 12/06/21 History Multivitamins, Thera [Multivitamin 1 tab PO DAILY 07/18/21 12/06/21 History (formulary)] Diphenoxylate HCl/Atropine 1 tab PO TID PRN 12/06/21 12/06/21 History [Lomotil 2.5-0.025 mg Tablet] Ergocalciferol [Vitamin D2 (1250 1,250 mcg PO Q7D 12/06/21 12/06/21 History Mcg = 11579 Iu)] Losartan [Cozaar] 25 mg PO DAILY 12/06/21 12/06/21 History Magnesium Oxide [Mag-Ox] 250 mg PO DAILY 12/06/21 12/06/21 History Allergies Allergy/AdvReac Type Severity Reaction Status Date / Time No Known Allergies Allergy Verified 12/06/21 07:52 Physical Exam Vitals: Vital Signs Temp Pulse Pulse Resp BP Pulse Ox FiO2 12/08/21 11:02 84 12/08/21 10:51 78 12/08/21 09:00 81 190/107 96 12/08/21 08:00 97.7 F 87 16 191/112 97 12/08/21 06:00 78 24 157/89 99 12/08/21 05:00 101 H 24 184/119 94 L 12/08/21 00:18 80 12/08/21 00:07 84 12/08/21 00:03 30 12/08/21 00:00 97.4 F L 84 12 177/83 99 12/07/21 20:32 84 12/07/21 20:23 83 12/07/21 20:00 98.3 F 95 14 183/88 99 12/07/21 17:15 85 12/07/21 17:05 84 Intake and Output 12/07/21 12/08/21 12/08/21 22:59 06:59 14:59 Intake Total 200 596 Output Total 150 400 Balance 50 196 Intake: IV 60 .9 KVO 60 Intake, IV Titration 100 100 Amount Piperacillin-Tazobactam 3 100 100 .375 gm In Sodium Chloride 0.9% 100 ml @ 25 mls/hr IVPB Q8H [facility] Rx#: [id number] Oral 100 436 Output: Urine 150 400 Other: Voiding Method Diaper Diaper Diaper External Catheter External Catheter External Catheter # Voids 0 # Bowel Movements 1 Weight 64.41 kg General: Well developed, well nourished. No acute distress. HEENT: Head is atraumatic, normocephalic. Sclerae are clear. Pupils equal, round and reactive to light bilaterally. Mucus membranes moist. CV: Heart regular in rate and rhythm positive S1 and S2. No clicks, rubs or murmurs. Peripheral pulses equal. 2/4 Lungs:Scatered rhonchi throughout. Respirations even and nonlabored. On 3 NC Abdomen/GI: Soft. Bowel sounds present in all 4 quadrants.No guarding, rigidity, or abdominal tenderness. Musculoskeletal/ Extremities: MAHMOOD, no joint deformity or swelling. No gross atrophy. + generalized weakness Vascular: Radial pulses equal. 2/4. Trace peripheral edema Skin: Warm and dry, No rash or lesions. Neurologic: Awake, alert and oriented times 3. CN II-XII grossly intact. No focal deficits. Psychiatric: Appropriate mood and affect. Results CBC & Chem 7: 12/08/21 07:46 12/08/21 03:38 Labs: Abnormal Lab Results - Last 24 Hours (Table) 12/07/21 12/07/21 12/08/21 Range/Units 16:45 19:18 03:38 WBC (3.8-10.6) k/uL RBC (3.80-5.40) m/uL Hgb (11.4-16.0) gm/dL Hct (34.0-46.0) % Neutrophils # (1.3-7.7) k/uL Lymphocytes # (1.0-4.8) k/uL APTT (22.0-30.0) sec Sodium 134 L (137-145) mmol/L Chloride 85 L (98-107) mmol/L Carbon Dioxide 39 H (22-30) mmol/L BUN 44 H (7-17) mg/dL Creatinine 1.23 H (0.52-1.04) mg/dL Glucose 222 H (74-99) mg/dL POC Glucose (mg/dL) 269 H 185 H (70-110) mg/dL Calcium 10.3 H (8.4-10.2) mg/dL 12/08/21 12/08/21 12/08/21 Range/Units 03:38 04:04 07:46 WBC 12.7 H (3.8-10.6) k/uL RBC 3.11 L 2.91 L (3.80-5.40) m/uL Hgb 9.6 L 9.1 L (11.4-16.0) gm/dL Hct 30.2 L 28.2 L (34.0-46.0) % Neutrophils # 11.6 H (1.3-7.7) k/uL Lymphocytes # 0.5 L (1.0-4.8) k/uL APTT (22.0-30.0) sec Sodium (137-145) mmol/L Chloride (98-107) mmol/L Carbon Dioxide (22-30) mmol/L BUN (7-17) mg/dL Creatinine (0.52-1.04) mg/dL Glucose (74-99) mg/dL POC Glucose (mg/dL) 223 H (70-110) mg/dL Calcium (8.4-10.2) mg/dL 12/08/21 12/08/21 Range/Units 07:46 11:25 WBC (3.8-10.6) k/uL RBC (3.80-5.40) m/uL Hgb (11.4-16.0) gm/dL Hct (34.0-46.0) % Neutrophils # (1.3-7.7) k/uL Lymphocytes # (1.0-4.8) k/uL APTT 20.9 L (22.0-30.0) sec Sodium (137-145) mmol/L Chloride (98-107) mmol/L Carbon Dioxide (22-30) mmol/L BUN (7-17) mg/dL Creatinine (0.52-1.04) mg/dL Glucose (74-99) mg/dL POC Glucose (mg/dL) 249 H (70-110) mg/dL Calcium (8.4-10.2) mg/dL Chest x-ray: report reviewed CT scan - chest: report reviewed Assessment and Plan Assessment: Social * Occupation - Retired since age 49. Previously worked in a [employer] factory. * Marital status - Legally * Children/grandchildren - 2 adult sons * Residence - small one story house * Who do you reside with - her son Chichi * ETOH - No * Tobacco - Former smoker * Illicit drugs - No Spiritual/Cultural * A spiritual person - Yes * Gnosticism - Christianity * Belong to a particular yazidism - [facility], [place] [employer] * Beliefs a source of comfort and strength - Yes * Alevism or cultural practices restrictions - No * EOL considerations/rituals - No Functional Assessment * Able to walk independently - Yes * Assistive devices - she has a cane and a walker, but does not use them * Able to use the bathroom independently - Yes * Continent - Yes * Require assistance bathing- She has a bathtub, no shower. She is able to bath herself, but will only do it if her son is home because of a fear of falling * Able to feed self - Yes * Who prepares meals - Son * How many meals a day eaten - 2 * What percentage of meals eaten daily - 50% * Able to clean house/do laundry - A little * Transportation - Patient has a car, but she will not drive anymore. Her son provides transportation * Able to shop - Yes, with electric scooter * Who manages medications - Patient and her son * Who manages finances - Patient and her son Psychological/Emotional * Dementia present - No * Insight and judgment - Intact * Depression - Yes * Suicidal thoughts - No * Good support system - Yes * Patients goals - Optimize functionality * Frequent hospitalizations - No * Desire to keep coming back to the hospital for treatment - Yes Symptoms * Pain - 9/10 pain to right side, Continue [place], and Tylenol. Fentanyl patch 25mg added * Fatigue - + decreased energy, weakness and fatigue * SOB - + sob while at rest and with exertion * Insomnia - Yes * N/V - Occasional, continue Zofran prn * Anxiety - Yes, Continue Xanax prn * Depression - Yes * Confusion - No * Agitation - No * Hallucinations - No * Appetite/weight loss - + decreased appetite, no recent weight loss, Continue heart healthy diet with glucerna supp TIDWM * Dysphagia - No * Constipation - No, LBM / * Incontinence - No * Itch - No Plan: Summary/Goals - Met with the patient and her son, Chichi. Education provided regarding her progressive stage IV metastatic lung cancer, advanced COPD, and pneumonia. She has a right chest wall mass that is causing her pain and disco mfort. Palliative care philosophies and services explained. They patient got anxious and thought we were talking about hospice. The differences between palliative care and hospice were discussed. The patient stated that she knows that she is near the end, but she doesn't want to beal things. The patient and her son both agreed that they would like to have OP palliative care then. when things progress and get worse, they moe transition to hospice. They would like her to be discharged home, not to a [facility], with homecare. Code status discussed in detail. The patient stated that "God will take her when he is ready". Both the patient and her son agreed that she should be a DNR. Recommendations - Discharge home with homecare and OP palliative care Advanced Directives - No Code Status - DNR Thank you for this consult Berna Oates [facility] Palliative Care [facility] [address] Email: [email or web address] Time with Patient: Greater than 30
[2021-12-08 17:00] LABS: Glucose,Whole Blood 249 mg/dL (70-110)
--- NOTE | 2021-12-08 18:30 | P.PN ---
Subjective This is a pleasant 71 years old -[place] female with past medical history of COPD, Diabetes Mellitus, Hyperlipidemia, Hypertension, Osteoart hritis, hypothyroidism, sickle cell trait, stage IV lung cancer completed radiotherapy and getting chemotherapy, chronic hypoxic respiratory failure on 3 L oxygen via nasal cannula. Her house piping inspector is Dr. Grossman. Her oncologist is Dr. Guerra Patient currently on BiPAP and looks tired and she could not provide information was obtained from the family at bedside, 2 sons Patient presents with worsening dyspnea over 2 days associated with cough and clear to cloudy phlegm. Also patient has been complaining from pain in her right lower site where her lung cancer is. Also patient feels generally weak. 4 days ago she had diarrhea but no stopped, no dysuria or urgency. Presents with increasing dyspnea, weakness and cough and On admission patient is tachycardic and tachypneic, with a breathing rate goes up to 30. She was saturating 65% on admission, 92% on 15 L ventilator and she was placed on BiPAP machine. That showing mild leukocytosis of 11.1, hemoglobin 9.4. INR is 1.0. ABG showing pH below 7.1, high pCO2 106 and had pO2 of 165 Creatinine 1.1 Sodium 136, magnesium 1.3. Liver enzymes elevated. ProBNP is low 157. Troponin is elevated 0.04 and 0.03. Maloney and influenza virus is not detected. EKG showing sinus tachycardia [address]-T changes Chest x-ray: There is right lower lobe consolidation and right pleural fluid which is slightly worse than last exam. Pro-calcitonin elevated 0.33 Hemoglobin A1c is 6.1% 12/08/2021 Patient yesterday developed some hemoptysis and she was transferred to the ICU for close monitoring. This morning she was looking clinically same as yesterday, she is awake alert but very tired and lethargic, she can answer questions appropriately but she is slow. Hemodynamically stable. She has low grade temperature and currently covered with Zosyn. Labs reviewed CBC 10.3, hemoglobin 9.1, platelet count 153, creatinine 1.2. It has stage IV lung cancer and oncology team recommended palliative care as well as pulmonary team for elevating of symptoms. She is currently DO NOT RESUSCITATE/DO NOT INTUBATE. As per patient wishes, she wants to be treated and go home with home care. She refuses subacute rehab. And she refuses hospice care for now. Continue with Solu-Medrol 60 mg Objective - Vital Signs Vital signs: Vital Signs Temp 97.7 F 12/08/21 08:00 Pulse 81 12/08/21 09:00 Resp 16 12/08/21 08:00 BP 190/107 12/08/21 09:00 Pulse Ox 96 12/08/21 09:00 FiO2 30 12/08/21 00:03 Intake & Output 12/07/21 12/08/21 12/08/21 18:59 06:59 18:59 Intake Total 118 200 Output Total 500 150 0 Balance -382 50 0 Intake: Intake, IV Titration 100 Amount Piperacillin-Tazobactam 3 100 .375 gm In Sodium Chloride 0.9% 100 ml @ 25 mls/hr IVPB Q8H [facility] Rx#: [id number] Oral 118 100 Output: Urine 500 150 0 Other: Voiding Method External Catheter Diaper External Catheter # Voids 1 0 # Bowel Movements 1 1 - Exam GENERAL: The patient is alert and oriented x3, not in any acute distress. Well developed, well nourished. HEENT: Pupils are round and equally reacting to light. EOMI. No scleral icterus. No conjunctival pallor. Normocephalic, atraumatic. No pharyngeal erythema. No thyromegaly. CARDIOVASCULAR: S1 and S2 present. No murmurs, rubs, or gallops. -PULMONARY: Chest is clear to auscultation, no wheezing or crackles. Decreased breath sounds on the right basal site ABDOMEN: Soft, nontender, nondistended, normoactive bowel sounds. No palpable organomegaly. MUSCULOSKELETAL: No joint swelling or deformity. EXTREMITIES: No cyanosis, clubbing, or pedal edema. NEUROLOGICAL: Gross neurological examination did not reveal any focal deficits. SKIN: No rashes. no petechiae. - Labs CBC & Chem 7: 12/08/21 07:46 12/08/21 03:38 Labs: Abnormal Lab Results - Last 24 Hours (Table) 12/07/21 12/07/21 12/07/21 Range/Units 11:42 16:45 19:18 WBC (3.8-10.6) k/uL RBC (3.80-5.40) m/uL Hgb (11.4-16.0) gm/dL Hct (34.0-46.0) % Neutrophils # (1.3-7.7) k/uL Lymphocytes # (1.0-4.8) k/uL APTT (22.0-30.0) sec Sodium (137-145) mmol/L Chloride (98-107) mmol/L Carbon Dioxide (22-30) mmol/L BUN (7-17) mg/dL Creatinine (0.52-1.04) mg/dL Glucose (74-99) mg/dL POC Glucose (mg/dL) 335 H 269 H 185 H (70-110) mg/dL Calcium (8.4-10.2) mg/dL 12/08/21 12/08/21 12/08/21 Range/Units 03:38 03:38 04:04 WBC 12.7 H (3.8-10.6) k/uL RBC 3.11 L (3.80-5.40) m/uL Hgb 9.6 L (11.4-16.0) gm/dL Hct 30.2 L (34.0-46.0) % Neutrophils # 11.6 H (1.3-7.7) k/uL Lymphocytes # 0.5 L (1.0-4.8) k/uL APTT (22.0-30.0) sec Sodium 134 L (137-145) mmol/L Chloride 85 L (98-107) mmol/L Carbon Dioxide 39 H (22-30) mmol/L BUN 44 H (7-17) mg/dL Creatinine 1.23 H (0.52-1.04) mg/dL Glucose 222 H (74-99) mg/dL POC Glucose (mg/dL) 223 H (70-110) mg/dL Calcium 10.3 H (8.4-10.2) mg/dL 12/08/21 12/08/21 Range/Units 07:46 07:46 WBC (3.8-10.6) k/uL RBC 2.91 L (3.80-5.40) m/uL Hgb 9.1 L (11.4-16.0) gm/dL Hct 28.2 L (34.0-46.0) % Neutrophils # (1.3-7.7) k/uL Lymphocytes # (1.0-4.8) k/uL APTT 20.9 L (22.0-30.0) sec Sodium (137-145) mmol/L Chloride (98-107) mmol/L Carbon Dioxide (22-30) mmol/L BUN (7-17) mg/dL Creatinine (0.52-1.04) mg/dL Glucose (74-99) mg/dL POC Glucose (mg/dL) (70-110) mg/dL Calcium (8.4-10.2) mg/dL Assessment and Plan Assessment: Acute hypoxic respiratory failure, on chronic failure right lower lobe consolidation and pleural effusion, related to her h/o lung ca ncer ,possible superimposed pneumonia Acute COPD exacerbation Stage IV lung cancer of the right lower lung on chemotherapy elevated troponin most likely secondary to hypoxia and renal injury, 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 Continue same treatment. Continue with symptomatic treatment. Resume home medication. Monitor lytes and vitals. DVT and GI prophylaxis. Further recommendations as per clinical course of the patient DVT prophylaxis: Subcutaneous heparin GI Prophylaxis: Pepcid Prognosis is guarded
[2021-12-08] MEDS ORDERED: FAMOTIDINE 20 MG TAB PO SCH (21:00)
[2021-12-08 21:27] LABS: Glucose,Whole Blood 355 mg/dL (70-110)
[2021-12-08] MEDS: ATORVASTATIN 40 MG TAB PO SCH (21:36)
[2021-12-08] MEDS: MONTELUKAST 10 MG TAB PO SCH (21:37)
[2021-12-09] MEDS ORDERED: ALPRAZolam 0.5 MG TAB PO STA (00:17)
[2021-12-09] MEDS: methylPREDNISolone SOD SUCCI 125 MG/2 ML VIAL IV SCH ×2 (00:45→05:01)
[2021-12-09] MEDS ORDERED: LORazepam 1 MG/0.5 ML VIAL IV PRN (02:58)
[2021-12-09] MEDS: IPRATROPIUM-ALBUTEROL 3 ML NEB INHALATION SCH ×3 (03:41→11:06)
[2021-12-09] MEDS: PIPERACILLIN-TAZOBACTAM 3.375 GM in SODIUM CHLORIDE 0.9% 100 ML IVPB SCH (04:56)
[2021-12-09 06:30] VITALS: BP 167/100; TEMP 97.6
[2021-12-09] MEDS: LEVOTHYROXINE 50 MCG TAB PO SCH (06:37)
[2021-12-09] MEDS: SYMBICORT 160-4.5 MCG INHALER INHALATION SCH (07:35)
[2021-12-09 07:40] VITALS: RESP 45
--- NOTE | 2021-12-09 08:09 | P.PN ---
Progress Note - Text Progress Note Date: 12/09/21 William Miles was called to the patient's room, then cancelled. The patient is a DNR. She with her son at the bedside at approximately 0750. Emotional and spiritual support provided to her son. Berna Oates [facility] Palliative Care [facility] [id number] Email: [email or web address]
[2021-12-09] MEDS: INSULIN ASPART (NovoLOG) 100 UNIT/ML VIAL SQ SCH (08:44)
[2021-12-09] MEDS: LOSARTAN 25 MG TAB PO SCH (08:44)
[2021-12-09] MEDS: FOLIC ACID 1 MG TAB PO SCH (08:44)
[2021-12-09] MEDS: ASPIRIN 81 MG PO SCH (08:44)
[2021-12-09] MEDS: DILTIAZEM CD 300 MG CAP.ER.24H PO SCH (08:44)
[2021-12-09] MEDS: METOPROLOL SUCCINATE (ER) 25 MG TAB.ER.24H PO SCH (08:44)
[2021-12-09 09:45] VITALS: PULSE 47
--- NOTE | 2021-12-09 21:27 | US ---
EXAMINATION TYPE: US chest DATE OF EXAM: 12/08/2021 COMPARISON: Chest x-ray from earlier in day CLINICAL HISTORY: Markings for thoracentesis by pulmonary staff. right chest fluid TECHNIQUE: Targeted ultrasound of the posterior lower right hemithorax EXAM MEASUREMENTS: Right Pleural Effusion pocket size: 12.2 cm Right skin surface to fluid distance: 3.6 cm Right side marked for possible thoracentesis outside the dept. Left side NOT marked for possible thoracentesis outside the dept. Pulmonologists are able to review the images in the patient?s EMR. Moderate size pleural effusion seen on images saved correlating with most recent x-ray. IMPRESSIONS: As above.
--- NOTE | 2021-12-10 00:02 | P.DS ---
Providers Date of admission: 12/06/21 00:29 Attending physician: Tuan Ross MD Consults: 12/06/21 00:29 Consult Physician Urgent Consulting Provider: Padmini Luo Consult Reason/Comments: acute/chronic hypoxic resp failure, CAP, stage 4 lung cancer Do you want consulting provider notified?: Yes 12/06/21 10:29 Consult Physician Routine Consulting Provider: Modesto Avilez Consult Reason/Comments: lung cancer Do you want consulting provider notified?: Yes, Notify in am 12/07/21 11:04 Consult to Palliative Care Routine Consulting Provider: Berna Oates Consult Reason/Comments: Pain management, progressive metastatic lung cancer Do you want consulting provider notified?: Yes Primary care physician: Abdiel Ochoa Hospital Course: Diagnoses Acute hypoxic respiratory failure, on chronic failure right lower lobe consolidation and pleural effusion, related to her h/o lung cancer ,possible superimposed pneumonia Acute COPD exacerbation Stage IV lung cancer of the right lower lung on chemotherapy elevated troponin most likely secondary to hypoxia and renal injury, 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 Her health systems analyst is Dr. Grossman. Her oncologist is Dr. Guerra Patient currently on BiPAP and looks tired and she could not provide information was obtained from the family at bedside, 2 sons Patient presents with worsening dyspnea over 2 days associated with cough and clear to cloudy phlegm. Also patient has been complaining from pain in her right lower site where her lung cancer is. Also patient feels generally weak. Patient's was found to have right lower lobe consolidation and pleural effusion which is thought related to her history of right lower lobe lung cancer but pneumonia could not be excluded and patient was treated with Zosyn and IV Solu- Medrol at 60 mg for her suspected COPD exacerbation. However patient has advanced stage IV lung cancer. Patient palliative course of treatment is suggested for her about all medical team's and consults. Patient and son met with palliative care staff yesterday and could not sign for hospice but preferred to be DO NOT RESUSCITATE at continue To be Treated with plan for her to go home. However this morning patient without ptosis station as she was DO NOT RESUSCITATE per her wishes and son wishes. Physical exam prior to exploration Gen: patient is a awake, very tired and weak and in mild to moderate respiratory distress CVS: S1-S2, RRR, no murmur -Lungs: B/L CTA, no wheezing. Decreased breath sounds on the right lower lung. Tachypnea Abdomen: soft, no distention, no tenderness, positive bowel sounds Extremity: no leg edema or induration Time spent more than 35 minutes Patient Condition at Discharge: Serious Plan - Discharge Summary Discharge Rx Participant: No New Discharge Prescriptions: No Action Levothyroxine Sodium [Synthroid] 50 mcg PO DAILY Albuterol Sulfate [Ventolin HFA] 2 puff INHALATION RT-Q6H PRN PRN Reason: Shortness Of Breath Nitroglycerin Sl Tabs [Nitrostat] 0.4 mg SL Q5M PRN PRN Reason: Chest Pain dilTIAZem HCL [Cartia Xt] 300 mg PO DAILY ondansetron HCL [Zofran] 8 mg PO Q6H PRN PRN Reason: Nausea Folic Acid 1 mg PO DAILY Budesonide/Formoterol Fumarate [Symbicort 160-4.5 Mcg Inhaler] 2 puff INHALATION RT-BID Multivitamins, Thera [Multivitamin (formulary)] 1 tab PO DAILY Ergocalciferol [Vitamin D2 (1250 Mcg = 15665 Iu)] 1,250 mcg PO Q7D Pioglitazone [Actos] 15 mg PO DAILY Montelukast Sodium [Singulair] 10 mg PO HS Metoprolol Succinate (ER) [Toprol XL] 25 mg PO DAILY HYDROcodone/APAP 10-325MG [Mantua 10-325] 1 tab PO TID PRN PRN Reason: Pain Atorvastatin Calcium [Lipitor] 40 mg PO HS Lidocaine-Prilocaine Cream [Emla Cream 2.5%/2.5%] 1 applic TOPICAL DIRECT ED PRN PRN Reason: PORT ACCESS Loperamide [Imodium] 2 mg PO QID PRN #60 cap PRN Reason: Diarrhea Aspirin EC [Ecotrin Low Dose] 81 mg PO DAILY Diclofenac Sodium Gel [Voltaren Gel] 2 gm TOPICAL QID PRN PRN Reason: Pain Famotidine [Pepcid] 20 mg PO DAILY PRN PRN Reason: Heartburn Losartan [Cozaar] 25 mg PO DAILY Magnesium Oxide [Mag-Ox] 250 mg PO DAILY Diphenoxylate HCl/Atropine [Lomotil 2.5-0.025 mg Tablet] 1 tab PO TID PRN PRN Reason: Diarrhea Discharge Medication List Levothyroxine Sodium [Synthroid] 50 mcg PO DAILY 03/11/14 [History] Albuterol Sulfate [Ventolin HFA] 2 puff INHALATION RT-Q6H PRN 03/12/14 [History] Nitroglycerin Sl Tabs [Nitrostat] 0.4 mg SL Q5M PRN 06/25/15 [History] Atorvastatin Calcium [Lipitor] 40 mg PO HS 09/15/20 [History] HYDROcodone/APAP 10-325MG [Mantua 10-325] 1 tab PO TID PRN 09/15/20 [History] Metoprolol Succinate (ER) [Toprol XL] 25 mg PO DAILY 09/15/20 [History] Montelukast Sodium [Singulair] 10 mg PO HS 09/15/20 [History] Pioglitazone [Actos] 15 mg PO DAILY 09/15/20 [History] dilTIAZem HCL [Cartia Xt] 300 mg PO DAILY 09/15/20 [History] Folic Acid 1 mg PO DAILY 11/04/20 [History] Lidocaine-Prilocaine Cream [Emla Cream 2.5%/2.5%] 1 applic TOPICAL DIRECTED PRN 11/04/20 [History] ondansetron HCL [Zofran] 8 mg PO Q6H PRN 11/04/20 [History] Loperamide [Imodium] 2 mg PO QID PRN #60 cap 11/10/20 [Rx] Aspirin EC [Ecotrin Low Dose] 81 mg PO DAILY 07/18/21 [History] Budesonide/Formoterol Fumarate [Symbicort 160-4.5 Mcg Inhaler] 2 puff INHALATION RT-BID 07/18/21 [History] Diclofenac Sodium Gel [Voltaren Gel] 2 gm TOPICAL QID PRN 07/18/21 [History] Famotidine [Pepcid] 20 mg PO DAILY PRN 07/18/21 [History] Multivitamins, Thera [Multivitamin (formulary)] 1 tab PO DAILY 07/18/21 [Hi story] Diphenoxylate HCl/Atropine [Lomotil 2.5-0.025 mg Tablet] 1 tab PO TID PRN 12/06/21 [History] Ergocalciferol [Vitamin D2 (1250 Mcg = 88373 Iu)] 1,250 mcg PO Q7D 12/06/21 [History] Losartan [Cozaar] 25 mg PO DAILY 12/06/21 [History] Magnesium Oxide [Mag-Ox] 250 mg PO DAILY 12/06/21 [History] Follow up Appointment(s)/Referral(s): Abdiel Ochoa DO [Primary Care Provider] - 1-2 days Discharge Disposition: - Preliminary Cause of Preliminary Cause of : lung cancer
--- NOTE | 2021-12-15 13:52 | CDI ---
Documentation Clarification Form Date: 12/15/2021 01:14:53 PM From: Leigh Ann Cohn RN, CCDS Email: [email or web address] Admit Date: 12/06/2021 12:29:00 AM Patient Name: Lety Sellers Visit Number: [id number] Discharge Date: 12/09/2021 01:45:00 PM ATTENTION: The Clinical Documentation Specialists (CDI) and [facility] Coding Staff appreciate your assistance in clarifying documentation. Please respond to the clarification below the line at the bottom and electronically sign. The CDI & [facility] Coding staff will review the response and follow-up if needed. Please note: Queries are made part of the Legal Health Record. If you have any questions, please contact the author of this message via ITS. Dr. Mary Wade Your patient had hemoptysis, lung cancer, pneumonia, respiratory failure and . Based on this information and the findings below, is there an additional diagnosis that is clinically appropriate for this patient? Patient history/risk factors: COPD, diabetes mellitus, hyperlipidemia, hypertension, osteoarthritis, hypothyroidism, sickle cell trait, stage IV lung cancer, completed radiotherapy and chemotherapy, chronic hypoxic respiratory failure on 3 L oxygen via nasal cannula. Admitted for acute on chronic hypoxic respiratory failure, right lower lobe consolidation and pleural effusion related to her h/o lung cancer and possible superimposed pneumonia. Clinical Indicators: 12/08 Pulmonary: Reevaluated today on 12/09/19, patient was transferred to the ICU yesterday, mostly because of intermittent episodes of hemoptysis. 12/08 CXR: Dense opacity in the right lower lung zone obscure cardiovascular silhouette. This likely represents combination of pleural effusion and atelectasis/airspace disease. 12/09 Nursing Note @ 00:22: pt having continuous bright red blood coughed up and RTs concern for aspiration if bipap started. Pt is anxious despite dose of xanax so additional dose ordered. Sats 93% on 3L. 12/09 Nursing Note @02:20: Pt is increasingly restless and bleeding is ongoing. Treatment: ICU monitoring, supplemental oxygen, IV Solumedrol, Duoneb treatments, IV Zosyn, IV Ceftriaxone x1 Is there an additional diagnosis that is clinically appropriate for this patient? [ ] Pulmonary hemorrhage [ ] hemoptysis unknown source [ ] Other, please specify [ ] Unable to determine MTDD
--- NOTE | 2021-12-16 11:43 | CDI ---
Documentation Clarification Form Date: 12/15/2021 01:14:00 PM From: Leigh Ann Cohn RN, CCDS Email: [email or web address] Admit Date: 12/06/2021 12:29:00 AM Patient Name: Lety Sellers Visit Number: [id number] Discharge Date: 12/09/2021 01:45:00 PM ATTENTION: The Clinical Documentation Specialists (CDI) and [facility] Coding Staff appreciate your assistance in clarifying documentation. Please respond to the clarification below the line at the bottom and electronically sign. The CDI & [facility] Coding staff will review the response and follow-up if needed. Please note: Queries are made part of the Legal Health Record. If you have any questions, please contact the author of this message via ITS. Dr. Mary Wade Your patient had hemoptysis, lung cancer, pneumonia, respiratory failure and . Based on this information and the findings below, is there an additional diagnosis that is clinically appropriate for this patient? Thank you for signing the previous query. Please respond on the query form. Patient history/risk factors: COPD, diabetes mellitus, hyperlipidemia, hypertension, osteoarthritis, hypothyroidism, sickle cell trait, stage IV lung cancer, completed radiotherapy and chemotherapy, chronic hypoxic respiratory failure on 3 L oxygen via nasal cannula. Admitted for acute on chronic hypoxic respiratory failure, right lower lobe consolidation and pleural effusion related to her h/o lung cancer and possible superimposed pneumonia. Clinical Indicators: 12/08 Pulmonary: Reevaluated today on 12/09/19, patient was transferred to the ICU yesterday, mostly because of intermittent episodes of hemoptysis. 12/08 CXR: Dense opacity in the right lower lung zone obscure cardiovascular silhouette. This likely represents combination of pleural effusion and atelectasis/airspace disease. 12/09 Nursing Note @ 00:22: pt having continuous bright red blood coughed up and RTs concern for aspiration if bipap started. Pt is anxious despite dose of xanax so additional dose ordered. Sats 93% on 3L. 12/09 Nursing Note @02:20: Pt is increasingly restless and bleeding is ongoing. Treatment: ICU monitoring, supplemental oxygen, IV Solumedrol, Duoneb treatments, IV Zosyn, IV Ceftriaxone x1 Is there an additional diagnosis that is clinically appropriate for this patient? [ ] Pulmonary hemorrhage [ ] hemoptysis unknown source [ ] Other, please specify [ ] Unable to determine MTDD
== END 2021-12-09 13:45 | disposition expired | DRG 193 ==
LOC: EC 21:20 → 3SCARD 12-06 00:29 → 2SICU 12-08 04:14 → 5NMEDONC 12-08 21:15
PROVIDERS: ADMIT Internal Medicine; ATTEND Internal Medicine
PROC: 5A09457 Assistance with Respiratory Ventilation, 24-96 Consecutive Hours, Continuous Positive Airway Pressure (ICD-10-PCS; principal; 2021-12-06)
DX: J18.9 Pneumonia, unspecified organism (principal); I21.A1 Myocardial infarction type 2; J96.21 Acute and chronic respiratory failure with hypoxia; J96.22 Acute and chronic respiratory failure with hypercapnia; C79.89 Secondary malignant neoplasm of other specified sites; E87.2 Acidosis; J44.1 Chronic obstructive pulmonary disease with (acute) exacerbation; J44.0 Chronic obstructive pulmonary disease with (acute) lower respiratory infection; C34.11 Malignant neoplasm of upper lobe, right bronchus or lung; J98.11 Atelectasis; J91.0 Malignant pleural effusion; R04.2 Hemoptysis; E11.22 Type 2 diabetes mellitus with diabetic chronic kidney disease; N18.30 Chronic kidney disease, stage 3 unspecified; D57.3 Sickle-cell trait; Z66 Do not resuscitate; Z51.5 Encounter for palliative care; Z20.822 Contact with and (suspected) exposure to COVID-19; I12.9 Hypertensive chronic kidney disease with stage 1 through stage 4 chronic kidney disease, or unspecified chronic kidney disease; Z28.310 Unvaccinated for COVID-19; G89.3 Neoplasm related pain (acute) (chronic); E78.5 Hyperlipidemia, unspecified; E03.9 Hypothyroidism, unspecified; F32.A Depression, unspecified; I45.10 Unspecified right bundle-branch block; G47.00 Insomnia, unspecified; R26.2 Difficulty in walking, not elsewhere classified; F41.9 Anxiety disorder, unspecified; M19.90 Unspecified osteoarthritis, unspecified site; Z99.81 Dependence on supplemental oxygen; Z79.82 Long term (current) use of aspirin; Z79.51 Long term (current) use of inhaled steroids; Z79.890 Hormone replacement therapy; Z79.84 Long term (current) use of oral hypoglycemic drugs; Z79.899 Other long term (current) drug therapy; Z87.891 Personal history of nicotine dependence; Z92.3 Personal history of irradiation; Z63.5 Disruption of family by separation and divorce
CPT/HCPCS: 36415; 36600; 71045; 71275; 76604; 80048; 80053; 82310; 82805; 83036; 83605; 83735; 83880; 84145; 84484; 85025; 85610; 85730; 87502; 87635; 93005; 94640; 94660; 94760; 96365; 96366; 96375; 96376; 99291